=== PATIENT | male | born 1960 | race Hispanic/Latino ===

== ENCOUNTER 2017-07-11 19:37 | Inpatient (IN) | payer MEDICAID, OTHER ==
[2017-07-11] MEDS ORDERED: Propofol 10 mg/ml Inj (20 ML) IVP ONE (20:00)
[2017-07-11] MEDS ORDERED: Amiodarone 360 mg/D5W 200 ml 360 MG/200 ML BAG IV ONE (20:04)
[2017-07-11] MEDS ORDERED: Propofol 10 mg/ml 1,000 MG/100 ML VIAL IV PRN (20:11)
[2017-07-11 20:12] LABS: BASO # 0.02 K/mm3 (0.0-2.0); BASO % 0.1 % (0.0-3.0); EOS % 0.2 % (1.5-5.0); GRAN # 13.46 (1.4-6.5); GRAN % 84.4 % (50.0-68.0); HEMOGLOBIN 16.7 g/dL (14.0-18.0); MEAN CELL VOLUME 91.2 fl (80.0-105.0); MEAN CORPUSCULAR HEMOGLOBIN 29.2 pg (25.0-35.0); MEAN CORPUSCULAR HGB CONC 32.1 g/dl (31.0-37.0); MONO # 1.5 (0.1-0.6); MONO % 9.3 % (1.0-6.0); RBC 5.71 10^6/uL (3.5-6.1); VENOUS BLOOD GAS BASE EXCESS 2.8 mmol/L (0.0-2.0); VENOUS BLOOD GAS PO2 41 mm/Hg (30-55)
[2017-07-11 20:23] LABS: CALCIUM 8.8 mg/dL (8.4-10.5); GFR AFRICAN-AMERICAN > 60; GFR NON-AFRICAN AMERICAN > 60
[2017-07-11] MEDS ORDERED: DOPamine 400mg/250ml D5W 400 MG/250 ML BAG IV ONE (20:36)
[2017-07-11 20:38] LABS: ALB/GLOB RATIO 1.3 (1.1-1.8); ALBUMIN 4.1 g/dL (3.0-4.8); ALT/SGPT 109 U/L (7-56); AST/SGOT 122 U/L (17-59); BLOOD UREA NITROGEN 32 mg/dL (7-21); TROPONIN I 0.09 ng/mL
[2017-07-11 20:42] LABS: VENOUS BLOOD PH 7.19 (7.32-7.43)
[2017-07-11] MEDS ORDERED: levoFLOXacin 750 mg in D5W 750 MG/150 ML BAG IVPB STA (21:09)
[2017-07-11] MEDS ORDERED: Vancomycin 1gm in NS 250ml 1 GM/250 ML BAG IVPB STA (21:09)
--- NOTE | 2017-07-11 21:09 | ED PDOC ---
Arrival/HPI - General Chief Complaint: Altered Mental Status Time Seen by Provider: 07/11/17 19:39 Historian: EMS - History of Present Illness Narrative History of Present Illness (Text): 07/11/17 20:00 Brandon Sandoval Jr is a 57 year old male, unknown past medical history, who presents to the Emergency department brought in by EMS for altered mental status. EMS report patient was found at home lying on the floor prior to arrival. As per collateral information obtained by EMS, patient was last seen approximately 48 hours prior. HPI and ROS unobtainable secondary to patient's altered mental status. Symptom Onset: Sudden Symptom Course: Unchanged Severity Level: Severe Context: Home Past Medical History - Provider Review Nursing Documentation Reviewed: Yes - Infectious Disease Hx of Infectious Diseases: None - Psychiatric Hx Substance Use: No Family/Social History - Physician Review Nursing Documentation Reviewed: Yes Family/Social History: Unknown Family HX Smoking Status: Unknown If Ever Smoked Hx Alcohol Use: No Hx Substance Use: No Allergies/Home Meds Allergies/Adverse Reactions: Allergies amoxicillin Allergy (Verified 07/11/17 20:04) SWELLING Home Medications: Home Meds Medication Instructions Recorded Confirmed Unobtainable 07/11/17 07/11/17 Review of Systems - Review of Systems Systems not reviewed;Unavailable: Altered Mental Status Physical Exam Vital Signs Reviewed: Yes Vital Signs Temp Pulse Resp BP Pulse Ox 07/12/17 02:36 111/39 L 07/12/17 02:35 99.9 F H 07/12/17 02:28 85 20 93/53 L 100 07/12/17 01:11 82 20 86/52 L 100 07/12/17 00:15 83 20 79/57 L 100 07/11/17 23:30 82 20 88/64 L 100 07/11/17 23:15 82 20 77/51 L 100 07/11/17 23:02 83 22 124/52 L 100 07/11/17 22:01 78 17 108/51 L 100 07/11/17 21:18 78 17 90/63 L 100 07/11/17 21:00 102 H 32 H 165/56 H 91 L 07/11/17 20:35 99 H 19 135/92 H 100 07/11/17 20:06 110 H 17 131/82 100 07/11/17 20:04 124 H 21 148/72 79 L 07/11/17 20:00 110 H 79 L 07/11/17 19:59 38 L 07/11/17 19:40 93 H 32 H 135/82 84 L Blood Pressure: Normal Pulse: Tachycardic Respiratory Rate: Tachypneic Appearance: Positive for: Ill-Appearing Pain Distress: None Mental Status: Positive for: other (Awake, poorly responsive) Finger Stick Blood Glucose: 111 - Systems Exam Head: Present: Atraumatic, Normocephalic Pupils: Present: PERRL Extroacular Muscles: Present: EOMI Conjunctiva: Present: Normal Ears: Present: Normal, NORMAL TM, Normal Canal. No: Erythema, TM Bulging, Fluid , TM Perf Mouth: Present: Moist Mucous Membranes Pharnyx: Present: Normal. No: ERYTHEMA, EXUDATE, TONSILS ENLARGED, Peritonsilar Swelling, Uvular Deviation, Muffled/Hoarse Voice, Strider, Soft Palate/Uvular Edema Nose (External): Present: Atraumatic Nose (Internal): Present: Normal Inspection Neck: Present: Normal Range of Motion. No: Meningeal Signs, MIDLINE TENDERNESS , Paraspinal Tenderness Respiratory/Chest: Present: Rhonchi (Rhonchi bilaterally), Tachypneic. No: Clear to Auscultation Cardiovascular: Present: Normal S1, S2, Tachycardic. No: Murmurs Abdomen: Present: Normal Bowel Sounds. No: Tenderness (Soft), Distention, Peritoneal Signs Upper Extremity: Present: Normal Inspection. No: Cyanosis, Edema Lower Extremity: Present: Edema (Bilateral lower extremity edema), Other ( Ecchymotic bruising to right buttocks/leg) Neurological: Present: Other (Responsive to painful stimuli). No: Speech Normal (Poorly communicative) Skin: Present: Warm, Dry, Normal Color. No: Rashes Psychiatric: Present: Other (Awake, poorly responsive) Medical Decision Making ED Course and Treatment: 07/11/17 20:00 Impression: 57 year old male brought in for altered mental status, found on floor at home. Plan: -- CT Head w/o contrast -- CT Hip w/o contrast -- EKG -- CXR -- Labs, ABG, VBG, cardiac enzymes, BNP, ammonia level, blood cultures -- Urinalysis, urine cultures -- Reassess and disposition Progress Notes: On arrival to Emergency department, pt noted with progressively worsening respiratory distress, decision to intubate made. Pt intubated/ briefly went in to cardiac arrest. Pt was resuscitated immediately with normalization of vital signs Pt sedated with IV Propofol. Reviewed EKG, sinus rhythm at 97 bpm. PACs. LAD. Incomplete RBBB. PROCEDURE: INTUBATION Performed by the emergency provider Consent: Discussion of the risks, benefits, and alternatives to the procedure, along with informed consent was precluded by the urgency of the procedure and the patient condition. Timeout: A timeout to verify the correct patient, procedure, and site was performed. Indication: Respiratory distress. Pre-oxygenation: [id number] Medications: Propofol. See MAR for details. ETT Size: 8.0 Confirmation: Cords directly visualized as tube passed, good bilateral breath sounds, positive CO2 detector color change, tube fogging, adequate chest rise, improving pulse oximetry reading, improved skin color, and absence of gastric sounds,. ETT Secured: The cuff was inflated and the tube was secured appropriately at a distance of 25 cm at the lip. Post-Procedure: There were no immediate complications. CXR Confirmation: Yes Case was discussed with Dr. Leonard, tangible personal property appraiser, and medical insurance biller netsuite consultant, who are aware and agrees with plan. 07/11/17 20:20 Post-intubation chest X-ray reviewed, ET-tube above the sue, no acute changes. 07/11/17 21:06 Labs noted, WBC 16.0, lactate 3.9, pt tachycardic, Code Sepsis called. 07/11/17 21:[address] García, who is aware and agrees with plan. Accepts pt in to his service. Requests Dr. Atkinson, Dr. Bone, and Dr. Tsang on consult. Pt will be admitted to ICU for cardiopulmonary arrest and sepsis. 07/11/17 22:15 CT Head shows: Brain and ventricles: There is mild dilatation of ventricles.. There is no midline shift. There is patchy decreased attenuation in periventricular white matter. There are are mild atrophic changes in the cerebellum. There are no intra-axial or extra-axial mass lesions or areas of hemorrhage. There are no abnormal fluid collections. Thomas-white differentiation is not well visualized. Bones: Cranial vault is intact. Soft tissues: There is left preorbital soft tissue swelling and edema. There is left facial and nasal bruising and edema. There is frontal bruising and edema left greater than right. Sinuses: There is no acute sinusitis. There is mucoperiosteal thickening in the sinuses. Ears and mastoids: Middle ears and mastoids are unremarkable Orbits: Globes are intact. IMPRESSION: Dilated ventricles with small vessel disease, no bleed; facial edema and bruising. CT Left Lower Extremity shows: Bones/joints: Visualized portions of the left ilium is intact. Left ischium and pubis are intact. There is mild narrowing of the left hip joint. There is no left hip fracture. Artifact: There is streak artifact from a right hip prosthesis. Soft tissues: Muscles of the pelvic sidewall are unremarkable. Intraperitoneal space: No acute abnormality is seen in the visualized pelvis. Bladder: Bladder is empty. There is a Ag catheter. There is a small amount of air in the bladder. IMPRESSION: No fracture seen. CT Right Lower Extremity shows: Bones/joints: There is streak artifact from a right hip prosthesis. Prosthesis is incompletely imaged. No instrument failure is identified. Visualized portions of the right ilium is intact. Right ischium and pubis are intact. There is scarring and possible bruising at the right hip. Soft tissues: There are atrophic changes in muscles of the right pelvis. IMPRESSION: Right hip prosthesis, no instrument failure, no acute fracture . - Critical Care Critical Care Minutes: 45 minutes - Lab Interpretations Lab Results: 07/11/17 20:06 07/11/17 20:06 Lab Results 07/11/17 20:06: Procalcitonin 0.83 H 07/11/17 20:06: Hepatitis A IgM Ab Negative, Hep Bs Antigen Negative, Hep B Core IgM Ab Negative, Hepatitis C Antibody Negative 07/11/17 20:06: NT-Pro-B Natriuret Pep 3910 H 07/11/17 20:06: Ammonia 59 H 07/11/17 20:06: pO2 41, VBG pH 7.19 L*, VBG pCO2 89.0 H*, VBG HCO3 34.0 H, VBG Total CO2 36.7 H, VBG O2 Sat (Calc) 73.3 H, VBG Base Excess 2.8 H, VBG Potassium 8.1 H*, Sodium 137.0, Chloride 100.0, Glucose 112 H, Lactate 3.9 H, FiO2 21.0, Venous Blood Potassium 8.1 H* 07/11/17 20:06: Sodium 142, Chloride 95 L, Potassium 5.0, Carbon Dioxide 35 H, Anion Gap 18, BUN 32 H, Creatinine 1.0, Est GFR ( Amer) > 60, Est GFR ( Non-Af Amer) > 60, Random Glucose 108, Calcium 8.8, Total Bilirubin 1.6 H, AST 122 H, ALT 109 H, Alkaline Phosphatase 77, Lactate Dehydrogenase 1445 H, Total Creatine Kinase 182, Troponin I 0.09, Total Protein 7.3, Albumin 4.1, Globulin 3.3, Albumin/Globulin Ratio 1.3 07/11/17 20:06: PT 16.8 H, INR 1.46 H, APTT 26.4 07/11/17 20:06: WBC 16.0 H, RBC 5.71, Hgb 16.7, Hct 52.1 H, MCV 91.2, MCH 29.2, MCHC 32.1, RDW 16.0 H, Plt Count 417, MPV 10.0, Gran % 84.4 H, Lymph % (Auto) 6.0 L, Wolfe % (Auto) 9.3 H, Eos % (Auto) 0.2 L, Baso % (Auto) 0.1, Gran # 13.46 H, Lymph # (Auto) 1.0 L, Wolfe # (Auto) 1.5 H, Eos # (Auto) 0.0, Baso # (Auto) 0.02 I have reviewed the lab results: Yes - RAD Interpretation Radiology Orders: 07/11/17 20:04 CHEST PORTABLE [RAD] Stat 07/11/17 20:09 HEAD W/O CONTRAST [CT] Stat 07/11/17 20:47 CT HIP W/O CONTRAST BILATERAL [CT] Stat Hot Dipper: ED Physician, Radiologist - EKG Interpretation Interpreted by ED Physician: Yes Type: 12 lead EKG - Medication Orders Current Medication Orders: Aspirin (Aspirin) 325 mg PO DAILY MERI Last Admin: 07/12/17 10:08 Dose: 325 mg Clopidogrel Bisulfate (Plavix) 75 mg PO DAILY MERI Furosemide (Lasix) 20 mg IVP Q12 MERI Last Admin: 07/12/17 09:44 Dose: 20 mg MAR Blood Pressure Document 07/12/17 09:44 ALIPM (Rec: 07/12/17 09:44 ALIPM [facility] [id number] Blood Pressure Blood Pressure (100/60-150/90) 114/66 IVP Administration Document 07/12/17 09:44 ALIPM (Rec: 07/12/17 09:44 [facility] [place] Charges for Administration # of IVP Administrations 1 Propofol (Diprivan) 1,000 mg in 100 mls @ 4.114 mls/hr IV .Q24H PRN; Protocol; 5 MCG/KG/MIN PRN Reason: TITRATE PER MD ORDER Aztreonam (Azactam 1 Gm) 100 mls @ 100 mls/hr IVPB Q8 MERI PRN Reason: Protocol Stop: 07/19/17 09:01 Last Admin: 07/12/17 14:48 Dose: 100 mls/hr eMAR Start Stop Document 07/12/17 14:48 ALIPM (Rec: 07/12/17 14:49 [facility] [place] Intravenous Solution Start Date 07/12/17 Start Time 14:48 End Date 07/12/17 End time 15:48 Total Infusion Time 60 Doxycycline Hyclate 100 mg/ (Sodium Chloride) 100 mls @ 100 mls/hr IVPB Q12 MERI PRN Reason: Protocol Last Admin: 07/12/17 09:37 Dose: 100 mls/hr eMAR Start Stop Document 07/12/17 09:37 ALIPM (Rec: 07/12/17 09:38 [facility] Intravenous Solution Start Date 07/12/17 Start Time 10:50 End Date 07/12/17 End time 11:50 Total Infusion Time 60 Heparin Sodium/Sodium Chloride (Heparin 69666 Units/250ml 1/2 Normal Saline) 25 ,000 units in 250 mls @ 16.455 mls/hr IV .[id number] MERI; 12 UNITS/KG/HR PRN Reason: Protocol Last Admin: 07/12/17 07:50 Dose: 12 units/kg/hr, 16.455 mls/hr eMAR Start Stop Document 07/12/17 07:50 ALIPM (Rec: 07/12/17 12:29 [facility] Intravenous Solution Start Date 07/12/17 Start Time 07:50 MAR aPTT Document 07/12/17 07:50 ALIPM (Rec: 07/12/17 12:29 [facility] aPTT aPTT (secs) 70 Titration Intervention Document 07/12/17 07:50 ALIPM (Rec: 07/12/17 12:29 [facility] Titration Intake Waste Amount 0 Container Volume 250 Titration Dosing Titration Dose 12 IV Rate 16.455 Intake/Decrease Started Metoprolol Tartrate (Lopressor) 2.5 mg IVP Q6H [facility] Last Admin: 07/12/17 17:42 Dose: 2.5 mg IVP Administration Document 07/12/17 17:42 ALIPM (Rec: 07/12/17 17:43 [facility]) Charges for Administration # of IVP Administrations 1 [facility] Pulse and Blood Pressure Document 07/12/17 17:42 ALIPM (Rec: 07/12/17 17:43 [facility] Pulse Pulse Rate (60-90) 82 Blood Pressure Blood Pressure (100/60-150/90) 135/72 Pantoprazole Sodium (Protonix Inj) 40 mg IVP DAILY [facility] Last Admin: 07/12/17 09:37 Dose: 40 mg IVP Administration Document 07/12/17 09:37 ALIPM (Rec: 07/12/17 09:37 [facility]) Charges for Administration # of IVP Administrations 1 Discontinued Medications Clopidogrel Bisulfate (Plavix) 300 mg PO STAT STA Stop: 07/12/17 09:20 Last Admin: 07/12/17 10:08 Dose: 300 mg Enoxaparin Sodium (Lovenox) 40 mg SC DAILY [facility] PRN Reason: Protocol Furosemide (Lasix) 40 mg IVP STAT STA Stop: 07/12/17 01:08 Last Admin: 07/12/17 02:36 Dose: 40 mg MAR Blood Pressure Document 07/12/17 02:36 SS (Rec: 07/12/17 02:36 [facility] [place] [id number] Blood Pressure Blood Pressure (100/60-150/90) 111/39 IVP Administration Document 07/12/17 02:36 SS (Rec: 07/12/17 02:36 [facility] [id number] Charges for Administration # of IVP Administrations 1 Heparin Sodium (Porcine) (Heparin) 4,000 units IV ONCE ONE PRN Reason: Protocol Stop: 07/12/17 00:53 Last Admin: 07/12/17 02:15 Dose: 4,000 units eMAR Start Stop Document 07/12/17 02:15 SS (Rec: 07/12/17 02:15 [facility] [id number][facility] Intravenous Solution Start Date 07/12/17 Start Time 02:15 MAR aPTT Document 07/12/17 02:15 SS (Rec: 07/12/17 02:15 [facility] [id number][facility] aPTT aPTT (secs) 26.4 Propofol (Diprivan) 1,000 mg in 100 mls @ 2.722 mls/hr IV .Q24H PRN; Protocol; 5 MCG/KG/MIN PRN Reason: TITRATE PER MD ORDER Last Titration: 07/12/17 03:55 Dose: 7.5 mcg/kg/min, 4.082 mls/hr Mcdonald Agitation Sedation Document 07/12/17 03:55 QES (Rec: 07/12/17 06:49 QES [facility] [id number]) Mcdonald Agitation Sedation Scale Mcdonald Agitation Sedation Scale Score -2 Light Sedation: briefly awakens with eye contact to voice (<10 sec) Titration Intervention Document 07/12/17 03:55 QES (Rec: 07/12/17 06:49 QES [facility] [id number]) Titration Intake Titration Intake 8 Cumulative Intake 18 Cumulative Intake (Rx) 18 Waste Amount 0 Container Volume 82 Titration Dosing Titration Dose 7.5 IV Rate 4.082 Intake/Decrease Decreased Cumulative Dose 180 Levofloxacin/Dextrose (Levaquin 750mg) 750 mg in 150 mls @ 100 mls/hr IVPB STAT STA PRN Reason: Protocol Stop: 07/11/17 22:38 Last Admin: 07/11/17 21:37 Dose: 100 mls/hr eMAR Start Stop Document 07/11/17 21:37 SS (Rec: 07/11/17 21:37 [facility] [id number]) Intravenous Solution Start Date 07/11/17 Start Time 21:20 End Date 07/11/17 End time 22:50 Total Infusion Time 90 Vancomycin HCl (Vancomycin 1gm) 1 gm in 250 mls @ 167 mls/hr IVPB STAT STA PRN Reason: Protocol Stop: 07/11/17 22:38 Last Admin: 07/11/17 23:55 Dose: 167 mls/hr eMAR Start Stop Document 07/11/17 23:55 SS (Rec: 07/11/17 23:56 [facility] [id number][facility] Intravenous Solution Start Date 07/11/17 Start Time 23:55 End Date 07/12/17 End time 00:55 Total Infusion Time 60 Sodium Chloride (Sodium Chloride 0.9%) 1,000 mls @ 2,000 mls/hr IV .Q30M ONE Stop: 07/11/17 22:14 Last Admin: 07/11/17 23:35 Dose: 2,000 mls/hr eMAR Start Stop Document 07/11/17 23:35 SS (Rec: 07/11/17 23:36 SS [facility] [id number] Intravenous Solution Start Date 07/11/17 Start Time 21:45 End Date 07/11/17 End time 22:15 Total Infusion Time 30 Sodium Chloride (Sodium Chloride 0.9%) 1,000 mls @ 60 mls/hr IV .[id number] MERI Last Admin: 07/11/17 23:56 Dose: 60 mls/hr eMAR Start Stop Document 07/11/17 23:56 SS (Rec: 07/11/17 23:56 SS [facility] [id number]) Intravenous Solution Start Date 07/11/17 Start Time 23:56 Heparin Sodium/Sodium Chloride (Heparin 97761 Units/250ml 1/2 Normal Saline) 25 ,000 units in 250 mls @ 10.886 mls/hr IV .[id number] MERI; 12 UNITS/KG/HR PRN Reason: Protocol Stop: 07/12/17 07:50 Last Admin: 07/12/17 02:16 Dose: 12 units/kg/hr, 10.886 mls/hr eMAR Start Stop Document 07/12/17 02:16 SS (Rec: 07/12/17 02:16 SS [facility] [id number][facility] Intravenous Solution Start Date 07/12/17 Start Time 02:16 MAR aPTT Document 07/12/17 02:16 SS (Rec: 07/12/17 02:16 SS [facility] [id number]) aPTT aPTT (secs) 26.4 Titration Intervention Document 07/12/17 02:16 SS (Rec: 07/12/17 02:16 SS [facility] [id number]) Titration Intake Waste Amount 0 Container Volume 250 Titration Dosing Titration Dose 12 IV Rate 10.886 Intake/Decrease Started Lactulose (Enulose) 20 gm PO ONCE STA Stop: 07/11/17 22:00 Last Admin: 07/12/17 01:12 Dose: 20 gm Pneumococcal Polyvalent Vaccine (Pneumovax 23 Vaccine) 0.5 ml IM .ONCE ONE Stop: 07/12/17 05:53 Propofol (Diprivan) 50 mg IVP ONCE ONE Stop: 07/11/17 20:01 Last Admin: 07/11/17 20:01 Dose: 50 mg Comments: given by IVP Administration Document 07/11/17 20:01 SS (Rec: 07/11/17 23:34 SS [facility] [id number]) Charges for Administration # of IVP Administrations 1 - Scribe Statement The provider has reviewed the documentation as recorded by the Dawson Carlton Provider Scribe Attestation: All medical record entries made by the Scribe were at my direction and personally dictated by me. I have reviewed the chart and agree that the record accurately reflects my personal performance of the history, physical exam, medical decision making, and the department course for this patient. I have also personally directed, reviewed, and agree with the discharge instructions and disposition. Disposition/Present on Arrival - Present on Arrival Any Indicators Present on Arrival: No History of DVT/PE: No History of Uncontrolled Diabetes: No Urinary Catheter: No History of Decub. Ulcer: No History Surgical Site Infection Following: None - Disposition Have Diagnosis and Disposition been Completed?: Yes Diagnosis: Cardiopulmonary arrest with successful resuscitation, Sepsis Disposition: HOSPITALIZED Disposition Time: 21:15 Patient Plan: Admission Patient Problems: Current Active Problems Problem Status Onset Cardiopulmonary arrest with successful resuscitation Acute Sepsis Acute Condition: GUARDED
[2017-07-11 21:27] LABS: INR 1.46 (0.93-1.08); PARTIAL THROMBOPLASTIN TIME 26.4 Seconds (25.1-36.5); PROTHROMBIN TIME 16.8 SECONDS (9.4-12.5)
[2017-07-11] MEDS ORDERED: Sodium Chloride 0.9% 1,000 ML IV ONE (21:45)
--- NOTE | 2017-07-11 22:03 | CT ---
EXAM: CT Head Without Intravenous Contrast EXAM DATE/TIME: 07/11/2017 8:09 PM CLINICAL HISTORY: 57 years old, male; Signs and symptoms; Coma or unconsciousness; Additional info: AMS; intubated patient TECHNIQUE: Axial computed tomography images of the head/brain without intravenous contrast. All CT scans at this facility use one or more dose reduction techniques, viz.: automated exposure control; ma/kV adjustment per patient size (including targeted exams where dose is matched to indication; i.e. head); or iterative reconstruction technique. Coronal and sagittal reformatted images were created and reviewed. COMPARISON: There are no prior studies for comparison. FINDINGS: Brain and ventricles: There is mild dilatation of ventricles.. There is no midline shift. There is patchy decreased attenuation in periventricular white matter. There are are mild atrophic changes in the cerebellum. There are no intra-axial or extra-axial mass lesions or areas of hemorrhage. There are no abnormal fluid collections. Thomas-white differentiation is not well visualized. Bones: Cranial vault is intact. Soft tissues: There is left preorbital soft tissue swelling and edema. There is left facial and nasal bruising and edema. There is frontal bruising and edema left greater than right. Sinuses: There is no acute sinusitis. There is mucoperiosteal thickening in the sinuses. Ears and mastoids: Middle ears and mastoids are unremarkable Orbits: Globes are intact. IMPRESSION: Dilated ventricles with small vessel disease, no bleed; facial edema and bruising
--- NOTE | 2017-07-11 22:10 | CT ---
EXAM: CT Left Lower Extremity Without Intravenous Contrast, Hip CLINICAL HISTORY: 57 years old, male; Injury or trauma; Fall; Initial encounter; Blunt trauma; Hip; Bilateral; Additional info: Possible FX. TECHNIQUE: Axial computed tomography images of the left hip without intravenous contrast. All CT scans at this facility use one or more dose reduction techniques, viz.: automated exposure control; ma/kV adjustment per patient size (including targeted exams where dose is matched to indication; i.e. head); or iterative reconstruction technique. Coronal and sagittal reformatted images were created and reviewed. COMPARISON: There are no prior studies for comparison. FINDINGS: Bones/joints: Visualized portions of the left ilium is intact. Left ischium and pubis are intact. There is mild narrowing of the left hip joint. There is no left hip fracture. Artifact: There is streak artifact from a right hip prosthesis. Soft tissues: Muscles of the pelvic sidewall are unremarkable. Intraperitoneal space: No acute abnormality is seen in the visualized pelvis. Bladder: Bladder is empty. There is a Ag catheter. There is a small amount of air in the bladder. IMPRESSION: No fracture seen EXAM: CT Right Lower Extremity Without Intravenous Contrast, Hip EXAM DATE/TIME: 07/11/2017 8:47 PM CLINICAL HISTORY: 57 years old, male; Injury or trauma; Fall; Initial encounter; Blunt trauma; Hip; Bilateral; Additional info: Possible FX. TECHNIQUE: Axial computed tomography images of the right hip without intravenous contrast. All CT scans at this facility use one or more dose reduction techniques, viz.: automated exposure control; ma/kV adjustment per patient size (including targeted exams where dose is matched to indication; i.e. head); or iterative reconstruction technique. Coronal and sagittal reformatted images were created and reviewed. COMPARISON: There are no prior studies for comparison. FINDINGS: Bones/joints: There is streak artifact from a right hip prosthesis. Prosthesis is incompletely imaged. No instrument failure is identified. Visualized portions of the right ilium is intact. Right ischium and pubis are intact. There is scarring and possible bruising at the right hip. Soft tissues: There are atrophic changes in muscles of the right pelvis. IMPRESSION: Right hip prosthesis, no instrument failure, no acute fracture
[2017-07-11 22:12] LABS: ARTERIAL BLOOD GAS HCO3 32.4 mmol/L (21-28); ARTERIAL BLOOD GAS O2 SAT 95.8 % (95-98); ARTERIAL BLOOD GAS PCO2 69 mm/Hg (35-45); ARTERIAL BLOOD GAS PH 7.28 (7.35-7.45); ARTERIAL BLOOD GAS TCO2 34.5 mmol.L (22-28)
[2017-07-11] MEDS ORDERED: Sodium Chloride 0.9% 1,000 ML IV SCH (23:00)
[2017-07-11 23:01] LABS: PH,URINE 6.5 (4.7-8.0); URINE APPEARANCE CLOUDY (CLEAR); URINE BILIRUBIN SMALL (NEGATIVE); URINE BLOOD LARGE (NEGATIVE); URINE GLUCOSE (UA) NEGATIVE (NEGATIVE); URINE LEUKOCYTE ESTERASE NEGATIVE Leu/uL (NEGATIVE); URINE PROTEIN >=300 mg/dL (<30 mg/dL)
[2017-07-11 23:03] LABS: URINE RBC TNTC /hpf (0-2)
[2017-07-12 00:31] LABS: VENOUS BLOOD GAS BASE EXCESS 7.6 mmol/L (0.0-2.0); VENOUS BLOOD GAS PO2 41 mm/Hg (30-55); VENOUS BLOOD PH 7.25 (7.32-7.43)
[2017-07-12 00:51] LABS: TROPONIN I 0.27 ng/mL
[2017-07-12] MEDS ORDERED: Heparin25000 units/250ml 1/2NS 25,000 UNITS/250 ML BAG IV SCH (01:00)
[2017-07-12 01:50] LABS: BARBITURATES, UR NEGATIVE (NEGATIVE); BENZODIAZEPINES, UR NEGATIVE (NEGATIVE); OPIATES, UR NEGATIVE (NEGATIVE); PHENCYCLIDINE, UR NEGATIVE (NEGATIVE)
--- NOTE | 2017-07-12 02:46 | US ---
EXAM: US Abdomen Complete EXAM DATE/TIME: 07/11/2017 10:02 PM CLINICAL HISTORY: The patient age is 57 years old and is male; Pain; Abdominal pain; Generalized; Additional info: Transaminitis Facility exam id and description: Us abd abdomen complete TECHNIQUE: Real-time ultrasound of the abdomen (complete) with image documentation. COMPARISON: No relevant prior studies available. FINDINGS: Liver: The liver measures 17.5 cm in length. The liver is heterogeneously increased in echogenicity, most commonly due to fatty infiltration, but other chronic liver diseases may have a similar appearance. Gallbladder: Isoechoic sludge is identified within the gallbladder. No shadowing gallstones are visualized. There is borderline gallbladder wall thickening. Common bile duct: The common bile duct measures 0.5 cm in diameter, which is within normal limits. Pancreas: The pancreas is not visualized due to bowel gas. Kidneys: At the midpole the right kidney, there is a hypoechoic cyst measuring 3.6 x 4.6 x 4.2 cm. The right kidney measures 10.7 x 7.3 x 7.6 cm. There is no hydronephrosis of the right kidney. The left kidney measures 10.2 x 6.7 x 6.9 cm, without hydronephrosis. No shadowing stones. Spleen: The spleen is not visualized. Aorta: The abdominal aorta is not imaged. Inferior vena cava: The IVC is visualized, although the evaluation is significantly limited. IMPRESSION: 1. Isoechoic sludge is identified within the gallbladder. No shadowing gallstones are visualized. There is borderline gallbladder wall thickening. Clinical correlation is recommended. 2. At the midpole the right kidney, there is a hypoechoic cyst measuring 3.6 x 4.6 x 4.2 cm. 3. The liver is heterogeneously increased in echogenicity, most commonly due to fatty infiltration, but other chronic liver diseases may have a similar appearance. 4. Additional findings described above.
--- NOTE | 2017-07-12 03:12 | CP.PCM.HP ---
<Malcolm Johnston - Last Filed: 07/12/17 03:02> History of Present Illness - History of Present Illness History of Present Illness: Medicine/ICU H&P: Dr. Leonard Chief Complaint: AMS HPI: 57 year old male with past medical history pertinent for hypertension presents altered and non-responsive to the ED. Family at bedside, two sisters and their husbands report that patient was found by one of the sisters facedown in his kitchen. He lives on the second story of a two family home that his sister and [id number] also occupy. They state that the last time they spoke to him was Monday night (two days ago) but only on the phone, at which time he did not seem depressed nor did he say anything out of the ordinary. When they found him , he still had a pulse and he was breathing. Of note, patient underwent cardiac arrest in the ED - one round of Epi and brief compressions were given, but patient achieved ROSC almost immediately. Patient was intubated 2/2 respiratory arrest. Review of Systems: 12 point ROS unobtainable 2/2 patient's mental status Surgical History: R hip replacement Medical History: Hypertension Allergies: Amoxicillin Social History: Per patient's family no alcohol, no illicits, no tobacco Home Meds: Per MAR, reviewed Family History: Diabetes, AMI PMD: Dr. Swain and Dr. Low Present on Admission - Present on Admission Any Indicators Present on Admission: No Past Patient History - Infectious Disease Hx of Infectious Diseases: None - Past Social History Smoking Status: Unknown If Ever Smoked - PSYCHIATRIC Hx Substance Use: No Meds Allergies/Adverse Reactions: Allergies Allergy/AdvReac Type Severity Reaction Status Date / Time amoxicillin Allergy SWELLING Verified 07/11/17 20:04 Physical Exam - Constitutional Appears: In Acute Distress Additional comments: Patient is non-verbal - Head Exam Head Exam: ATRAUMATIC, NORMAL INSPECTION, NORMOCEPHALIC - Eye Exam Eye Exam: EOMI, Normal appearance, PERRL Pupil Exam: NORMAL ACCOMODATION, PERRL - ENT Exam ENT Exam: Mucous Membranes Moist, Normal Exam - Neck Exam Neck exam: Positive for: Normal Inspection - Respiratory Exam Respiratory Exam: Decreased Breath Sounds, Rales. absent: Clear to Auscultation Bilateral, Rhonchi, Wheezes, NORMAL BREATHING PATTERN Additional comments: Patient intubated - Cardiovascular Exam Cardiovascular Exam: REGULAR RHYTHM - GI/Abdominal Exam GI & Abdominal Exam: Normal Bowel Sounds, Soft. absent: Tenderness - Extremities Exam Extremities exam: Positive for: normal inspection, pedal edema Additional comments: bilateral 2+ pitting edema - Back Exam Back exam: NORMAL INSPECTION - Neurological Exam Neurological exam: Alert, CN II-XII Intact, Reflexes Normal Additional comments: Responds to painful stimuli; does not follow commands - Psychiatric Exam Psychiatric exam: Normal Affect, Normal Mood - Skin Skin Exam: Dry, Intact, Normal Color, Warm Results - Vital Signs Recent Vital Signs: Last Vital Signs Temp Pulse Resp BP 111/39 L 07/12/17 02:36 Pulse Ox - Labs Result Diagrams: 07/11/17 20:06 07/12/17 00:01 Labs: Laboratory Results - last 24 hr 07/11/17 07/11/17 07/11/17 22:09 22:22 22:48 pCO2 69 H pO2 77.0 L HCO3 32.4 H ABG pH 7.28 L ABG Total CO2 34.5 H ABG O2 Saturation 95.8 ABG Base Excess 3.5 H ABG Potassium 3.8 VBG pH VBG pCO2 VBG HCO3 VBG Total CO2 VBG O2 Sat (Calc) VBG Base Excess VBG Potassium Sodium 141.0 Chloride 106.0 Glucose 100 Lactate 1.5 Mechanical Rate 16 FiO2 100.0 Tidal Volume 500 PEEP 5 Potassium Lactate Dehydrogenase Total Creatine Kinase Troponin I Arterial Blood Potassium 3.8 Venous Blood Potassium Urine Color hilario Urine Appearance Cloudy Urine pH 6.5 Ur Specific [place] >= 1.030 Urine Protein >=300 H Urine Glucose (UA) Negative Urine Ketones 15 H Urine Blood Large H Urine Nitrate Positive H Urine Bilirubin Small H Urine Urobilinogen 1.0 H Ur Leukocyte Esterase Negative Urine RBC Tntc Urine WBC 5 - 10 Ur Epithelial Cells 1 - 3 Urine Opiates Screen Negative Urine Methadone Screen Negative Ur Barbiturates Screen Negative Ur Phencyclidine Scrn Negative Ur Amphetamines Screen Negative U Benzodiazepines Scrn Negative U Oth Cocaine Metabols Negative U Cannabinoids Screen Negative 07/11/17 07/12/17 23:53 00:01 pCO2 pO2 41 HCO3 ABG pH ABG Total CO2 ABG O2 Saturation ABG Base Excess ABG Potassium VBG pH 7.25 L VBG pCO2 87.0 H* VBG HCO3 38.2 H VBG Total CO2 40.9 H VBG O2 Sat (Calc) 71.2 H VBG Base Excess 7.6 H VBG Potassium 4.6 Sodium 140.0 Chloride 103.0 Glucose 95 Lactate 2.1 Mechanical Rate FiO2 21.0 Tidal Volume PEEP Potassium 4.5 Lactate Dehydrogenase 971 H Total Creatine Kinase 139 Troponin I 0.27 H* D Arterial Blood Potassium Venous Blood Potassium 4.6 Urine Color Urine Appearance Urine pH Ur Specific [place] Urine Protein Urine Glucose (UA) Urine Ketones Urine Blood Urine Nitrate Urine Bilirubin Urine Urobilinogen Ur Leukocyte Esterase Urine RBC Urine WBC Ur Epithelial Cells Urine Opiates Screen Urine Methadone Screen Ur Barbiturates Screen Ur Phencyclidine Scrn Ur Amphetamines Screen U Benzodiazepines Scrn U Oth Cocaine Metabols U Cannabinoids Screen Assessment & Plan - Assessment and Plan (Free Text) Assessment: 57 year old male with past medical history pertinent for hypertension is presenting with altered mental status. Head CT in the ED was negative for acute stroke. Patient was found to have elevated troponins with elevated BNP and a chest XR indicative of severe congestion with blunted costophrenic angles( as interpreted by myself). Patient was given a stat dose of lasix by me to decrease cardiac demand. Patient also found to have a transaminitis. Patient also had bilateral lower extremity swelling with rales on exam. Patient also had a white count of 16, tachycardia, and lactate of 3.9 on admission, but no clear source of infection. Regardless, a code sepsis was called in the ED. This seems like more of a picture of hypoperfusion secondary to cardiac ischemic demand, but broad spectrum coverage was initiated in the ED. Plan Neuro: Altered Mental Status, possibly 2/2 Arrhythmia VS Ischemic Cardiac Demand VS Neurological origin - Neuro checks q4h - One dose of lactulose - Propofol drip - Neurology consult: Dr. Bermudez CV: NSTEMI VS Cardiac Demand - Maintain MAP > 65 - Serial troponins and EKG - Heparin bolus and drip; Lasix q12 - Cardiology Consult: Dr. Atkinson Pulm: - Patient currently intubated - Maintain SPO2 > 90 % - 2L NC prn - Pulm Consult: Dr. Yee GI: - Alcohol Level, Hepatitis panel - OG Tube - NPO, Protonix, Lactulose Renal: - Monitor electrolytes and renal function ID: - F/u Septic work up - thomas cultures - Procalcitonin; ABG for AM - Hold fluids given patient's BNP and CXR - Continue Vanc/Levaquin (allergy to amoxicillin) - ID Consult: Dr. Tsang Endo: - TSH - Maintain glucose at 140 -160 Dispo: At this time, patient needs ICU level of care. We will follow closely. <Hawk Leonard - Last Filed: 07/12/17 04:45> Results - Vital Signs Recent Vital Signs: Last Vital Signs Temp 99.9 F H 07/12/17 02:35 Pulse 85 07/12/17 02:28 Resp 20 07/12/17 02:28 BP 111/39 L 07/12/17 02:36 Pulse Ox 100 07/12/17 02:28 - Labs Result Diagrams: 07/12/17 04:10 07/12/17 00:01 Labs: Laboratory Results - last 24 hr 07/11/17 07/11/17 07/11/17 22:09 22:22 22:48 WBC RBC Hgb Hct MCV MCH MCHC RDW Plt Count MPV Gran % Lymph % (Auto) [place] % (Auto) Eos % (Auto) Baso % (Auto) Gran # Lymph # (Auto) [place] # (Auto) Eos # (Auto) Baso # (Auto) APTT pCO2 69 H pO2 77.0 L HCO3 32.4 H ABG pH 7.28 L ABG Total CO2 34.5 H ABG O2 Saturation 95.8 ABG Base Excess 3.5 H ABG Potassium 3.8 VBG pH VBG pCO2 VBG HCO3 VBG Total CO2 VBG O2 Sat (Calc) VBG Base Excess VBG Potassium Sodium 141.0 Chloride 106.0 Glucose 100 Lactate 1.5 Mechanical Rate 16 FiO2 100.0 Tidal Volume 500 PEEP 5 Potassium Lactate Dehydrogenase Total Creatine Kinase Troponin I Arterial Blood Potassium 3.8 Venous Blood Potassium Urine Color hilario Urine Appearance Cloudy Urine pH 6.5 Ur Specific [place] >= 1.030 Urine Protein >=300 H Urine Glucose (UA) Negative Urine Ketones 15 H Urine Blood Large H Urine Nitrate Positive H Urine Bilirubin Small H Urine Urobilinogen 1.0 H Ur Leukocyte Esterase Negative Urine RBC Tntc Urine WBC 5 - 10 Ur Epithelial Cells 1 - 3 Urine Opiates Screen Negative Urine Methadone Screen Negative Ur Barbiturates Screen Negative Ur Phencyclidine Scrn Negative Ur Amphetamines Screen Negative U Benzodiazepines Scrn Negative U Oth Cocaine Metabols Negative U Cannabinoids Screen Negative Alcohol, Quantitative 07/11/17 07/12/17 07/12/17 23:53 00:01 04:10 WBC 14.2 H RBC 4.76 Hgb 13.5 L D Hct 42.0 MCV 88.2 D MCH 28.4 MCHC 32.1 RDW 15.8 H Plt Count 290 MPV 9.4 Gran % 82.5 H Lymph % (Auto) 7.5 L [place] % (Auto) 9.6 H Eos % (Auto) 0.4 L Baso % (Auto) 0.0 Gran # 11.73 H Lymph # (Auto) 1.1 L [place] # (Auto) 1.4 H Eos # (Auto) 0.1 Baso # (Auto) 0.00 APTT pCO2 pO2 41 HCO3 ABG pH ABG Total CO2 ABG O2 Saturation ABG Base Excess ABG Potassium VBG pH 7.25 L VBG pCO2 87.0 H* VBG HCO3 38.2 H VBG Total CO2 40.9 H VBG O2 Sat (Calc) 71.2 H VBG Base Excess 7.6 H VBG Potassium 4.6 Sodium 140.0 Chloride 103.0 Glucose 95 Lactate 2.1 Mechanical Rate FiO2 21.0 Tidal Volume PEEP Potassium 4.5 Lactate Dehydrogenase 971 H Total Creatine Kinase 139 Troponin I 0.27 H* D Arterial Blood Potassium Venous Blood Potassium 4.6 Urine Color Urine Appearance Urine pH Ur Specific [place] Urine Protein Urine Glucose (UA) Urine Ketones Urine Blood Urine Nitrate Urine Bilirubin Urine Urobilinogen Ur Leukocyte Esterase Urine RBC Urine WBC Ur Epithelial Cells Urine Opiates Screen Urine Methadone Screen Ur Barbiturates Screen Ur Phencyclidine Scrn Ur Amphetamines Screen U Benzodiazepines Scrn U Oth Cocaine Metabols U Cannabinoids Screen Alcohol, Quantitative 07/12/17 07/12/17 04:10 04:10 WBC RBC Hgb Hct MCV MCH MCHC RDW Plt Count MPV Gran % Lymph % (Auto) [place] % (Auto) Eos % (Auto) Baso % (Auto) Gran # Lymph # (Auto) [place] # (Auto) Eos # (Auto) Baso # (Auto) APTT 66.5 H pCO2 pO2 HCO3 ABG pH ABG Total CO2 ABG O2 Saturation ABG Base Excess ABG Potassium VBG pH VBG pCO2 VBG HCO3 VBG Total CO2 VBG O2 Sat (Calc) VBG Base Excess VBG Potassium Sodium Chloride Glucose Lactate Mechanical Rate FiO2 Tidal Volume PEEP Potassium Lactate Dehydrogenase Total Creatine Kinase Troponin I Arterial Blood Potassium Venous Blood Potassium Urine Color Urine Appearance Urine pH Ur Specific [place] Urine Protein Urine Glucose (UA) Urine Ketones Urine Blood Urine Nitrate Urine Bilirubin Urine Urobilinogen Ur Leukocyte Esterase Urine RBC Urine WBC Ur Epithelial Cells Urine Opiates Screen Urine Methadone Screen Ur Barbiturates Screen Ur Phencyclidine Scrn Ur Amphetamines Screen U Benzodiazepines Scrn U Oth Cocaine Metabols U Cannabinoids Screen Alcohol, Quantitative < 10 Attending/Attestation - Attestation I have personally seen and examined this patient.: Yes I have fully participated in the care of the patient.: Yes I have reviewed all pertinent clinical information: Yes Notes (Text): 07/12/17 04:44 Patient was seen when he was in bed # 3 in the ER . Medical record was reviewed. Agree with history, physical examination, assessment and plan. CCT Spent: 30 minutes.
[2017-07-12 04:19] LABS: EOS # 0.1 (0.0-0.7); EOS % 0.4 % (1.5-5.0); GRAN # 11.73 (1.4-6.5); GRAN % 82.5 % (50.0-68.0); LYMPH # 1.1 (1.2-3.4); LYMPH % 7.5 % (22.0-35.0); MEAN CORPUSCULAR HEMOGLOBIN 28.4 pg (25.0-35.0); MEAN CORPUSCULAR HGB CONC 32.1 g/dl (31.0-37.0); MEAN PLATELET VOLUME 9.4 fl (7.0-11.0); MONO # 1.4 (0.1-0.6); MONO % 9.6 % (1.0-6.0); RBC 4.76 10^6/uL (3.5-6.1); RED CELL DISTRIBUTION WIDTH 15.8 % (11.5-14.5); WHITE BLOOD COUNT 14.2 10^3/ul (4.5-11.0)
[2017-07-12 04:34] LABS: HEMOGLOBIN 13.5 g/dL (14.0-18.0); MEAN CELL VOLUME 88.2 fl (80.0-105.0)
[2017-07-12 04:44] LABS: ALB/GLOB RATIO 1.2 (1.1-1.8); ALBUMIN 2.8 g/dL (3.0-4.8); ALT/SGPT 105 U/L (7-56); AST/SGOT 107 U/L (17-59); BLOOD UREA NITROGEN 38 mg/dL (7-21); CALCIUM 7.9 mg/dL (8.4-10.5); GFR AFRICAN-AMERICAN > 60; GFR NON-AFRICAN AMERICAN > 60
--- NOTE | 2017-07-12 05:16 | PCM.SEPTIC ---
Sepsis Progress Note - Reassessment Type Date of Evaluation: 07/12/17 Time of Evaluation: 06:00 Reassessment Type: Non-invasive reassessment - Non Invasive Reassessment Were the most recent vital sign reviewed: Yes Vital Sign (Latest): Temp Pulse Resp BP Pulse Ox 98.5 F 81 28 H 103/60 98 07/12/17 03:46 07/12/17 04:50 07/12/17 03:46 07/12/17 04:45 07/12/17 05:02 Cardiovascular: Yes: Regular Rate, Rhythm Respiratory: Yes: Rales Capillary Refill: Normal (Less than 2 sec) Pulses: Normal Radial, Normal Dorsalis Pedis, Normal Posterior Tibialis Skin: Normal Color <Malcolm Johnston - Last Filed: 07/12/17 06:15> - Non Invasive Reassessment Vital Sign (Latest): Temp Pulse Resp BP Pulse Ox 98.5 F 82 28 H 100/57 L 99 07/12/17 03:46 07/12/17 06:20 07/12/17 03:46 07/12/17 06:15 07/12/17 06:20 <Hawk Leonard - Last Filed: 07/12/17 06:52> Attending/Attestation - Attestation I have personally seen and examined this patient.: Yes I have fully participated in the care of the patient.: Yes I have reviewed all pertinent clinical information, including history, physical exam and plan: Yes <Hawk Leonard - Last Filed: 07/12/17 06:52>
[2017-07-12 05:52] VITALS: BMI 44.6
[2017-07-12] MEDS ORDERED: Pneumococcal 23-Valent Vaccine IM ONE (05:52)
[2017-07-12] MEDS ORDERED: Pantoprazole 40 mg EC Tab PO SCH (06:00)
[2017-07-12 06:02] LABS: ARTERIAL BLOOD GAS HCO3 32.5 mmol/L (21-28); ARTERIAL BLOOD GAS O2 SAT 99.5 % (95-98); ARTERIAL BLOOD GAS PCO2 49 mm/Hg (35-45); ARTERIAL BLOOD GAS PH 7.43 (7.35-7.45)
[2017-07-12 06:14] LABS: CK MB% 3.9 % (2.5-3.0)
[2017-07-12] MEDS ORDERED: Propofol 10 mg/ml 1,000 MG/100 ML VIAL IV PRN (06:52)
[2017-07-12] MEDS: Heparin25000 units/250ml 1/2NS 25,000 UNITS/250 ML BAG IV SCH (07:50)
--- NOTE | 2017-07-12 08:57 | RAD ---
HISTORY: CHEST PAIN COMPARISON: No prior. FINDINGS: LUNGS: Low lung volumes, basilar atelectasis. PLEURA: No significant pleural effusion identified, no pneumothorax apparent. CARDIOVASCULAR: Cardiomegaly. OSSEOUS STRUCTURES: No significant abnormalities. VISUALIZED UPPER ABDOMEN: Normal. OTHER FINDINGS: Satisfactory position of endotracheal tube and nasogastric tube. IMPRESSION: No active disease.
--- NOTE | 2017-07-12 09:35 | US ---
HISTORY: Leg pain and swelling. Evaluate for DVT PHYSICIAN(S): Yang Swain MD. TECHNIQUE: Duplex sonography and color-flow Doppler with graded compression were used to evaluate the deep venous systems of both lower extremities. The exam is limited by body habitus and the patient's recent intubation. The tibial veins are not well seen FINDINGS: The visualized deep venous systems of both lower extremities are sonographically normal and compressible. Normal wave forms and augmentation are seen. There is no sonographic evidence for deep venous thrombosis in the visualized segments of both lower extremities. IMPRESSION: No sonographic evidence for deep venous thrombosis in the visualized segments of both lower extremities. Limited exam. The tibial veins are not well seen
[2017-07-12] MEDS: Aztreonam 1 Gm in NS 100mL 100 ML IVPB SCH ×3 (09:37→21:07)
[2017-07-12] MEDS ORDERED: Enoxaparin 40 mg Syringe SC SCH (10:00)
[2017-07-12] MEDS ORDERED: levoFLOXacin 250 mg in D5W 250 MG/50 ML BAG IVPB SCH (10:00)
[2017-07-12] MEDS ORDERED: Vancomycin 1gm in NS 250ml 1 GM/250 ML BAG IVPB SCH (10:00)
--- NOTE | 2017-07-12 10:44 | CP.PCM.CON ---
History of Present Illness - History of Present Illness History of Present Illness: Neurology Consult Note - Dr. Bermudez CC: Found face down with pulse and breathing, facial an lower extremity Edema HPI: 57 M with a PMHx of HTN and heart failure presented to [facility] by family after being found in his kitchen face down. Pt sister found pt roughly 6-7 pm yesterday after last speaking to him on Monday night. Pt was found underneath kitchen table, had pulse and was breathing as per family. Pt sister noted that he had facial swelling as well as lower extremity swelling. Pt responded when called out by name, was confused as to what time/day it was. Pt was able to speak however, on account of the swelling, sounded slurred and forced. No drug paraphenelia or bottles found at home. Pt once in ED during intubation became HD unstable and coded, achieved ROSC after ALCS protocol initiated, pt received one dose epinephrine and short duration of compressions. Pt was intubated and transferred to ICU for further management and care. Pt was extubated to BIPAP this morning. Pt denied fever, chills, abdominal pains, nausea, vomiting, diarrhea, constipation or dysuria. Pt is tolerating BIPAP. 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 [employer] FamHx: DM/AMI Meds: Lisinopril-HCTZ 20-12.5 BID, Furosemide 20mg daily (never filled), noncompliant Allergies: Amoxicillin Review of Systems - Review of Systems Systems not reviewed;Unavailable: Acuity of Condition Past Patient History - Infectious Disease Hx of Infectious Diseases: None - Past Social History Smoking Status: Unknown If Ever Smoked - CARDIAC Hx Cardiac Disorders: Yes Hx Congestive Heart Failure: Yes (BNP on admission 3910.) Hx Hypertension: Yes (As per sister.) Hx Peripheral Edema: Yes (noted with +4 B/L LE edema; pitting.) - PULMONARY Hx Respiratory Disorders: (Unknown at present.) Hx Asthma: (Unknown at present.) Hx Bronchitis: (Unknown at present.) Hx Chronic Obstructive Pulmonary Disease (COPD): (Unknown at present.) Hx Emphysema: (Unknown at present.) Hx Pneumonia: (Unknown at present.) Hx Respiratory Aspiration: (Unknown at present.) Hx Respiratory Tract Infection: (Unknown at present.) Hx Sleep Apnea: (Unknown at present.) Hx Tuberculosis: (Unknown at present.) - NEUROLOGICAL Hx Neurological Disorder: (Unknown at present.) Hx Alzheimer's Disease: (Unknown at present.) HX Cerebrovascular Accident: (Unknown at present.) Hx Dementia: (Unknown at present.) Hx Dizziness: (Unknown at present.) Hx Meningitis: (Unknown at present.) Hx Migraine: (Unknown at present.) Hx Parkinson's Disease: (Unknown at present.) Hx Seizures: (Unknown at present.) Hx Transient Ischemic Attacks (TIA): (Unknown at present.) - HEENT Hx HEENT Problems: (Unknown at present.) Hx Blind: (Unknown at present.) Hx Cataracts: (Unknown at present.) Hx Deafness: (Unknown at present.) Hx Difficulty Chewing: (Unknown at present.) Hx Epistaxis: (Unknown at present.) Hx Glaucoma: (Unknown at present.) Hx Macular Degeneration: (Unknown at present.) - RENAL Hx Renal Failure: Yes (Pt with elevated BUN on admission.) - ENDOCRINE/METABOLIC Hx Endocrine Disorders: (Unknown at present.) Hx Adrenal Cancer: (Unknown at present.) Hx Diabetes Insipidus: (Unknown at present.) Hx Diabetes Mellitus Type 1: (Unknown at present.) Hx Diabetes Mellitus Type 2: (Unknown at present.) Hx Hyperthyroidism: (Unknown at present.) Hx Hypothyroidism: (Unknown at present.) Hx Systemic Lupus Erythematosus: (Unknown at present.) - HEMATOLOGICAL/ONCOLOGICAL Hx Blood Disorders: (Unknown at present.) Hx AIDS: (Unknown at present.) Hx Anemia: (Unknown at present.) Hx Cancer: (Unknown at present.) Hx Chemotherapy: (Unknown at present.) Hx Cirrhosis: (Unknown at present.) Hx Hemophilia: (Unknown at present.) Hx Hepatitis A: (Unknown at present.) Hx Hepatitis B: (Unknown at present.) Hx Hepatitis C: (Unknown at present.) Hx Human Immunodeficiency Virus (HIV): (Unknown at present.) Hx Metastesis: (Unknown at present.) Hx Shingles: (Unknown at present.) Hx Sickle Cell Disease: (Unknown at present.) Hx Unexplained Bleeding: (Unknown at present.) - INTEGUMENTARY Hx Dermatological Problems: Yes (Reddened fungal-like rash noted to groin region.) - MUSCULOSKELETAL/RHEUMATOLOGICAL Hx Musculoskeletal Disorders: Yes Hx Falls: Yes Hx Fractures: (Unknown at present.) Hx Unsteady Gait: Yes (Uses a cane.) - GASTROINTESTINAL Hx Gastrointestinal Disorders: (Unknown at present.) Hx Colostomy: (Unknown at present.) Hx Crohn's Disease: (Unknown at present.) Hx Diverticulitis: (Unknown at present.) Hx Gall Bladder Disease: (Unknown at present.) Hx Gastroesophageal Reflux: (Unknown at present.) Hx Ileostomy: (Unknown at present.) Hx Liver Failure: (Unknown at present.) Hx Pancreatitis: (Unknown at present.) HX Swallowing Problems: (Unknown at present.) Hx Ulcer: (Unknown at present.) - GENITOURINARY/GYNECOLOGICAL Hx Genitourinary Disorders: (Unknown at present.) Hx Hematuria: (Unknown at present.) Hx Incontinence: (Unknown at present.) Hx Prostate Problems: (Unknown at present.) Hx Sexually Transmitted Disorders: (Unknown at present.) Hx Urinary Tract Infection: (Unknown at present.) - PSYCHIATRIC Hx Substance Use: No - SURGICAL HISTORY Hx Surgeries: Yes Hx Appendectomy: Yes Hx Joint Replacement: Yes (Rt hip replacement 3-4 years ago.) Meds Allergies/Adverse Reactions: Allergies Allergy/AdvReac Type Severity Reaction Status Date / Time amoxicillin Allergy SWELLING Verified 07/11/17 20:04 - Medications Medications: Current Medications Aspirin (Aspirin) 325 mg PO DAILY [facility] Last Admin: 07/12/17 10:08 Dose: 325 mg Clopidogrel Bisulfate (Plavix) 75 mg PO DAILY [facility] Furosemide (Lasix) 20 mg IVP Q12 [facility] Last Admin: 07/12/17 09:44 Dose: 20 mg Heparin Sodium/Sodium Chloride (Heparin 98326 Units/250ml 1/2 Normal Saline) 25 ,000 units in 250 mls @ 10.886 mls/hr IV .[id number] [facility]; 12 UNITS/KG/HR PRN Reason: Protocol Last Admin: 07/12/17 02:16 Dose: 12 units/kg/hr, 10.886 mls/hr Propofol (Diprivan) 1,000 mg in 100 mls @ 4.114 mls/hr IV .Q24H PRN; Protocol; 5 MCG/KG/MIN PRN Reason: TITRATE PER MD ORDER Aztreonam (Azactam 1 Gm) 100 mls @ 100 mls/hr IVPB Q8 [facility] PRN Reason: Protocol Stop: 07/19/17 09:01 Last Admin: 07/12/17 09:37 Dose: 100 mls/hr Doxycycline Hyclate 100 mg/ (Sodium Chloride) 100 mls @ 100 mls/hr IVPB Q12 [facility] PRN Reason: Protocol Last Admin: 07/12/17 09:37 Dose: 100 mls/hr Pantoprazole Sodium (Protonix Inj) 40 mg IVP DAILY [facility] Last Admin: 07/12/17 09:37 Dose: 40 mg Physical Exam - Constitutional Appears: No Acute Distress - Head Exam Head Exam: ATRAUMATIC, NORMAL INSPECTION, NORMOCEPHALIC - Eye Exam Eye Exam: EOMI, Normal appearance, PERRL Pupil Exam: NORMAL ACCOMODATION, PERRL - ENT Exam ENT Exam: Mucous Membranes Moist, Normal Exam - Respiratory Exam Respiratory Exam: Decreased Breath Sounds - Cardiovascular Exam Cardiovascular Exam: REGULAR RHYTHM, +S1, +S2 - GI/Abdominal Exam GI & Abdominal Exam: Normal Bowel Sounds, Soft. absent: Tenderness - Neurological Exam Neurological exam: Alert, CN II-XII Intact, Oriented x3, Reflexes Normal - Psychiatric Exam Psychiatric exam: Normal Affect, Normal Mood - Skin Skin Exam: Dry, Intact, Normal Color, Warm Results - Vital Signs Recent Vital Signs: Last Vital Signs Temp 99.6 F 07/12/17 08:00 Pulse 89 07/12/17 10:20 Resp 27 H 07/12/17 10:20 BP 115/64 07/12/17 10:01 Pulse Ox 97 07/12/17 10:20 - Labs Result Diagrams: 07/12/17 04:10 07/12/17 04:10 Labs: Laboratory Results - last 24 hr 07/11/17 07/11/17 07/11/17 22:09 22:22 22:48 WBC RBC Hgb Hct MCV MCH MCHC RDW Plt Count MPV Gran % Lymph % (Auto) Curry % (Auto) Eos % (Auto) Baso % (Auto) Gran # Lymph # (Auto) Curry # (Auto) Eos # (Auto) Baso # (Auto) APTT pCO2 69 H pO2 77.0 L HCO3 32.4 H ABG pH 7.28 L ABG Total CO2 34.5 H ABG O2 Saturation 95.8 ABG Base Excess 3.5 H ABG Potassium 3.8 VBG pH VBG pCO2 VBG HCO3 VBG Total CO2 VBG O2 Sat (Calc) VBG Base Excess VBG Potassium Sodium 141.0 Chloride 106.0 Glucose 100 Lactate 1.5 Mechanical Rate 16 FiO2 100.0 Tidal Volume 500 PEEP 5 Potassium Carbon Dioxide Anion Gap BUN Creatinine Est GFR ( Amer) Est GFR (Non-Af Amer) Random Glucose Calcium Phosphorus Magnesium Total Bilirubin AST ALT Alkaline Phosphatase Lactate Dehydrogenase Total Creatine Kinase CK-MB (CK-2) CK-MB (CK-2) % Troponin I Total Protein Albumin Globulin Albumin/Globulin Ratio TSH 3rd Generation Arterial Blood Potassium 3.8 Venous Blood Potassium Urine Color hilario Urine Appearance Cloudy Urine pH 6.5 Ur Specific Parkin >= 1.030 Urine Protein >=300 H Urine Glucose (UA) Negative Urine Ketones 15 H Urine Blood Large H Urine Nitrate Positive H Urine Bilirubin Small H Urine Urobilinogen 1.0 H Ur Leukocyte Esterase Negative Urine RBC Tntc Urine WBC 5 - 10 Ur Epithelial Cells 1 - 3 Urine Opiates Screen Negative Urine Methadone Screen Negative Ur Barbiturates Screen Negative Ur Phencyclidine Scrn Negative Ur Amphetamines Screen Negative U Benzodiazepines Scrn Negative U Oth Cocaine Metabols Negative U Cannabinoids Screen Negative Alcohol, Quantitative 07/11/17 07/12/17 07/12/17 23:53 00:01 04:10 WBC RBC Hgb Hct MCV MCH MCHC RDW Plt Count MPV Gran % Lymph % (Auto) Curry % (Auto) Eos % (Auto) Baso % (Auto) Gran # Lymph # (Auto) Curry # (Auto) Eos # (Auto) Baso # (Auto) APTT pCO2 pO2 41 HCO3 ABG pH ABG Total CO2 ABG O2 Saturation ABG Base Excess ABG Potassium VBG pH 7.25 L VBG pCO2 87.0 H* VBG HCO3 38.2 H VBG Total CO2 40.9 H VBG O2 Sat (Calc) 71.2 H VBG Base Excess 7.6 H VBG Potassium 4.6 Sodium 140.0 143 Chloride 103.0 99 Glucose 95 Lactate 2.1 Mechanical Rate FiO2 21.0 Tidal Volume PEEP Potassium 4.5 4.2 Carbon Dioxide 34 H Anion Gap 14 BUN 38 H Creatinine 1.2 Est GFR ( Amer) > 60 Est GFR (Non-Af Amer) > 60 Random Glucose 87 Calcium 7.9 L Phosphorus 4.7 H Magnesium 2.2 Total Bilirubin 0.9 AST 107 H ALT 105 H Alkaline Phosphatase 53 Lactate Dehydrogenase 971 H 1020 H Total Creatine Kinase 139 307 H CK-MB (CK-2) 12.0 H CK-MB (CK-2) % 3.9 H Troponin I 0.27 H* D 0.70 H* D Total Protein 5.2 L Albumin 2.8 L Globulin 2.4 Albumin/Globulin Ratio 1.2 TSH 3rd Generation Arterial Blood Potassium Venous Blood Potassium 4.6 Urine Color Urine Appearance Urine pH Ur Specific Parkin Urine Protein Urine Glucose (UA) Urine Ketones Urine Blood Urine Nitrate Urine Bilirubin Urine Urobilinogen Ur Leukocyte Esterase Urine RBC Urine WBC Ur Epithelial Cells Urine Opiates Screen Urine Methadone Screen Ur Barbiturates Screen Ur Phencyclidine Scrn Ur Amphetamines Screen U Benzodiazepines Scrn U Oth Cocaine Metabols U Cannabinoids Screen Alcohol, Quantitative 07/12/17 07/12/17 07/12/17 04:10 04:10 04:10 WBC 14.2 H RBC 4.76 Hgb 13.5 L D Hct 42.0 MCV 88.2 D MCH 28.4 MCHC 32.1 RDW 15.8 H Plt Count 290 MPV 9.4 Gran % 82.5 H Lymph % (Auto) 7.5 L Curry % (Auto) 9.6 H Eos % (Auto) 0.4 L Baso % (Auto) 0.0 Gran # 11.73 H Lymph # (Auto) 1.1 L Curry # (Auto) 1.4 H Eos # (Auto) 0.1 Baso # (Auto) 0.00 APTT 66.5 H pCO2 pO2 HCO3 ABG pH ABG Total CO2 ABG O2 Saturation ABG Base Excess ABG Potassium VBG pH VBG pCO2 VBG HCO3 VBG Total CO2 VBG O2 Sat (Calc) VBG Base Excess VBG Potassium Sodium Chloride Glucose Lactate Mechanical Rate FiO2 Tidal Volume PEEP Potassium Carbon Dioxide Anion Gap BUN Creatinine Est GFR ( Amer) Est GFR (Non-Af Amer) Random Glucose Calcium Phosphorus Magnesium Total Bilirubin AST ALT Alkaline Phosphatase Lactate Dehydrogenase Total Creatine Kinase CK-MB (CK-2) CK-MB (CK-2) % Troponin I Total Protein Albumin Globulin Albumin/Globulin Ratio TSH 3rd Generation 2.62 Arterial Blood Potassium Venous Blood Potassium Urine Color Urine Appearance Urine pH Ur Specific Parkin Urine Protein Urine Glucose (UA) Urine Ketones Urine Blood Urine Nitrate Urine Bilirubin Urine Urobilinogen Ur Leukocyte Esterase Urine RBC Urine WBC Ur Epithelial Cells Urine Opiates Screen Urine Methadone Screen Ur Barbiturates Screen Ur Phencyclidine Scrn Ur Amphetamines Screen U Benzodiazepines Scrn U Oth Cocaine Metabols U Cannabinoids Screen Alcohol, Quantitative < 10 07/12/17 07/12/17 05:40 07:50 WBC RBC Hgb Hct MCV MCH MCHC RDW Plt Count MPV Gran % Lymph % (Auto) Curry % (Auto) Eos % (Auto) Baso % (Auto) Gran # Lymph # (Auto) Curry # (Auto) Eos # (Auto) Baso # (Auto) APTT 70.2 H pCO2 49 H pO2 126.0 H HCO3 32.5 H ABG pH 7.43 ABG Total CO2 34.0 H ABG O2 Saturation 99.5 H ABG Base Excess 6.9 H ABG Potassium 3.7 VBG pH VBG pCO2 VBG HCO3 VBG Total CO2 VBG O2 Sat (Calc) VBG Base Excess VBG Potassium Sodium 143.0 Chloride 106.0 Glucose 82 Lactate 1.1 Mechanical Rate FiO2 100.0 Tidal Volume PEEP Potassium Carbon Dioxide Anion Gap BUN Creatinine Est GFR ( Amer) Est GFR (Non-Af Amer) Random Glucose Calcium Phosphorus Magnesium Total Bilirubin AST ALT Alkaline Phosphatase Lactate Dehydrogenase Total Creatine Kinase CK-MB (CK-2) CK-MB (CK-2) % Troponin I Total Protein Albumin Globulin Albumin/Globulin Ratio TSH 3rd Generation Arterial Blood Potassium 3.7 Venous Blood Potassium Urine Color Urine Appearance Urine pH Ur Specific Parkin Urine Protein Urine Glucose (UA) Urine Ketones Urine Blood Urine Nitrate Urine Bilirubin Urine Urobilinogen Ur Leukocyte Esterase Urine RBC Urine WBC Ur Epithelial Cells Urine Opiates Screen Urine Methadone Screen Ur Barbiturates Screen Ur Phencyclidine Scrn Ur Amphetamines Screen U Benzodiazepines Scrn U Oth Cocaine Metabols U Cannabinoids Screen Alcohol, Quantitative Assessment & Plan - Assessment and Plan (Free Text) Assessment: 57 M with a PMHx of HTN, medication non-compliance and heart failure presented to [facility] by family after being found in his kitchen face down and s/p cardiac arrest with ROSC achieved after ACLS protocol initiated. Pt has hematoma to right hip, imaging did not demonstrate and acute pathology. Pt symptoms likely cardiogenic in cause. Pt extubated this morning. Utox negative. CTH demonstrated dilated ventricles and small vessel disease, no evidence of acute infarct or hemmorhage. Pt arrived with borderline troponins, uptrended s/p cardiac arrest, on heparin drip. BNP elevated 3910. CXR demonstrated bibasilar atelecatsis and pleural effusion. Pt with boyce, being diuresed with lasix. Echo pending. Pt has mild transamenemia with mildly elevated ammonia levels. Lactulose administered. Fu septic workup, hep panel, MRI possible EEG. Pt is for cardiac cath tomorrow noon. Continue medical management as per ICU team.
--- NOTE | 2017-07-12 11:06 | CP.PCM.CON ---
History of Present Illness - History of Present Illness History of Present Illness: 57 year old male with PMH of HTN, morbid obesity with BMI 45, S/P right hip replacement was brought in to [facility] after he was found to be on the kitchen floor on his left side, confused. In the ED, while the patient was being evaluated, became bradycardic and pulseless but was revived after ACLS was initiated, was intubated and sent to the ICU for close monitoring and management. The patient this morning was extubated and is currently on a BiPAP. He is awake and alert but has no recollection of what happened to him except that he went to the kitchen and he does not remember anything after that. He denies headache currently, no fevers, no abdominal pain, has left sided chest pain, left side of the body pain and has developed a hematoma on the left side. He was found to have leukocytosis as well on admission and Infectious diseases consult is requested to further evaluate and manage. Review of Systems - Review of Systems All systems: reviewed and no additional remarkable complaints except (as per HPI ) Past Patient History - Infectious Disease Hx of Infectious Diseases: None - Past Social History Smoking Status: Unknown If Ever Smoked - PSYCHIATRIC Hx Substance Use: No Meds Allergies/Adverse Reactions: Allergies Allergy/AdvReac Type Severity Reaction Status Date / Time amoxicillin Allergy SWELLING Verified 07/11/17 20:04 - Medications Medications: Current Medications Propofol (Diprivan) 1,000 mg in 100 mls @ 2.722 mls/hr IV .Q24H PRN; Protocol; 5 MCG/KG/MIN PRN Reason: TITRATE PER MD ORDER Levofloxacin/Dextrose (Levaquin 750mg) 750 mg in 150 mls @ 100 mls/hr IVPB STAT STA PRN Reason: Protocol Stop: 07/11/17 22:38 Last Admin: 07/11/17 21:37 Dose: 100 mls/hr Vancomycin HCl (Vancomycin 1gm) 1 gm in 250 mls @ 167 mls/hr IVPB STAT STA PRN Reason: Protocol Stop: 07/11/17 22:38 Sodium Chloride (Sodium Chloride 0.9%) 1,000 mls @ 2,000 mls/hr IV .Q30M ONE Stop: 07/11/17 22:14 Physical Exam - Constitutional Appears: Other (on BiPAP) - Head Exam Head Exam: NORMAL INSPECTION - ENT Exam ENT Exam: Mucous Membranes Moist - Neck Exam Neck exam: Negative for: Lymphadenopathy, Meningismus - Respiratory Exam Respiratory Exam: Decreased Breath Sounds - Cardiovascular Exam Cardiovascular Exam: +S1, +S2 - GI/Abdominal Exam GI & Abdominal Exam: Soft. absent: Tenderness - Extremities Exam Additional comments: left side of body with hematoma Results - Labs Result Diagrams: 07/12/17 04:10 07/12/17 04:10 Assessment & Plan - Assessment and Plan (Free Text) Plan: Assessment Systemic Inflammatory Response syndrome, S/P VDRF and S/P acute encephalopathy, R/O acute myocardial infarction, R/O sepsis source to be determined HTN morbid obesity with BMI 45 S/P right hip replacement Plan Started the patient on a dose of IV Vancomycin and started Azactam and Doxycycline pending blood cx, urine cx, PCT; CXR showed bibasilar atelectasis but cannot rule out pneumonia - will check the repeat CXR tomorrow follow up Cardio work up for the patient (Troponins are elevated) will monitor clinically
[2017-07-12] MEDS: Metoprolol 1 mg/ml Inj IVP SCH ×3 (11:17→22:53)
[2017-07-12 12:20] LABS: HEPATITIS B SURFACE AG Negative (NEGATIVE)
[2017-07-12 12:27] LABS: HEPATITIS A IGM NEGATIVE (NEGATIVE); HEPATITIS B CORE AB NEGATIVE (NEGATIVE)
[2017-07-12 12:39] LABS: HEPATITIS C ANTIBODY NEGATIVE (NEGATIVE)
--- NOTE | 2017-07-12 14:32 | PN ---
DATE: 07/12/2017 SUBJECTIVE: I did review the initial H and P that was done by Dr. Leonard. The patient is intubated, is on propofol for sedation. PHYSICAL EXAMINATION: VITAL SIGNS: Temperature is 99.9, pulse of 85, blood pressure is 99/40, respirations 20, O2 saturation 96%. GENERAL: The patient is lying in bed, flat, comfortable. HEENT: No oral lesion. Anicteric sclerae. Moist mucosa. Positive ETT. NECK: No JVD, adenopathy, or thyromegaly. CARDIOVASCULAR: S1 and S2, regular. No murmurs, rubs, or gallops. LUNGS: Clear to auscultation bilaterally. No wheeze, rales, or rhonchi. ABDOMEN: Bowel sounds are positive. Soft, nontender and nondistended. EXTREMITIES: No cyanosis, clubbing or edema. LABORATORY DATA: White count is 16, hemoglobin is 16.7, platelet count is 417. INR is 1.46. The pH of 7.28 with pCO2 of 69. Anion gap was 18. Initial lactate was 3.9. Chemistry shows creatinine of 1.2, LDH is 1020, CK-MB is 12. Urine shows protein is clear at 300, blood is large, nitrites are positive. Toxicology shows urine toxicology is negative, alcohol is negative. CT of the head done shows dilated ventricle with small vessel disease. Abdominal x-ray shows sludge identified within the gallbladder. No shattering gallstones are visualized. At the middle pole of the right kidney, there is a hypoechoic cyst, 3.6 x 4.6 x 4.2 cm. There is a fatty liver. CT of the hip done shows right hip prosthesis. Chest x-ray done shows bilateral pleural effusion. ASSESSMENT: 1. Sepsis. 2. Status post cardiac arrest. 3. History of . 4. Respiratory failure, on ventilator. 5. Right kidney cyst, 3.6 x 4.6 x 4.2 cm. 6. Hypoxia. PLAN: The patient is going to be admitted to the hospital. He has changes in the mental status. He was bradycardic and had cardiac arrest in the ER. He is intubated and resuscitated successfully. The patient is currently on heparin because he has elevated troponins. Concern of cardiac issues that may be causing this. The patient is on Protonix. He is going to continue with vancomycin for antibiotics. Lower extremity Doppler has been ordered. I did speak to Dr. Atkinson regarding the case. He will get Neurology evaluation. Also, get ID evaluation. Continue to follow closely. Terry García MD
[2017-07-12 15:31] LABS: TROPONIN I 0.85 ng/mL
--- NOTE | 2017-07-12 16:17 | CON ---
DATE: 07/12/2017 REASON FOR THE CONSULTATION: Followup cardiac evaluation, admitted with respiratory failure, CPR, status post intubated, borderline positive troponin. 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 When the airborne electronics analyst went there, the patient was still breathing and had pulse, so they brought here where the patient in the ER went into cardiac arrest. One round of epi was given. A very brief CPR was done and then intubated and achieved ROS, now currently is being intubated, sedated. PAST MEDICAL HISTORY: Hypertension. SOCIAL HISTORY: Unobtainable. The patient's chart mentioned no history of alcohol abuse or tobacco abuse. CURRENT MEDICATION AT HOME: Unobtainable. As per Dr. García, he is just taking hypertensive medication. FAMILY HISTORY: Not obtainable. PHYSICAL EXAMINATION: VITAL SIGNS: Height of the patient is 5 feet 9 inches, weight of the patient is 302 pounds. Body mass index 44.6 kg/m2. Temperature afebrile, heart rate 85, blood pressure 99/40. HEENT: PERRLA. Extraocular muscles intact. NECK: Supple. No carotid bruit. No thyromegaly. CHEST: Clear to auscultation. HEART: S1 and S2 regular. ABDOMEN: Soft. EXTREMITIES: Clubbing and cyanosis negative. LABORATORY DATA: Blood workup as follows; WBC 14.8, hemoglobin 13.5, hematocrit 42, platelet count 290. Chemistry shows sodium 140, potassium 4.2, chloride 99, carbon dioxide 34, anion gap of 14, BUN 38, creatinine 1.2. Troponin first one was negative 0.09, repeat was 0.27, then 0.7 with CPK 307. EKG showed normal sinus. No acute ST-T changes noted. IMPRESSION: Unresponsive, cardiac arrest, status post cardiopulmonary resuscitation, history of hypertension. Positive troponin could be secondary to cardiopulmonary resuscitation, but could be underlying coronary artery disease, respiratory failure. RECOMMENDATION: We will get lipid profile, TSH, hemoglobin A1c and echo to assess LV function. I discussed with Dr. Gaston. I discussed with Dr. García. Once the patient extubated, consider cardiac catheterization. We will put aspirin, Plavix on board and try to extubate him. If extubated today, we will get cardiac catheterization tomorrow. We will discuss with the family. I will try to get more information from the family. Chest x-ray shows no active cardiac disease at this time. Enlarged cardiac silhouette and poor inspiratory effort. We will get hemoglobin A1c as well as fasting lipid tomorrow. Thank you, Dr. García, for providing us the opportunity in taking care of the patient, Brandon Sandoval. Taye Atkinson MD cc: Terry García MD.
--- NOTE | 2017-07-12 18:10 | CARD ---
APPROVED REPORT EXAM: Two-dimensional and M-mode echocardiogram with Doppler and color Doppler. INDICATION S/P CPR 2D DIMENSIONS RVDd5.0 (2.9-3.5cm)IVSd1.3 (0.7-1.1cm) LVDd4.5 (3.9-5.9cm)PWd1.1 (0.7-1.1cm) LVDs3.2 (2.5-4.0cm)FS (%) 28.9 % LVEF (%)55.8 (>50%) M-Mode DIMENSIONS Aortic Root3.80 (2.2-3.7cm)Aortic Cusp Exc.2.10 (1.5-2.0cm) Aortic Valve AoV Peak Xhgvzbsd603.0cm/Marek Peak GR.7mmHg Mitral Valve MV E Mjlsdtgq51.4cm/sMV A Ueanncwm40.6cm/sE/A ratio0.7 TDI Lateral E' Peak V12.30cm/sMedial E' Peak V5.46cm/sE/Lateral E'3.8 E/Medial E'8.5 Pulmonary Valve PV Peak Knsohktu68.1cm/sPV Peak Grad.2mmHg Tricuspid Valve TR Peak Wyawiycv348vp/sRAP FQPCLEKL48dtKaMD Peak Gr.16mmHg [id number] LEFT VENTRICLE The left ventricle is normal size. There is mild concentric left ventricular hypertrophy. The left ventricular function is normal.EF-55% There is normal LV segmental wall motion. Transmitral Doppler flow pattern is Grade III-reversible restrictive diastolic dysfunction. No left ventricle thrombus noted on this study. There is no ventricular septal defect visualized. There is no left ventricular aneurysm. There is no mass noted in the left ventricle. RIGHT VENTRICLE The right ventricle is moderately dilated. There is normal right ventricular wall thickness. Systolic function of RV is mildly to moderately reduced. ATRIA The left atrium is mildly dilated. The right atrium size is normal. The interatrial septum is intact with no evidence for an atrial septal defect. AORTIC VALVE The aortic valve is thickened but opens well. The aortic valve is moderately sclerotic. There is trace aortic regurgitation. There is no aortic valvular stenosis. There is no aortic valvular vegetation. MITRAL VALVE The mitral valve is thickened but opens well. Mitral regurgitation is trace. There is no mitral valve stenosis. There is no evidence of mitral valve prolapse. TRICUSPID VALVE The tricuspid valve leaflets are thickened , but open well. There is trace tricuspid regurgitation.RVSP-26 mmof hg. There is no tricuspid valve stenosis. There is no tricuspid valve prolapse or vegetation. PULMONIC VALVE The pulmonic valve is not well visualized. GREAT VESSELS The aortic root is normal in size. The ascending aorta is normal in size. The pulmonary artery is normal. The IVC was not visualized. PERICARDIAL EFFUSION There is no pleural effusion. There is no pericardial effusion. <Conclusion> The left ventricle is normal size. There is mild concentric left ventricular hypertrophy. The left ventricular function is normal.EF-55% The right ventricle is moderately dilated. Systolic function of RV is mildly to moderately reduced. There is trace aortic regurgitation. Mitral regurgitation is trace. There is trace tricuspid regurgitation.RVSP-26 mmof hg. There is no pericardial effusion.
--- NOTE | 2017-07-12 19:09 | CARD ---
APPROVED REPORT EKG Measurement Heart [id number] [place] 170P17 [id number] <Conclusion> Normal sinus rhythm Left axis deviation Incomplete right bundle branch block ST & T wave abnormality, consider lateral ischemia Prolonged QT Abnormal ECG
--- NOTE | 2017-07-12 19:18 | CARD ---
APPROVED REPORT EKG Measurement Heart [id number] [place] 172P35 [id number] <Conclusion> Normal sinus rhythm Left axis deviation Nonspecific T wave abnormality Prolonged QT Abnormal ECG
--- NOTE | 2017-07-12 19:26 | CARD ---
APPROVED REPORT EKG Measurement Heart [id number] <Conclusion> Sinus rhythm with premature atrial complexes Possible Left atrial enlargement Left axis deviation Pulmonary disease pattern Incomplete right bundle branch block Abnormal ECG
--- NOTE | 2017-07-12 20:46 | CON ---
DATE: 07/12/2017 PULMONARY CONSULTATION The patient was seen and examined at bedside. He is intubated. HISTORY OF PRESENT ILLNESS: He presented in a nonresponsive status to emergency room. The history is that his family spoke to him two days prior to admission on the phone. They stated that he was depressed and when they found him, he still had the pulse and he was breathing. The patient underwent cardiac arrest protocol in the emergency department. He was given epinephrine and brief compressions. The rhythm was restored. Patient is now moving and breathing on his own. FAMILY HISTORY: According to the family, no history of inherited diseases. Family history of diabetes and acute AR. SOCIAL HISTORY: Denied tobacco, alcohol or illicit drugs. ALLERGIES: KNOWN ALLERGY TO AMOXICILLIN. PAST MEDICAL HISTORY: Hypertension. HOME MEDICATION: Per MAR reviewed. REVIEW OF SYSTEMS: Was conducted from after reviewing all sources. NEUROLOGIC: Unable to assess, he is intubated and sedated. PULMONARY: No history of smoking or pulmonary disease. CARDIOVASCULAR: History of hypertension. The rest of the systems are reviewed and found to be negative. PHYSICAL EXAMINATION: VITAL SIGNS: His blood pressure is 111/60, pulse oximetry currently is 95% on 40% FiO2. Current temperature is 99.6, his respiratory rate is 20 and peak pressure is 25 with good compliance. LUNGS: There are good bilateral air entry on both lungs. CARDIOVASCULAR: S1, S2. No S3. Regular rhythm. HEENT: Examination of head, normocephalic and atraumatic. NECK: Supple with no jugular vein distention. CHEST: Symmetrical. PULMONARY: Diminished breath sounds at both lung bases with few scattered rhonchi. No wheezing. GASTROINTESTINAL: Soft and nontender. No organomegaly. EXTREMITIES: No pedal edema. SKIN: Clear with no skin rashes, no cyanosis. NEUROLOGIC: Limited at the present time. LABORATORY DATA: His initial blood gas was pH 7.28, pCO2 of 69 and pO2 of 77 that was on 100% FiO2. Current FiO2 is down to 40%.The latest arterial blood gas shows pH of 7.43, pCO2 of 49 and pO2 of 126. The rest of laboratory data, his carbon dioxide is 34, BUN is 38, total bilirubin is 0.9. Liver function tests are elevated. LDH is high and cardiac troponins are elevated as well. WBC 14.2, hemoglobin of 13.5. ASSESSMENT: 1. Status post cardiorespiratory arrest. 2. Probable acute myocardial infarction with positive troponins. 3. Elevated liver function test and markedly elevated LDH. Additional testing is pending. 4. Respiratory failure with mild increase in alveolar-arterial oxygen gradient making good progress and decreasing the FiO2 with the possibility of getting off the ventilator later in the afternoon, neurologic status seems to be improving as well. I discussed this all with intensive care unit team and Dr. Gaston. PLAN: Possible extubation later today and continue cardiac and pulmonary workup. Greg Moreno MD MTDD
[2017-07-13] MEDS ORDERED: DiphenhydrAMINE 50 mg/ml Inj IVP ONE (00:31)
[2017-07-13] MEDS: Metoprolol 1 mg/ml Inj IVP SCH ×4 (03:56→23:03)
[2017-07-13] MEDS: Aztreonam 1 Gm in NS 100mL 100 ML IVPB SCH ×3 (05:28→22:30)
[2017-07-13 06:30] LABS: BASO # 0.01 K/mm3 (0.0-2.0); BASO % 0.1 % (0.0-3.0); EOS # 0.1 (0.0-0.7); EOS % 0.8 % (1.5-5.0); GRAN # 9.98 (1.4-6.5); GRAN % 77.1 % (50.0-68.0); HEMOGLOBIN 13.2 g/dL (14.0-18.0); LYMPH # 1.4 (1.2-3.4); LYMPH % 10.7 % (22.0-35.0); MEAN CELL VOLUME 87.9 fl (80.0-105.0); MEAN CORPUSCULAR HGB CONC 31.8 g/dl (31.0-37.0); MEAN PLATELET VOLUME 9.6 fl (7.0-11.0); MONO # 1.5 (0.1-0.6); MONO % 11.3 % (1.0-6.0); RBC 4.72 10^6/uL (3.5-6.1); RED CELL DISTRIBUTION WIDTH 16.1 % (11.5-14.5)
[2017-07-13 06:53] LABS: LDL CHOLESTEROL 65 mg/dL (0-129)
[2017-07-13 07:08] LABS: ARTERIAL BLOOD GAS HEMOGLOBIN 12.2 g/dL (11.7-17.4); ARTERIAL BLOOD GAS O2 CAPACITY 16.8 mL/dl (16-24); ARTERIAL BLOOD GAS O2 CONTENT 16.7 ML/dl (15-23); ARTERIAL BLOOD GAS O2 SAT 99.4 % (95-98); ARTERIAL BLOOD GAS PCO2 53 mm/Hg (35-45); ARTERIAL BLOOD GAS PH 7.44 (7.35-7.45); ARTERIAL BLOOD GAS TCO2 37.6 mmol.L (22-28)
--- NOTE | 2017-07-13 07:22 | RAD ---
HISTORY: chest congestion COMPARISON: Portable chest 07/11/2017 FINDINGS: Endotracheal and nasogastric tubes appear to have been removed. Clinically correlate. LUNGS: Right hemidiaphragm elevation is again appreciated with limited airspace disease seen at the left retrocardiac space. And limited atelectasis is suggested at the right base. PLEURA: Trace left pleural effusion. No right pleural effusion evident. No pneumothorax bilaterally. CARDIOVASCULAR: Cardiac silhouette appears stable. No pulmonary vascular congestion. OSSEOUS STRUCTURES: No significant abnormalities. VISUALIZED UPPER ABDOMEN: Normal. OTHER FINDINGS: None. IMPRESSION: Trace left pleural effusion is appreciated as well as limited retrocardiac airspace disease. Prior nasogastric endotracheal tubes appear to been removed. Clinically correlate.
[2017-07-13] MEDS: Albuterol-Ipratrop 3 mg / 0.5 (3 ml) UD IH PRN ×2 (07:25→19:23)
--- NOTE | 2017-07-13 07:39 | CON ---
DATE: 07/12/2017 HISTORY OF PRESENT ILLNESS: This is a 57-year-old gentleman with unclear past medical history who was brought to the medical center with altered mental status. It appears that he was found to have been unresponsive, lying on the floor prior to arrival. The last seen 48 hours prior to incident. HPI and review of systems could not be obtained. However, later when the physicians involved were able to speak with his family, a little bit more information emerged. He did not appear to be depressed nor had been acting differently recently. He then proceeded to have cardiac arrest for short period of time; however, after brief CPR and one round of epinephrine, he achieved ROSC. Shortly after respiratory arrest, he was intubated. PAST MEDICAL HISTORY: Hypertension. ALLERGIES: AMOXICILLIN. SOCIAL HISTORY: No alcohol or illicit drug abuse. No tobacco smoking. FAMILY HISTORY: Noncontributory. PAST SURGICAL HISTORY: Right hip replacement. HOME MEDICATIONS: None. MEDICATIONS IN THE HOSPITAL: Aspirin, aztreonam, Plavix, Lasix, heparin drip, Protonix. PHYSICAL EXAMINATION: VITAL SIGNS: At present time, patient is extubated on BiPAP, 26/08. Heart rate 88, blood pressure 115/66, oxygen saturation 95% on 60% FiO2. GENERAL: The patient is alert, awake, comfortable, asking furthermore to what he did. HEENT: Head and neck atraumatic. LUNGS: Clear to auscultation bilaterally. HEART: Regular rate and rhythm. S1, S2 normal. ABDOMEN: Soft, nontender, nondistended. MUSCULOSKELETAL: No C/C/E. NEUROLOGIC: The patient moves all extremities spontaneously. SKIN: Moist. PSYCH: The patient is alert, awake and following commands. LABORATORY DATA: WBC 14.2, hemoglobin 13.5, platelet count 290. Sodium 143, potassium 4.2, chloride 99, BUN 38, creatinine 1.2 up from 1, AST 107, ALT 105, bilirubin 0.9. Troponin 0.7 up from 0.17. Potassium 3.7, TSH 2.62. PTT 70.2 (the patient is on therapeutic anticoagulation). ABG prior to extubation 7.43/49/126 on 100% FiO2. Head CT showed no active or acute intracranial pathology; however, dilated ventricles with small vessel disease present. Hip CAT scan did not reveal any fracture. Chest x-ray showed small lung volumes, but no active pulmonary disease. EKG did not show any specific ischemic changes. Formal echocardiogram is pending. Bedside echocardiogram did not reveal severe left ventricular systolic dysfunction. ASSESSMENT AND PLAN: This is a 57-year-old gentleman who presented with altered mental status and troponin leak and some end organ dysfunction. Patient had short episode of cardiac arrest; however, was quickly resuscitated. At present time, patient is alert, awake, moving all extremities, follows commands. He was successfully extubated to BiPAP. We will follow up with ABG later on to ascertain adequate gas exchange and ventilatory parameters. We will continue with antibiotics and we will follow on official report. Septic workup is pending and will be followed. Lactic acid is 1.1 down from 6.9 suggesting status post fluid resuscitation. We will continue with head of bed elevated more than 35 degrees, oral hygiene, deep venous thrombosis and gastrointestinal prophylaxis. The patient is on therapeutic anticoagulation. I do have some concerns about possibility of VTE; however, patient is not in shock at present time and is on therapeutic anticoagulation anyway. Patient will be going to cardiac catheterization tomorrow. Meanwhile, he is on aspirin and Plavix. Statins are withheld due to elevated LFTs, which most likely related to "shock liver." We will start low dose of beta-blockers. We will try to maintain balance between hypovolemia on one hand to prevent renal hypoperfusion and fluid overload on the other hand not to flood lungs in the setting of potential congestive heart failure. We will monitor urine output with a goal of more than 0.5 mL/kg/hour. We will maintain mean arterial pressure of more than 65. Avoid nephrotoxic medication and hyperchloremia. We will maintain euvolemia, euglycemia. At present time, patient will be n.p.o. ccm time 40 min Case Gaston MD [facility]
[2017-07-13 07:46] LABS: ALB/GLOB RATIO 1.2 (1.1-1.8); ALBUMIN 2.9 g/dL (3.0-4.8); ALT/SGPT 99 U/L (7-56); AST/SGOT 127 U/L (17-59); BLOOD UREA NITROGEN 29 mg/dL (7-21); CALCIUM 7.8 mg/dL (8.4-10.5); GFR AFRICAN-AMERICAN > 60; GFR NON-AFRICAN AMERICAN > 60; HDL CHOLESTEROL 30 mg/dL (29-60)
[2017-07-13] MEDS: Heparin25000 units/250ml 1/2NS 25,000 UNITS/250 ML BAG IV SCH (08:08)
--- NOTE | 2017-07-13 08:43 | CP.CCUPN ---
<Kady Ford - Last Filed: 07/13/17 10:40> CCU Subjective - Physician Review Events Since Last Encounter (Free Text): 07/13/17 09:55 off bipap, on HFNC Subjective (Free Text): 07/13/17 09:55 Patient seen and examined at bedside. No acute events overnight. Pt switched to HFNC this AM, denies fever, chills, nausea, vomiting, cp, sob, focal weakness/ deficits, leg swelling, abdominal pain. Critical Care Time Spent (in minutes): 55 CCU Objective - Vital Signs / Intake & Output Vital Signs (Last 4 hours): Vital Signs Pulse Resp BP Pulse Ox 07/13/17 08:00 87 29 H 117/55 L 91 L 07/13/17 07:50 79 29 H 93 L 07/13/17 07:40 80 92 L 07/13/17 07:31 74 07/13/17 07:30 77 31 H 93 L 07/13/17 07:20 79 22 93 L 07/13/17 07:10 78 22 95 07/13/17 07:01 76 15 117/55 L 95 07/13/17 07:00 78 71 H 97 07/13/17 06:51 88 21 07/13/17 06:50 80 84 L 07/13/17 06:40 69 25 H 89 L 07/13/17 06:30 75 22 91 L 07/13/17 06:20 72 19 95 07/13/17 06:10 72 20 96 07/13/17 06:01 75 07/13/17 06:00 74 27 H 104/63 95 07/13/17 05:50 72 25 H 96 07/13/17 05:40 73 33 H 96 07/13/17 05:30 68 23 95 07/13/17 05:20 66 26 H 96 07/13/17 05:10 69 24 96 07/13/17 05:01 74 25 H 07/13/17 05:00 71 26 H 108/60 97 07/13/17 04:50 73 27 H 96 Intake and Output (Last 8hrs): Intake & Output 07/12/17 07/13/17 07/13/17 22:59 06:59 14:59 Intake Total 598 230 Output Total 225 Balance 373 230 Intake: IV 298 230 Heparin drip 198 IVPB 100 Oral 300 Output: Urine 225 Urethral (Ag) 225 - Physical Exam Head: Positive for: Atraumatic, Normocephalic Pupils: Positive for: PERRL Extroacular Muscles: Positive for: EOMI Conjunctiva: Positive for: Normal Ears: Positive for: Normal, NORMAL TM, Normal Canal. Negative for: Erythema, TM Bulging, Fluid, TM Perf Mouth: Positive for: Moist Mucous Membranes Pharnyx: Positive for: Normal. Negative for: ERYTHEMA, EXUDATE, TONSILS ENLARGED, Peritonsilar Swelling, Uvular Deviation, Muffled/Hoarse Voice, Strider , Soft Palate/Uvular Edema Nose (External): Positive for: Atraumatic Nose (Internal): Positive for: Normal Inspection Neck: Positive for: Normal Range of Motion. Negative for: Meningeal Signs, MIDLINE TENDERNESS, Paraspinal Tenderness Respiratory/Chest: Positive for: Tachypneic. Negative for: Clear to Auscultation Cardiovascular: Positive for: Regular Rate and Rhythm, Normal S1, S2, Peripheal Pulses Present. Negative for: Murmurs Abdomen: Positive for: Normal Bowel Sounds. Negative for: Tenderness (Soft), Distention, Peritoneal Signs, Guarding, Mass/Organomegaly Upper Extremity: Positive for: Normal Inspection. Negative for: Cyanosis, Edema Lower Extremity: Positive for: Edema (Bilateral lower extremity edema 2+), Other (Ecchymotic bruising to right buttocks/leg) Neurological: Positive for: GCS=15, CN II-XII Intact, Speech Normal Skin: Positive for: Warm, Dry, Normal Color. Negative for: Rashes Psychiatric: Positive for: Alert, Oriented x 3 - Medications Active Medications: Active Medications Generic Name Dose Route Start Last Admin Trade Name Freq PRN Reason Stop Dose Admin Albuterol/Ipratropium 3 ml 07/13/17 06:57 07/13/17 07:25 Duoneb 3 Mg/0.5 Mg (3 Ml) Ud IH 3 ml Q2H PRN Administration Shortness of Breath Aspirin 325 mg 07/12/17 10:00 07/12/17 10:08 Aspirin PO 325 mg DAILY MERI Administration Clopidogrel Bisulfate 75 mg 07/13/17 10:00 Plavix PO DAILY MERI Furosemide 20 mg 07/12/17 10:00 07/12/17 21:07 Lasix IVP 20 mg Q12 MERI Administration Aztreonam 100 mls @ 100 mls/hr 07/12/17 09:00 07/13/17 05:28 Azactam 1 Gm IVPB 07/19/17 09:01 100 mls/hr Q8 MERI Administration Protocol Doxycycline Hyclate 100 mg/ 100 mls @ 100 mls/hr 07/12/17 10:00 07/12/17 22: 53 Sodium Chloride IVPB 100 mls/hr Q12 MERI Administration Protocol Potassium Chloride 20 meq in 100 mls @ 50 mls/hr 07/13/17 08:45 Potassium Chloride 20 Meq/100 Ml IVPB 07/13/17 12:44 Q2H MERI Metoprolol Tartrate 2.5 mg 07/12/17 10:45 07/13/17 03:56 Lopressor IVP 2.5 mg Q6H MERI Administration Pantoprazole Sodium 40 mg 07/12/17 10:00 07/12/17 09:37 Protonix Inj IVP 40 mg DAILY MERI Administration - Patient Studies Lab Studies: Lab Studies 07/13/17 07/13/17 07/13/17 Range/Units 07:35 07:06 05:20 WBC (4.5-11.0) 10^3/ul RBC (3.5-6.1) 10^6/uL Hgb (14.0-18.0) g/dL Hct (42.0-52.0) % MCV (80.0-105.0) fl MCH (25.0-35.0) pg MCHC (31.0-37.0) g/dl RDW (11.5-14.5) % Plt Count (120.0-450.0) 10^3/uL MPV (7.0-11.0) fl Gran % (50.0-68.0) % Lymph % (Auto) (22.0-35.0) % [place] % (Auto) (1.0-6.0) % Eos % (Auto) (1.5-5.0) % Baso % (Auto) (0.0-3.0) % Gran # (1.4-6.5) Lymph # (Auto) (1.2-3.4) [place] # (Auto) (0.1-0.6) Eos # (Auto) (0.0-0.7) Baso # (Auto) (0.0-2.0) K/mm3 APTT 93.3 H (25.1-36.5) Seconds pCO2 53 H (35-45) mm/Hg pO2 97.0 (80-100) mm/Hg HCO3 36.0 H (21-28) mmol/L ABG pH 7.44 (7.35-7.45) ABG Total CO2 37.6 H (22-28) mmol.L ABG O2 Saturation 99.4 H (95-98) % ABG O2 Content 16.7 (15-23) ML/dl ABG Base Excess 10.1 H (-2.0-3.0) mmol/L ABG Hemoglobin 12.2 (11.7-17.4) g/dL ABG Carboxyhemoglobin 1.9 H (0.5-1.5) % POC ABG HHb (Measured) 0.6 (0-5) % ABG Methemoglobin 1.0 (0.0-3.0) % ABG O2 Capacity 16.8 (16-24) mL/dl Hgb O2 Saturation 96.5 (95.0-98.0) % FiO2 60.0 % Sodium (132-148) mmol/L Potassium (3.6-5.0) mmol/L Chloride (98-107) mmol/L Carbon Dioxide (21-33) mmol/L Anion Gap (10-20) BUN (7-21) mg/dL Creatinine (0.8-1.5) mg/dl Est GFR ( Amer) Est GFR (Non-Af Amer) POC Glucose (mg/dL) 89 (65-110) mg/dL Random Glucose (70-110) mg/dL Calcium (8.4-10.5) mg/dL Phosphorus (2.5-4.5) mg/dL Magnesium (1.7-2.2) mg/dL Total Bilirubin (0.2-1.3) mg/dL AST (17-59) U/L ALT (7-56) U/L Alkaline Phosphatase (38-126) U/L Lactate Dehydrogenase (333-699) U/L Total Creatine Kinase (35-230) U/L Troponin I ng/mL Total Protein (5.8-8.3) g/dL Albumin (3.0-4.8) g/dL Globulin gm/dL Albumin/Globulin Ratio (1.1-1.8) Triglycerides (35-160) mg/dL Cholesterol (130-200) mg/dL LDL Cholesterol Direct (0-129) mg/dL HDL Cholesterol (29-60) mg/dL 07/13/17 07/13/17 07/12/17 Range/Units 05:20 05:20 14:20 WBC 13.0 H (4.5-11.0) 10^3/ul RBC 4.72 (3.5-6.1) 10^6/uL Hgb 13.2 L (14.0-18.0) g/dL Hct 41.5 L (42.0-52.0) % MCV 87.9 (80.0-105.0) fl MCH 28.0 (25.0-35.0) pg MCHC 31.8 (31.0-37.0) g/dl RDW 16.1 H (11.5-14.5) % Plt Count 290 (120.0-450.0) 10^3/uL MPV 9.6 (7.0-11.0) fl Gran % 77.1 H (50.0-68.0) % Lymph % (Auto) 10.7 L (22.0-35.0) % [place] % (Auto) 11.3 H (1.0-6.0) % Eos % (Auto) 0.8 L (1.5-5.0) % Baso % (Auto) 0.1 (0.0-3.0) % Gran # 9.98 H (1.4-6.5) Lymph # (Auto) 1.4 (1.2-3.4) [place] # (Auto) 1.5 H (0.1-0.6) Eos # (Auto) 0.1 (0.0-0.7) Baso # (Auto) 0.01 (0.0-2.0) K/mm3 APTT (25.1-36.5) Seconds pCO2 (35-45) mm/Hg pO2 (80-100) mm/Hg HCO3 (21-28) mmol/L ABG pH (7.35-7.45) ABG Total CO2 (22-28) mmol.L ABG O2 Saturation (95-98) % ABG O2 Content (15-23) ML/dl ABG Base Excess (-2.0-3.0) mmol/L ABG Hemoglobin (11.7-17.4) g/dL ABG Carboxyhemoglobin (0.5-1.5) % POC ABG HHb (Measured) (0-5) % ABG Methemoglobin (0.0-3.0) % ABG O2 Capacity (16-24) mL/dl Hgb O2 Saturation (95.0-98.0) % FiO2 % Sodium 143 (132-148) mmol/L Potassium 3.2 L (3.6-5.0) mmol/L Chloride 99 (98-107) mmol/L Carbon Dioxide 39 H (21-33) mmol/L Anion Gap 9 L (10-20) BUN 29 H (7-21) mg/dL Creatinine 1.1 (0.8-1.5) mg/dl Est GFR ( Amer) > 60 Est GFR (Non-Af Amer) > 60 POC Glucose (mg/dL) (65-110) mg/dL Random Glucose 91 (70-110) mg/dL Calcium 7.8 L (8.4-10.5) mg/dL Phosphorus 3.4 (2.5-4.5) mg/dL Magnesium 2.2 (1.7-2.2) mg/dL Total Bilirubin 0.6 (0.2-1.3) mg/dL AST 127 H (17-59) U/L ALT 99 H (7-56) U/L Alkaline Phosphatase 59 (38-126) U/L Lactate Dehydrogenase 1025 H (333-699) U/L Total Creatine Kinase 172 (35-230) U/L Troponin I 0.85 H* D ng/mL Total Protein 5.4 L (5.8-8.3) g/dL Albumin 2.9 L (3.0-4.8) g/dL Globulin 2.5 gm/dL Albumin/Globulin Ratio 1.2 (1.1-1.8) Triglycerides 105 (35-160) mg/dL Cholesterol 114 L (130-200) mg/dL LDL Cholesterol Direct 65 (0-129) mg/dL HDL Cholesterol 30 (29-60) mg/dL Laboratory Results - last 24 hr 07/12/17 07/13/17 07/13/17 14:20 05:20 05:20 WBC 13.0 H RBC 4.72 Hgb 13.2 L Hct 41.5 L MCV 87.9 MCH 28.0 MCHC 31.8 RDW 16.1 H Plt Count 290 MPV 9.6 Gran % 77.1 H Lymph % (Auto) 10.7 L [place] % (Auto) 11.3 H Eos % (Auto) 0.8 L Baso % (Auto) 0.1 Gran # 9.98 H Lymph # (Auto) 1.4 [place] # (Auto) 1.5 H Eos # (Auto) 0.1 Baso # (Auto) 0.01 APTT pCO2 pO2 HCO3 ABG pH ABG Total CO2 ABG O2 Saturation ABG O2 Content ABG Base Excess ABG Hemoglobin ABG Carboxyhemoglobin POC ABG HHb (Measured) ABG Methemoglobin ABG O2 Capacity Hgb O2 Saturation FiO2 Sodium 143 Potassium 3.2 L Chloride 99 Carbon Dioxide 39 H Anion Gap 9 L BUN 29 H Creatinine 1.1 Est GFR ( Amer) > 60 Est GFR (Non-Af Amer) > 60 POC Glucose (mg/dL) Random Glucose 91 Calcium 7.8 L Phosphorus 3.4 Magnesium 2.2 Total Bilirubin 0.6 AST 127 H ALT 99 H Alkaline Phosphatase 59 Lactate Dehydrogenase 1025 H Total Creatine Kinase 172 Troponin I 0.85 H* D Total Protein 5.4 L Albumin 2.9 L Globulin 2.5 Albumin/Globulin Ratio 1.2 Triglycerides 105 Cholesterol 114 L LDL Cholesterol Direct 65 HDL Cholesterol 30 07/13/17 07/13/17 07/13/17 05:20 07:06 07:35 WBC RBC Hgb Hct MCV MCH MCHC RDW Plt Count MPV Gran % Lymph % (Auto) [place] % (Auto) Eos % (Auto) Baso % (Auto) Gran # Lymph # (Auto) [place] # (Auto) Eos # (Auto) Baso # (Auto) APTT 93.3 H pCO2 53 H pO2 97.0 HCO3 36.0 H ABG pH 7.44 ABG Total CO2 37.6 H ABG O2 Saturation 99.4 H ABG O2 Content 16.7 ABG Base Excess 10.1 H ABG Hemoglobin 12.2 ABG Carboxyhemoglobin 1.9 H POC ABG HHb (Measured) 0.6 ABG Methemoglobin 1.0 ABG O2 Capacity 16.8 Hgb O2 Saturation 96.5 FiO2 60.0 Sodium Potassium Chloride Carbon Dioxide Anion Gap BUN Creatinine Est GFR ( Amer) Est GFR (Non-Af Amer) POC Glucose (mg/dL) 89 Random Glucose Calcium Phosphorus Magnesium Total Bilirubin AST ALT Alkaline Phosphatase Lactate Dehydrogenase Total Creatine Kinase Troponin I Total Protein Albumin Globulin Albumin/Globulin Ratio Triglycerides Cholesterol LDL Cholesterol Direct HDL Cholesterol EKG/Cardiology Studies: Cardiology / EKG Studies 07/12/17 14:00 ELECTROCARDIOGRAM Q8 Comment: Reason For Exam: tropes indeterminate on admission 07/12/17 22:00 ELECTROCARDIOGRAM Q8 Comment: Reason For Exam: tropes indeterminate on admission 07/13/17 07:05 ELECTROCARDIOGRAM Stat Comment: Reason For Exam: f/u Fingerstick Blood Sugar Results: 111 Review of Systems - Review of Systems All systems: reviewed and no additional remarkable complaints except Review of Systems: as per subjective portion of note Critical Care Progress Note - Nutrition Nutrition: Nutrition Category Date Time Status NPO Diet [DIET] Diets 07/11/17 Breakfast Ordered Assessment/Plan - Assessment and Plan (Free Text) Assessment: 57 year old male with PMH HTN, presents for AMS, s/p cardiac arrest in ED, with respiratory failure s/p extubation, found to be in cardiogenic shock 2/2 likely NSTEMI vs distributive shock 2/2 SIGRID vs cor pulmonale. Pt scheduled for cardiac cath with Dr Atkinson, will ask for Dr Atkinson to evaluate for LVEDP: Neuro: - AOxx4 - Neuro checks q4h - Neurology consult: Dr. Bermudez. F/u recs - CT head neg for acute CVA. CV: - Echo EF 55.8%. mild LVH. Grade III reversible restrictive diastolic dysfunction. Right ventricle moderately dilated. RVSP 26 mmHg. - Maintain MAP > 65 - trops uptrending, cardiac cath today. F/u results. - s/p Heparin bolus and drip; Lasix q12, metoprolol plavix, ASA - Cardiology Consult: Dr. Atkinson. Appreciate recs. Pulm: - Pt on HFNC - Maintain SPO2 > 90 % - Pulm Consulted. appreciate recs. GI: - Alcohol Level neg, Hepatitis panel neg - NPO - Protonix Renal: - Monitor electrolytes and renal function - hypokalemic today, repleted ID: - Blood culture neg to date - Procalcitonin mildly elevated - CXR shows mild left sided pleural effusion. - Continue Azactam/Doxycycline. - ID Consult: Dr. Tsang Endo: - TSH normal - Maintain glucose at 140 -160 Case seen and discussed with Dr Gaston. Kady oFrd, PGY1 - Date & Time Date: 07/13/17 Time: 10:47 <Case Gaston - Last Filed: 07/13/17 14:10> CCU Objective - Vital Signs / Intake & Output Vital Signs (Last 4 hours): Vital Signs Pulse Resp BP Pulse Ox 07/13/17 11:01 82 87 H 122/73 94 L 07/13/17 11:00 83 19 94 L 07/13/17 10:50 78 57 H 93 L 07/13/17 10:40 81 93 L 07/13/17 10:30 83 34 H 92 L 07/13/17 10:20 80 25 H 93 L 07/13/17 10:10 81 23 94 L 07/13/17 10:03 84 25 H 07/13/17 10:02 84 07/13/17 10:00 70 103/62 07/13/17 09:50 81 31 H 89 L 07/13/17 09:40 80 21 91 L Intake and Output (Last 8hrs): Intake & Output 07/12/17 07/13/17 07/13/17 22:59 06:59 14:59 Intake Total 598 230 Output Total 225 Balance 373 230 Weight 302 lb 4.8 oz Intake: IV 298 230 Heparin drip 198 IVPB 100 Oral 300 Output: Urine 225 Urethral (Ag) 225 - Medications Active Medications: Active Medications Generic Name Dose Route Start Last Admin Trade Name Freq PRN Reason Stop Dose Admin Albuterol/Ipratropium 3 ml 07/13/17 06:57 07/13/17 07:25 Duoneb 3 Mg/0.5 Mg (3 Ml) Ud IH 3 ml Q2H PRN Administration Shortness of Breath Aspirin 325 mg 07/12/17 10:00 07/13/17 09:01 Aspirin PO 325 mg DAILY MERI Administration Clopidogrel Bisulfate 75 mg 07/13/17 10:00 07/13/17 09:01 Plavix PO 75 mg DAILY MERI Administration Doxycycline Hyclate 100 mg 05/03/18 22:00 Doryx PO 07/22/17 22:01 Q12 MERI Protocol Furosemide 20 mg 07/12/17 10:00 07/13/17 09:01 Lasix IVP 20 mg Q12 MERI Administration Aztreonam 100 mls @ 100 mls/hr 07/12/17 09:00 07/13/17 05:28 Azactam 1 Gm IVPB 07/19/17 09:01 100 mls/hr Q8 MERI Administration Protocol Vancomycin HCl 1 gm in 250 mls @ 167 mls/hr 07/13/17 13:30 Vancomycin 1gm IVPB 07/22/17 13:31 Q12H MERI Protocol Metoprolol Tartrate 2.5 mg 07/12/17 10:45 07/13/17 03:56 Lopressor IVP 2.5 mg Q6H MERI Administration Pantoprazole Sodium 40 mg 07/12/17 10:00 07/13/17 09:01 Protonix Inj IVP 40 mg DAILY MERI Administration - Patient Studies Lab Studies: Microbiology Studies 07/11/17 22:22 Urine Culture - Final Urine,Catheterized No Growth (<1,000 CFU/ML) Lab Studies 07/13/17 07/13/17 07/13/17 Range/Units 11:05 07:35 07:06 WBC (4.5-11.0) 10^3/ul RBC (3.5-6.1) 10^6/uL Hgb (14.0-18.0) g/dL Hct (42.0-52.0) % MCV (80.0-105.0) fl MCH (25.0-35.0) pg MCHC (31.0-37.0) g/dl RDW (11.5-14.5) % Plt Count (120.0-450.0) 10^3/uL MPV (7.0-11.0) fl Gran % (50.0-68.0) % Lymph % (Auto) (22.0-35.0) % [place] % (Auto) (1.0-6.0) % Eos % (Auto) (1.5-5.0) % Baso % (Auto) (0.0-3.0) % Gran # (1.4-6.5) Lymph # (Auto) (1.2-3.4) [place] # (Auto) (0.1-0.6) Eos # (Auto) (0.0-0.7) Baso # (Auto) (0.0-2.0) K/mm3 APTT (25.1-36.5) Seconds pCO2 53 H (35-45) mm/Hg pO2 97.0 (80-100) mm/Hg HCO3 36.0 H (21-28) mmol/L ABG pH 7.44 (7.35-7.45) ABG Total CO2 37.6 H (22-28) mmol.L ABG O2 Saturation 99.4 H (95-98) % ABG O2 Content 16.7 (15-23) ML/dl ABG Base Excess 10.1 H (-2.0-3.0) mmol/L ABG Hemoglobin 12.2 (11.7-17.4) g/dL ABG Carboxyhemoglobin 1.9 H (0.5-1.5) % POC ABG HHb (Measured) 0.6 (0-5) % ABG Methemoglobin 1.0 (0.0-3.0) % ABG O2 Capacity 16.8 (16-24) mL/dl Hgb O2 Saturation 96.5 (95.0-98.0) % FiO2 60.0 % Sodium (132-148) mmol/L Potassium (3.6-5.0) mmol/L Chloride (98-107) mmol/L Carbon Dioxide (21-33) mmol/L Anion Gap (10-20) BUN (7-21) mg/dL Creatinine (0.8-1.5) mg/dl Est GFR ( Amer) Est GFR (Non-Af Amer) POC Glucose (mg/dL) 84 89 (65-110) mg/dL Random Glucose (70-110) mg/dL Hemoglobin A1c (4.2-6.5) % Calcium (8.4-10.5) mg/dL Phosphorus (2.5-4.5) mg/dL Magnesium (1.7-2.2) mg/dL Total Bilirubin (0.2-1.3) mg/dL AST (17-59) U/L ALT (7-56) U/L Alkaline Phosphatase (38-126) U/L Lactate Dehydrogenase (333-699) U/L Total Creatine Kinase (35-230) U/L Troponin I ng/mL Total Protein (5.8-8.3) g/dL Albumin (3.0-4.8) g/dL Globulin gm/dL Albumin/Globulin Ratio (1.1-1.8) Triglycerides (35-160) mg/dL Cholesterol (130-200) mg/dL LDL Cholesterol Direct (0-129) mg/dL HDL Cholesterol (29-60) mg/dL 07/13/17 07/13/17 07/13/17 Range/Units 05:20 05:20 05:20 WBC (4.5-11.0) 10^3/ul RBC (3.5-6.1) 10^6/uL Hgb (14.0-18.0) g/dL Hct (42.0-52.0) % MCV (80.0-105.0) fl MCH (25.0-35.0) pg MCHC (31.0-37.0) g/dl RDW (11.5-14.5) % Plt Count (120.0-450.0) 10^3/uL MPV (7.0-11.0) fl Gran % (50.0-68.0) % Lymph % (Auto) (22.0-35.0) % [place] % (Auto) (1.0-6.0) % Eos % (Auto) (1.5-5.0) % Baso % (Auto) (0.0-3.0) % Gran # (1.4-6.5) Lymph # (Auto) (1.2-3.4) [place] # (Auto) (0.1-0.6) Eos # (Auto) (0.0-0.7) Baso # (Auto) (0.0-2.0) K/mm3 APTT 93.3 H (25.1-36.5) Seconds pCO2 (35-45) mm/Hg pO2 (80-100) mm/Hg HCO3 (21-28) mmol/L ABG pH (7.35-7.45) ABG Total CO2 (22-28) mmol.L ABG O2 Saturation (95-98) % ABG O2 Content (15-23) ML/dl ABG Base Excess (-2.0-3.0) mmol/L ABG Hemoglobin (11.7-17.4) g/dL ABG Carboxyhemoglobin (0.5-1.5) % POC ABG HHb (Measured) (0-5) % ABG Methemoglobin (0.0-3.0) % ABG O2 Capacity (16-24) mL/dl Hgb O2 Saturation (95.0-98.0) % FiO2 % Sodium 143 (132-148) mmol/L Potassium 3.2 L (3.6-5.0) mmol/L Chloride 99 (98-107) mmol/L Carbon Dioxide 39 H (21-33) mmol/L Anion Gap 9 L (10-20) BUN 29 H (7-21) mg/dL Creatinine 1.1 (0.8-1.5) mg/dl Est GFR ( Amer) > 60 Est GFR (Non-Af Amer) > 60 POC Glucose (mg/dL) (65-110) mg/dL Random Glucose 91 (70-110) mg/dL Hemoglobin A1c 6.1 (4.2-6.5) % Calcium 7.8 L (8.4-10.5) mg/dL Phosphorus 3.4 (2.5-4.5) mg/dL Magnesium 2.2 (1.7-2.2) mg/dL Total Bilirubin 0.6 (0.2-1.3) mg/dL AST 127 H (17-59) U/L ALT 99 H (7-56) U/L Alkaline Phosphatase 59 (38-126) U/L Lactate Dehydrogenase (333-699) U/L Total Creatine Kinase (35-230) U/L Troponin I ng/mL Total Protein 5.4 L (5.8-8.3) g/dL Albumin 2.9 L (3.0-4.8) g/dL Globulin 2.5 gm/dL Albumin/Globulin Ratio 1.2 (1.1-1.8) Triglycerides 105 (35-160) mg/dL Cholesterol 114 L (130-200) mg/dL LDL Cholesterol Direct 65 (0-129) mg/dL HDL Cholesterol 30 (29-60) mg/dL 07/13/17 07/12/17 Range/Units 05:20 14:20 WBC 13.0 H (4.5-11.0) 10^3/ul RBC 4.72 (3.5-6.1) 10^6/uL Hgb 13.2 L (14.0-18.0) g/dL Hct 41.5 L (42.0-52.0) % MCV 87.9 (80.0-105.0) fl MCH 28.0 (25.0-35.0) pg MCHC 31.8 (31.0-37.0) g/dl RDW 16.1 H (11.5-14.5) % Plt Count 290 (120.0-450.0) 10^3/uL MPV 9.6 (7.0-11.0) fl Gran % 77.1 H (50.0-68.0) % Lymph % (Auto) 10.7 L (22.0-35.0) % [place] % (Auto) 11.3 H (1.0-6.0) % Eos % (Auto) 0.8 L (1.5-5.0) % Baso % (Auto) 0.1 (0.0-3.0) % Gran # 9.98 H (1.4-6.5) Lymph # (Auto) 1.4 (1.2-3.4) [place] # (Auto) 1.5 H (0.1-0.6) Eos # (Auto) 0.1 (0.0-0.7) Baso # (Auto) 0.01 (0.0-2.0) K/mm3 APTT (25.1-36.5) Seconds pCO2 (35-45) mm/Hg pO2 (80-100) mm/Hg HCO3 (21-28) mmol/L ABG pH (7.35-7.45) ABG Total CO2 (22-28) mmol.L ABG O2 Saturation (95-98) % ABG O2 Content (15-23) ML/dl ABG Base Excess (-2.0-3.0) mmol/L ABG Hemoglobin (11.7-17.4) g/dL ABG Carboxyhemoglobin (0.5-1.5) % POC ABG HHb (Measured) (0-5) % ABG Methemoglobin (0.0-3.0) % ABG O2 Capacity (16-24) mL/dl Hgb O2 Saturation (95.0-98.0) % FiO2 % Sodium (132-148) mmol/L Potassium (3.6-5.0) mmol/L Chloride (98-107) mmol/L Carbon Dioxide (21-33) mmol/L Anion Gap (10-20) BUN (7-21) mg/dL Creatinine (0.8-1.5) mg/dl Est GFR ( Amer) Est GFR (Non-Af Amer) POC Glucose (mg/dL) (65-110) mg/dL Random Glucose (70-110) mg/dL Hemoglobin A1c (4.2-6.5) % Calcium (8.4-10.5) mg/dL Phosphorus (2.5-4.5) mg/dL Magnesium (1.7-2.2) mg/dL Total Bilirubin (0.2-1.3) mg/dL AST (17-59) U/L ALT (7-56) U/L Alkaline Phosphatase (38-126) U/L Lactate Dehydrogenase 1025 H (333-699) U/L Total Creatine Kinase 172 (35-230) U/L Troponin I 0.85 H* D ng/mL Total Protein (5.8-8.3) g/dL Albumin (3.0-4.8) g/dL Globulin gm/dL Albumin/Globulin Ratio (1.1-1.8) Triglycerides (35-160) mg/dL Cholesterol (130-200) mg/dL LDL Cholesterol Direct (0-129) mg/dL HDL Cholesterol (29-60) mg/dL Laboratory Results - last 24 hr 07/12/17 07/13/17 07/13/17 14:20 05:20 05:20 WBC 13.0 H RBC 4.72 Hgb 13.2 L Hct 41.5 L MCV 87.9 MCH 28.0 MCHC 31.8 RDW 16.1 H Plt Count 290 MPV 9.6 Gran % 77.1 H Lymph % (Auto) 10.7 L [place] % (Auto) 11.3 H Eos % (Auto) 0.8 L Baso % (Auto) 0.1 Gran # 9.98 H Lymph # (Auto) 1.4 [place] # (Auto) 1.5 H Eos # (Auto) 0.1 Baso # (Auto) 0.01 APTT pCO2 pO2 HCO3 ABG pH ABG Total CO2 ABG O2 Saturation ABG O2 Content ABG Base Excess ABG Hemoglobin ABG Carboxyhemoglobin POC ABG HHb (Measured) ABG Methemoglobin ABG O2 Capacity Hgb O2 Saturation FiO2 Sodium 143 Potassium 3.2 L Chloride 99 Carbon Dioxide 39 H Anion Gap 9 L BUN 29 H Creatinine 1.1 Est GFR ( Amer) > 60 Est GFR (Non-Af Amer) > 60 POC Glucose (mg/dL) Random Glucose 91 Hemoglobin A1c Calcium 7.8 L Phosphorus 3.4 Magnesium 2.2 Total Bilirubin 0.6 AST 127 H ALT 99 H Alkaline Phosphatase 59 Lactate Dehydrogenase 1025 H Total Creatine Kinase 172 Troponin I 0.85 H* D Total Protein 5.4 L Albumin 2.9 L Globulin 2.5 Albumin/Globulin Ratio 1.2 Triglycerides 105 Cholesterol 114 L LDL Cholesterol Direct 65 HDL Cholesterol 30 07/13/17 07/13/17 07/13/17 05:20 05:20 07:06 WBC RBC Hgb Hct MCV MCH MCHC RDW Plt Count MPV Gran % Lymph % (Auto) [place] % (Auto) Eos % (Auto) Baso % (Auto) Gran # Lymph # (Auto) [place] # (Auto) Eos # (Auto) Baso # (Auto) APTT 93.3 H pCO2 53 H pO2 97.0 HCO3 36.0 H ABG pH 7.44 ABG Total CO2 37.6 H ABG O2 Saturation 99.4 H ABG O2 Content 16.7 ABG Base Excess 10.1 H ABG Hemoglobin 12.2 ABG Carboxyhemoglobin 1.9 H POC ABG HHb (Measured) 0.6 ABG Methemoglobin 1.0 ABG O2 Capacity 16.8 Hgb O2 Saturation 96.5 FiO2 60.0 Sodium Potassium Chloride Carbon Dioxide Anion Gap BUN Creatinine Est GFR ( Amer) Est GFR (Non-Af Amer) POC Glucose (mg/dL) Random Glucose Hemoglobin A1c 6.1 Calcium Phosphorus Magnesium Total Bilirubin AST ALT Alkaline Phosphatase Lactate Dehydrogenase Total Creatine Kinase Troponin I Total Protein Albumin Globulin Albumin/Globulin Ratio Triglycerides Cholesterol LDL Cholesterol Direct HDL Cholesterol 07/13/17 07/13/17 07:35 11:05 WBC RBC Hgb Hct MCV MCH MCHC RDW Plt Count MPV Gran % Lymph % (Auto) [place] % (Auto) Eos % (Auto) Baso % (Auto) Gran # Lymph # (Auto) [place] # (Auto) Eos # (Auto) Baso # (Auto) APTT pCO2 pO2 HCO3 ABG pH ABG Total CO2 ABG O2 Saturation ABG O2 Content ABG Base Excess ABG Hemoglobin ABG Carboxyhemoglobin POC ABG HHb (Measured) ABG Methemoglobin ABG O2 Capacity Hgb O2 Saturation FiO2 Sodium Potassium Chloride Carbon Dioxide Anion Gap BUN Creatinine Est GFR ( Amer) Est GFR (Non-Af Amer) POC Glucose (mg/dL) 89 84 Random Glucose Hemoglobin A1c Calcium Phosphorus Magnesium Total Bilirubin AST ALT Alkaline Phosphatase Lactate Dehydrogenase Total Creatine Kinase Troponin I Total Protein Albumin Globulin Albumin/Globulin Ratio Triglycerides Cholesterol LDL Cholesterol Direct HDL Cholesterol EKG/Cardiology Studies: Cardiology / EKG Studies 07/12/17 14:00 ELECTROCARDIOGRAM Q8 Comment: Reason For Exam: tropes indeterminate on admission 07/12/17 22:00 ELECTROCARDIOGRAM Q8 Comment: Reason For Exam: tropes indeterminate on admission 07/13/17 07:05 ELECTROCARDIOGRAM Stat Comment: Reason For Exam: f/u Critical Care Progress Note - Nutrition Nutrition: Nutrition Category Date Time Status NPO Diet [DIET] Diets 07/11/17 Breakfast Ordered Attending/Attestation - Attestation I have fully participated in the care of the patient.: Yes I have reviewed all pertinent clinical information: Yes Notes (Text): 07/13/17 13:41 57 yo male s/p cardiac arrest with ROSC, with now resolved cardiogenic shock, successfully extubated yesterday, on BPAP. did well overnight on BPAP--likely has undiagnosed SIGRID/OHS-->needs PSG upon discharge from the hospital. Meanwhile has undergone right and left cardiac cathetirazation: RA 15, LVEDP 18, PAPm 45, CI>3, PAWP 15-20, PVR 2.5 sethi unit. No pulm angio done. Coronary angio did not reveal clinically significant CAD, necessating stent placement. Coupled with Echo findings, it appears that the patient has cor pulmonale with some component of fluid overload/diastolic chf and transient spike in PAP at the time of admission (whether precipitated by hypoxemic or hypercapnic episode) may have led to short-lived cardiac arrest. At present time, I would proceed with milrinone for PH, avoiding hypoxemia, tapering/titrating fi02 to maintain 02sat>93%, abx, steroid taper and bronchodilators and diuresis. BPAP at night. Will continue heparin until PE ruled out. ccm time 40 min
--- NOTE | 2017-07-13 10:57 | CP.PCM.PN ---
Subjective - Date & Time of Evaluation Date of Evaluation: 07/13/17 Time of Evaluation: 10:00 - Subjective Subjective: Neurology Progress Note - Dr. Bermudez Pt was seen and examined at bedside. Pt is tolerating HFNC this morning, still slightly short of breath. No acute or adverse events overnight as per nursing staff. Pt denied fever, chills, sob, chest pains, abdominal pains, nausea, vomiting, diarrhea, constipation or dysuria. Pt is with boyce draining hilario urine. Objective - Vital Signs/Intake and Output Vital Signs (last 24 hours): Temp Pulse Resp BP Pulse Ox 98.5 F 87 20 119/72 91 L 07/13/17 00:00 07/13/17 08:00 07/13/17 08:54 07/13/17 09:01 07/13/17 08:00 Intake and Output: 07/13/17 07/13/17 06:59 18:59 Intake Total 230 Balance 230 - Medications Medications: Current Medications Albuterol/Ipratropium (Duoneb 3 Mg/0.5 Mg (3 Ml) Ud) 3 ml IH Q2H PRN PRN Reason: Shortness of Breath Last Admin: 07/13/17 07:25 Dose: 3 ml Aspirin (Aspirin) 325 mg PO DAILY [facility] Last Admin: 07/13/17 09:01 Dose: 325 mg Clopidogrel Bisulfate (Plavix) 75 mg PO DAILY [facility] Last Admin: 07/13/17 09:01 Dose: 75 mg Furosemide (Lasix) 20 mg IVP Q12 [facility] Last Admin: 07/13/17 09:01 Dose: 20 mg Aztreonam (Azactam 1 Gm) 100 mls @ 100 mls/hr IVPB Q8 [facility] PRN Reason: Protocol Stop: 07/19/17 09:01 Last Admin: 07/13/17 05:28 Dose: 100 mls/hr Doxycycline Hyclate 100 mg/ (Sodium Chloride) 100 mls @ 100 mls/hr IVPB Q12 [facility] PRN Reason: Protocol Last Admin: 07/13/17 09:00 Dose: 100 mls/hr Potassium Chloride (Potassium Chloride 20 Meq/100 Ml) 20 meq in 100 mls @ 50 mls/hr IVPB Q2H [facility] Stop: 07/13/17 12:44 Last Admin: 07/13/17 10:09 Dose: 50 mls/hr Metoprolol Tartrate (Lopressor) 2.5 mg IVP Q6H [facility] Last Admin: 07/13/17 03:56 Dose: 2.5 mg Pantoprazole Sodium (Protonix Inj) 40 mg IVP DAILY [facility] Last Admin: 07/13/17 09:01 Dose: 40 mg - Labs Labs: 07/13/17 05:20 07/13/17 05:20 PT 16.8 SECONDS (9.4-12.5) H 07/11/17 20:06 INR 1.46 (0.93-1.08) H 07/11/17 20:06 APTT 93.3 Seconds (25.1-36.5) H 07/13/17 05:20 - Constitutional Appears: No Acute Distress - Head Exam Head Exam: ATRAUMATIC, NORMAL INSPECTION, NORMOCEPHALIC - Eye Exam Eye Exam: EOMI, Normal appearance, PERRL Pupil Exam: NORMAL ACCOMODATION, PERRL - ENT Exam ENT Exam: Mucous Membranes Dry - Respiratory Exam Respiratory Exam: Decreased Breath Sounds, Rales - Cardiovascular Exam Cardiovascular Exam: REGULAR RHYTHM, +S1, +S2. absent: Murmur - GI/Abdominal Exam GI & Abdominal Exam: Soft, Normal Bowel Sounds. absent: Tenderness - Extremities Exam Extremities Exam: Pedal Edema (+3) - Neurological Exam Neurological Exam: Alert, Awake, CN II-XII Intact, Oriented x3 Neuro motor strength exam: Left Upper Extremity: 4, Right Upper Extremity: 4, Left Lower Extremity: 4, Right Lower Extremity: 4 - Psychiatric Exam Psychiatric exam: Normal Affect, Normal Mood - Skin Skin Exam: Dry, Intact, Normal Color, Warm Assessment and Plan - Assessment and Plan (Free Text) Assessment: 57 M with a PMHx of HTN, medication non-compliance and heart failure presented to [facility] ED by family after being found in his kitchen face down and s/p cardiac arrest with ROSC achieved after ACLS protocol initiated. Pt has hematoma to right hip, imaging did not demonstrate and acute pathology. Pt symptoms likely cardiogenic in cause. Pt is for cardiac cath today. He is tolerating HFNC, still slightly short of breath. Pt with boyce, being diuresed with lasix. Echo EF 56%. Will fu repeat CT head. He will need a sleep study as well, considering concerns for sleep apnea. Continue medical management as per ICU team. Coronary angio did not reveal clinically significant CAD, necessating stent placement.
[2017-07-13] MEDS ORDERED: Iodixanol 320 MG/ML 200 ML BOTTLE IV ONE (12:38)
[2017-07-13] MEDS: Lidocaine 2% Inj (20ml) ONE ×2 (13:21→14:04)
[2017-07-13] MEDS: Phenylephrine 10 mg/ml Inj ONE ×2 (14:05→14:40)
[2017-07-13] MEDS: Iohexol 350mgl/ml 50 ML ONE ×2 (14:05→14:41)
[2017-07-13] MEDS: Midazolam 2 MG/2 ML VIAL ONE ×2 (14:07→14:42)
[2017-07-13] MEDS: Iodixanol 320 MG/ML 100 ML BOTTLE IV ONE ×2 (14:07→14:42)
[2017-07-13] MEDS: Vancomycin 1gm in NS 250ml 1 GM/250 ML BAG IVPB SCH (14:10)
[2017-07-13] MEDS ORDERED: Sodium Chloride 0.9% 1,000 ML IV SCH (14:15)
[2017-07-13] MEDS: Milrinone 20mg/100ml D5W 100 ML IV PRN (14:40)
--- NOTE | 2017-07-13 14:40 | CPOSTOP ---
DATE: 07/13/2017 DICTATING PHYSICIAN: Taye Atkinson MD. DOUBLER HELPER: MADAN Chaing. TYPE OF ANESTHESIA: Mild conscious sedation. Total dose 0.5 mg of Versed given. PRE-PROCEDURE DIAGNOSES: Unstable angina, troponin positive, acute shortness of breath, syncope, status post cardiopulmonary resuscitation, rule out underlying coronary artery disease. PROCEDURE PERFORMED: Left heart catheterization and right heart catheterization. FINDINGS: 1. Mild nonobstructive coronary artery disease. 2. Pulmonary hypertension. FINAL DIAGNOSES: Nonobstructive coronary artery disease, pulmonary hypertension. POST PROCEDURE CONDITION: Post procedure, the patient's condition fair. VASCULAR ACCESS: Right femoral artery for left heart cath, right femoral vein for right heart cath. CLOSURE DEVICE: Angio-Seal for right femoral artery. Mynx for right femoral vein. TOTAL DOSE OF RADIATION: 8801.83 milligray unit. TOTAL FLUORO TIME: 2.8 minutes. RECOMMENDATION: We will start heparin 6 hours after that for possible suspected pulmonary embolism. CT angio in the morning will avoid because 40 mL of contrast used today, so we will avoid CT angio tonight. We will do tomorrow after hydration. We will also start Primacor 0.2 mcg/kg/minute. Repeat blood workup at 07:00. Supplement potassium. Discuss in length with Dr. Gaston. Taye Atkinson MD
--- NOTE | 2017-07-13 14:59 | PN ---
DATE: 07/13/2017 PULMONARY PROGRESS NOTE SUBJECTIVE: The patient is feeling better. He is awake and alert. He is lalert enough to ask him further questions regarding the events that had been reviewed with the house staff officer. He had a sudden event at night that left him breatless and he lost consciousness. The patient is breathing comfortably status post cardiopulmonary arrest. On questioning the patient further, there has been no previous pulmonary history; however, the patient snores and is grossly overweight. Cardiac evaluation is underway at this time. Cardiac cath has been done today. The patient will require further evaluation for obstructive sleep apnea. PHYSICAL EXAMINATION: GENERAL: He is resting comfortably in the Intensive Care Unit. VITAL SIGNS: Stable. His blood pressure is 110/70, pulse ox 95 on supplemental oxygen. Afebrile, respiratory rate 20. HEENT: Within normal limits NECK: Supple. No jugular venous distention. HEART: Regular rhythm. S1 and S2 without murmur, gallop or rub. LUNGS: Global decrease in breath sounds, but decent air entry. No rales, rhonchi or wheezes appreciated. GI: Bowel sounds active. within normal limits : Within normal limits NEUROLOGIC: As described above. SKIN: Dry; intact. No rashes LABORATORY DATA: Chest x-ray is improved. ASSESSMENT: 1. Status post cardiopulmonary arrest. 2. Probable myocardial infarction with positive troponins. 3. Highly suspicious for obstructive sleep apnea. 4. Status post respiratory failure with significant A-a gradient. 5. Hx of Obesity and Snoring. Somnolence daytime? PLAN: 1. Continue cardiac workup at this time. 2. At this time, the patient will go for cardiac catheterization today and Cardiology to further evaluate. I have spoken with the Grinder, Dr. Duarte regarding this patient. I strongly suspect Respiratory Arrest secondary to SIGRID as the causitive event. The Patient will need a Polysomnography at the earliest time. Discussed using prophylactic CPAP with the ICU team. . Mt Holland MD CHANCE
--- NOTE | 2017-07-13 16:08 | CARD ---
APPROVED REPORT Procedure(s) performed: Complete Heart Catheterization HISTORY The patient is a 57 year-old male with a history of : previous CHF, peripheral vascular disease, tobacco history() : The patient is a former smoker , hypertension , Admitted with Cardio-respiratory failure, S/p CPR, intubated, Prior to syncope pt complained of chest pain as per suster, and mildly troponin positive, NSTEMI, ACS.. INDICATION The indication(s) include : unstable angina , non-STEMI , dyspnea, syncope, Cardio-respiratory failure s/ P CPR. CASE TECHNIQUE The patient was brought urgently to the Cardiac Catheterization Laboratory in a fasting state and was prepped and draped in a sterile manner. The right femoral groin was infiltrated with 2% Lidocaine subcutaneous anesthesia. A 6 Fr x 11 cm Jessica sheath was inserted into the right femoral artery without difficulty. Coronary angiography was performed using coronary diagnostic catheters. The left coronary system was accessed and visualized with a Diagnostic , 6F JL4 CATH DXT 100 CM catheter. The right coronary system was accessed and visualized with a Diagnostic ,6F JR 4 CATH DXT 100 CM catheter. The left ventricle was accessed and visualized with a 6F PIGTAIL 145 CATH DXT 110 CM catheter. Left ventricular/Aortic Valve gradient assessed on pullback. Left ventriculogram was performed in SUÁREZ projection. A Right Heart Catheterization was performed with a 7 Fr. [place]-Kyle catheter and pressure were recorded. A 7 sheath was inserted into the right femoral vein without difficulty. Coronary angiography was performed using coronary diagnostic catheters. Cardiac outputs were obtained by the Thermal Dilution method. Pre-demployment femoral angiogram was performed . Closure device was deployed with a 6 Fr Angio-Seal without any complications. The patient tolerated the procedure well and there were no complications associated with the procedure. RFA was closed with Angio-Seal and RFV was closed with Mynx Vessel Analysis The patient's coronary anatomy is right dominant. The left main coronary artery is a medium size vessel with diffuse calcification noted throughout this vessel and without significant stenosis. There is a 20% stenosis in the ostial segment. The left main bifurcates to the left anterior descending and circumflex. The left anterior descending artery is a medium size vessel with diffuse calcification noted throughout this vessel and without significant stenosis. proximal LAD is heavily calcified. There is a 55% stenosis in the very dital distal segment. Diffusely diseased, but no focal flow limiting stenosis. The first diagonal branch is a medium size vessel with diffuse calcification noted throughout this vessel and without significant stenosis. The second diagonal branch is a medium size vessel with diffuse calcification noted throughout this vessel and without significant stenosis. The third diagonal branch is a medium size vessel with diffuse calcification noted throughout this vessel and without significant stenosis. The circumflex artery is a medium size vessel with diffuse calcification noted throughout this vessel and without significant stenosis. The first obtuse marginal branch is a medium size vessel with diffuse calcification noted throughout this vessel and without significant stenosis. The right coronary artery is a large size vessel with diffuse calcification noted throughout this vessel and without significant stenosis. The right posterior descending artery is a large size vessel with diffuse calcification noted throughout this vessel and without significant stenosis. Left Ventricle The left ventricle is borderline enlarged in size with normal contractility. There was no cardiomyopathy. The left ventricular ejection fraction is estimated to be 55%. The left ventricular end diastolic pressure is 15-20 mmHg. Respiratory variation. There was no gradient across the aortic valve upon pullback. Right Heart Cath Findings The Right Atrial Pressure is 15 mmHg. The Right Ventricular Pressure is 70/15 mmHg. The Pulmonary Artery Pressure is 70/22 mmHg. with a mean of 42 The Pulmonary Catheter Wedge Pressure is 18-20 mmHg. PVR 2.69 Wood units. The cardiac output and index were assessed using thermo dilution. The Cardiac Output is 8.17 L/min. The Cardiac index is 3.32 L/min/m2. Conclusion Non obstructive CAD Limited to Very distal LAD 55% diffusely diseased, but no focal flow limiting stenosis. Preserved LV Fx. Ef-55%, EDP-15-20 mmof Hg.with respiratory variation. RHC; RA-15, RV-70/15, PA-70/22 with a mean of 42. PCW-18-20 mmof Hg, CO-8.17, CI-3.32, PVR-2.69 Waterman unit. 40-50 cc contrast used for LHC. Recommendations Smoking Cessation Cardiac Rehabilitation Referral Aggressive Medical TherapyCardiac Risk Reduction Program Weight Loss Reduction Program Gentle hydration Restart Heparin 6 hours after Cath for possible PE Start Primacor, CT angio in am to R/o PE DC plavix. CC; dr. Kev Salgado.
--- NOTE | 2017-07-13 19:00 | PN ---
DATE: 07/13/2017 SUBJECTIVE: The patient is in bed, in no acute distress, nontoxic, was seen early this morning. No fevers. PHYSICAL EXAMINATION: VITAL SIGNS: Temperature is 98, T-max is 100.6, blood pressure is 120/70, respiratory rate of 18. HEENT: Unremarkable. NECK: Supple. LUNGS: Have decreased breath sounds. HEART: Normal S1, S2. ABDOMEN: Soft, nontender. LABORATORY EXAMINATION: Reveals a white count of 13,000, hemoglobin of 13, platelets of 290. Chemistries reveals a BUN of 29, creatinine of 1.1. LDH is over a 1000 with a troponin of 0.85 and urinalysis is noted. Toxicology is reviewed. Serology is negative for hepatitis. Blood cultures and urine cultures are negative. The patient's procalcitonin is 0.83. Review of orders reveals the patient to be on aztreonam and doxycycline IV. ASSESSMENT AND PLAN: A 57-year-old male seen earlier today in [facility], bed 4 with hypertension, morbid obesity, BMI of 45, history of right hip replacement with systemic inflammatory response syndrome, status post vent dependent respiratory failure, acute encephalopathy and acute myocardial infarction and the patient with hypertension, morbid obesity, BMI of 45 and was given vancomycin, Azactam and doxycycline. The patient was found on the kitchen floor. In the emergency room, the patient had a cardiac arrest and ACLS was initiated. The patient was intubated. This morning, the patient is doing well. The patient did have fevers. Initially, did have tachycardia and shortness of breath. This morning's chest x-ray shows limited airspace disease, left retrocardiac space and probable community-acquired pneumonia and sepsis. note is reviewed. We will continue the vancomycin and Azactam and change the doxycycline to p.o. and repeat procalcitonin and we will check on the final culture results. We will follow closely with you. Anderson Tsang MD
[2017-07-13 19:10] LABS: EOS # 0.1 (0.0-0.7); EOS % 0.5 % (1.5-5.0); GRAN # 9.99 (1.4-6.5); GRAN % 78.3 % (50.0-68.0); HEMOGLOBIN 12.7 g/dL (14.0-18.0); LYMPH # 1.2 (1.2-3.4); LYMPH % 9.7 % (22.0-35.0); MEAN CELL VOLUME 87.9 fl (80.0-105.0); MEAN CORPUSCULAR HGB CONC 31.8 g/dl (31.0-37.0); MEAN PLATELET VOLUME 8.6 fl (7.0-11.0); MONO # 1.5 (0.1-0.6); MONO % 11.5 % (1.0-6.0); RBC 4.54 10^6/uL (3.5-6.1); RED CELL DISTRIBUTION WIDTH 16.1 % (11.5-14.5); WHITE BLOOD COUNT 12.8 10^3/ul (4.5-11.0)
[2017-07-13 19:46] LABS: BLOOD UREA NITROGEN 25 mg/dL (7-21); CALCIUM 7.7 mg/dL (8.4-10.5); GFR AFRICAN-AMERICAN > 60; GFR NON-AFRICAN AMERICAN > 60
[2017-07-13] MEDS ORDERED: Heparin25000 units/250ml 1/2NS 25,000 UNITS/250 ML BAG IV SCH (20:00)
--- NOTE | 2017-07-13 22:30 | PN ---
DATE: 07/13/2017 SUBJECTIVE: The patient has no complaints of any chest pain. No shortness of breath. No headaches or dizziness. PHYSICAL EXAMINATION VITAL SIGNS: Temperature is 98.8, pulse is 74, blood pressure is 86/47, respirations 20. GENERAL: The patient is lying in bed, flat, comfortable. HEENT: No oral lesion. Anicteric sclerae. Moist mucosa. NECK: No JVD, adenopathy, or thyromegaly. CARDIOVASCULAR: S1 and S2, regular. No murmurs, rubs, or gallops. LUNGS: Clear to auscultation bilaterally. No wheeze, rales, or rhonchi. ABDOMEN: Bowel sounds are positive, soft, nontender and nondistended. EXTREMITIES: No cyanosis, clubbing or edema. LABORATORY DATA: White count is 13, hemoglobin 13.2. Potassium is 3.2, creatinine 1.1. ASSESSMENT: 1. Respiratory failure, status post extubation. 2. Sepsis. 3. Status post cardiac arrest. 4. Right kidney cyst, 4 cm. 5. Hypoxia, improved. 6. Nonobstructive coronary artery disease with the ejection fraction of 55% by cardiac cath. 7. Smoking. PLAN: The patient is currently comfortable. Patient's white count is improving, it was 13 today. Blood cultures and urine cultures have been negative. Patient is hypokalemic and potassium will be replaced. As it is not clear what the etiology of the patient's initial symptoms were, the patient is on aspirin. He is going to continue with doxycycline for antibiotics. He is on heparin for anticoagulation. He is on Lasix the patient is using IV fluids because of the cath. The patient is on vancomycin for antibiotics. A CT of the chest has been ordered to rule out pulmonary embolism. The patient had procalcitonin level that was mildly elevated at 0.83. Terry García MD
--- NOTE | 2017-07-13 22:36 | CARD ---
APPROVED REPORT EKG Measurement Heart [id number] <Conclusion> Normal sinus rhythm Left axis deviation ST & T wave abnormality, consider lateral ischemia Prolonged QT Abnormal ECG
[2017-07-14 02:25] LABS: ARTERIAL BLOOD GAS HCO3 37.4 mmol/L (21-28); ARTERIAL BLOOD GAS HEMOGLOBIN 11.5 g/dL (11.7-17.4); ARTERIAL BLOOD GAS O2 CAPACITY 15.8 mL/dl (16-24); ARTERIAL BLOOD GAS O2 CONTENT 15.7 ML/dl (15-23); ARTERIAL BLOOD GAS O2 SAT 99.4 % (95-98); ARTERIAL BLOOD GAS PCO2 59 mm/Hg (35-45); ARTERIAL BLOOD GAS PH 7.41 (7.35-7.45); ARTERIAL BLOOD GAS TCO2 39.2 mmol.L (22-28)
[2017-07-14] MEDS: Milrinone 20mg/100ml D5W 100 ML IV PRN ×4 (02:30→21:30)
[2017-07-14] MEDS: Vancomycin 1gm in NS 250ml 1 GM/250 ML BAG IVPB SCH ×2 (02:44→14:48)
[2017-07-14] MEDS: Aztreonam 1 Gm in NS 100mL 100 ML IVPB SCH ×3 (05:52→21:37)
[2017-07-14] MEDS: Metoprolol 1 mg/ml Inj IVP SCH (05:53)
[2017-07-14 06:03] LABS: BASO # 0.01 K/mm3 (0.0-2.0); BASO % 0.1 % (0.0-3.0); EOS # 0.2 (0.0-0.7); EOS % 1.5 % (1.5-5.0); GRAN # 8.96 (1.4-6.5); HEMOGLOBIN 11.8 g/dL (14.0-18.0); LYMPH # 1.3 (1.2-3.4); LYMPH % 10.8 % (22.0-35.0); MEAN CELL VOLUME 88.6 fl (80.0-105.0); MEAN CORPUSCULAR HGB CONC 31.6 g/dl (31.0-37.0); MEAN PLATELET VOLUME 9.2 fl (7.0-11.0); MONO # 1.2 (0.1-0.6); MONO % 10.6 % (1.0-6.0); RBC 4.22 10^6/uL (3.5-6.1); WHITE BLOOD COUNT 11.6 10^3/ul (4.5-11.0)
--- NOTE | 2017-07-14 07:24 | CP.CCUPN ---
<Kady Ford - Last Filed: 07/14/17 10:14> CCU Subjective - Physician Review Events Since Last Encounter (Free Text): 07/14/17 09:49 Started him on Milrinone drip, heparin drip last night. CT angio neg for PE, stopped heparin drip. Subjective (Free Text): 07/14/17 08:51 Patient seen and examined at bedside. No acute events overnight. Denies sob, fever, chills, nausea, vomiting, abdominal pain. Critical Care Time Spent (in minutes): 50 CCU Objective - Vital Signs / Intake & Output Vital Signs (Last 4 hours): Vital Signs Pulse Resp BP Pulse Ox 07/14/17 06:46 96 H 141/64 92 L 07/14/17 06:40 98 H 29 H 92 L 07/14/17 06:31 96 H 40 H 142/68 93 L 07/14/17 06:30 97 H 43 H 93 L 07/14/17 06:20 100 H 35 H 91 L 07/14/17 06:19 31 H 07/14/17 06:16 97 H 32 H 140/54 L 92 L 07/14/17 06:10 95 H 27 H 96 07/14/17 06:00 90 30 H 119/57 L 96 07/14/17 05:53 95 H 112/64 07/14/17 05:50 95 H 34 H 95 04/18 05:47 99 H 112/64 95 07/14/17 05:40 97 H 28 H 95 07/14/17 05:30 94 H 29 H 120/55 L 96 07/14/17 05:20 96 H 59 H 93 L 07/14/17 05:15 93 H 36 H 137/66 94 L 07/14/17 05:10 102 H 20 94 L 07/14/17 05:00 97 H 36 H 124/64 94 L 07/14/17 04:50 100 H 18 93 L 07/14/17 04:45 101 H 19 116/68 93 L 18 04:40 98 H 36 H 94 L 07/14/17 04:30 101 H 30 H 135/68 95 04/18 04:20 91 H 32 H 95 07/14/17 04:15 86 34 H 128/64 94 L 04/18 04:10 99 H 38 H 92 L 07/14/17 04:00 100 H 135/57 L 95 07/14/17 03:50 99 H 27 H 95 07/14/17 03:45 99 H 42 H 126/65 94 L 07/14/17 03:40 100 H 96 07/14/17 03:32 95 H 34 H 113/68 96 07/14/17 03:30 93 H 27 H 96 Intake and Output (Last 8hrs): Intake & Output 07/13/17 07/14/17 07/14/17 22:59 06:59 14:59 Intake Total 1560 870 Output Total 1400 1525 Balance 160 -655 Intake: IV 900 870 Heparin drip 120 IVPB 800 750 Oral 660 Output: Urine 1400 1525 Urethral (Ag) 1400 1525 Stool 0 Other: # Bowel Movements 0 - Physical Exam Head: Positive for: Atraumatic, Normocephalic Pupils: Positive for: PERRL Extroacular Muscles: Positive for: EOMI Conjunctiva: Positive for: Normal Ears: Positive for: Normal, NORMAL TM, Normal Canal. Negative for: Erythema, TM Bulging, Fluid, TM Perf Mouth: Positive for: Moist Mucous Membranes Pharnyx: Positive for: Normal. Negative for: ERYTHEMA, EXUDATE, TONSILS ENLARGED, Peritonsilar Swelling, Uvular Deviation, Muffled/Hoarse Voice, Strider , Soft Palate/Uvular Edema Nose (External): Positive for: Atraumatic Nose (Internal): Positive for: Normal Inspection Neck: Positive for: Normal Range of Motion. Negative for: Meningeal Signs, MIDLINE TENDERNESS, Paraspinal Tenderness Respiratory/Chest: Positive for: Tachypneic. Negative for: Clear to Auscultation Cardiovascular: Positive for: Regular Rate and Rhythm, Normal S1, S2, Peripheal Pulses Present. Negative for: Murmurs Abdomen: Positive for: Normal Bowel Sounds. Negative for: Tenderness (Soft), Distention, Peritoneal Signs, Guarding, Mass/Organomegaly Upper Extremity: Positive for: Normal Inspection. Negative for: Cyanosis, Edema Lower Extremity: Positive for: Edema (Bilateral lower extremity edema 2+), Other (Ecchymotic bruising to right buttocks/leg) Neurological: Positive for: GCS=15, CN II-XII Intact, Speech Normal Skin: Positive for: Warm, Dry, Normal Color. Negative for: Rashes Psychiatric: Positive for: Alert, Oriented x 3 - Medications Active Medications: Active Medications Generic Name Dose Route Start Last Admin Trade Name Freq PRN Reason Stop Dose Admin Albuterol/Ipratropium 3 ml 07/13/17 06:57 07/13/17 19:23 Duoneb 3 Mg/0.5 Mg (3 Ml) Ud IH 3 ml Q2H PRN Administration Shortness of Breath Aspirin 325 mg 07/12/17 10:00 07/13/17 09:01 Aspirin PO 325 mg DAILY MERI Administration Doxycycline Hyclate 100 mg 07/13/17 22:00 07/13/17 22:30 Doryx PO 07/22/17 22:01 100 mg Q12 MERI Administration Protocol Furosemide 20 mg 07/12/17 10:00 07/13/17 22:30 Lasix IVP 20 mg Q12 MERI Administration Aztreonam 100 mls @ 100 mls/hr 07/12/17 09:00 07/14/17 05:52 Azactam 1 Gm IVPB 07/19/17 09:01 100 mls/hr Q8 MERI Administration Protocol Vancomycin HCl 1 gm in 250 mls @ 167 mls/hr 07/13/17 13:30 07/14/17 02:44 Vancomycin 1gm IVPB 07/22/17 13:31 167 mls/hr Q12H MERI Administration Protocol Milrinone Lactate/Dextrose 100 mls @ 15.426 mls/hr 07/13/17 14:08 07/14/17 02 :30 Primacor 20mg/100ml D5w IV 0.375 mcg/kg/min .Q6H29M PRN 15.426 mls/hr TITRATE PER MD ORDER Administration Protocol 0.375 MCG/KG/MIN Heparin Sodium/Sodium Chloride 25,000 units in 250 mls @ 16.455 mls/hr 20:00 07/13/17 19:59 Heparin 10806 Units/250ml 1/2 Normal Saline IV 12 units/kg/hr .[id number] MERI 16.455 mls/hr Protocol Administration 12 UNITS/KG/HR Metoprolol Tartrate 2.5 mg 07/12/17 10:45 07/14/17 05:53 Lopressor IVP Not Given Q6H MERI Pantoprazole Sodium 40 mg 07/14/17 07:00 Protonix Ec Tab PO 0600 [facility] - Patient Studies Lab Studies: Microbiology Studies 07/12/17 23:13 Gram Stain - Final Sputum 07/11/17 22:22 Urine Culture - Final Urine,Catheterized No Growth (<1,000 CFU/ML) Lab Studies 07/14/17 07/14/17 07/14/17 Range/Units 05:20 02:28 02:18 WBC 11.6 H (4.5-11.0) 10^3/ul RBC 4.22 (3.5-6.1) 10^6/uL Hgb 11.8 L (14.0-18.0) g/dL Hct 37.4 L (42.0-52.0) % MCV 88.6 (80.0-105.0) fl MCH 28.0 (25.0-35.0) pg MCHC 31.6 (31.0-37.0) g/dl RDW 16.0 H (11.5-14.5) % Plt Count 251 (120.0-450.0) 10^3/uL MPV 9.2 (7.0-11.0) fl Gran % 77.0 H (50.0-68.0) % Lymph % (Auto) 10.8 L (22.0-35.0) % [place] % (Auto) 10.6 H (1.0-6.0) % Eos % (Auto) 1.5 (1.5-5.0) % Baso % (Auto) 0.1 (0.0-3.0) % Gran # 8.96 H (1.4-6.5) Lymph # (Auto) 1.3 (1.2-3.4) [place] # (Auto) 1.2 H (0.1-0.6) Eos # (Auto) 0.2 (0.0-0.7) Baso # (Auto) 0.01 (0.0-2.0) K/mm3 APTT 59.7 H (25.1-36.5) Seconds pCO2 59 H (35-45) mm/Hg pO2 104.0 H (80-100) mm/Hg HCO3 37.4 H (21-28) mmol/L ABG pH 7.41 (7.35-7.45) ABG Total CO2 39.2 H (22-28) mmol.L ABG O2 Saturation 99.4 H (95-98) % ABG O2 Content 15.7 (15-23) ML/dl ABG Base Excess 10.8 H (-2.0-3.0) mmol/L ABG Hemoglobin 11.5 L (11.7-17.4) g/dL ABG Carboxyhemoglobin 2.1 H (0.5-1.5) % POC ABG HHb (Measured) 0.6 (0-5) % ABG Methemoglobin 1.1 (0.0-3.0) % ABG O2 Capacity 15.8 L (16-24) mL/dl Hgb O2 Saturation 96.2 (95.0-98.0) % FiO2 60.0 % Sodium (132-148) mmol/L Potassium (3.6-5.0) mmol/L Chloride (98-107) mmol/L Carbon Dioxide (21-33) mmol/L Anion Gap (10-20) BUN (7-21) mg/dL Creatinine (0.8-1.5) mg/dl Est GFR ( Amer) Est GFR (Non-Af Amer) POC Glucose (mg/dL) (65-110) mg/dL Random Glucose (70-110) mg/dL Hemoglobin A1c (4.2-6.5) % Calcium (8.4-10.5) mg/dL Phosphorus (2.5-4.5) mg/dL Magnesium (1.7-2.2) mg/dL Total Bilirubin (0.2-1.3) mg/dL AST (17-59) U/L ALT (7-56) U/L Alkaline Phosphatase (38-126) U/L Total Protein (5.8-8.3) g/dL Albumin (3.0-4.8) g/dL Globulin gm/dL Albumin/Globulin Ratio (1.1-1.8) Triglycerides (35-160) mg/dL Cholesterol (130-200) mg/dL HDL Cholesterol (29-60) mg/dL Procalcitonin (0.19-0.49) NG/ML 07/13/17 07/13/17 07/13/17 Range/Units 21:35 19:07 19:07 WBC 12.8 H (4.5-11.0) 10^3/ul RBC 4.54 (3.5-6.1) 10^6/uL Hgb 12.7 L (14.0-18.0) g/dL Hct 39.9 L (42.0-52.0) % MCV 87.9 (80.0-105.0) fl MCH 28.0 (25.0-35.0) pg MCHC 31.8 (31.0-37.0) g/dl RDW 16.1 H (11.5-14.5) % Plt Count 248 (120.0-450.0) 10^3/uL MPV 8.6 (7.0-11.0) fl Gran % 78.3 H (50.0-68.0) % Lymph % (Auto) 9.7 L (22.0-35.0) % [place] % (Auto) 11.5 H (1.0-6.0) % Eos % (Auto) 0.5 L (1.5-5.0) % Baso % (Auto) 0.0 (0.0-3.0) % Gran # 9.99 H (1.4-6.5) Lymph # (Auto) 1.2 (1.2-3.4) [place] # (Auto) 1.5 H (0.1-0.6) Eos # (Auto) 0.1 (0.0-0.7) Baso # (Auto) 0.00 (0.0-2.0) K/mm3 APTT (25.1-36.5) Seconds pCO2 (35-45) mm/Hg pO2 (80-100) mm/Hg HCO3 (21-28) mmol/L ABG pH (7.35-7.45) ABG Total CO2 (22-28) mmol.L ABG O2 Saturation (95-98) % ABG O2 Content (15-23) ML/dl ABG Base Excess (-2.0-3.0) mmol/L ABG Hemoglobin (11.7-17.4) g/dL ABG Carboxyhemoglobin (0.5-1.5) % POC ABG HHb (Measured) (0-5) % ABG Methemoglobin (0.0-3.0) % ABG O2 Capacity (16-24) mL/dl Hgb O2 Saturation (95.0-98.0) % FiO2 % Sodium 143 (132-148) mmol/L Potassium 3.8 (3.6-5.0) mmol/L Chloride 100 (98-107) mmol/L Carbon Dioxide 38 H (21-33) mmol/L Anion Gap 9 L (10-20) BUN 25 H (7-21) mg/dL Creatinine 0.9 (0.8-1.5) mg/dl Est GFR ( Amer) > 60 Est GFR (Non-Af Amer) > 60 POC Glucose (mg/dL) 114 H (65-110) mg/dL Random Glucose 121 H (70-110) mg/dL Hemoglobin A1c (4.2-6.5) % Calcium 7.7 L (8.4-10.5) mg/dL Phosphorus (2.5-4.5) mg/dL Magnesium (1.7-2.2) mg/dL Total Bilirubin (0.2-1.3) mg/dL AST (17-59) U/L ALT (7-56) U/L Alkaline Phosphatase (38-126) U/L Total Protein (5.8-8.3) g/dL Albumin (3.0-4.8) g/dL Globulin gm/dL Albumin/Globulin Ratio (1.1-1.8) Triglycerides (35-160) mg/dL Cholesterol (130-200) mg/dL HDL Cholesterol (29-60) mg/dL Procalcitonin (0.19-0.49) NG/ML 07/13/17 07/13/17 07/13/17 Range/Units 16:53 13:29 11:05 WBC (4.5-11.0) 10^3/ul RBC (3.5-6.1) 10^6/uL Hgb (14.0-18.0) g/dL Hct (42.0-52.0) % MCV (80.0-105.0) fl MCH (25.0-35.0) pg MCHC (31.0-37.0) g/dl RDW (11.5-14.5) % Plt Count (120.0-450.0) 10^3/uL MPV (7.0-11.0) fl Gran % (50.0-68.0) % Lymph % (Auto) (22.0-35.0) % [place] % (Auto) (1.0-6.0) % Eos % (Auto) (1.5-5.0) % Baso % (Auto) (0.0-3.0) % Gran # (1.4-6.5) Lymph # (Auto) (1.2-3.4) [place] # (Auto) (0.1-0.6) Eos # (Auto) (0.0-0.7) Baso # (Auto) (0.0-2.0) K/mm3 APTT (25.1-36.5) Seconds pCO2 (35-45) mm/Hg pO2 (80-100) mm/Hg HCO3 (21-28) mmol/L ABG pH (7.35-7.45) ABG Total CO2 (22-28) mmol.L ABG O2 Saturation (95-98) % ABG O2 Content (15-23) ML/dl ABG Base Excess (-2.0-3.0) mmol/L ABG Hemoglobin (11.7-17.4) g/dL ABG Carboxyhemoglobin (0.5-1.5) % POC ABG HHb (Measured) (0-5) % ABG Methemoglobin (0.0-3.0) % ABG O2 Capacity (16-24) mL/dl Hgb O2 Saturation (95.0-98.0) % FiO2 % Sodium (132-148) mmol/L Potassium (3.6-5.0) mmol/L Chloride (98-107) mmol/L Carbon Dioxide (21-33) mmol/L Anion Gap (10-20) BUN (7-21) mg/dL Creatinine (0.8-1.5) mg/dl Est GFR ( Amer) Est GFR (Non-Af Amer) POC Glucose (mg/dL) 99 84 (65-110) mg/dL Random Glucose (70-110) mg/dL Hemoglobin A1c (4.2-6.5) % Calcium (8.4-10.5) mg/dL Phosphorus (2.5-4.5) mg/dL Magnesium (1.7-2.2) mg/dL Total Bilirubin (0.2-1.3) mg/dL AST (17-59) U/L ALT (7-56) U/L Alkaline Phosphatase (38-126) U/L Total Protein (5.8-8.3) g/dL Albumin (3.0-4.8) g/dL Globulin gm/dL Albumin/Globulin Ratio (1.1-1.8) Triglycerides (35-160) mg/dL Cholesterol (130-200) mg/dL HDL Cholesterol (29-60) mg/dL Procalcitonin 0.44 (0.19-0.49) NG/ML 07/13/17 07/13/17 07/13/17 Range/Units 07:35 05:20 05:20 WBC (4.5-11.0) 10^3/ul RBC (3.5-6.1) 10^6/uL Hgb (14.0-18.0) g/dL Hct (42.0-52.0) % MCV (80.0-105.0) fl MCH (25.0-35.0) pg MCHC (31.0-37.0) g/dl RDW (11.5-14.5) % Plt Count (120.0-450.0) 10^3/uL MPV (7.0-11.0) fl Gran % (50.0-68.0) % Lymph % (Auto) (22.0-35.0) % [place] % (Auto) (1.0-6.0) % Eos % (Auto) (1.5-5.0) % Baso % (Auto) (0.0-3.0) % Gran # (1.4-6.5) Lymph # (Auto) (1.2-3.4) [place] # (Auto) (0.1-0.6) Eos # (Auto) (0.0-0.7) Baso # (Auto) (0.0-2.0) K/mm3 APTT (25.1-36.5) Seconds pCO2 (35-45) mm/Hg pO2 (80-100) mm/Hg HCO3 (21-28) mmol/L ABG pH (7.35-7.45) ABG Total CO2 (22-28) mmol.L ABG O2 Saturation (95-98) % ABG O2 Content (15-23) ML/dl ABG Base Excess (-2.0-3.0) mmol/L ABG Hemoglobin (11.7-17.4) g/dL ABG Carboxyhemoglobin (0.5-1.5) % POC ABG HHb (Measured) (0-5) % ABG Methemoglobin (0.0-3.0) % ABG O2 Capacity (16-24) mL/dl Hgb O2 Saturation (95.0-98.0) % FiO2 % Sodium 143 (132-148) mmol/L Potassium 3.2 L (3.6-5.0) mmol/L Chloride 99 (98-107) mmol/L Carbon Dioxide 39 H (21-33) mmol/L Anion Gap 9 L (10-20) BUN 29 H (7-21) mg/dL Creatinine 1.1 (0.8-1.5) mg/dl Est GFR ( Amer) > 60 Est GFR (Non-Af Amer) > 60 POC Glucose (mg/dL) 89 (65-110) mg/dL Random Glucose 91 (70-110) mg/dL Hemoglobin A1c 6.1 (4.2-6.5) % Calcium 7.8 L (8.4-10.5) mg/dL Phosphorus 3.4 (2.5-4.5) mg/dL Magnesium 2.2 (1.7-2.2) mg/dL Total Bilirubin 0.6 (0.2-1.3) mg/dL AST 127 H (17-59) U/L ALT 99 H (7-56) U/L Alkaline Phosphatase 59 (38-126) U/L Total Protein 5.4 L (5.8-8.3) g/dL Albumin 2.9 L (3.0-4.8) g/dL Globulin 2.5 gm/dL Albumin/Globulin Ratio 1.2 (1.1-1.8) Triglycerides 105 (35-160) mg/dL Cholesterol 114 L (130-200) mg/dL HDL Cholesterol 30 (29-60) mg/dL Procalcitonin (0.19-0.49) NG/ML Laboratory Results - last 24 hr 05/03/18 05/03/18 05/03/18 05:20 05:20 07:35 WBC RBC Hgb Hct MCV MCH MCHC RDW Plt Count MPV Gran % Lymph % (Auto) [place] % (Auto) Eos % (Auto) Baso % (Auto) Gran # Lymph # (Auto) [place] # (Auto) Eos # (Auto) Baso # (Auto) APTT pCO2 pO2 HCO3 ABG pH ABG Total CO2 ABG O2 Saturation ABG O2 Content ABG Base Excess ABG Hemoglobin ABG Carboxyhemoglobin POC ABG HHb (Measured) ABG Methemoglobin ABG O2 Capacity Hgb O2 Saturation FiO2 Sodium 143 Potassium 3.2 L Chloride 99 Carbon Dioxide 39 H Anion Gap 9 L BUN 29 H Creatinine 1.1 Est GFR ( Amer) > 60 Est GFR (Non-Af Amer) > 60 POC Glucose (mg/dL) 89 Random Glucose 91 Hemoglobin A1c 6.1 Calcium 7.8 L Phosphorus 3.4 Magnesium 2.2 Total Bilirubin 0.6 AST 127 H ALT 99 H Alkaline Phosphatase 59 Total Protein 5.4 L Albumin 2.9 L Globulin 2.5 Albumin/Globulin Ratio 1.2 Triglycerides 105 Cholesterol 114 L HDL Cholesterol 30 Procalcitonin 07/13/17 07/13/17 07/13/17 11:05 13:29 16:53 WBC RBC Hgb Hct MCV MCH MCHC RDW Plt Count MPV Gran % Lymph % (Auto) [place] % (Auto) Eos % (Auto) Baso % (Auto) Gran # Lymph # (Auto) [place] # (Auto) Eos # (Auto) Baso # (Auto) APTT pCO2 pO2 HCO3 ABG pH ABG Total CO2 ABG O2 Saturation ABG O2 Content ABG Base Excess ABG Hemoglobin ABG Carboxyhemoglobin POC ABG HHb (Measured) ABG Methemoglobin ABG O2 Capacity Hgb O2 Saturation FiO2 Sodium Potassium Chloride Carbon Dioxide Anion Gap BUN Creatinine Est GFR ( Amer) Est GFR (Non-Af Amer) POC Glucose (mg/dL) 84 99 Random Glucose Hemoglobin A1c Calcium Phosphorus Magnesium Total Bilirubin AST ALT Alkaline Phosphatase Total Protein Albumin Globulin Albumin/Globulin Ratio Triglycerides Cholesterol HDL Cholesterol Procalcitonin 0.44 07/13/17 07/13/17 07/13/17 19:07 19:07 21:35 WBC 12.8 H RBC 4.54 Hgb 12.7 L Hct 39.9 L MCV 87.9 MCH 28.0 MCHC 31.8 RDW 16.1 H Plt Count 248 MPV 8.6 Gran % 78.3 H Lymph % (Auto) 9.7 L [place] % (Auto) 11.5 H Eos % (Auto) 0.5 L Baso % (Auto) 0.0 Gran # 9.99 H Lymph # (Auto) 1.2 [place] # (Auto) 1.5 H Eos # (Auto) 0.1 Baso # (Auto) 0.00 APTT pCO2 pO2 HCO3 ABG pH ABG Total CO2 ABG O2 Saturation ABG O2 Content ABG Base Excess ABG Hemoglobin ABG Carboxyhemoglobin POC ABG HHb (Measured) ABG Methemoglobin ABG O2 Capacity Hgb O2 Saturation FiO2 Sodium 143 Potassium 3.8 Chloride 100 Carbon Dioxide 38 H Anion Gap 9 L BUN 25 H Creatinine 0.9 Est GFR ( Amer) > 60 Est GFR (Non-Af Amer) > 60 POC Glucose (mg/dL) 114 H Random Glucose 121 H Hemoglobin A1c Calcium 7.7 L Phosphorus Magnesium Total Bilirubin AST ALT Alkaline Phosphatase Total Protein Albumin Globulin Albumin/Globulin Ratio Triglycerides Cholesterol HDL Cholesterol Procalcitonin 07/14/17 07/14/17 07/14/17 02:18 02:28 05:20 WBC 11.6 H RBC 4.22 Hgb 11.8 L Hct 37.4 L MCV 88.6 MCH 28.0 MCHC 31.6 RDW 16.0 H Plt Count 251 MPV 9.2 Gran % 77.0 H Lymph % (Auto) 10.8 L [place] % (Auto) 10.6 H Eos % (Auto) 1.5 Baso % (Auto) 0.1 Gran # 8.96 H Lymph # (Auto) 1.3 [place] # (Auto) 1.2 H Eos # (Auto) 0.2 Baso # (Auto) 0.01 APTT 59.7 H pCO2 59 H pO2 104.0 H HCO3 37.4 H ABG pH 7.41 ABG Total CO2 39.2 H ABG O2 Saturation 99.4 H ABG O2 Content 15.7 ABG Base Excess 10.8 H ABG Hemoglobin 11.5 L ABG Carboxyhemoglobin 2.1 H POC ABG HHb (Measured) 0.6 ABG Methemoglobin 1.1 ABG O2 Capacity 15.8 L Hgb O2 Saturation 96.2 FiO2 60.0 Sodium Potassium Chloride Carbon Dioxide Anion Gap BUN Creatinine Est GFR ( Amer) Est GFR (Non-Af Amer) POC Glucose (mg/dL) Random Glucose Hemoglobin A1c Calcium Phosphorus Magnesium Total Bilirubin AST ALT Alkaline Phosphatase Total Protein Albumin Globulin Albumin/Globulin Ratio Triglycerides Cholesterol HDL Cholesterol Procalcitonin EKG/Cardiology Studies: Cardiology / EKG Studies 07/13/17 07:05 ELECTROCARDIOGRAM Stat Comment: Reason For Exam: f/u Fingerstick Blood Sugar Results: 92 Review of Systems - Review of Systems All systems: reviewed and no additional remarkable complaints except Review of Systems: as per subjective portion of note Critical Care Progress Note - Nutrition Nutrition: Nutrition Category Date Time Status Regular Diet [DIET] Diets 07/13/17 Dinner Ordered Assessment/Plan - Assessment and Plan (Free Text) Assessment: 57 year old male with PMH HTN, presents for AMS, s/p cardiac arrest in ED, with respiratory failure s/p extubation, likely obstructive shock 2/2 SIGRID. Cardiac cath negative for obstructive CAD, LVEDP 18, PAWP 15-20. CT angio negative for PE. On milrinone drip: Neuro: - AOxx4 - Neuro checks q4h - Neurology consult: Dr. Bermudez. Appreciate recs. - Repeat CT head neg for acute CVA. CV: - Echo EF 55.8%. mild LVH. Grade III reversible restrictive diastolic dysfunction. Right ventricle moderately dilated. RVSP 26 mmHg. - Maintain MAP > 65 - Milrinone drip - Lasix q12, metoprolol, plavix, ASA, sildenafil - Cardiology Consult: Dr. Atkinson. Appreciate recs. - Cardiac cath shows mild nonobstructive CAD, no stents placed. Pulm: - Pt on HFNC - Maintain SPO2 > 90 % - Pulm Consulted. appreciate recs. - CT angio neg for PE - Likely SIGRID - sleep study outpatient GI: - Alcohol Level neg, Hepatitis panel neg - Regular diet - Protonix Renal: - Monitor electrolytes and renal function - hypokalemic today, repleted ID: - Blood culture neg to date - Urine culture neg - Procalcitonin mildly elevated - CXR shows mild left sided pleural effusion. - Continue Azactam/Doxycycline and Vancomycin - ID Consult: Dr. Tsang Endo: - TSH normal - Maintain glucose at 140 -160 Case seen and discussed with Dr Gresham. Kady Ford PGY1 - Date & Time Date: 07/14/17 Time: 09:11 <Nas Gresham - Last Filed: 07/14/17 12:30> CCU Objective - Vital Signs / Intake & Output Vital Signs (Last 4 hours): Vital Signs Pulse Resp BP Pulse Ox 07/14/17 09:43 112/70 07/14/17 09:33 89 07/14/17 09:17 88 07/14/17 09:10 118 H 28 H 93 L 07/14/17 09:00 113 H 24 92 L 07/14/17 08:50 111 H 12 92 L 07/14/17 08:40 106 H 93 L 07/14/17 08:31 113 H 34 H 163/77 H 07/14/17 08:30 110 H 23 07/14/17 08:27 111 H 28 H Intake and Output (Last 8hrs): Intake & Output 07/13/17 07/14/17 07/14/17 22:59 06:59 14:59 Intake Total 1560 870 100 Output Total 1400 1525 Balance 160 -655 100 Weight 302 lb 4.8 oz Intake: IV 900 870 100 Heparin drip 120 IVPB 800 750 Oral 660 Output: Urine 1400 1525 Urethral (Ag) 1400 1525 Stool 0 Other: # Bowel Movements 0 - Medications Active Medications: Active Medications Generic Name Dose Route Start Last Admin Trade Name Freq PRN Reason Stop Dose Admin Albuterol/Ipratropium 3 ml 07/13/17 06:57 07/13/17 19:23 Duoneb 3 Mg/0.5 Mg (3 Ml) Ud IH 3 ml Q2H PRN Administration Shortness of Breath Aspirin 325 mg 07/12/17 10:00 07/14/17 09:42 Aspirin PO 325 mg DAILY MERI Administration Doxycycline Hyclate 100 mg 07/13/17 22:00 07/14/17 09:42 Doryx PO 07/22/17 22:01 100 mg Q12 MERI Administration Protocol Furosemide 20 mg 07/12/17 10:00 07/14/17 09:43 Lasix IVP 20 mg Q12 MREI Administration Aztreonam 100 mls @ 100 mls/hr 07/12/17 09:00 07/14/17 05:52 Azactam 1 Gm IVPB 07/19/17 09:01 100 mls/hr Q8 MERI Administration Protocol Vancomycin HCl 1 gm in 250 mls @ 167 mls/hr 07/13/17 13:30 07/14/17 02:44 Vancomycin 1gm IVPB 07/22/17 13:31 167 mls/hr Q12H MERI Administration Protocol Milrinone Lactate/Dextrose 100 mls @ 15.426 mls/hr 07/13/17 14:08 07/14/17 09 :33 Primacor 20mg/100ml D5w IV 0.375 mcg/kg/min .Q6H29M PRN 15.426 mls/hr TITRATE PER MD ORDER Administration Protocol 0.375 MCG/KG/MIN Metoprolol Tartrate 25 mg 07/14/17 10:00 07/14/17 09:46 Lopressor PO 25 mg BID MERI Administration Pantoprazole Sodium 40 mg 07/14/17 07:00 07/14/17 09:44 Protonix Ec Tab PO 40 mg 0600 MERI Administration Sildenafil Citrate 20 mg 07/14/17 10:00 07/14/17 09:46 Revatio PO 20 mg TID MERI Administration - Patient Studies Lab Studies: Microbiology Studies 07/12/17 04:01 MRSA Culture (Admit) - Final Nose MRSA NOT DETECTED 07/12/17 23:13 Gram Stain - Final Sputum 07/11/17 22:22 Urine Culture - Final Urine,Catheterized No Growth (<1,000 CFU/ML) Lab Studies 07/14/17 07/14/17 07/14/17 Range/Units 11:13 09:40 07:17 WBC (4.5-11.0) 10^3/ul RBC (3.5-6.1) 10^6/uL Hgb (14.0-18.0) g/dL Hct (42.0-52.0) % MCV (80.0-105.0) fl MCH (25.0-35.0) pg MCHC (31.0-37.0) g/dl RDW (11.5-14.5) % Plt Count (120.0-450.0) 10^3/uL MPV (7.0-11.0) fl Gran % (50.0-68.0) % Lymph % (Auto) (22.0-35.0) % [place] % (Auto) (1.0-6.0) % Eos % (Auto) (1.5-5.0) % Baso % (Auto) (0.0-3.0) % Gran # (1.4-6.5) Lymph # (Auto) (1.2-3.4) [place] # (Auto) (0.1-0.6) Eos # (Auto) (0.0-0.7) Baso # (Auto) (0.0-2.0) K/mm3 APTT 69.5 H (25.1-36.5) Seconds pCO2 (35-45) mm/Hg pO2 (80-100) mm/Hg HCO3 (21-28) mmol/L ABG pH (7.35-7.45) ABG Total CO2 (22-28) mmol.L ABG O2 Saturation (95-98) % ABG O2 Content (15-23) ML/dl ABG Base Excess (-2.0-3.0) mmol/L ABG Hemoglobin (11.7-17.4) g/dL ABG Carboxyhemoglobin (0.5-1.5) % POC ABG HHb (Measured) (0-5) % ABG Methemoglobin (0.0-3.0) % ABG O2 Capacity (16-24) mL/dl Hgb O2 Saturation (95.0-98.0) % FiO2 % Sodium (132-148) mmol/L Potassium (3.6-5.0) mmol/L Chloride (98-107) mmol/L Carbon Dioxide (21-33) mmol/L Anion Gap (10-20) BUN (7-21) mg/dL Creatinine (0.8-1.5) mg/dl Est GFR ( Amer) Est GFR (Non-Af Amer) POC Glucose (mg/dL) 145 H 94 (65-110) mg/dL Random Glucose (70-110) mg/dL Hemoglobin A1c (4.2-6.5) % Calcium (8.4-10.5) mg/dL Phosphorus (2.5-4.5) mg/dL Magnesium (1.7-2.2) mg/dL Total Bilirubin (0.2-1.3) mg/dL AST (17-59) U/L ALT (7-56) U/L Alkaline Phosphatase (38-126) U/L Total Protein (5.8-8.3) g/dL Albumin (3.0-4.8) g/dL Globulin gm/dL Albumin/Globulin Ratio (1.1-1.8) Procalcitonin (0.19-0.49) NG/ML HIV 1&2 Ag/Ab, 4th Gen (Nonreactive) 07/14/17 07/14/17 07/14/17 Range/Units 05:20 05:20 02:28 WBC 11.6 H (4.5-11.0) 10^3/ul RBC 4.22 (3.5-6.1) 10^6/uL Hgb 11.8 L (14.0-18.0) g/dL Hct 37.4 L (42.0-52.0) % MCV 88.6 (80.0-105.0) fl MCH 28.0 (25.0-35.0) pg MCHC 31.6 (31.0-37.0) g/dl RDW 16.0 H (11.5-14.5) % Plt Count 251 (120.0-450.0) 10^3/uL MPV 9.2 (7.0-11.0) fl Gran % 77.0 H (50.0-68.0) % Lymph % (Auto) 10.8 L (22.0-35.0) % [place] % (Auto) 10.6 H (1.0-6.0) % Eos % (Auto) 1.5 (1.5-5.0) % Baso % (Auto) 0.1 (0.0-3.0) % Gran # 8.96 H (1.4-6.5) Lymph # (Auto) 1.3 (1.2-3.4) [place] # (Auto) 1.2 H (0.1-0.6) Eos # (Auto) 0.2 (0.0-0.7) Baso # (Auto) 0.01 (0.0-2.0) K/mm3 APTT 59.7 H (25.1-36.5) Seconds pCO2 (35-45) mm/Hg pO2 (80-100) mm/Hg HCO3 (21-28) mmol/L ABG pH (7.35-7.45) ABG Total CO2 (22-28) mmol.L ABG O2 Saturation (95-98) % ABG O2 Content (15-23) ML/dl ABG Base Excess (-2.0-3.0) mmol/L ABG Hemoglobin (11.7-17.4) g/dL ABG Carboxyhemoglobin (0.5-1.5) % POC ABG HHb (Measured) (0-5) % ABG Methemoglobin (0.0-3.0) % ABG O2 Capacity (16-24) mL/dl Hgb O2 Saturation (95.0-98.0) % FiO2 % Sodium 140 (132-148) mmol/L Potassium 3.4 L (3.6-5.0) mmol/L Chloride 100 (98-107) mmol/L Carbon Dioxide 36 H (21-33) mmol/L Anion Gap 7 L (10-20) BUN 21 (7-21) mg/dL Creatinine 0.8 (0.8-1.5) mg/dl Est GFR ( Amer) > 60 Est GFR (Non-Af Amer) > 60 POC Glucose (mg/dL) (65-110) mg/dL Random Glucose 153 H (70-110) mg/dL Hemoglobin A1c (4.2-6.5) % Calcium 7.2 L (8.4-10.5) mg/dL Phosphorus 3.2 (2.5-4.5) mg/dL Magnesium 1.8 (1.7-2.2) mg/dL Total Bilirubin 0.8 (0.2-1.3) mg/dL AST 89 H D (17-59) U/L ALT 76 H (7-56) U/L Alkaline Phosphatase 48 (38-126) U/L Total Protein 4.9 L (5.8-8.3) g/dL Albumin 2.5 L (3.0-4.8) g/dL Globulin 2.3 gm/dL Albumin/Globulin Ratio 1.1 (1.1-1.8) Procalcitonin (0.19-0.49) NG/ML HIV 1&2 Ag/Ab, 4th Gen (Nonreactive) 07/14/17 07/13/17 07/13/17 Range/Units 02:18 21:35 19:07 WBC (4.5-11.0) 10^3/ul RBC (3.5-6.1) 10^6/uL Hgb (14.0-18.0) g/dL Hct (42.0-52.0) % MCV (80.0-105.0) fl MCH (25.0-35.0) pg MCHC (31.0-37.0) g/dl RDW (11.5-14.5) % Plt Count (120.0-450.0) 10^3/uL MPV (7.0-11.0) fl Gran % (50.0-68.0) % Lymph % (Auto) (22.0-35.0) % [place] % (Auto) (1.0-6.0) % Eos % (Auto) (1.5-5.0) % Baso % (Auto) (0.0-3.0) % Gran # (1.4-6.5) Lymph # (Auto) (1.2-3.4) [place] # (Auto) (0.1-0.6) Eos # (Auto) (0.0-0.7) Baso # (Auto) (0.0-2.0) K/mm3 APTT (25.1-36.5) Seconds pCO2 59 H (35-45) mm/Hg pO2 104.0 H (80-100) mm/Hg HCO3 37.4 H (21-28) mmol/L ABG pH 7.41 (7.35-7.45) ABG Total CO2 39.2 H (22-28) mmol.L ABG O2 Saturation 99.4 H (95-98) % ABG O2 Content 15.7 (15-23) ML/dl ABG Base Excess 10.8 H (-2.0-3.0) mmol/L ABG Hemoglobin 11.5 L (11.7-17.4) g/dL ABG Carboxyhemoglobin 2.1 H (0.5-1.5) % POC ABG HHb (Measured) 0.6 (0-5) % ABG Methemoglobin 1.1 (0.0-3.0) % ABG O2 Capacity 15.8 L (16-24) mL/dl Hgb O2 Saturation 96.2 (95.0-98.0) % FiO2 60.0 % Sodium 143 (132-148) mmol/L Potassium 3.8 (3.6-5.0) mmol/L Chloride 100 (98-107) mmol/L Carbon Dioxide 38 H (21-33) mmol/L Anion Gap 9 L (10-20) BUN 25 H (7-21) mg/dL Creatinine 0.9 (0.8-1.5) mg/dl Est GFR ( Amer) > 60 Est GFR (Non-Af Amer) > 60 POC Glucose (mg/dL) 114 H (65-110) mg/dL Random Glucose 121 H (70-110) mg/dL Hemoglobin A1c (4.2-6.5) % Calcium 7.7 L (8.4-10.5) mg/dL Phosphorus (2.5-4.5) mg/dL Magnesium (1.7-2.2) mg/dL Total Bilirubin (0.2-1.3) mg/dL AST (17-59) U/L ALT (7-56) U/L Alkaline Phosphatase (38-126) U/L Total Protein (5.8-8.3) g/dL Albumin (3.0-4.8) g/dL Globulin gm/dL Albumin/Globulin Ratio (1.1-1.8) Procalcitonin (0.19-0.49) NG/ML HIV 1&2 Ag/Ab, 4th Gen (Nonreactive) 07/13/17 07/13/17 07/13/17 Range/Units 19:07 16:53 13:43 WBC 12.8 H (4.5-11.0) 10^3/ul RBC 4.54 (3.5-6.1) 10^6/uL Hgb 12.7 L (14.0-18.0) g/dL Hct 39.9 L (42.0-52.0) % MCV 87.9 (80.0-105.0) fl MCH 28.0 (25.0-35.0) pg MCHC 31.8 (31.0-37.0) g/dl RDW 16.1 H (11.5-14.5) % Plt Count 248 (120.0-450.0) 10^3/uL MPV 8.6 (7.0-11.0) fl Gran % 78.3 H (50.0-68.0) % Lymph % (Auto) 9.7 L (22.0-35.0) % [place] % (Auto) 11.5 H (1.0-6.0) % Eos % (Auto) 0.5 L (1.5-5.0) % Baso % (Auto) 0.0 (0.0-3.0) % Gran # 9.99 H (1.4-6.5) Lymph # (Auto) 1.2 (1.2-3.4) [place] # (Auto) 1.5 H (0.1-0.6) Eos # (Auto) 0.1 (0.0-0.7) Baso # (Auto) 0.00 (0.0-2.0) K/mm3 APTT (25.1-36.5) Seconds pCO2 (35-45) mm/Hg pO2 (80-100) mm/Hg HCO3 (21-28) mmol/L ABG pH (7.35-7.45) ABG Total CO2 (22-28) mmol.L ABG O2 Saturation (95-98) % ABG O2 Content (15-23) ML/dl ABG Base Excess (-2.0-3.0) mmol/L ABG Hemoglobin (11.7-17.4) g/dL ABG Carboxyhemoglobin (0.5-1.5) % POC ABG HHb (Measured) (0-5) % ABG Methemoglobin (0.0-3.0) % ABG O2 Capacity (16-24) mL/dl Hgb O2 Saturation (95.0-98.0) % FiO2 % Sodium (132-148) mmol/L Potassium (3.6-5.0) mmol/L Chloride (98-107) mmol/L Carbon Dioxide (21-33) mmol/L Anion Gap (10-20) BUN (7-21) mg/dL Creatinine (0.8-1.5) mg/dl Est GFR ( Amer) Est GFR (Non-Af Amer) POC Glucose (mg/dL) 99 (65-110) mg/dL Random Glucose (70-110) mg/dL Hemoglobin A1c (4.2-6.5) % Calcium (8.4-10.5) mg/dL Phosphorus (2.5-4.5) mg/dL Magnesium (1.7-2.2) mg/dL Total Bilirubin (0.2-1.3) mg/dL AST (17-59) U/L ALT (7-56) U/L Alkaline Phosphatase (38-126) U/L Total Protein (5.8-8.3) g/dL Albumin (3.0-4.8) g/dL Globulin gm/dL Albumin/Globulin Ratio (1.1-1.8) Procalcitonin (0.19-0.49) NG/ML HIV 1&2 Ag/Ab, 4th Gen Nonreactive (Nonreactive) 07/13/17 07/13/17 Range/Units 13:29 05:20 WBC (4.5-11.0) 10^3/ul RBC (3.5-6.1) 10^6/uL Hgb (14.0-18.0) g/dL Hct (42.0-52.0) % MCV (80.0-105.0) fl MCH (25.0-35.0) pg MCHC (31.0-37.0) g/dl RDW (11.5-14.5) % Plt Count (120.0-450.0) 10^3/uL MPV (7.0-11.0) fl Gran % (50.0-68.0) % Lymph % (Auto) (22.0-35.0) % [place] % (Auto) (1.0-6.0) % Eos % (Auto) (1.5-5.0) % Baso % (Auto) (0.0-3.0) % Gran # (1.4-6.5) Lymph # (Auto) (1.2-3.4) [place] # (Auto) (0.1-0.6) Eos # (Auto) (0.0-0.7) Baso # (Auto) (0.0-2.0) K/mm3 APTT (25.1-36.5) Seconds pCO2 (35-45) mm/Hg pO2 (80-100) mm/Hg HCO3 (21-28) mmol/L ABG pH (7.35-7.45) ABG Total CO2 (22-28) mmol.L ABG O2 Saturation (95-98) % ABG O2 Content (15-23) ML/dl ABG Base Excess (-2.0-3.0) mmol/L ABG Hemoglobin (11.7-17.4) g/dL ABG Carboxyhemoglobin (0.5-1.5) % POC ABG HHb (Measured) (0-5) % ABG Methemoglobin (0.0-3.0) % ABG O2 Capacity (16-24) mL/dl Hgb O2 Saturation (95.0-98.0) % FiO2 % Sodium (132-148) mmol/L Potassium (3.6-5.0) mmol/L Chloride (98-107) mmol/L Carbon Dioxide (21-33) mmol/L Anion Gap (10-20) BUN (7-21) mg/dL Creatinine (0.8-1.5) mg/dl Est GFR ( Amer) Est GFR (Non-Af Amer) POC Glucose (mg/dL) (65-110) mg/dL Random Glucose (70-110) mg/dL Hemoglobin A1c 6.1 (4.2-6.5) % Calcium (8.4-10.5) mg/dL Phosphorus (2.5-4.5) mg/dL Magnesium (1.7-2.2) mg/dL Total Bilirubin (0.2-1.3) mg/dL AST (17-59) U/L ALT (7-56) U/L Alkaline Phosphatase (38-126) U/L Total Protein (5.8-8.3) g/dL Albumin (3.0-4.8) g/dL Globulin gm/dL Albumin/Globulin Ratio (1.1-1.8) Procalcitonin 0.44 (0.19-0.49) NG/ML HIV 1&2 Ag/Ab, 4th Gen (Nonreactive) Laboratory Results - last 24 hr 07/13/17 07/13/17 07/13/17 05:20 13:29 13:43 WBC RBC Hgb Hct MCV MCH MCHC RDW Plt Count MPV Gran % Lymph % (Auto) [place] % (Auto) Eos % (Auto) Baso % (Auto) Gran # Lymph # (Auto) [place] # (Auto) Eos # (Auto) Baso # (Auto) APTT pCO2 pO2 HCO3 ABG pH ABG Total CO2 ABG O2 Saturation ABG O2 Content ABG Base Excess ABG Hemoglobin ABG Carboxyhemoglobin POC ABG HHb (Measured) ABG Methemoglobin ABG O2 Capacity Hgb O2 Saturation FiO2 Sodium Potassium Chloride Carbon Dioxide Anion Gap BUN Creatinine Est GFR ( Amer) Est GFR (Non-Af Amer) POC Glucose (mg/dL) Random Glucose Hemoglobin A1c 6.1 Calcium Phosphorus Magnesium Total Bilirubin AST ALT Alkaline Phosphatase Total Protein Albumin Globulin Albumin/Globulin Ratio Procalcitonin 0.44 HIV 1&2 Ag/Ab, 4th Gen Nonreactive 07/13/17 07/13/17 07/13/17 16:53 19:07 19:07 WBC 12.8 H RBC 4.54 Hgb 12.7 L Hct 39.9 L MCV 87.9 MCH 28.0 MCHC 31.8 RDW 16.1 H Plt Count 248 MPV 8.6 Gran % 78.3 H Lymph % (Auto) 9.7 L [place] % (Auto) 11.5 H Eos % (Auto) 0.5 L Baso % (Auto) 0.0 Gran # 9.99 H Lymph # (Auto) 1.2 [place] # (Auto) 1.5 H Eos # (Auto) 0.1 Baso # (Auto) 0.00 APTT pCO2 pO2 HCO3 ABG pH ABG Total CO2 ABG O2 Saturation ABG O2 Content ABG Base Excess ABG Hemoglobin ABG Carboxyhemoglobin POC ABG HHb (Measured) ABG Methemoglobin ABG O2 Capacity Hgb O2 Saturation FiO2 Sodium 143 Potassium 3.8 Chloride 100 Carbon Dioxide 38 H Anion Gap 9 L BUN 25 H Creatinine 0.9 Est GFR ( Amer) > 60 Est GFR (Non-Af Amer) > 60 POC Glucose (mg/dL) 99 Random Glucose 121 H Hemoglobin A1c Calcium 7.7 L Phosphorus Magnesium Total Bilirubin AST ALT Alkaline Phosphatase Total Protein Albumin Globulin Albumin/Globulin Ratio Procalcitonin HIV 1&2 Ag/Ab, 4th Gen 07/13/17 07/14/17 07/14/17 21:35 02:18 02:28 WBC RBC Hgb Hct MCV MCH MCHC RDW Plt Count MPV Gran % Lymph % (Auto) [place] % (Auto) Eos % (Auto) Baso % (Auto) Gran # Lymph # (Auto) [place] # (Auto) Eos # (Auto) Baso # (Auto) APTT 59.7 H pCO2 59 H pO2 104.0 H HCO3 37.4 H ABG pH 7.41 ABG Total CO2 39.2 H ABG O2 Saturation 99.4 H ABG O2 Content 15.7 ABG Base Excess 10.8 H ABG Hemoglobin 11.5 L ABG Carboxyhemoglobin 2.1 H POC ABG HHb (Measured) 0.6 ABG Methemoglobin 1.1 ABG O2 Capacity 15.8 L Hgb O2 Saturation 96.2 FiO2 60.0 Sodium Potassium Chloride Carbon Dioxide Anion Gap BUN Creatinine Est GFR ( Amer) Est GFR (Non-Af Amer) POC Glucose (mg/dL) 114 H Random Glucose Hemoglobin A1c Calcium Phosphorus Magnesium Total Bilirubin AST ALT Alkaline Phosphatase Total Protein Albumin Globulin Albumin/Globulin Ratio Procalcitonin HIV 1&2 Ag/Ab, 4th Gen 07/14/17 07/14/17 07/14/17 05:20 05:20 07:17 WBC 11.6 H RBC 4.22 Hgb 11.8 L Hct 37.4 L MCV 88.6 MCH 28.0 MCHC 31.6 RDW 16.0 H Plt Count 251 MPV 9.2 Gran % 77.0 H Lymph % (Auto) 10.8 L [place] % (Auto) 10.6 H Eos % (Auto) 1.5 Baso % (Auto) 0.1 Gran # 8.96 H Lymph # (Auto) 1.3 [place] # (Auto) 1.2 H Eos # (Auto) 0.2 Baso # (Auto) 0.01 APTT pCO2 pO2 HCO3 ABG pH ABG Total CO2 ABG O2 Saturation ABG O2 Content ABG Base Excess ABG Hemoglobin ABG Carboxyhemoglobin POC ABG HHb (Measured) ABG Methemoglobin ABG O2 Capacity Hgb O2 Saturation FiO2 Sodium 140 Potassium 3.4 L Chloride 100 Carbon Dioxide 36 H Anion Gap 7 L BUN 21 Creatinine 0.8 Est GFR ( Amer) > 60 Est GFR (Non-Af Amer) > 60 POC Glucose (mg/dL) 94 Random Glucose 153 H Hemoglobin A1c Calcium 7.2 L Phosphorus 3.2 Magnesium 1.8 Total Bilirubin 0.8 AST 89 H D ALT 76 H Alkaline Phosphatase 48 Total Protein 4.9 L Albumin 2.5 L Globulin 2.3 Albumin/Globulin Ratio 1.1 Procalcitonin HIV 1&2 Ag/Ab, 4th Gen 07/14/17 07/14/17 09:40 11:13 WBC RBC Hgb Hct MCV MCH MCHC RDW Plt Count MPV Gran % Lymph % (Auto) [place] % (Auto) Eos % (Auto) Baso % (Auto) Gran # Lymph # (Auto) [place] # (Auto) Eos # (Auto) Baso # (Auto) APTT 69.5 H pCO2 pO2 HCO3 ABG pH ABG Total CO2 ABG O2 Saturation ABG O2 Content ABG Base Excess ABG Hemoglobin ABG Carboxyhemoglobin POC ABG HHb (Measured) ABG Methemoglobin ABG O2 Capacity Hgb O2 Saturation FiO2 Sodium Potassium Chloride Carbon Dioxide Anion Gap BUN Creatinine Est GFR ( Amer) Est GFR (Non-Af Amer) POC Glucose (mg/dL) 145 H Random Glucose Hemoglobin A1c Calcium Phosphorus Magnesium Total Bilirubin AST ALT Alkaline Phosphatase Total Protein Albumin Globulin Albumin/Globulin Ratio Procalcitonin HIV 1&2 Ag/Ab, 4th Gen Critical Care Progress Note - Nutrition Nutrition: Nutrition Category Date Time Status Regular Diet [DIET] Diets 07/13/17 Dinner Ordered Assessment/Plan - Assessment and Plan (Free Text) Assessment: Patient seen and examined, on rounds with resident, agree with note with following additions/exceptions: 57 year old male with PMH HTN, presents for AMS, s/p PEA cardiac arrest in ED, with respiratory failure s/p extubation. Cardiac cath negative for obstructive CAD, LVEDP 18, PAWP 15-20. CT angio negative for PE. On milrinone drip. Currently afebrile, HD stable, comfortable in NAD. Cardiac Arrest, s/p ROSC Leuckoytosis Pulm HTN SIGRID/OHS CHF exacerbation Recommend: - cont with high flow, titrate to ventimask, goal sat >90%, bipap at night - cont with broad spectrum antibiotics, follow up cultures, Procal - cont with Milrinone - consider DC Beta jacquelin - Lasix IV diuresis - monitor HH - monitor mental status, follow up neurology - GI ppx - DVT ppx - Monitor, in ICU
[2017-07-14 07:41] LABS: ALB/GLOB RATIO 1.1 (1.1-1.8); ALBUMIN 2.5 g/dL (3.0-4.8); ALT/SGPT 76 U/L (7-56); AST/SGOT 89 U/L (17-59); BLOOD UREA NITROGEN 21 mg/dL (7-21); CALCIUM 7.2 mg/dL (8.4-10.5); GFR AFRICAN-AMERICAN > 60; GFR NON-AFRICAN AMERICAN > 60
[2017-07-14] MEDS ORDERED: Potassium Chloride 20 mEq ER Tab PO ONE ×2 (08:36→08:48)
--- NOTE | 2017-07-14 08:39 | CT ---
PROCEDURE: CT HEAD WITHOUT CONTRAST. HISTORY: F/U COMPARISON: 07/11/2017 TECHNIQUE: Axial computed tomography images were obtained through the head/brain without intravenous contrast. Radiation dose: Total exam DLP = 982 mGy-cm. This CT exam was performed using one or more of the following dose reduction techniques: Automated exposure control, adjustment of the mA and/or kV according to patient size, and/or use of iterative reconstruction technique. FINDINGS: HEMORRHAGE: No intracranial hemorrhage. BRAIN: No mass effect or edema. Chronic microvascular changes are seen. There are no acute findings VENTRICLES: There is moderate ventriculomegaly. CALVARIUM: Well-defined lucencies are seen in the occipital bone. These are of doubtful clinical significance. PARANASAL SINUSES: Unremarkable as visualized. No significant inflammatory changes. MASTOID AIR CELLS: Unremarkable as visualized. No inflammatory changes. OTHER FINDINGS: None. IMPRESSION: Moderate ventriculomegaly and chronic microvascular changes. No acute intracranial findings
--- NOTE | 2017-07-14 08:45 | CT ---
PROCEDURE: CT Chest with contrast (Pulmonary Angiogram) HISTORY: R/O pulmonary embolism COMPARISON: None available. TECHNIQUE: Axial computed tomography images were obtained of the chest in the pulmonary arterial phase of enhancement. Coronal and sagittal reformatted images were created and reviewed. Intravenous contrast dose: 100 cc of Omni 350 Radiation dose: Total exam DLP = 649 mGy-cm. This CT exam was performed using one or more of the following dose reduction techniques: Automated exposure control, adjustment of the mA and/or kV according to patient size, and/or use of iterative reconstruction technique. FINDINGS: PULMONARY ARTERIES: Unremarkable. No pulmonary embolism. AORTA: No acute findings. No thoracic aortic aneurysm. LUNGS: There is elevation of the right hemidiaphragm with diminished volume in the right lung. There is bibasilar consolidation. PLEURAL SPACES: Unremarkable. No effusion or pneuomothorax. HEART: Unremarkable. No cardiomegaly. No significant pericardial effusion. LYMPH NODES: No lymphadenopathy. BONES, CHEST WALL: Unremarkable. No fracture or destructive lesion OTHER FINDINGS: Unremarkable. IMPRESSION: No evidence of pulmonary embolus. Subsegmental bibasilar consolidation
[2017-07-14] MEDS: Pantoprazole 40 mg EC Tab PO SCH (09:44)
[2017-07-14] MEDS: Sildenafil 20 MG TAB PO SCH ×3 (09:46→17:16)
--- NOTE | 2017-07-14 10:26 | PN ---
DATE: 07/14/2017 SUBJECTIVE: The patient has no complaints of any chest pain, no shortness of breath, no headaches or dizziness. He is awake, alert and comfortable. PHYSICAL EXAMINATION: VITAL SIGNS: Temperature is 98.8, pulse of 95, blood pressure is 112/64, respirations 15. GENERAL: The patient is lying in bed, flat, comfortable. HEENT: No oral lesion. Anicteric sclerae. Moist mucosa. NECK: No JVD, adenopathy, or thyromegaly. CARDIOVASCULAR: S1 and S2, regular. No murmurs, rubs, or gallops. LUNGS: Clear to auscultation bilaterally. No wheeze, rales, or rhonchi. ABDOMEN: Bowel sounds are positive. Soft, nontender and nondistended. EXTREMITIES: No cyanosis, clubbing or edema. LABORATORY DATA: Labs have been reviewed. ASSESSMENT: 1. Respiratory failure, status post extubation. 2. Sepsis. 3. Status post cardiac arrest. 4. Right kidney cyst, 4 cm. 5. Hypoxia, improved. 6. Nonobstructive coronary artery disease with ejection fraction of 55% by cath. 7. Smoking. PLAN: The patient was advised about quitting smoking. He is currently comfortable. He is on aspirin. He is going to continue with antibiotics. He is on milrinone. The patient needs Protonix. He is currently comfortable, has no pain. He is eating well. Terry García MD
--- NOTE | 2017-07-14 12:36 | PN ---
DATE: 07/14/2017 PULMONARY PROGRESS NOTE SUBJECTIVE: The patient was seen and examined in the Intensive Care Unit. He is currently on high flow oxygen. His oxygen saturation is 93. He is in mild respiratory distress and he is complaining of chest pain from results of the CPR. He is receiving Azactam and doxycycline as well as inhalations with DuoNeb. PHYSICAL EXAMINATION: VITAL SIGNS: His temperature is 98.4, respirations 28, pulse oximetry 93, blood pressure 160/70. His intake and output -600 mL. HEENT: Head is normocephalic and atraumatic. NECK: Supple. There is no jugular vein distention. CHEST: Tender anterior chest and ribs as well as sternum. PULMONARY: A few scattered rhonchi. No wheezing. GASTROINTESTINAL: Soft and nontender. No organomegaly. EXTREMITIES: No pedal edema. NEUROLOGIC: No focal deficits. SKIN: Clear with no skin rashes. No cyanosis. DATA: This morning's blood gas reveals pH of 7.41, pCO2 of 59, and pO2 of 104 on high flow oxygen. His WBC is 11.6, hemoglobin of 11.8. Additional studies reviewed, the CT angiogram was performed this morning and revealed no evidence of pulmonary emboli, diminished volume in the right lung and bibasilar atelectasis. No acute effusions and no acute infiltrates. ASSESSMENT: 1. Status post acute respiratory failure. 2. Status post cardiorespiratory arrest. 3. Chronic obstructive pulmonary disease. 4. Carbon dioxide retention. 5. Probable obstructive sleep apnea. 6. Secondary pulmonary hypertension. PLAN: The patient remains critically ill; however, his oxygen saturations are slowly improving. He is still requiring high flow oxygen. His blood gas reveals mild CO2 retention, but the pH is normal, so most of the CO2 retention in this patient is chronic and probably, result of chronic obstructive pulmonary disease as well as obstructive sleep apnea. His prognosis is extremely guarded. We will continue his current intervention with nebulizer treatment, high flow oxygen. CT angio was reviewed and does not show pulmonary emboli. Greg Moreno MD
--- NOTE | 2017-07-14 13:29 | PN ---
DATE: 07/13/2017 LOCATION: The patient is seen earlier this morning in the ICU, bed 4. SUBJECTIVE: The patient is still having some more shortness of breath and he has had no fevers and no chills. No chest pain. OBJECTIVE: VITAL SIGNS: On exam, temperature is 98, blood pressure is 140/60, respiratory rate of 18, heart rate of 101. HEENT: Examination is unremarkable. NECK: Supple. LUNGS: Have decreased breath sounds. HEART: Normal S1, S2. ABDOMEN: Soft.. No rebound or guarding. No masses. DATA: Laboratory examination reveals a white count 11,600, hemoglobin of 11, platelets of 251. BUN of 21, creatinine of 0.8. Procalcitonin is 0.44. Urinalysis is noted. Blood cultures are negative. Urine cultures are negative. Sputum cultures are pending. Review of orders reveals the HIV is pending and MRSA screen is pending and the patient is on aztreonam, doxycycline and vancomycin. ASSESSMENT AND PLAN: This is a 57-year-old male was seen earlier today in room 129, bed 4 with hypertension, morbid obesity, BMI of 45. History of right hip replacement with SIRS, systemic inflammatory response syndrome, status post vent dependent respiratory failure, acute encephalopathy, acute myocardial infarction, hypertension, morbid obesity, body mass index of 45 and was initially found in the kitchen floor in the Emergency Room. The patient had a cardiac arrest and ACLS was initiated. The patient was intubated and with essentially severe sepsis, community-acquired pneumonia and left retrocardiac disease, on vancomycin, aztreonam, doxycycline responding with a repeat procalcitonin down to 0.44. Cultures negative, we will check on the final culture results and make further recommendations. Anderson Tsang MD
--- NOTE | 2017-07-14 13:59 | PN ---
DATE: 07/14/2017 REASON FOR CONSULTATION: Status post CPR, cardiorespiratory failure, rule out underlying coronary artery disease, borderline troponin positive, status post cardiac catheterization, nonobstructive coronary artery disease, pulmonary hypertension, etiology not clear. SUBJECTIVE: The patient denies any chest pain. Denies any shortness of breath. Feels fantastic, but apparently looks abdominothoracic respiration. Observation breathes abdominothoracic and appears a little bit dusky and cyanosed. PHYSICAL EXAMINATION: VITAL SIGNS: Temperature afebrile, heart rate 98, blood pressure 145/67. HEENT: PERRLA. Extraocular muscles intact. NECK: Supple. No carotid bruit or thyromegaly. CHEST: Clear to auscultation. HEART: S1 and S2 regular. ABDOMEN: Soft. EXTREMITIES: Clubbing and cyanosis negative. LABORATORY DATA: Telemetry shows normal sinus to sinus tachycardia. No arrhythmia noted. Blood workup as follows; WBC 11.6, hemoglobin 11.8, hematocrit 37.4, platelet count 251. Chemistry shows sodium 140, potassium 3.4, chloride 100, carbon dioxide 36, anion gap of 7, BUN 21, creatinine 0.8. PTT is 59.7. IMPRESSION: Status post cardiorespiratory failure and syncope at home when the patient brought here after that was intubated. A brief CPR was done, now successfully extubated. Yesterday, had a cardiac catheterization done that revealed nonobstructive coronary artery disease, preserved left ventricular function, ejection fraction is 55%. Right heart catheterization revealed RA 15, right ventricle pressure RV 70/15, PA pressure 70/22 with mean of 42, pulmonary capillary wedge pressure 18 to 20, PVR 2.69 Waterman unit. Cardiac output 8.17 liter per minute. Cardiac index 3.3 liter per minute. The patient with nonobstructive coronary artery disease limited only to distal LAD diffusely disease, no focal flow-limiting stenosis, preserved LV function, ejection fraction 55%, EDP was in the range of 15 to 20 with a respiratory variation. Rule out pulmonary embolism, started back on IV heparin 6 hour post cardiac cath and for CT angio this morning. On the way to CT angio, seen in the unit going to CT angio to rule pulmonary embolism on Primacor drip for pulmonary hypertension. Discontinue Plavix. The patient had also echocardiography done day before yesterday that revealed ejection fraction 55%, moderately dilated right ventricle systolic function of RV reduced, moderately reduced trace aortic regurgitation, trace mitral regurgitation, trace tricuspid regurgitation. RECOMMENDATION: Continue heparin till the CT angio is found to be negative for PE. Continue Primacor for pulmonary hypertension once it is established, then we will start low doses of Revatio. We will wait for CT angio. If CT angio is negative, we will start low doses of Revatio as blood pressure is tolerated. We will change the metoprolol to p.o. Follow up the last supplement potassium. Further recommendation depending upon hospital course and finding of the CT angio. We will follow with you. We will start low dose of Revatio for pulmonary hypertension. We will monitor renal function again. Today's renal function is stable after yesterday only, 40 mL of IV contrast used. Today, the patient will get some because of CT angio. We will repeat the blood workup in the morning and supplement electrolytes. Discussed with the family, 2 sisters, Marysol and Arlene yesterday at length and the . Taye Atkinson MD
[2017-07-14] MEDS: Albuterol-Ipratrop 3 mg / 0.5 (3 ml) UD IH PRN (23:52)
[2017-07-15] MEDS: Vancomycin 1gm in NS 250ml 1 GM/250 ML BAG IVPB SCH (01:00)
[2017-07-15] MEDS: Pantoprazole 40 mg EC Tab PO SCH (05:15)
[2017-07-15] MEDS: Aztreonam 1 Gm in NS 100mL 100 ML IVPB SCH ×3 (05:15→21:17)
[2017-07-15 06:28] LABS: BASO # 0.02 K/mm3 (0.0-2.0); BASO % 0.2 % (0.0-3.0); EOS # 0.3 (0.0-0.7); EOS % 2.7 % (1.5-5.0); GRAN # 8.56 (1.4-6.5); GRAN % 74.2 % (50.0-68.0); HEMOGLOBIN 12.2 g/dL (14.0-18.0); LYMPH # 1.2 (1.2-3.4); LYMPH % 10.8 % (22.0-35.0); MEAN CELL VOLUME 90.1 fl (80.0-105.0); MEAN CORPUSCULAR HEMOGLOBIN 27.5 pg (25.0-35.0); MEAN CORPUSCULAR HGB CONC 30.6 g/dl (31.0-37.0); MEAN PLATELET VOLUME 9.5 fl (7.0-11.0); MONO # 1.4 (0.1-0.6); MONO % 12.1 % (1.0-6.0); RBC 4.43 10^6/uL (3.5-6.1); RED CELL DISTRIBUTION WIDTH 15.9 % (11.5-14.5); WHITE BLOOD COUNT 11.5 10^3/ul (4.5-11.0)
[2017-07-15 06:56] LABS: ALB/GLOB RATIO 1.1 (1.1-1.8); ALT/SGPT 72 U/L (7-56); AST/SGOT 68 U/L (17-59); BLOOD UREA NITROGEN 20 mg/dL (7-21); CALCIUM 8.2 mg/dL (8.4-10.5); GFR AFRICAN-AMERICAN > 60; GFR NON-AFRICAN AMERICAN > 60
[2017-07-15] MEDS: Sildenafil 20 MG TAB PO SCH ×3 (10:02→17:03)
[2017-07-15] MEDS: Enoxaparin 40 mg Syringe SC SCH (11:46)
--- NOTE | 2017-07-15 11:50 | CP.CCUPN ---
<Kady Ford - Last Filed: 07/15/17 11:40> CCU Subjective - Physician Review Subjective (Free Text): 07/15/17 11:41 Patient seen and examined at bedside. No acute events overnight. Denies sob, fever, chills, nausea, vomiting, abdominal pain. Critical Care Time Spent (in minutes): 60 CCU Objective - Vital Signs / Intake & Output Vital Signs (Last 4 hours): Vital Signs Pulse Resp BP Pulse Ox 07/15/17 11:10 96 H 32 H 95 07/15/17 11:00 87 27 H 96 07/15/17 10:50 97 H 27 H 86 L 07/15/17 10:40 97 H 33 H 96 07/15/17 10:31 88 25 H 126/67 98 07/15/17 10:30 94 H 27 H 97 07/15/17 10:20 98 H 34 H 98 07/15/17 10:10 98 H 93 L 07/15/17 10:03 124/74 07/15/17 10:02 124 H 124/74 07/15/17 10:00 103 H 21 124/74 96 07/15/17 09:50 96 H 32 H 95 07/15/17 09:40 104 H 51 H 85 L 07/15/17 09:30 109 H 90 L 07/15/17 09:20 102 H 33 H 90 L 07/15/17 09:10 102 H 35 H 90 L 07/15/17 09:00 105 H 60 H 88 L 07/15/17 08:50 100 H 39 H 82 L 07/15/17 08:40 93 H 27 H 92 L 07/15/17 08:31 98 H 17 100/72 95 07/15/17 08:30 98 H 36 H 93 L 07/15/17 08:20 40 H 94 L 07/15/17 08:10 94 H 28 H 98 07/15/17 08:00 92 H 27 H 96 07/15/17 07:50 85 25 H 95 Intake and Output (Last 8hrs): Intake & Output 07/14/17 07/15/17 07/15/17 22:59 06:59 14:59 Intake Total 100 200 Output Total 2100 Balance -1999 200 Intake: IV 100 100 IVPB 100 Oral 100 Output: Urine 2100 Urethral (Ag) 2100 Stool 0 - Physical Exam Head: Positive for: Atraumatic, Normocephalic Pupils: Positive for: PERRL Extroacular Muscles: Positive for: EOMI Conjunctiva: Positive for: Normal Ears: Positive for: Normal, NORMAL TM, Normal Canal. Negative for: Erythema, TM Bulging, Fluid, TM Perf Mouth: Positive for: Moist Mucous Membranes Pharnyx: Positive for: Normal. Negative for: ERYTHEMA, EXUDATE, TONSILS ENLARGED, Peritonsilar Swelling, Uvular Deviation, Muffled/Hoarse Voice, Strider , Soft Palate/Uvular Edema Nose (External): Positive for: Atraumatic Nose (Internal): Positive for: Normal Inspection Neck: Positive for: Normal Range of Motion. Negative for: Meningeal Signs, MIDLINE TENDERNESS, Paraspinal Tenderness Respiratory/Chest: Positive for: Tachypneic. Negative for: Clear to Auscultation Cardiovascular: Positive for: Regular Rate and Rhythm, Normal S1, S2, Peripheal Pulses Present. Negative for: Murmurs Abdomen: Positive for: Normal Bowel Sounds. Negative for: Tenderness (Soft), Distention, Peritoneal Signs, Guarding, Mass/Organomegaly Upper Extremity: Positive for: Normal Inspection. Negative for: Cyanosis, Edema Lower Extremity: Positive for: Edema (Bilateral lower extremity edema 2+), Other (Ecchymotic bruising to right buttocks/leg) Neurological: Positive for: GCS=15, CN II-XII Intact, Speech Normal Skin: Positive for: Warm, Dry, Normal Color. Negative for: Rashes Psychiatric: Positive for: Alert, Oriented x 3 - Medications Active Medications: Active Medications Generic Name Dose Route Start Last Admin Trade Name Freq PRN Reason Stop Dose Admin Albuterol/Ipratropium 3 ml 07/13/17 06:57 07/14/17 23:52 Duoneb 3 Mg/0.5 Mg (3 Ml) Ud IH 3 ml Q2H PRN Administration Shortness of Breath Alprazolam 0.25 mg 07/14/17 15:06 07/15/17 10:02 Xanax PO 07/21/17 15:07 0.25 mg Q8H PRN Administration Anxiety Protocol Aspirin 325 mg 07/12/17 10:00 07/15/17 10:04 Aspirin PO 325 mg DAILY MERI Administration Doxycycline Hyclate 100 mg 07/13/17 22:00 07/15/17 10:02 Doryx PO 07/22/17 22:01 100 mg Q12 MERI Administration Protocol Enoxaparin Sodium 40 mg 07/15/17 11:15 Lovenox SC DAILY MERI Protocol Furosemide 40 mg 07/15/17 18:00 Lasix IV BID MERI Aztreonam 100 mls @ 100 mls/hr 07/12/17 09:00 07/15/17 05:15 Azactam 1 Gm IVPB 07/19/17 09:01 100 mls/hr Q8 MERI Administration Protocol Milrinone Lactate/Dextrose 100 mls @ 15.426 mls/hr 07/13/17 14:08 07/14/17 21 :30 Primacor 20mg/100ml D5w IV 0.375 mcg/kg/min .Q6H29M PRN 15.426 mls/hr TITRATE PER MD ORDER Administration Protocol 0.375 MCG/KG/MIN Metoprolol Tartrate 25 mg 07/14/17 10:00 07/15/17 10:02 Lopressor PO 25 mg BID MERI Administration Pantoprazole Sodium 40 mg 07/14/17 07:00 07/15/17 05:15 Protonix Ec Tab PO 40 mg 0600 MERI Administration Sildenafil Citrate 20 mg 07/14/17 10:00 07/15/17 10:02 Revatio PO 20 mg TID MERI Administration - Patient Studies Lab Studies: Microbiology Studies 07/12/17 23:13 Gram Stain - Final Sputum Sputum Culture - Final NORMAL ORAL YANETH 07/13/17 16:26 Gram Stain - Final Sputum Induced 07/12/17 04:01 MRSA Culture (Admit) - Final Nose MRSA NOT DETECTED Lab Studies 07/15/17 07/15/17 07/15/17 Range/Units 07:19 05:00 05:00 WBC 11.5 H (4.5-11.0) 10^3/ul RBC 4.43 (3.5-6.1) 10^6/uL Hgb 12.2 L (14.0-18.0) g/dL Hct 39.9 L (42.0-52.0) % MCV 90.1 (80.0-105.0) fl MCH 27.5 (25.0-35.0) pg MCHC 30.6 L (31.0-37.0) g/dl RDW 15.9 H (11.5-14.5) % Plt Count 273 (120.0-450.0) 10^3/uL MPV 9.5 (7.0-11.0) fl Gran % 74.2 H (50.0-68.0) % Lymph % (Auto) 10.8 L (22.0-35.0) % [place] % (Auto) 12.1 H (1.0-6.0) % Eos % (Auto) 2.7 (1.5-5.0) % Baso % (Auto) 0.2 (0.0-3.0) % Gran # 8.56 H (1.4-6.5) Lymph # (Auto) 1.2 (1.2-3.4) [place] # (Auto) 1.4 H (0.1-0.6) Eos # (Auto) 0.3 (0.0-0.7) Baso # (Auto) 0.02 (0.0-2.0) K/mm3 Sodium 142 (132-148) mmol/L Potassium 4.1 (3.6-5.0) mmol/L Chloride 97 L (98-107) mmol/L Carbon Dioxide 40 H (21-33) mmol/L Anion Gap 10 (10-20) BUN 20 (7-21) mg/dL Creatinine 0.8 (0.8-1.5) mg/dl Est GFR ( Amer) > 60 Est GFR (Non-Af Amer) > 60 POC Glucose (mg/dL) 93 (65-110) mg/dL Random Glucose 98 (70-110) mg/dL Calcium 8.2 L (8.4-10.5) mg/dL Phosphorus 3.5 (2.5-4.5) mg/dL Magnesium 1.9 (1.7-2.2) mg/dL Total Bilirubin 0.7 (0.2-1.3) mg/dL AST 68 H D (17-59) U/L ALT 72 H (7-56) U/L Alkaline Phosphatase 57 (38-126) U/L Total Protein 5.7 L (5.8-8.3) g/dL Albumin 3.0 (3.0-4.8) g/dL Globulin 2.7 gm/dL Albumin/Globulin Ratio 1.1 (1.1-1.8) 07/14/17 07/14/17 Range/Units 21:35 15:36 WBC (4.5-11.0) 10^3/ul RBC (3.5-6.1) 10^6/uL Hgb (14.0-18.0) g/dL Hct (42.0-52.0) % MCV (80.0-105.0) fl MCH (25.0-35.0) pg MCHC (31.0-37.0) g/dl RDW (11.5-14.5) % Plt Count (120.0-450.0) 10^3/uL MPV (7.0-11.0) fl Gran % (50.0-68.0) % Lymph % (Auto) (22.0-35.0) % [place] % (Auto) (1.0-6.0) % Eos % (Auto) (1.5-5.0) % Baso % (Auto) (0.0-3.0) % Gran # (1.4-6.5) Lymph # (Auto) (1.2-3.4) [place] # (Auto) (0.1-0.6) Eos # (Auto) (0.0-0.7) Baso # (Auto) (0.0-2.0) K/mm3 Sodium (132-148) mmol/L Potassium (3.6-5.0) mmol/L Chloride (98-107) mmol/L Carbon Dioxide (21-33) mmol/L Anion Gap (10-20) BUN (7-21) mg/dL Creatinine (0.8-1.5) mg/dl Est GFR ( Amer) Est GFR (Non-Af Amer) POC Glucose (mg/dL) 100 148 H (65-110) mg/dL Random Glucose (70-110) mg/dL Calcium (8.4-10.5) mg/dL Phosphorus (2.5-4.5) mg/dL Magnesium (1.7-2.2) mg/dL Total Bilirubin (0.2-1.3) mg/dL AST (17-59) U/L ALT (7-56) U/L Alkaline Phosphatase (38-126) U/L Total Protein (5.8-8.3) g/dL Albumin (3.0-4.8) g/dL Globulin gm/dL Albumin/Globulin Ratio (1.1-1.8) Laboratory Results - last 24 hr 07/14/17 07/14/17 07/15/17 15:36 21:35 05:00 WBC 11.5 H RBC 4.43 Hgb 12.2 L Hct 39.9 L MCV 90.1 MCH 27.5 MCHC 30.6 L RDW 15.9 H Plt Count 273 MPV 9.5 Gran % 74.2 H Lymph % (Auto) 10.8 L [place] % (Auto) 12.1 H Eos % (Auto) 2.7 Baso % (Auto) 0.2 Gran # 8.56 H Lymph # (Auto) 1.2 [place] # (Auto) 1.4 H Eos # (Auto) 0.3 Baso # (Auto) 0.02 Sodium Potassium Chloride Carbon Dioxide Anion Gap BUN Creatinine Est GFR ( Amer) Est GFR (Non-Af Amer) POC Glucose (mg/dL) 148 H 100 Random Glucose Calcium Phosphorus Magnesium Total Bilirubin AST ALT Alkaline Phosphatase Total Protein Albumin Globulin Albumin/Globulin Ratio 07/15/17 07/15/17 05:00 07:19 WBC RBC Hgb Hct MCV MCH MCHC RDW Plt Count MPV Gran % Lymph % (Auto) [place] % (Auto) Eos % (Auto) Baso % (Auto) Gran # Lymph # (Auto) [place] # (Auto) Eos # (Auto) Baso # (Auto) Sodium 142 Potassium 4.1 Chloride 97 L Carbon Dioxide 40 H Anion Gap 10 BUN 20 Creatinine 0.8 Est GFR ( Amer) > 60 Est GFR (Non-Af Amer) > 60 POC Glucose (mg/dL) 93 Random Glucose 98 Calcium 8.2 L Phosphorus 3.5 Magnesium 1.9 Total Bilirubin 0.7 AST 68 H D ALT 72 H Alkaline Phosphatase 57 Total Protein 5.7 L Albumin 3.0 Globulin 2.7 Albumin/Globulin Ratio 1.1 Fingerstick Blood Sugar Results: 92 Review of Systems - Review of Systems All systems: reviewed and no additional remarkable complaints except Review of Systems: as per subjective portion of exam Critical Care Progress Note - Nutrition Nutrition: Nutrition Category Date Time Status Regular Diet [DIET] Diets 07/13/17 Dinner Ordered Assessment/Plan - Assessment and Plan (Free Text) Assessment: 57 year old male with PMH HTN, presents for AMS, s/p cardiac arrest in ED, with respiratory failure s/p extubation, likely obstructive shock 2/2 SIGRID. Cardiac cath negative for obstructive CAD, LVEDP 18, PAWP 15-20. CT angio negative for PE. Pt stable, downgraded to tele: Neuro: - AOxx4 - Neuro checks q4h - Neurology consult: Dr. Bermudez. Appreciate recs. - Repeat CT head neg for acute CVA. - Pending MRI brain CV: - Echo EF 55.8%. mild LVH. Grade III reversible restrictive diastolic dysfunction. Right ventricle moderately dilated. RVSP 26 mmHg. - Maintain MAP > 65 - Milrinone drip - Lasix q12, metoprolol, plavix, ASA, sildenafil - Cardiology Consult: Dr. Atkinson. Appreciate recs. - Cardiac cath shows mild nonobstructive CAD, no stents placed. Pulm: - Pt on HFNC. Bipap nightly - Maintain SPO2 > 90 % - Pulm Consulted. appreciate recs. - CT angio neg for PE - Likely SIGRID - sleep study outpatient GI: - Alcohol Level neg, Hepatitis panel neg - Regular diet - Protonix Renal: - Monitor electrolytes and renal function - hypokalemic today, repleted ID: - Blood culture neg to date - Urine culture neg - Procalcitonin mildly elevated - CXR shows mild left sided pleural effusion. - Continue Azactam/Doxycycline and Vancomycin - ID Consult: Dr. Tsang Endo: - TSH normal - Maintain glucose at 140 -160 Case seen and discussed with Dr Gresham. Kady Ford, PGY1 - Date & Time Date: 07/15/17 Time: 11:50 <Nas Gresham - Last Filed: 07/15/17 12:12> CCU Objective - Vital Signs / Intake & Output Vital Signs (Last 4 hours): Vital Signs Pulse Resp BP Pulse Ox 07/15/17 11:45 140/70 07/15/17 11:10 96 H 32 H 95 07/15/17 11:00 87 27 H 96 07/15/17 10:50 97 H 27 H 86 L 07/15/17 10:40 97 H 33 H 96 07/15/17 10:31 88 25 H 126/67 98 07/15/17 10:30 94 H 27 H 97 07/15/17 10:20 98 H 34 H 98 07/15/17 10:10 98 H 93 L 07/15/17 10:03 124/74 07/15/17 10:02 124 H 124/74 07/15/17 10:00 103 H 21 124/74 96 07/15/17 09:50 96 H 32 H 95 07/15/17 09:40 104 H 51 H 85 L 07/15/17 09:30 109 H 90 L 07/15/17 09:20 102 H 33 H 90 L 07/15/17 09:10 102 H 35 H 90 L 07/15/17 09:00 105 H 60 H 88 L 07/15/17 08:50 100 H 39 H 82 L 07/15/17 08:40 93 H 27 H 92 L 07/15/17 08:31 98 H 17 100/72 95 07/15/17 08:30 98 H 36 H 93 L 07/15/17 08:20 40 H 94 L Intake and Output (Last 8hrs): Intake & Output 07/14/17 07/15/17 07/15/17 22:59 06:59 14:59 Intake Total 100 200 Output Total 2100 Balance -1999 200 Intake: IV 100 100 IVPB 100 Oral 100 Output: Urine 2100 Urethral (Ag) 2100 Stool 0 - Medications Active Medications: Active Medications Generic Name Dose Route Start Last Admin Trade Name Freq PRN Reason Stop Dose Admin Albuterol/Ipratropium 3 ml 07/13/17 06:57 07/14/17 23:52 Duoneb 3 Mg/0.5 Mg (3 Ml) Ud IH 3 ml Q2H PRN Administration Shortness of Breath Alprazolam 0.25 mg 07/14/17 15:06 07/15/17 10:02 Xanax PO 07/21/17 15:07 0.25 mg Q8H PRN Administration Anxiety Protocol Aspirin 325 mg 07/12/17 10:00 07/15/17 10:04 Aspirin PO 325 mg DAILY MERI Administration Doxycycline Hyclate 100 mg 07/13/17 22:00 07/15/17 10:02 Doryx PO 07/22/17 22:01 100 mg Q12 MERI Administration Protocol Enoxaparin Sodium 40 mg 07/15/17 11:15 07/15/17 11:46 Lovenox SC 40 mg DAILY MERI Administration Protocol Furosemide 40 mg 07/15/17 18:00 Lasix IV BID MERI Aztreonam 100 mls @ 100 mls/hr 07/12/17 09:00 07/15/17 05:15 Azactam 1 Gm IVPB 07/19/17 09:01 100 mls/hr Q8 MERI Administration Protocol Milrinone Lactate/Dextrose 100 mls @ 15.426 mls/hr 07/13/17 14:08 07/14/17 21 :30 Primacor 20mg/100ml D5w IV 0.375 mcg/kg/min .Q6H29M PRN 15.426 mls/hr TITRATE PER MD ORDER Administration Protocol 0.375 MCG/KG/MIN Metoprolol Tartrate 25 mg 07/14/17 10:00 07/15/17 10:02 Lopressor PO 25 mg BID MERI Administration Pantoprazole Sodium 40 mg 07/14/17 07:00 07/15/17 05:15 Protonix Ec Tab PO 40 mg 0600 MERI Administration Sildenafil Citrate 20 mg 07/14/17 10:00 07/15/17 10:02 Revatio PO 20 mg TID MERI Administration - Patient Studies Lab Studies: Microbiology Studies 07/12/17 23:13 Gram Stain - Final Sputum Sputum Culture - Final NORMAL ORAL YANETH 07/13/17 16:26 Gram Stain - Final Sputum Induced 07/12/17 04:01 MRSA Culture (Admit) - Final Nose MRSA NOT DETECTED Lab Studies 07/15/17 07/15/17 07/15/17 Range/Units 07:19 05:00 05:00 WBC 11.5 H (4.5-11.0) 10^3/ul RBC 4.43 (3.5-6.1) 10^6/uL Hgb 12.2 L (14.0-18.0) g/dL Hct 39.9 L (42.0-52.0) % MCV 90.1 (80.0-105.0) fl MCH 27.5 (25.0-35.0) pg MCHC 30.6 L (31.0-37.0) g/dl RDW 15.9 H (11.5-14.5) % Plt Count 273 (120.0-450.0) 10^3/uL MPV 9.5 (7.0-11.0) fl Gran % 74.2 H (50.0-68.0) % Lymph % (Auto) 10.8 L (22.0-35.0) % [place] % (Auto) 12.1 H (1.0-6.0) % Eos % (Auto) 2.7 (1.5-5.0) % Baso % (Auto) 0.2 (0.0-3.0) % Gran # 8.56 H (1.4-6.5) Lymph # (Auto) 1.2 (1.2-3.4) [place] # (Auto) 1.4 H (0.1-0.6) Eos # (Auto) 0.3 (0.0-0.7) Baso # (Auto) 0.02 (0.0-2.0) K/mm3 Sodium 142 (132-148) mmol/L Potassium 4.1 (3.6-5.0) mmol/L Chloride 97 L (98-107) mmol/L Carbon Dioxide 40 H (21-33) mmol/L Anion Gap 10 (10-20) BUN 20 (7-21) mg/dL Creatinine 0.8 (0.8-1.5) mg/dl Est GFR ( Amer) > 60 Est GFR (Non-Af Amer) > 60 POC Glucose (mg/dL) 93 (65-110) mg/dL Random Glucose 98 (70-110) mg/dL Calcium 8.2 L (8.4-10.5) mg/dL Phosphorus 3.5 (2.5-4.5) mg/dL Magnesium 1.9 (1.7-2.2) mg/dL Total Bilirubin 0.7 (0.2-1.3) mg/dL AST 68 H D (17-59) U/L ALT 72 H (7-56) U/L Alkaline Phosphatase 57 (38-126) U/L Total Protein 5.7 L (5.8-8.3) g/dL Albumin 3.0 (3.0-4.8) g/dL Globulin 2.7 gm/dL Albumin/Globulin Ratio 1.1 (1.1-1.8) 07/14/17 07/14/17 Range/Units 21:35 15:36 WBC (4.5-11.0) 10^3/ul RBC (3.5-6.1) 10^6/uL Hgb (14.0-18.0) g/dL Hct (42.0-52.0) % MCV (80.0-105.0) fl MCH (25.0-35.0) pg MCHC (31.0-37.0) g/dl RDW (11.5-14.5) % Plt Count (120.0-450.0) 10^3/uL MPV (7.0-11.0) fl Gran % (50.0-68.0) % Lymph % (Auto) (22.0-35.0) % [place] % (Auto) (1.0-6.0) % Eos % (Auto) (1.5-5.0) % Baso % (Auto) (0.0-3.0) % Gran # (1.4-6.5) Lymph # (Auto) (1.2-3.4) [place] # (Auto) (0.1-0.6) Eos # (Auto) (0.0-0.7) Baso # (Auto) (0.0-2.0) K/mm3 Sodium (132-148) mmol/L Potassium (3.6-5.0) mmol/L Chloride (98-107) mmol/L Carbon Dioxide (21-33) mmol/L Anion Gap (10-20) BUN (7-21) mg/dL Creatinine (0.8-1.5) mg/dl Est GFR ( Amer) Est GFR (Non-Af Amer) POC Glucose (mg/dL) 100 148 H (65-110) mg/dL Random Glucose (70-110) mg/dL Calcium (8.4-10.5) mg/dL Phosphorus (2.5-4.5) mg/dL Magnesium (1.7-2.2) mg/dL Total Bilirubin (0.2-1.3) mg/dL AST (17-59) U/L ALT (7-56) U/L Alkaline Phosphatase (38-126) U/L Total Protein (5.8-8.3) g/dL Albumin (3.0-4.8) g/dL Globulin gm/dL Albumin/Globulin Ratio (1.1-1.8) Laboratory Results - last 24 hr 07/14/17 07/14/17 07/15/17 15:36 21:35 05:00 WBC 11.5 H RBC 4.43 Hgb 12.2 L Hct 39.9 L MCV 90.1 MCH 27.5 MCHC 30.6 L RDW 15.9 H Plt Count 273 MPV 9.5 Gran % 74.2 H Lymph % (Auto) 10.8 L [place] % (Auto) 12.1 H Eos % (Auto) 2.7 Baso % (Auto) 0.2 Gran # 8.56 H Lymph # (Auto) 1.2 [place] # (Auto) 1.4 H Eos # (Auto) 0.3 Baso # (Auto) 0.02 Sodium Potassium Chloride Carbon Dioxide Anion Gap BUN Creatinine Est GFR ( Amer) Est GFR (Non-Af Amer) POC Glucose (mg/dL) 148 H 100 Random Glucose Calcium Phosphorus Magnesium Total Bilirubin AST ALT Alkaline Phosphatase Total Protein Albumin Globulin Albumin/Globulin Ratio 07/15/17 07/15/17 05:00 07:19 WBC RBC Hgb Hct MCV MCH MCHC RDW Plt Count MPV Gran % Lymph % (Auto) [place] % (Auto) Eos % (Auto) Baso % (Auto) Gran # Lymph # (Auto) [place] # (Auto) Eos # (Auto) Baso # (Auto) Sodium 142 Potassium 4.1 Chloride 97 L Carbon Dioxide 40 H Anion Gap 10 BUN 20 Creatinine 0.8 Est GFR ( Amer) > 60 Est GFR (Non-Af Amer) > 60 POC Glucose (mg/dL) 93 Random Glucose 98 Calcium 8.2 L Phosphorus 3.5 Magnesium 1.9 Total Bilirubin 0.7 AST 68 H D ALT 72 H Alkaline Phosphatase 57 Total Protein 5.7 L Albumin 3.0 Globulin 2.7 Albumin/Globulin Ratio 1.1 Critical Care Progress Note - Nutrition Nutrition: Nutrition Category Date Time Status Regular Diet [DIET] Diets 07/13/17 Dinner Ordered Assessment/Plan - Assessment and Plan (Free Text) Assessment: Patient seen and examined, on rounds with resident, agree with note with following additions/exceptions: 57 year old male with PMH HTN, presents for AMS, s/p PEA cardiac arrest in ED, with respiratory failure s/p extubation. Cardiac cath negative for obstructive CAD, LVEDP 18, PAWP 15-20. CT angio negative for PE. On milrinone drip. Currently afebrile, HD stable, comfortable in NAD. Doing well. Cardiac Arrest, s/p ROSC Leuckoytosis Pulm HTN SIGRID/OHS CHF exacerbation Recommend: - cont with ventimask, goal sat >90%, bipap at night - cont with broad spectrum antibiotics, follow up cultures, Procal - cont with Milrinone - Beta jacquelin - Lasix IV diuresis - monitor - follow up neurology - GI ppx - DVT ppx - stable, transfer to telemetry
[2017-07-15] MEDS: Milrinone 20mg/100ml D5W 100 ML IV PRN ×2 (13:02→17:00)
--- NOTE | 2017-07-15 13:51 | PN ---
DATE: 07/15/2017 LOCATION: Patient is in ICU 128, bed 4. REASON FOR CONSULTATION AND FOLLOWUP: Status post CPR, cardiorespiratory failure, borderline troponin positive, status post cardiac catheterization, nonobstructive coronary artery disease, pulmonary hypertension, obesity. SUBJECTIVE: Patient is lying in bed. Denies any chest pain or palpitation, and denies shortness of breath. PHYSICAL EXAMINATION: VITAL SIGNS: Blood pressure 124/74, respirations 13, pulse 124. Patient is afebrile. HEENT: Head is normocephalic. Eyes: Pupils normal. Conjunctivae normal. NECK: JVP low. Carotids equal. THORAX: AP diameter normal. LUNGS: Diminished breath sounds. Otherwise, no significant rales. CARDIOVASCULAR: S1 and S2. ABDOMEN: Protuberant. No organomegaly. EXTREMITIES: No clubbing. No cyanosis. LABORATORY DATA: WBC 11.5, hemoglobin 12.2, hematocrit 39.9, and platelets 273. Sodium 142, potassium 4.1. BUN 20, creatinine 0.8. Random glucose 93. Calcium 8.2, phosphorus 3.5, magnesium 1.9. AST 68, ALT 72. Total protein 5.7, albumin 3. Sugar 93. Patient had CT angio yesterday, which showed no pulmonary embolism, showed subsegmental bibasilar consolidation, elevation of the right hemidiaphragm with diminished lung volume in the right lung. Patient's cardiac catheterization, patient has both left and right heart catheterization, left heart catheterization showed LV ejection fraction 55%, nonobstructive coronary artery disease which is limited in only to distal LAD diffusely diseased, but no focal stenosis. The right heart catheterization reveals RA pressure of 15, right ventricle pressure RV 70/15, PA pressure 70/22 with mean pulmonary pressure of 42, capillary wedge pressure is 18 to 20, PVR 269 Waterman unit. Cardiac output 8.17 L/min. Cardiac index 3.3 L. DIAGNOSES: Status post cardiorespiratory failure, syncope at home, slightly elevated troponin on cardiac catheterization, pulmonary hypertension, etiology not clear, nonobstructive coronary artery disease, normal left ventricular systolic function with ejection fraction of 55%, obesity, status post cardiorespiratory arrest. PLAN: Patient is on aspirin 325 mg p.o. daily. Patient is also on aztreonam 1 g IV every 8 hours, doxycycline hyclate 100 mg p.o. every 12 hour, albuterol/ipratropium and nebulizer therapy, furosemide 20 mg IV every 12 hours, metoprolol 25 b.i.d., milrinone drip continued for pulmonary hypertension and swelling on the legs, Revatio 20 mg p.o. t.i.d. We will give Lovenox 40 mg subcu daily as a prophylaxis. Patient still has swelling on the legs. We will increase Lasix to mg IV b.i.d. We will follow up. Taye De La Fuente MD
--- NOTE | 2017-07-15 15:05 | PN ---
DATE: 07/15/2017 SUBJECTIVE: The patient is in bed, in no acute distress, nontoxic. PHYSICAL EXAMINATION: VITAL SIGNS: Temperature is 98, blood pressure is 120/70, respiratory rate of 30, heart rate of 96. HEENT: Unremarkable. NECK: Supple. LUNGS: Have decreased breath sounds. HEART: Normal S1, S2. ABDOMEN: Soft, nontender. LABORATORY DATA: Reveals the patient's white count is 11,500, hemoglobin of 12, platelets of 273. Chemistries reveal a BUN of 20, creatinine of 0.8. Urinalysis is noted. Microbiology reveals sputum culture is negative, nasal MRSA is not detected, urine culture is negative. Blood culture is negative. The patient's procalcitonin is 0.44 on the , it has come down from which was 0.83. The patient had a CAT scan of the chest yesterday, no evidence of pulmonary emboli. Subsegmental bibasilar consolidation. Dr. Greg Moreno's note is reviewed. Review of orders reveals the patient to be on aztreonam, doxycycline, and IV vancomycin. Dr. Atkinson's note is reviewed. Dr. García's note is reviewed. The patient had a CAT scan of the head, which is negative. ASSESSMENT AND PLAN: This is a 57-year-old male with hypertension, morbid obesity with body mass index of 45, history of right hip replacement with systemic inflammatory response syndrome, status post vent dependent respiratory failure, acute encephalopathy, acute myocardial infarction, hypertension, morbid obesity with BMI of 45, initially found , cardiac arrest, ACLS was initiated. The patient was intubated, found to have severe sepsis, community-acquired pneumonia and retrocardiac disease. Currently, on vancomycin, aztreonam, and doxycycline. Cultures negative. Methicillin-resistant Staphylococcus aureus screen is negative. The patient had an echocardiogram, which was read by Dr. Atkinson. We will discontinue the vancomycin . The patient has a bacterial pneumonia at this point. The patient is scheduled for MRI of the head. We will follow with you. Anderson Tsang MD [facility] # [id number]
--- NOTE | 2017-07-15 15:12 | PN ---
DATE: 07/15/2017 PULMONARY PROGRESS NOTE SUBJECTIVE: The patient was seen and examined at bedside in the Intensive Care Unit. He states he feels a little better but still complaining of chest tightness and shortness of breath. His oxygen saturation currently is 92%. PHYSICAL EXAMINATION: VITAL SIGNS: The rest of vital signs, his pulse is 96, respiratory rate is 28, and pulse oximetry is 92% on high flow. HEENT: Head: Normocephalic and atraumatic. NECK: Supple. There is no jugular vein distentions. CHEST: Symmetrical. CARDIOVASCULAR: S1 and S2, no S3, and regular. PULMONARY: Diminished breath sounds of both lung bases, few scattered rhonchi, and no wheezing. GI: Soft, nontender. No organomegaly. EXTREMITIES: No edema. SKIN: Negative for skin rash. NEUROLOGIC: No focal deficits. LABORATORY DATA: I reviewed today's laboratory data; his serum sodium is 142 and potassium 4.1. Liver function tests are improving. WBC is 11.5 and hemoglobin of 12.2. The patient is still hypoxic requiring increased oxygen delivery. He is getting inhalation treatment with DuoNeb and he is on antibiotics. He is on Primacor and Revatio. ASSESSMENT: Status post cardiorespiratory arrest, status post respiratory failure, status post extubation, obstructive sleep apnea, secondary pulmonary hypertension, coronary artery disease, and CT angio negative for pulmonary embolism. PLAN: The patient's condition is gradually improving. He is still short of breath, still requiring increased oxygen delivery, however, his cardiovascular and pulmonary status are both improving. His right ventricular systolic pressure in the latest echocardiogram is only 26. I will question need for continuing administration of Revatio. We will follow closely. Greg Moreno MD
--- NOTE | 2017-07-15 15:26 | CP.PCM.PN ---
Subjective - Date & Time of Evaluation Date of Evaluation: 07/15/17 Time of Evaluation: 15:00 - Subjective Subjective: Patient is much improved today, and is speaking appropriately, no headache, no other complaints. on exam: Normal neuro exam, except for extreme tachypnea and distress secondary to this. good strength. speech fluent. reflexes symmetric. no clonus. Objective - Vital Signs/Intake and Output Vital Signs (last 24 hours): Temp Pulse Resp BP Pulse Ox 98.8 F 87 35 H 122/71 95 07/13/17 15:33 07/15/17 13:31 07/15/17 13:31 07/15/17 13:31 07/15/17 13:31 Intake and Output: 07/15/17 07/15/17 06:59 18:59 Intake Total 200 200 Output Total 2100 Balance -1900 200 - Medications Medications: Current Medications Albuterol/Ipratropium (Duoneb 3 Mg/0.5 Mg (3 Ml) Ud) 3 ml IH Q2H PRN PRN Reason: Shortness of Breath Last Admin: 07/14/17 23:52 Dose: 3 ml Alprazolam (Xanax) 0.25 mg PO Q8H PRN; Protocol PRN Reason: Anxiety Stop: 07/21/17 15:07 Last Admin: 07/15/17 10:02 Dose: 0.25 mg Aspirin (Aspirin) 325 mg PO DAILY [facility] Last Admin: 07/15/17 10:04 Dose: 325 mg Doxycycline Hyclate (Doryx) 100 mg PO Q12 [facility] PRN Reason: Protocol Stop: 07/22/17 22:01 Last Admin: 07/15/17 10:02 Dose: 100 mg Enoxaparin Sodium (Lovenox) 40 mg SC DAILY [facility] PRN Reason: Protocol Last Admin: 07/15/17 11:46 Dose: 40 mg Furosemide (Lasix) 40 mg IV BID [facility] Aztreonam (Azactam 1 Gm) 100 mls @ 100 mls/hr IVPB Q8 [facility] PRN Reason: Protocol Stop: 07/19/17 09:01 Last Admin: 07/15/17 13:14 Dose: 100 mls/hr Milrinone Lactate/Dextrose (Primacor 20mg/100ml D5w) 100 mls @ 15.426 mls/hr IV .Q6H29M PRN; Protocol; 0.375 MCG/KG/MIN PRN Reason: TITRATE PER MD ORDER Last Admin: 07/15/17 13:02 Dose: 0.375 mcg/kg/min, 15.426 mls/hr Metoprolol Tartrate (Lopressor) 25 mg PO BID [facility] Last Admin: 07/15/17 10:02 Dose: 25 mg Pantoprazole Sodium (Protonix Ec Tab) 40 mg PO 0600 [facility] Last Admin: 07/15/17 05:15 Dose: 40 mg Sildenafil Citrate (Revatio) 20 mg PO TID [facility] Last Admin: 07/15/17 13:29 Dose: 20 mg - Labs Labs: 07/15/17 05:00 07/15/17 05:00 PT 16.8 SECONDS (9.4-12.5) H 07/11/17 20:06 INR 1.46 (0.93-1.08) H 07/11/17 20:06 APTT 69.5 Seconds (25.1-36.5) H 07/14/17 09:40 Assessment and Plan - Assessment and Plan (Free Text) Assessment: 57 yr old male with cor pulmonale, respiratory distress who was found down on the ground several days ago. We are ruling himout for stroke and will obtain MRI Brain today. It is unlikely he had a seizure and it is likely that he may have fell asleep due to chronic sleep deprivation. Plan: 1. MRi Brain without contrast. 2. minimize speaking and other activities. Dr. Bermudez
[2017-07-15 16:53] LABS: ARTERIAL BLOOD GAS HCO3 42.3 mmol/L (21-28); ARTERIAL BLOOD GAS HEMOGLOBIN 12.8 g/dL (11.7-17.4); ARTERIAL BLOOD GAS O2 CAPACITY 17.5 mL/dl (16-24); ARTERIAL BLOOD GAS O2 CONTENT 16.5 ML/dl (15-23); ARTERIAL BLOOD GAS O2 SAT 94.5 % (95-98); ARTERIAL BLOOD GAS PCO2 86 mm/Hg (35-45); ARTERIAL BLOOD GAS TCO2 44.9 mmol.L (22-28)
[2017-07-16] MEDS: Aztreonam 1 Gm in NS 100mL 100 ML IVPB SCH (05:09)
[2017-07-16] MEDS: Pantoprazole 40 mg EC Tab PO SCH (05:13)
[2017-07-16 05:58] LABS: BASO # 0.01 K/mm3 (0.0-2.0); BASO % 0.1 % (0.0-3.0); EOS # 0.4 (0.0-0.7); EOS % 3.8 % (1.5-5.0); GRAN # 7.5 (1.4-6.5); GRAN % 72.7 % (50.0-68.0); LYMPH # 1.2 (1.2-3.4); LYMPH % 11.7 % (22.0-35.0); MEAN CELL VOLUME 89.5 fl (80.0-105.0); MEAN CORPUSCULAR HGB CONC 31.3 g/dl (31.0-37.0); MEAN PLATELET VOLUME 9.3 fl (7.0-11.0); MONO # 1.2 (0.1-0.6); MONO % 11.7 % (1.0-6.0); RBC 4.29 10^6/uL (3.5-6.1); RED CELL DISTRIBUTION WIDTH 15.6 % (11.5-14.5); WHITE BLOOD COUNT 10.3 10^3/ul (4.5-11.0)
--- NOTE | 2017-07-16 06:20 | CP.PCM.PN ---
Subjective - Date & Time of Evaluation Date of Evaluation: 07/16/17 Time of Evaluation: :18 - Subjective Subjective: Mr. Sandoval was seen and examined at the bedside in ICU. He is alert, oriented in all spheres. He uses bipap machine at nighttime and claims of able to sleep the whole night. He denies any headache, dizziness, lightheadedness. He is able to follow simple commands with noticeable pitting edema in his bilateral feet. There was no untoward events overnight. Objective - Vital Signs/Intake and Output Vital Signs (last 24 hours): Temp Pulse Resp BP Pulse Ox 98.8 F 93 H 16 132/59 L 93 L 07/13/17 15:33 07/15/17 23:00 07/15/17 23:00 07/15/17 22:38 07/15/17 23:00 Intake and Output: 07/15/17 07/16/17 18:59 06:59 Intake Total 984 Output Total 2100 Balance -1116 - Medications Medications: Current Medications Albuterol/Ipratropium (Duoneb 3 Mg/0.5 Mg (3 Ml) Ud) 3 ml IH Q2H PRN PRN Reason: Shortness of Breath Last Admin: 07/14/17 23:52 Dose: 3 ml Alprazolam (Xanax) 0.25 mg PO Q8H PRN; Protocol PRN Reason: Anxiety Stop: 07/21/17 15:07 Last Admin: 07/15/17 10:02 Dose: 0.25 mg Aspirin (Aspirin) 325 mg PO DAILY [facility] Last Admin: 07/15/17 10:04 Dose: 325 mg Doxycycline Hyclate (Doryx) 100 mg PO Q12 [facility] PRN Reason: Protocol Stop: 07/22/17 22:01 Last Admin: 07/15/17 21:17 Dose: 100 mg Enoxaparin Sodium (Lovenox) 40 mg SC DAILY [facility] PRN Reason: Protocol Last Admin: 07/15/17 11:46 Dose: 40 mg Furosemide (Lasix) 40 mg IV BID [facility] Last Admin: 07/15/17 17:02 Dose: 40 mg Aztreonam (Azactam 1 Gm) 100 mls @ 100 mls/hr IVPB Q8 [facility] PRN Reason: Protocol Stop: 07/19/17 09:01 Last Admin: 07/16/17 05:09 Dose: 100 mls/hr Milrinone Lactate/Dextrose (Primacor 20mg/100ml D5w) 100 mls @ 15.426 mls/hr IV .Q6H29M PRN; Protocol; 0.375 MCG/KG/MIN PRN Reason: TITRATE PER MD ORDER Last Admin: 07/15/17 17:00 Dose: 0.375 mcg/kg/min, 15.426 mls/hr Metoprolol Tartrate (Lopressor) 25 mg PO BID [facility] Last Admin: 07/15/17 17:03 Dose: 25 mg Pantoprazole Sodium (Protonix Ec Tab) 40 mg PO 0600 [facility] Last Admin: 07/16/17 05:13 Dose: 40 mg Sildenafil Citrate (Revatio) 20 mg PO TID [facility] Last Admin: 07/15/17 17:03 Dose: 20 mg - Labs Labs: 07/16/17 05:30 07/15/17 05:00 PT 16.8 SECONDS (9.4-12.5) H 07/11/17 20:06 INR 1.46 (0.93-1.08) H 07/11/17 20:06 APTT 69.5 Seconds (25.1-36.5) H 07/14/17 09:40 - Constitutional Appears: No Acute Distress - Head Exam Head Exam: NORMAL INSPECTION - Neurological Exam Neurological Exam: Alert, Awake, Oriented x3 Neuro motor strength exam: Left Upper Extremity: 5, Right Upper Extremity: 5, Left Lower Extremity: 4, Right Lower Extremity: 4 Additional comments: He is awake, alert, follows commands, sensation is intact. Assessment and Plan (1) Cardiopulmonary arrest with successful resuscitation Assessment & Plan: Case discussed with Dr. Bermudez, continue all current medical, physical, and occupational therapies. Pending MRI of the brain to evaluate any acute pathologic condition. Status: Acute
[2017-07-16 06:57] LABS: ALB/GLOB RATIO 1.1 (1.1-1.8); ALBUMIN 2.9 g/dL (3.0-4.8); ALT/SGPT 64 U/L (7-56); AST/SGOT 57 U/L (17-59); BLOOD UREA NITROGEN 19 mg/dL (7-21); CALCIUM 8.2 mg/dL (8.4-10.5); GFR AFRICAN-AMERICAN > 60; GFR NON-AFRICAN AMERICAN > 60
[2017-07-16] MEDS: Albuterol-Ipratrop 3 mg / 0.5 (3 ml) UD IH PRN ×3 (07:33→19:51)
--- NOTE | 2017-07-16 09:59 | CP.PCM.PN ---
Subjective - Date & Time of Evaluation Date of Evaluation: 07/16/17 Time of Evaluation: 07:20 - Subjective Subjective: Patient seen and examined on rounds, doing well, no major complaints. OFF bipap. Objective - Vital Signs/Intake and Output Vital Signs (last 24 hours): Temp Pulse Resp BP Pulse Ox 98.8 F 89 16 132/59 L 93 L 07/13/17 15:33 07/16/17 07:35 07/15/17 23:00 07/15/17 22:38 07/15/17 23:00 - Medications Medications: Current Medications Albuterol/Ipratropium (Duoneb 3 Mg/0.5 Mg (3 Ml) Ud) 3 ml IH Q2H PRN PRN Reason: Shortness of Breath Last Admin: 07/16/17 07:33 Dose: 3 ml Alprazolam (Xanax) 0.25 mg PO Q8H PRN; Protocol PRN Reason: Anxiety Stop: 07/21/17 15:07 Last Admin: 07/15/17 10:02 Dose: 0.25 mg Aspirin (Aspirin) 325 mg PO DAILY [facility] Last Admin: 07/15/17 10:04 Dose: 325 mg Doxycycline Hyclate (Doryx) 100 mg PO Q12 [facility] PRN Reason: Protocol Stop: 07/22/17 22:01 Last Admin: 07/15/17 21:17 Dose: 100 mg Enoxaparin Sodium (Lovenox) 40 mg SC DAILY [facility] PRN Reason: Protocol Last Admin: 07/15/17 11:46 Dose: 40 mg Furosemide (Lasix) 40 mg IV BID [facility] Last Admin: 07/15/17 17:02 Dose: 40 mg Milrinone Lactate/Dextrose (Primacor 20mg/100ml D5w) 100 mls @ 15.426 mls/hr IV .Q6H29M PRN; Protocol; 0.375 MCG/KG/MIN PRN Reason: TITRATE PER MD ORDER Last Admin: 07/15/17 17:00 Dose: 0.375 mcg/kg/min, 15.426 mls/hr Metoprolol Tartrate (Lopressor) 25 mg PO BID [facility] Last Admin: 07/15/17 17:03 Dose: 25 mg Pantoprazole Sodium (Protonix Ec Tab) 40 mg PO 0600 [facility] Last Admin: 07/16/17 05:13 Dose: 40 mg Sildenafil Citrate (Revatio) 20 mg PO TID [facility] Last Admin: 07/15/17 17:03 Dose: 20 mg - Labs Labs: 07/16/17 05:30 07/16/17 05:30 PT 16.8 SECONDS (9.4-12.5) H 07/11/17 20:06 INR 1.46 (0.93-1.08) H 07/11/17 20:06 APTT 69.5 Seconds (25.1-36.5) H 07/14/17 09:40 - Constitutional Appears: Non-toxic, No Acute Distress - Head Exam Head Exam: NORMAL INSPECTION - Eye Exam Eye Exam: Normal appearance - ENT Exam ENT Exam: Mucous Membranes Moist - Neck Exam Neck Exam: Full ROM - Respiratory Exam Respiratory Exam: Clear to Ausculation Bilateral, NORMAL BREATHING PATTERN - Cardiovascular Exam Cardiovascular Exam: REGULAR RHYTHM, +S1, +S2 - GI/Abdominal Exam GI & Abdominal Exam: Soft, Normal Bowel Sounds - Neurological Exam Neurological Exam: Alert, Awake, Oriented x3 Assessment and Plan - Assessment and Plan (Free Text) Assessment: 57 year old male with PMH HTN, presents for AMS, s/p PEA cardiac arrest in ED, with respiratory failure s/p extubation. Cardiac cath negative for obstructive CAD, LVEDP 18, PAWP 15-20. CT angio negative for PE. On milrinone drip. Currently afebrile, HD stable, comfortable in NAD. Doing well.OFF BIPAP. Cardiac Arrest, s/p ROSC Leuckoytosis Pulm HTN SIGRID/OHS CHF exacerbation Recommend: - cont with ventimask, goal sat >90%, bipap at night - cont with broad spectrum antibiotics, follow up cultures, Procal, ID - cont with Milrinone - Beta jacquelin - Lasix IV diuresis - monitor HH - follow up neurology - GI ppx - DVT ppx - stable, transfer to telemetry
[2017-07-16] MEDS: Sildenafil 20 MG TAB PO SCH ×4 (10:42→17:48)
[2017-07-16] MEDS: Enoxaparin 40 mg Syringe SC SCH (10:42)
--- NOTE | 2017-07-16 12:10 | PN ---
DATE: 07/16/2017 SUBJECTIVE: The patient is seen in the ICU 128, bed 4. The patient is still with shortness of breath. He has no fevers and no chills, no nausea or vomiting. PHYSICAL EXAMINATION: VITAL SIGNS: Temperature is 98.8, blood pressure is 132/50, respiratory rate of 27, heart rate of 98. HEENT: Unremarkable. NECK: Supple. LUNGS: Decreased breath sounds. HEART: Normal S1 and S2. ABDOMEN: Soft and nontender. LABORATORY DATA: Reveals a white count of 10,300, hemoglobin of 12 and platelets of 262. Coagulation is noted. Chemistries reveal a BUN of 19, creatinine of 0.8. Urinalysis is noted and HIV is negative. Microbiology reveals the blood cultures are negative, sputum cultures are negative, nasal MRSA is negative. Review of orders reveals the patient is on aztreonam, doxycycline and Dr. Bermudez's note is reviewed and Dr. Greg Moreno's pulmonary critical care note is reviewed and note is reviewed. ASSESSMENT AND PLAN: This is a 57-year-old male with hypertension, morbid obesity with body mass index of 45, history of right hip replacement with systemic inflammatory response syndrome, status post vent dependent respiratory failure, acute encephalopathy, acute myocardial infarction, hypertension and initially cardiac arrest and ACLS was initiated, was intubated, found to have severe sepsis with community-acquired pneumonia and retrocardiac disease, on aztreonam and doxycycline and the vancomycin was discontinued. Blood culture is negative. Sputum culture is negative. Questionable cerebrovascular accident, although the patient is scheduled for an MRI and his procalcitonin now is negative at 0.44. Pulmonary hypertension, on aztreonam, p.o. doxycycline. The patient is on milrinone, Protonix, Revatio for the pulmonary hypertension. We will discontinue the aztreonam. Today is day #5 of doxycycline, would complete 5 to 7 days. The patient is at high risk of developing nosocomial infection. Anderson Tsang MD
[2017-07-16] MEDS: Milrinone 20mg/100ml D5W 100 ML IV PRN ×2 (14:00→22:04)
--- NOTE | 2017-07-16 14:08 | PN ---
DATE: 07/16/2017 LOCATION: The patient is in the ICU 128, bed 4. REASON FOR CONSULTATION: To follow up status post CPR, cardiorespiratory failure, borderline troponin positive, status post cardiac catheterization, nonobstructive coronary artery disease, severe pulmonary hypertension, obesity. SUBJECTIVE: The patient is sitting in chair without any cardiac symptoms of chest pain, palpitation. His breathing is also stable. PHYSICAL EXAMINATION: VITAL SIGNS: Blood pressure 136/73, pulse 84, the patient is afebrile, respirations about 30 per minute. HEENT: Head is normocephalic. Eyes: Pupils normal. Conjunctivae normal. Nose and throat normal. NECK: JVP low. Carotids equal. THORAX: AP diameter normal. LUNGS: No significant rales. CARDIOVASCULAR: S1 and S2. ABDOMEN: Protuberant. No organomegaly. EXTREMITIES: No clubbing. No cyanosis. LABORATORY DATA: Lab data shows WBC 10.3, hemoglobin 12, hematocrit 38.4, platelet 262. Sodium 141, potassium 3.6, BUN 19, creatinine 0.8, random glucose 99. Calcium 8.2, phosphorus 3.4, magnesium 1.8, AST 57, ALT 64, total protein 5.4, albumin 2.9. The patient had a cardiac cath on this admission and it showed LV ejection fraction of 55%, nonobstructive coronary artery disease. Limited only to distal LAD, diffuse disease without any obstruction lesion. Right heart catheterization showed RA pressure of 15, right ventricular pressure 70/15, PA pressure 70/22 with mean pulmonary pressure of 42, capillary wedge pressure is 18-20. DIAGNOSES: Status post cardiorespiratory failure, syncope at home, slightly elevated troponin, cardiac catheterization, severe pulmonary hypertension, nonobstructive coronary artery disease, normal left ventricular ejection fraction of 55%, obesity. PLAN: Discussed with Dr. Moreno of Pulmonary about pulmonary hypertension. Told the patient to lose weight. Presently, the patient is on doxycycline hyclate 100 mg every 12 hours, furosemide 40 IV b.i.d., metoprolol 25 b.i.d., Lovenox 40 mg subcu daily, milrinone drip, Protonix 40 daily, Revatio 20 mg p.o. t.i.d. We will continue present therapy and we will follow with you. Taye De La Fuente MD [facility] # [id number]
--- NOTE | 2017-07-16 14:13 | PN ---
DATE: 07/16/2017 PULMONARY PROGRESS NOTE SUBJECTIVE: The patient was seen and examined in Intensive Care Unit. He is still short of breath, still hypoxic. He is breathing it around 30 per minute. He is not keeping his oxygen on even with nasal cannula. His oxygen saturation is between 85 and 93. His pulse is 88, blood pressure 132/59. I reviewed this morning's blood gas, showing pH of 7.30, pCO2 of 86 and pO2 of 60. This is supposedly on high flow, but I find the patient on nasal cannula. The rest of his laboratory data is sodium is 141, potassium 3.6, WBC is 10.3, hemoglobin is 12. Liver function test basically return to normal. PHYSICAL EXAMINATION: HEAD, NOSE, AND THROAT: Within normal limits. NECK: Supple with no jugular vein distention. CHEST: Symmetrical. HEART: S1 and S2. No S3. Regular. PULMONARY: Bilateral coarse rhonchi and few basal crackles. No wheezing. GASTROINTESTINAL: Soft, nontender, no organomegaly. EXTREMITIES: 1+ pedal edema. SKIN: There is some cyanosis of lips and finger nail beds. NEUROLOGIC: Limited at present time. ASSESSMENT: The patient with congestive heart failure, exacerbation of chronic obstructive pulmonary disease, obstructive sleep apnea and severe pulmonary hypertension. I discussed this pulmonary hypertension with Dr. Taye De La Fuente. Actually his echocardiogram was misleading. On echocardiogram, his pulmonary arterial pressure was normal; however, on the right heart catheterization which is goal standard. His pulmonary arterial pressures were up in the high 60s and 70. The left ventricular and diastolic pressure was between 15 and 20s of 15 makes it normal. So the right ventricular pressure was 70/15, pulmonary arterial pressure 70/22 and the wedge pressure was 15 to 18. Cardiac output was 8.17, cardiac index was 3.32. After reviewing this data together with identification technician, we decided the sildenafil 20 mg three times a day the patient is receiving is inadequate at this point with the severity of his pulmonary hypertension and basically normal wedge pressure. He should be on combination therapy, which has proven to drastically improve outcomes in pulmonary hypertension reducing hospitalizations and mortality as well. We will initiate therapy with macitentan 10 mg once a day as soon as it gets approved. He may need a third agent replacing sildenafil and that will be oral prostacyclin in the form of Uptravi and dose will be determined after initial titration. Greg Moreno MD [facility] # [id number]
[2017-07-16] MEDS: Sucralfate 1 gm/10 ml Oral Susp UD PO SCH ×2 (17:48→21:57)
--- NOTE | 2017-07-17 00:26 | PN ---
DATE: 07/16/2017 FOLLOWUP NOTE SUBJECTIVE: He is comfortable in chair. He is more alert today. He is still tachypneic, tachycardic, currently on milrinone drip. He is status post cardiac arrest, sepsis. He is stating that he was started on metoprolol and in the past, he had a reaction to the metoprolol. He developed itching. Previously, it was started by Dr. Swain. When he developed itching, the medication was stopped. REVIEW OF SYSTEMS: Complaining of difficulty in swallowing, discomfort in the throat. He is complaining of severe discomfort in both ears. He wants the ear to be cleaned as he thinks they are clogged. He is stating that his breathing is better. Rest of 12-point review of systems reviewed and negative. PHYSICAL EXAMINATION: GENERAL: Comfortable in chair, mildly tachypneic, tachycardic. VITAL SIGNS: Temperature 98.8, heart rate is 89 per minute, respiratory rate 25 per minute, blood pressure 130/59, oxygen saturation 93% on oxygen by nasal cannula. NECK: No lymphadenopathy. CHEST: Air entry present and equal bilaterally. No added sounds. CARDIOVASCULAR: Tachycardia. ABDOMEN: Obese, nontender. EXTREMITIES: Bilateral pedal edema. Mild edema on both hands. SKIN: No petechiae. No rash. SPINE: Nontender. LABORATORY DATA: White count 10.3, hemoglobin 12, hematocrit 38.4, platelet 262. Sodium 141, potassium 3.6, BUN 19, creatinine 0.8, glucose 103, chloride is normal. ASSESSMENT AND PLAN: 1. Status post cardiac arrest. 2. Pulmonary hypertension. 3. Leukocytosis. PLAN: He is currently on milrinone drip. We will consult Cardiology regarding metoprolol as he had reaction to the medication. CT angio negative for pulmonary embolism. Cardiac catheterization is negative for obstructive coronary artery disease, elevated pulmonary artery pressure. We will consult ENT for bilateral ear pain. Carafate 1 g t.i.d. for throat discomfort, which is likely related to intubation. I had a lengthy discussion with Mr. Sandoval and discussed all of the above with him. He is requesting ENT consultation [facility] stating that his ear is bothering him too much. Gabriella Ballard MD [facility] # [id number]
[2017-07-17] MEDS: Sucralfate 1 gm/10 ml Oral Susp UD PO SCH ×4 (05:37→21:39)
[2017-07-17] MEDS: Pantoprazole 40 mg EC Tab PO SCH (05:39)
[2017-07-17] MEDS: Milrinone 20mg/100ml D5W 100 ML IV PRN ×3 (06:02→19:20)
[2017-07-17 07:02] LABS: BASO # 0.02 K/mm3 (0.0-2.0); BASO % 0.2 % (0.0-3.0); EOS # 0.5 (0.0-0.7); EOS % 4.7 % (1.5-5.0); GRAN # 8.34 (1.4-6.5); GRAN % 75.3 % (50.0-68.0); HEMOGLOBIN 11.7 g/dL (14.0-18.0); LYMPH % 8.6 % (22.0-35.0); MEAN CELL VOLUME 88.5 fl (80.0-105.0); MEAN CORPUSCULAR HEMOGLOBIN 27.9 pg (25.0-35.0); MEAN CORPUSCULAR HGB CONC 31.5 g/dl (31.0-37.0); MONO # 1.2 (0.1-0.6); MONO % 11.2 % (1.0-6.0); RBC 4.19 10^6/uL (3.5-6.1); RED CELL DISTRIBUTION WIDTH 15.6 % (11.5-14.5); WHITE BLOOD COUNT 11.1 10^3/ul (4.5-11.0)
[2017-07-17] MEDS: Albuterol-Ipratrop 3 mg / 0.5 (3 ml) UD IH PRN ×2 (07:29→20:44)
[2017-07-17 07:32] LABS: ALB/GLOB RATIO 1.1 (1.1-1.8); ALBUMIN 2.9 g/dL (3.0-4.8); ALT/SGPT 62 U/L (7-56); AST/SGOT 57 U/L (17-59); BLOOD UREA NITROGEN 16 mg/dL (7-21); CALCIUM 8.1 mg/dL (8.4-10.5); GFR AFRICAN-AMERICAN > 60; GFR NON-AFRICAN AMERICAN > 60
--- NOTE | 2017-07-17 07:50 | CP.PCM.PN ---
<Norma Loya - Last Filed: 07/17/17 18:05> Subjective - Date & Time of Evaluation Date of Evaluation: 07/17/17 Time of Evaluation: 07:45 - Subjective Subjective: PGY2 Neuro note for Dr. Pollock Patients seen and examined OOB to chair. Nursing reports patient was confused overnight and was refusing BiPap at times. This AM he was ao x 3 and had no acute complaints of headache, dizziness, chest pain, SOB, cough, abd pain, nausea, vomiting, bowel/bladder complaints. He did complain that he felt swollen. Objective - Vital Signs/Intake and Output Vital Signs (last 24 hours): Temp Pulse Resp BP Pulse Ox 98.8 F 78 29 H 141/92 H 99 07/13/17 15:33 07/17/17 03:40 07/17/17 03:40 07/17/17 03:38 07/17/17 03:40 Intake and Output: 07/17/17 07/17/17 06:59 18:59 Intake Total 400 Output Total 2225 Balance -1825 - Medications Medications: Current Medications Albuterol/Ipratropium (Duoneb 3 Mg/0.5 Mg (3 Ml) Ud) 3 ml IH Q2H PRN PRN Reason: Shortness of Breath Last Admin: 07/17/17 07:29 Dose: 3 ml Alprazolam (Xanax) 0.25 mg PO Q8H PRN; Protocol PRN Reason: Anxiety Stop: 07/21/17 15:07 Last Admin: 07/17/17 01:15 Dose: 0.25 mg Aspirin (Aspirin) 325 mg PO DAILY [facility] Last Admin: 07/16/17 10:42 Dose: 325 mg Doxycycline Hyclate (Doryx) 100 mg PO Q12 [facility] PRN Reason: Protocol Stop: 07/22/17 22:01 Last Admin: 07/16/17 21:57 Dose: 100 mg Enoxaparin Sodium (Lovenox) 40 mg SC DAILY [facility] PRN Reason: Protocol Last Admin: 07/16/17 10:42 Dose: 40 mg Furosemide (Lasix) 40 mg IV BID [facility] Last Admin: 07/16/17 17:48 Dose: 40 mg Milrinone Lactate/Dextrose (Primacor 20mg/100ml D5w) 100 mls @ 15.426 mls/hr IV .Q6H29M PRN; Protocol; 0.375 MCG/KG/MIN PRN Reason: TITRATE PER MD ORDER Last Admin: 07/17/17 06:02 Dose: 0.375 mcg/kg/min, 15.426 mls/hr Levalbuterol HCl (Xopenex) 1.25 mg IH TIDRESP [facility] Metoprolol Tartrate (Lopressor) 25 mg PO BID [facility] Last Admin: 07/16/17 17:48 Dose: 25 mg Pantoprazole Sodium (Protonix Ec Tab) 40 mg PO 0600 [facility] Last Admin: 07/17/17 05:39 Dose: 40 mg Sildenafil Citrate (Revatio) 20 mg PO TID [facility] Last Admin: 07/16/17 17:48 Dose: 20 mg Sucralfate (Carafate Oral Susp) 1 gm PO 0630,1130,1630,2200 [facility] Last Admin: 07/17/17 05:37 Dose: 1 gm - Labs Labs: 07/17/17 05:30 07/17/17 05:30 PT 16.8 SECONDS (9.4-12.5) H 07/11/17 20:06 INR 1.46 (0.93-1.08) H 07/11/17 20:06 APTT 69.5 Seconds (25.1-36.5) H 07/14/17 09:40 - Constitutional Appears: Non-toxic, No Acute Distress - Eye Exam Eye Exam: EOMI, Normal appearance, PERRL - Respiratory Exam Respiratory Exam: Clear to Ausculation Bilateral, NORMAL BREATHING PATTERN - Cardiovascular Exam Cardiovascular Exam: REGULAR RHYTHM, +S1, +S2 - GI/Abdominal Exam GI & Abdominal Exam: Soft, Normal Bowel Sounds - Extremities Exam Extremities Exam: Pedal Edema - Neurological Exam Neurological Exam: Alert, Awake, CN II-XII Intact, Oriented x3 - Psychiatric Exam Psychiatric exam: Normal Affect, Normal Mood - Skin Skin Exam: Dry Assessment and Plan - Assessment and Plan (Free Text) Assessment: 57yo M PMHx HTN admitted for s/p cardiac arrest, intubation s/p extubation who was found to have leukocytosis secondary to CAP and severe pulmonary HTN during cardiac cath. Neurology was consulted for AMS. Plan: -f/u MRI -No acute findings on head CT -Recommend BiPAP at night -Continue Re-orientation of patient and education -Avoid sedating medication -continue current management as per primary team Discussed with Dr. Maris Loya PGY2 <Lucien Pollock - Last Filed: 07/17/17 21:20> Objective - Vital Signs/Intake and Output Vital Signs (last 24 hours): Temp Pulse Resp BP Pulse Ox 99.4 F 83 21 113/62 88 L 07/17/17 08:05 07/17/17 18:00 07/17/17 18:00 07/17/17 18:38 07/17/17 18:38 Intake and Output: 07/17/17 07/18/17 18:59 06:59 Intake Total 1180 100 Output Total 2100 Balance -920 100 - Medications Medications: Current Medications Albuterol/Ipratropium (Duoneb 3 Mg/0.5 Mg (3 Ml) Ud) 3 ml IH Q2H PRN PRN Reason: Shortness of Breath Last Admin: 07/17/17 20:44 Dose: 3 ml Alprazolam (Xanax) 0.25 mg PO Q8H PRN; Protocol PRN Reason: Anxiety Stop: 07/21/17 15:07 Last Admin: 07/17/17 01:15 Dose: 0.25 mg Aspirin (Aspirin) 325 mg PO DAILY [facility] Last Admin: 07/17/17 09:29 Dose: 325 mg Bacitracin (Bacitracin) 1 ea TOP BID [facility] Last Admin: 07/17/17 17:43 Dose: 1 ea Doxycycline Hyclate (Doryx) 100 mg PO Q12 [facility] PRN Reason: Protocol Stop: 07/22/17 22:01 Last Admin: 07/17/17 09:29 Dose: 100 mg Enoxaparin Sodium (Lovenox) 40 mg SC DAILY [facility] PRN Reason: Protocol Last Admin: 07/17/17 09:28 Dose: 40 mg Furosemide (Lasix) 40 mg IV BID [facility] Last Admin: 07/17/17 17:43 Dose: 40 mg Milrinone Lactate/Dextrose (Primacor 20mg/100ml D5w) 100 mls @ 15.426 mls/hr IV .Q6H29M PRN; Protocol; 0.375 MCG/KG/MIN PRN Reason: TITRATE PER MD ORDER Last Admin: 07/17/17 19:20 Dose: 0.375 mcg/kg/min, 15.426 mls/hr Levalbuterol HCl (Xopenex) 1.25 mg IH TIDRESP [facility] Last Admin: 07/17/17 20:44 Dose: 1.25 mg Metoprolol Tartrate (Lopressor) 25 mg PO BID [facility] Last Admin: 07/17/17 17:43 Dose: 25 mg Pantoprazole Sodium (Protonix Ec Tab) 40 mg PO 0600 [facility] Last Admin: 07/17/17 05:39 Dose: 40 mg Sildenafil Citrate (Revatio) 20 mg PO TID [facility] Last Admin: 07/17/17 17:43 Dose: 20 mg Sucralfate (Carafate Oral Susp) 1 gm PO 0630,1130,1630,2200 [facility] Last Admin: 07/17/17 16:13 Dose: 1 gm - Labs Labs: 07/17/17 05:30 07/17/17 05:30 PT 16.8 SECONDS (9.4-12.5) H 07/11/17 20:06 INR 1.46 (0.93-1.08) H 07/11/17 20:06 APTT 69.5 Seconds (25.1-36.5) H 07/14/17 09:40 Attending/Attestation - Attestation I have personally seen and examined this patient.: Yes I have fully participated in the care of the patient.: Yes I have reviewed all pertinent clinical information, including history, physical exam and plan: Yes
--- NOTE | 2017-07-17 09:22 | CP.PCM.PN ---
<Lisa Curry - Last Filed: 07/17/17 09:11> Subjective - Date & Time of Evaluation Date of Evaluation: 07/17/17 Time of Evaluation: 08:00 - Subjective Subjective: Progress Note for Harsh Ureña PGY2 Patient seen and examined at bedside. As per nursing staff, patient was confused at night and refused the BiPap at times. Patient reports feeling better today. He says he feels swollen. He denies chest pain, shortness of breath, nausea/vomiting/diarrhea, numbness/tingling, fever or chills. Objective - Vital Signs/Intake and Output Vital Signs (last 24 hours): Temp Pulse Resp BP Pulse Ox 99.4 F 99 H 35 H 139/91 H 90 L 07/17/17 08:05 07/17/17 08:00 07/17/17 08:00 07/17/17 07:38 07/17/17 08:00 Intake and Output: 07/17/17 07/17/17 06:59 18:59 Intake Total 400 Output Total 2225 Balance -1825 - Medications Medications: Current Medications Albuterol/Ipratropium (Duoneb 3 Mg/0.5 Mg (3 Ml) Ud) 3 ml IH Q2H PRN PRN Reason: Shortness of Breath Last Admin: 07/17/17 07:29 Dose: 3 ml Alprazolam (Xanax) 0.25 mg PO Q8H PRN; Protocol PRN Reason: Anxiety Stop: 07/21/17 15:07 Last Admin: 07/17/17 01:15 Dose: 0.25 mg Aspirin (Aspirin) 325 mg PO DAILY [facility] Last Admin: 07/16/17 10:42 Dose: 325 mg Doxycycline Hyclate (Doryx) 100 mg PO Q12 [facility] PRN Reason: Protocol Stop: 07/22/17 22:01 Last Admin: 07/16/17 21:57 Dose: 100 mg Enoxaparin Sodium (Lovenox) 40 mg SC DAILY [facility] PRN Reason: Protocol Last Admin: 07/16/17 10:42 Dose: 40 mg Furosemide (Lasix) 40 mg IV BID [facility] Last Admin: 07/16/17 17:48 Dose: 40 mg Milrinone Lactate/Dextrose (Primacor 20mg/100ml D5w) 100 mls @ 15.426 mls/hr IV .Q6H29M PRN; Protocol; 0.375 MCG/KG/MIN PRN Reason: TITRATE PER MD ORDER Last Admin: 07/17/17 06:02 Dose: 0.375 mcg/kg/min, 15.426 mls/hr Levalbuterol HCl (Xopenex) 1.25 mg IH TIDRESP [facility] Metoprolol Tartrate (Lopressor) 25 mg PO BID [facility] Last Admin: 07/16/17 17:48 Dose: 25 mg Pantoprazole Sodium (Protonix Ec Tab) 40 mg PO 0600 [facility] Last Admin: 07/17/17 05:39 Dose: 40 mg Sildenafil Citrate (Revatio) 20 mg PO TID [facility] Last Admin: 07/16/17 17:48 Dose: 20 mg Sucralfate (Carafate Oral Susp) 1 gm PO 0630,1130,1630,2200 [facility] Last Admin: 07/17/17 05:37 Dose: 1 gm - Labs Labs: 07/17/17 05:30 07/17/17 05:30 PT 16.8 SECONDS (9.4-12.5) H 07/11/17 20:06 INR 1.46 (0.93-1.08) H 07/11/17 20:06 APTT 69.5 Seconds (25.1-36.5) H 07/14/17 09:40 - Constitutional Appears: No Acute Distress - Head Exam Head Exam: ATRAUMATIC, NORMAL INSPECTION, NORMOCEPHALIC - Eye Exam Eye Exam: Normal appearance, PERRL Pupil Exam: NORMAL ACCOMODATION - ENT Exam ENT Exam: Mucous Membranes Moist - Neck Exam Neck Exam: Full ROM - Respiratory Exam Respiratory Exam: Clear to Ausculation Bilateral, NORMAL BREATHING PATTERN. absent: Rales, Rhonchi, Wheezes - Cardiovascular Exam Cardiovascular Exam: REGULAR RHYTHM, +S1, +S2. absent: Gallop, Rubs, Murmur - GI/Abdominal Exam GI & Abdominal Exam: Soft, Normal Bowel Sounds. absent: Rigid, Tenderness, Mass , Rebound - Extremities Exam Extremities Exam: Pedal Edema - Neurological Exam Neurological Exam: Alert, Awake, CN II-XII Intact - Psychiatric Exam Psychiatric exam: Normal Affect, Normal Mood - Skin Skin Exam: Dry, Warm Assessment and Plan - Assessment and Plan (Free Text) Assessment: This is a 57yo M with past medical history HTN admitted for s/p cardiac arrest, intubation s/p extubation who was found to have leukocytosis secondary to community acquired pneumonia and severe pulmonary HTN during cardiac cath. Plan: 1. Cardiac arrest s/p ROSC - Can be secondary to possible SIGRID v. pulm HTN - CT head was negative for acute pathology - Neuro consulted-recs appreciated. - Cardiac cath showed non-obstructive CAD with severe pulm HTN with pulm arterial P of 60-70 - Cardio consulted- recs appreciated - Echo showed EF of 55% with dilated RV and RSVP of 26% - As per cardiology- continue Milrinone drip, Lasix 40IV BID - As per pulm- continue Sildenafil for pulm HTN as well as Macitentan (once approved) 2. Confusion - can be secondary to hypercapnea seen on ABG yesterday v. hospital delirium - Will repeat ABG - Recommend BiPAP at night - Pulm consulted- recs appreciated - Continue Re-orientation of patient and education - Avoid sedating medication 3. Sepsis (improved) - secondary to Community Acquired Pneumonia - Afebrile, mild leukocytosis - CT chest showed bibasilar consolidation - Sputum and blood cultures negative - ID consulted- recs appreciated - Continue PO doxycycline 4. Hx of HTN - Continue Metoprolol 5. Tobacco abuse - Patient counseled on smoking cessation GI ppx: Protonix DVT ppx: Lovenox Case seen, discussed and reviewed with Dr. García. Harsh Curry PGY2 <Terry García S - Last Filed: 07/17/17 21:43> Objective - Vital Signs/Intake and Output Vital Signs (last 24 hours): Temp Pulse Resp BP Pulse Ox 99.4 F 83 21 113/62 88 L 07/17/17 08:05 07/17/17 18:00 07/17/17 18:00 07/17/17 18:38 07/17/17 18:38 Intake and Output: 07/17/17 07/18/17 18:59 06:59 Intake Total 1180 100 Output Total 2100 Balance -920 100 - Medications Medications: Current Medications Albuterol/Ipratropium (Duoneb 3 Mg/0.5 Mg (3 Ml) Ud) 3 ml IH Q2H PRN PRN Reason: Shortness of Breath Last Admin: 07/17/17 20:44 Dose: 3 ml Alprazolam (Xanax) 0.25 mg PO Q8H PRN; Protocol PRN Reason: Anxiety Stop: 07/21/17 15:07 Last Admin: 07/17/17 01:15 Dose: 0.25 mg Aspirin (Aspirin) 325 mg PO DAILY [facility] Last Admin: 07/17/17 09:29 Dose: 325 mg Bacitracin (Bacitracin) 1 ea TOP BID [facility] Last Admin: 07/17/17 17:43 Dose: 1 ea Doxycycline Hyclate (Doryx) 100 mg PO Q12 [facility] PRN Reason: Protocol Stop: 07/22/17 22:01 Last Admin: 07/17/17 09:29 Dose: 100 mg Enoxaparin Sodium (Lovenox) 40 mg SC DAILY [facility] PRN Reason: Protocol Last Admin: 07/17/17 09:28 Dose: 40 mg Furosemide (Lasix) 40 mg IV BID [facility] Last Admin: 07/17/17 17:43 Dose: 40 mg Milrinone Lactate/Dextrose (Primacor 20mg/100ml D5w) 100 mls @ 15.426 mls/hr IV .Q6H29M PRN; Protocol; 0.375 MCG/KG/MIN PRN Reason: TITRATE PER MD ORDER Last Admin: 07/17/17 19:20 Dose: 0.375 mcg/kg/min, 15.426 mls/hr Levalbuterol HCl (Xopenex) 1.25 mg IH TIDRESP [facility] Last Admin: 07/17/17 20:44 Dose: 1.25 mg Metoprolol Tartrate (Lopressor) 25 mg PO BID [facility] Last Admin: 07/17/17 17:43 Dose: 25 mg Pantoprazole Sodium (Protonix Ec Tab) 40 mg PO 0600 [facility] Last Admin: 07/17/17 05:39 Dose: 40 mg Sildenafil Citrate (Revatio) 20 mg PO TID [facility] Last Admin: 07/17/17 17:43 Dose: 20 mg Sucralfate (Carafate Oral Susp) 1 gm PO 0630,1130,1630,2200 [facility] Last Admin: 07/17/17 16:13 Dose: 1 gm - Labs Labs: 07/17/17 05:30 07/17/17 05:30 PT 16.8 SECONDS (9.4-12.5) H 07/11/17 20:06 INR 1.46 (0.93-1.08) H 07/11/17 20:06 APTT 69.5 Seconds (25.1-36.5) H 07/14/17 09:40
[2017-07-17] MEDS: Enoxaparin 40 mg Syringe SC SCH (09:28)
[2017-07-17] MEDS: Sildenafil 20 MG TAB PO SCH ×3 (09:29→17:43)
[2017-07-17] MEDS ORDERED: Potassium Chloride 20 mEq ER Tab PO STA (09:30)
[2017-07-17] MEDS: Levalbuterol 1.25 MG/3 ML Inhal Soln UD IH SCH ×3 (11:23→20:44)
--- NOTE | 2017-07-17 11:52 | PN ---
DATE: 07/17/2017 PULMONARY NOTE SUBJECTIVE: The patient appears comfortable this morning. He is not short of breath at rest. OBJECTIVE: VITAL SIGNS: Temperature is 98.4, pulse is 78, respirations 20, blood pressure 141/92. Oxygen saturation on BiPap is 99%. HEENT: Normocephalic, atraumatic. No JVD. CARDIOVASCULAR: Positive S1, S2. No S3 gallop. LUNGS: Decreased breath sounds at the bases. Very minimal rhonchi. No wheezing. EXTREMITIES: Positive for edema. No cyanosis, no clubbing. Calves are nontender to palpation. GASTROINTESTINAL: Abdomen is soft, nontender and nondistended. Bowel sounds are positive. SKIN: No acute rash. NEUROLOGIC: Exam limited at the present time. IMPRESSION: 1. Status post cardiac arrest. 2. Acute myocardial infarction. 3. Status post respiratory failure. 4. Chronic obstructive pulmonary disease. 5. Obstructive sleep apnea. 6. Pulmonary hypertension. PLAN: The patient appears comfortable this morning. He is not short of breath at rest. He does state to feeling much better overall. I did discuss the case with the night nurse at length. The night nurse stated the patient had a very good night. On physical exam, there is no significant bronchospasm noted. In addition, there is no significant alveolar-arterial gradient. I will order Xopenex nebulizer treatments for the patient - on a scheduled dosage. He does have a history of chronic obstructive pulmonary disease. I would continue with the treatment for acute myocardial infarction - as per Cardiology. Input by Dr. De La Fuente is noted. I did discuss the case with my partner, Dr. Moreno, at length yesterday. The patient is currently on Revatio - for his pulmonary hypertension. I did give the patient my card/information - so that I can follow him as an outpatient - and get him started on optimal treatment for his pulmonary hypertension. He does agree to follow up with me in the office. He will also need an outpatient sleep study. The clinical status of the patient is significantly improved - compared to the initial presentation. However, again, his future status/prognosis does remain somewhat guarded. I will discuss the above with the entire ICU team the next few moments. I will also discuss the above the attending physician later this morning. Narayan Bone MD [facility] # [id number] [facility]
--- NOTE | 2017-07-17 15:29 | PN ---
DATE: 07/17/2017 REASON FOR CONSULTATION AND FOLLOWUP: Status post CPR, cardiorespiratory failure, borderline troponin, status post cardiac catheterization, nonobstructive coronary artery disease, pulmonary hypertension, obesity, respiratory insufficiency. SUBJECTIVE: He is lying flat on the bed, complaining of shortness of breath and some swelling of the legs. PHYSICAL EXAMINATION: VITAL SIGNS: Temperature afebrile, heart rate 99, blood pressure 112/59. HEENT: PERRLA. Extraocular muscles are intact. NECK: Supple. No carotid bruit, no thyromegaly. CHEST: Clear to auscultation. HEART: S1 and S2, regular. ABDOMEN: Soft. EXTREMITIES: Clubbing and cyanosis negative. LABORATORY DATA: Blood workup as follows, WBC 11.1, hemoglobin 11.3, hematocrit 37.1, platelet count 281. Chemistry shows sodium 139, potassium 3.5, chloride , carbon dioxide 43, anion gap of 11, BUN 16, creatinine 0.8. Total protein 5.5, albumin 2.9. Albumin/globulin ratio 1.1. IMPRESSION: Status post cardiopulmonary resuscitation; status post respiratory failure; respiratory insufficiency; pulmonary hypertension; status post cardiac catheterization; nonobstructive coronary artery disease, limited only distal left anterior descending diffusely diseased, ejection fraction of 55%, PVR is 2.69 Waterman unit, pulmonary artery pressure of 70 Waterman unit, mean PA is 42 with wedge pressure of 18 to 20; probably pulmonary hypertension; mild leg edema; trace obesity; respiratory insufficiency; syncope; status post cardiopulmonary resuscitation; elevated troponin probably secondary to pulmonary hypertension, CT angio on 07/14/2017, no evidence of pulmonary embolism, subsequently some pneumonia. RECOMMENDATIONS: Continue Primacor. Continue gentle diuretics. Continue Revatio. Emphasized weight reduction. Continue antibiotics. Continue Lasix. Continue DVT prophylaxis, wean off Primacor. We will follow with you. We will supplement potassium. The patient got 40 of KCl so we will check the lab in the morning. Thank you Dr. García for providing us the opportunity in taking care of the patient, Brandon Lori. Taye Atkinson MD
[2017-07-17] MEDS: Bacitracin 500 Units/gm Oint Foilpak UD TOP SCH (17:43)
[2017-07-17 17:44] LABS: ARTERIAL BLOOD GAS HEMOGLOBIN 11.4 g/dL (11.7-17.4); ARTERIAL BLOOD GAS O2 CAPACITY 15.4 mL/dl (16-24); ARTERIAL BLOOD GAS O2 CONTENT 14.1 ML/dl (15-23); ARTERIAL BLOOD GAS O2 SAT 91.3 % (95-98); ARTERIAL BLOOD GAS PCO2 58 mm/Hg (35-45); ARTERIAL BLOOD GAS PH 7.49 (7.35-7.45)
[2017-07-17 17:45] LABS: ARTERIAL BLOOD GAS HCO3 44.2 mmol/L (21-28)
--- NOTE | 2017-07-17 18:06 | CP.PCM.PN ---
Subjective - Date & Time of Evaluation Date of Evaluation: 07/17/17 Time of Evaluation: 14:00 - Subjective Subjective: Comfortable on a BiPAP, no fevers. Objective - Vital Signs/Intake and Output Vital Signs (last 24 hours): Temp Pulse Resp BP Pulse Ox 99.4 F 99 H 35 H 139/91 H 90 L 07/17/17 08:05 07/17/17 08:00 07/17/17 08:00 07/17/17 07:38 07/17/17 08:00 Intake and Output: 07/17/17 07/17/17 06:59 18:59 Intake Total 400 Output Total 2225 Balance -1825 - Medications Medications: Current Medications Albuterol/Ipratropium (Duoneb 3 Mg/0.5 Mg (3 Ml) Ud) 3 ml IH Q2H PRN PRN Reason: Shortness of Breath Last Admin: 07/17/17 07:29 Dose: 3 ml Alprazolam (Xanax) 0.25 mg PO Q8H PRN; Protocol PRN Reason: Anxiety Stop: 07/21/17 15:07 Last Admin: 07/17/17 01:15 Dose: 0.25 mg Aspirin (Aspirin) 325 mg PO DAILY [facility] Last Admin: 07/16/17 10:42 Dose: 325 mg Doxycycline Hyclate (Doryx) 100 mg PO Q12 [facility] PRN Reason: Protocol Stop: 07/22/17 22:01 Last Admin: 07/16/17 21:57 Dose: 100 mg Enoxaparin Sodium (Lovenox) 40 mg SC DAILY [facility] PRN Reason: Protocol Last Admin: 07/16/17 10:42 Dose: 40 mg Furosemide (Lasix) 40 mg IV BID [facility] Last Admin: 07/16/17 17:48 Dose: 40 mg Milrinone Lactate/Dextrose (Primacor 20mg/100ml D5w) 100 mls @ 15.426 mls/hr IV .Q6H29M PRN; Protocol; 0.375 MCG/KG/MIN PRN Reason: TITRATE PER MD ORDER Last Admin: 07/17/17 06:02 Dose: 0.375 mcg/kg/min, 15.426 mls/hr Levalbuterol HCl (Xopenex) 1.25 mg IH TIDRESP [facility] Metoprolol Tartrate (Lopressor) 25 mg PO BID [facility] Last Admin: 07/16/17 17:48 Dose: 25 mg Pantoprazole Sodium (Protonix Ec Tab) 40 mg PO 0600 [facility] Last Admin: 07/17/17 05:39 Dose: 40 mg Sildenafil Citrate (Revatio) 20 mg PO TID [facility] Last Admin: 07/16/17 17:48 Dose: 20 mg Sucralfate (Carafate Oral Susp) 1 gm PO 0630,1130,1630,2200 [facility] Last Admin: 07/17/17 05:37 Dose: 1 gm - Labs Labs: 07/17/17 05:30 07/17/17 05:30 PT 16.8 SECONDS (9.4-12.5) H 07/11/17 20:06 INR 1.46 (0.93-1.08) H 07/11/17 20:06 APTT 69.5 Seconds (25.1-36.5) H 07/14/17 09:40 - Constitutional Appears: Chronically Ill - Head Exam Head Exam: NORMAL INSPECTION - Respiratory Exam Respiratory Exam: Decreased Breath Sounds - Cardiovascular Exam Cardiovascular Exam: +S1, +S2 - GI/Abdominal Exam GI & Abdominal Exam: Soft. absent: Tenderness Assessment and Plan - Assessment and Plan (Free Text) Plan: Assessment Systemic Inflammatory Response syndrome, S/P VDRF and S/P acute encephalopathy, consider severe sepsis from pneumonia, clinically improving HTN morbid obesity with BMI 45 S/P right hip replacement Plan continue Doxycycline day 6 to complete 7 days of therapy will monitor clinically
[2017-07-18] MEDS: Milrinone 20mg/100ml D5W 100 ML IV PRN ×3 (03:07→17:04)
[2017-07-18] MEDS: Pantoprazole 40 mg EC Tab PO SCH (06:30)
[2017-07-18] MEDS: Sucralfate 1 gm/10 ml Oral Susp UD PO SCH ×4 (06:30→21:12)
--- NOTE | 2017-07-18 06:36 | CP.PCM.PN ---
<Lisa Curry - Last Filed: 07/18/17 08:48> Subjective - Date & Time of Evaluation Date of Evaluation: 07/18/17 Time of Evaluation: 07:51 - Subjective Subjective: Progress Note for Harsh Ureña PGY2 Patient seen and examined at bedside. As per nursing staff, there were no acute overnight events. Patient reports feeling better today and that his swelling is improving. He states he would like to get out of bed more and be able to move. He denies having any chest pain, shortness of breath (at rest), nausea/vomiting/ diarrhea, fever, chills, numbness/tingling, headache, dysuria or hematuria. Objective - Vital Signs/Intake and Output Vital Signs (last 24 hours): Temp Pulse Resp BP Pulse Ox 98.8 F 83 18 136/90 95 07/18/17 00:01 07/18/17 05:49 07/18/17 00:01 07/18/17 03:07 07/18/17 00:01 Intake and Output: 07/17/17 07/18/17 18:59 06:59 Intake Total 1180 200 Output Total 2100 Balance -920 200 - Medications Medications: Current Medications Albuterol/Ipratropium (Duoneb 3 Mg/0.5 Mg (3 Ml) Ud) 3 ml IH Q2H PRN PRN Reason: Shortness of Breath Last Admin: 07/17/17 20:44 Dose: 3 ml Alprazolam (Xanax) 0.25 mg PO Q8H PRN; Protocol PRN Reason: Anxiety Stop: 07/21/17 15:07 Last Admin: 07/18/17 02:43 Dose: 0.25 mg Aspirin (Aspirin) 325 mg PO DAILY [facility] Last Admin: 07/17/17 09:29 Dose: 325 mg Bacitracin (Bacitracin) 1 ea TOP BID [facility] Last Admin: 07/17/17 17:43 Dose: 1 ea Doxycycline Hyclate (Doryx) 100 mg PO Q12 [facility] PRN Reason: Protocol Stop: 07/22/17 22:01 Last Admin: 07/17/17 21:39 Dose: 100 mg Enoxaparin Sodium (Lovenox) 40 mg SC DAILY [facility] PRN Reason: Protocol Last Admin: 05/07/18 09:28 Dose: 40 mg Furosemide (Lasix) 40 mg IV BID [facility] Last Admin: 07/17/17 17:43 Dose: 40 mg Milrinone Lactate/Dextrose (Primacor 20mg/100ml D5w) 100 mls @ 15.426 mls/hr IV .Q6H29M PRN; Protocol; 0.375 MCG/KG/MIN PRN Reason: TITRATE PER MD ORDER Last Admin: 07/18/17 03:07 Dose: 0.375 mcg/kg/min, 15.426 mls/hr Levalbuterol HCl (Xopenex) 1.25 mg IH TIDRESP [facility] Last Admin: 07/17/17 20:44 Dose: 1.25 mg Metoprolol Tartrate (Lopressor) 25 mg PO BID [facility] Last Admin: 07/17/17 17:43 Dose: 25 mg Pantoprazole Sodium (Protonix Ec Tab) 40 mg PO 0600 [facility] Last Admin: 07/18/17 06:30 Dose: 40 mg Sildenafil Citrate (Revatio) 20 mg PO TID [facility] Last Admin: 07/17/17 17:43 Dose: 20 mg Sucralfate (Carafate Oral Susp) 1 gm PO 0630,1130,1630,2200 [facility] Last Admin: 07/18/17 06:30 Dose: 1 gm - Labs Labs: 07/17/17 05:30 07/17/17 05:30 PT 16.8 SECONDS (9.4-12.5) H 07/11/17 20:06 INR 1.46 (0.93-1.08) H 07/11/17 20:06 APTT 69.5 Seconds (25.1-36.5) H 07/14/17 09:40 - Constitutional Appears: No Acute Distress - Head Exam Head Exam: ATRAUMATIC, NORMAL INSPECTION, NORMOCEPHALIC - Eye Exam Eye Exam: Normal appearance, PERRL Pupil Exam: NORMAL ACCOMODATION, PERRL - ENT Exam ENT Exam: Mucous Membranes Moist - Respiratory Exam Respiratory Exam: Clear to Ausculation Bilateral, NORMAL BREATHING PATTERN. absent: Rales, Rhonchi, Wheezes - Cardiovascular Exam Cardiovascular Exam: REGULAR RHYTHM, +S1, +S2. absent: Gallop, Rubs, Murmur - GI/Abdominal Exam GI & Abdominal Exam: Soft, Normal Bowel Sounds. absent: Rigid, Tenderness, Mass , Rebound - Extremities Exam Extremities Exam: Pedal Edema (+ 2 pitting edema ) - Neurological Exam Neurological Exam: Alert, Awake, CN II-XII Intact, Oriented x3 - Psychiatric Exam Psychiatric exam: Normal Affect, Normal Mood - Skin Skin Exam: Dry, Warm Assessment and Plan - Assessment and Plan (Free Text) Assessment: This is a 57yo M with past medical history HTN admitted for s/p cardiac arrest, respiratory failure intubation s/p extubation, possible SIGRID who was found to have leukocytosis secondary to community acquired pneumonia and severe pulmonary HTN during cardiac cath. Plan: 1. Cardiac arrest s/p ROSC - Secondary to possible SIGRID v. pulm HTN - Echo: EF 55%, dilated RV w/ RSVP of 26%, however cardiac cath showed severe pulm HTN with RSVP 60-70s with non-obstructive CAD - Cardio consulted- recommends to wean off of Milrinone as tolerated - As per neurology- although head CT negative - recommend MRI of brain to rule out any other pathology - Continue diuresis and Metoprolol - Monitor daily weights, I&O - As per pulm- BiPAP at night, continue Sildenafil and patient will need to follow up as outpatient 2. Metabolic Alkalosis with Respiratory Acidosis - Resp Acidosis can be secondary to SIGRID - Metabolic Alkalosis can be secondary to diuretics - Continue BiPAP at night and nasal cannula during the day - Continue to monitor BMP - Will add Diamox in addition to Lasix 3. Delirium (improved) - Secondary to hypercapnea v. hospital delirium - No evidence of confusion overnight - BiPAP at night - Re-orientation of patient and education - Avoid sedating medication 4. SIRS (Improved) - Found to have Community Acquired Pneumonia on chest CT - Afebrile, mild leukocytosis - As per ID- continue doxycycline for 7 days total (Pt on day 6) - Sputum and blood cultures negative 5. Hx of HTN - Continue Metoprolol 6. Tobacco abuse - Patient counseled on smoking cessation GI ppx: Protonix DVT ppx: Lovenox Dispo: Patient will need KARLA as per PT. Patient may not have insurance coverage. Will discuss with case management. Case seen, discussed and reviewed with Dr. García. Harsh Curry PGY2 <Terry García - Last Filed: 07/18/17 18:21> Objective - Vital Signs/Intake and Output Vital Signs (last 24 hours): Temp Pulse Resp BP Pulse Ox 98.8 F 81 17 120/63 93 L 07/18/17 12:00 07/18/17 17:53 07/18/17 12:00 07/18/17 17:07 07/18/17 06:00 Intake and Output: 07/18/17 07/18/17 06:59 18:59 Intake Total 325 740 Output Total 350 Balance 325 390 - Medications Medications: Current Medications Acetazolamide (Diamox 500 Mg Inj) 250 mg IV Q12 [facility] Stop: 07/19/17 22:01 Last Admin: 07/18/17 09:19 Dose: 250 mg Albuterol/Ipratropium (Duoneb 3 Mg/0.5 Mg (3 Ml) Ud) 3 ml IH Q2H PRN PRN Reason: Shortness of Breath Last Admin: 07/17/17 20:44 Dose: 3 ml Alprazolam (Xanax) 0.25 mg PO Q8H PRN; Protocol PRN Reason: Anxiety Stop: 07/21/17 15:07 Last Admin: 07/18/17 02:43 Dose: 0.25 mg Aspirin (Aspirin) 81 mg PO DAILY [facility] Bacitracin (Bacitracin) 1 ea TOP BID [facility] Last Admin: 07/18/17 17:04 Dose: 1 ea Doxycycline Hyclate (Doryx) 100 mg PO Q12 [facility] PRN Reason: Protocol Stop: 07/22/17 22:01 Last Admin: 07/18/17 09:18 Dose: 100 mg Enoxaparin Sodium (Lovenox) 40 mg SC DAILY [facility] PRN Reason: Protocol Last Admin: 07/18/17 09:20 Dose: 40 mg Furosemide (Lasix) 40 mg IV BID [facility] Last Admin: 07/18/17 17:07 Dose: 40 mg Milrinone Lactate/Dextrose (Primacor 20mg/100ml D5w) 100 mls @ 15.426 mls/hr IV .Q6H29M PRN; Protocol; 0.375 MCG/KG/MIN PRN Reason: TITRATE PER MD ORDER Stop: 07/19/17 08:00 Last Admin: 07/18/17 17:04 Dose: 0.375 mcg/kg/min, 15.426 mls/hr Levalbuterol HCl (Xopenex) 1.25 mg IH TIDRESP [facility] Last Admin: 07/18/17 13:41 Dose: 1.25 mg Metolazone (Zaroxolyn) 5 mg PO DAILY [facility] Stop: 07/19/17 23:59 Last Admin: 07/18/17 12:24 Dose: 5 mg Metoprolol Tartrate (Lopressor) 25 mg PO BID [facility] Last Admin: 07/18/17 17:04 Dose: 25 mg Pantoprazole Sodium (Protonix Ec Tab) 40 mg PO 0600 [facility] Last Admin: 07/18/17 06:30 Dose: 40 mg Sildenafil Citrate (Revatio) 20 mg PO TID [facility] Last Admin: 07/18/17 17:04 Dose: 20 mg Sucralfate (Carafate Oral Susp) 1 gm PO 0630,1130,1630,2200 [facility] Last Admin: 07/18/17 15:30 Dose: 1 gm - Labs Labs: 07/18/17 06:45 07/18/17 06:45 PT 16.8 SECONDS (9.4-12.5) H 07/11/17 20:06 INR 1.46 (0.93-1.08) H 07/11/17 20:06 APTT 69.5 Seconds (25.1-36.5) H 07/14/17 09:40 Assessment and Plan - Assessment and Plan (Free Text) Plan: Pt seen and examined by me. I reviewed the notes of the veterinary medical officer and I agree with the note. I reviewed the labs and medications. Pt with Pulm HTN. Delerium is improved. He will need KARLA/TCU but insurance will make it difficult. Spoke to Cath, sister, to give her an update. Sepsis improved. No source of infection found on cultures.
[2017-07-18 07:21] LABS: BASO # 0.02 K/mm3 (0.0-2.0); BASO % 0.2 % (0.0-3.0); EOS # 0.6 (0.0-0.7); EOS % 5.4 % (1.5-5.0); GRAN # 7.86 (1.4-6.5); GRAN % 72.6 % (50.0-68.0); HEMOGLOBIN 11.7 g/dL (14.0-18.0); LYMPH # 1.4 (1.2-3.4); LYMPH % 12.5 % (22.0-35.0); MEAN CELL VOLUME 88.5 fl (80.0-105.0); MEAN CORPUSCULAR HEMOGLOBIN 27.9 pg (25.0-35.0); MEAN CORPUSCULAR HGB CONC 31.5 g/dl (31.0-37.0); MEAN PLATELET VOLUME 9.4 fl (7.0-11.0); MONO % 9.3 % (1.0-6.0); RBC 4.19 10^6/uL (3.5-6.1); RED CELL DISTRIBUTION WIDTH 15.6 % (11.5-14.5); WHITE BLOOD COUNT 10.8 10^3/ul (4.5-11.0)
[2017-07-18 07:37] LABS: ALB/GLOB RATIO 1.1 (1.1-1.8); ALBUMIN 2.9 g/dL (3.0-4.8); ALT/SGPT 61 U/L (7-56); AST/SGOT 56 U/L (17-59); BLOOD UREA NITROGEN 15 mg/dL (7-21); CALCIUM 8.3 mg/dL (8.4-10.5); GFR AFRICAN-AMERICAN > 60; GFR NON-AFRICAN AMERICAN > 60
[2017-07-18] MEDS ORDERED: Potassium Chloride 20 mEq ER Tab PO STA (07:54)
--- NOTE | 2017-07-18 08:01 | CP.PCM.PN ---
<ShaliniNorma - Last Filed: 07/18/17 14:14> Subjective - Date & Time of Evaluation Date of Evaluation: 07/18/17 Time of Evaluation: 07:59 - Subjective Subjective: PGY2 Neuro note for Dr. Pollock Patients seen and examined sitting up in bed eating breakfast this AM. Nursing reports no acute events overnight. Patient reported he slept well but does not like the BiPAP machine. This AM he was ao x 3 and had no acute complaints of headache, dizziness, chest pain, SOB, cough, abd pain, nausea, vomiting, bowel/ bladder complaints. He is eager to have his MRI done. Objective - Vital Signs/Intake and Output Vital Signs (last 24 hours): Temp Pulse Resp BP Pulse Ox 97.9 F 60 18 130/61 93 L 07/18/17 06:00 07/18/17 06:00 07/18/17 06:00 07/18/17 06:00 07/18/17 06:00 Intake and Output: 07/18/17 07/18/17 06:59 18:59 Intake Total 325 540 Output Total 350 Balance 325 190 - Medications Medications: Current Medications Albuterol/Ipratropium (Duoneb 3 Mg/0.5 Mg (3 Ml) Ud) 3 ml IH Q2H PRN PRN Reason: Shortness of Breath Last Admin: 07/17/17 20:44 Dose: 3 ml Alprazolam (Xanax) 0.25 mg PO Q8H PRN; Protocol PRN Reason: Anxiety Stop: 07/21/17 15:07 Last Admin: 07/18/17 02:43 Dose: 0.25 mg Aspirin (Aspirin) 325 mg PO DAILY [facility] Last Admin: 07/17/17 09:29 Dose: 325 mg Bacitracin (Bacitracin) 1 ea TOP BID [facility] Last Admin: 07/17/17 17:43 Dose: 1 ea Doxycycline Hyclate (Doryx) 100 mg PO Q12 [facility] PRN Reason: Protocol Stop: 07/22/17 22:01 Last Admin: 07/17/17 21:39 Dose: 100 mg Enoxaparin Sodium (Lovenox) 40 mg SC DAILY [facility] PRN Reason: Protocol Last Admin: 07/17/17 09:28 Dose: 40 mg Furosemide (Lasix) 40 mg IV BID [facility] Last Admin: 07/17/17 17:43 Dose: 40 mg Milrinone Lactate/Dextrose (Primacor 20mg/100ml D5w) 100 mls @ 15.426 mls/hr IV .Q6H29M PRN; Protocol; 0.375 MCG/KG/MIN PRN Reason: TITRATE PER MD ORDER Last Admin: 07/18/17 03:07 Dose: 0.375 mcg/kg/min, 15.426 mls/hr Levalbuterol HCl (Xopenex) 1.25 mg IH TIDRESP [facility] Last Admin: 07/17/17 20:44 Dose: 1.25 mg Metoprolol Tartrate (Lopressor) 25 mg PO BID [facility] Last Admin: 07/17/17 17:43 Dose: 25 mg Pantoprazole Sodium (Protonix Ec Tab) 40 mg PO 0600 [facility] Last Admin: 07/18/17 06:30 Dose: 40 mg Sildenafil Citrate (Revatio) 20 mg PO TID [facility] Last Admin: 07/17/17 17:43 Dose: 20 mg Sucralfate (Carafate Oral Susp) 1 gm PO 0630,1130,1630,2200 [facility] Last Admin: 07/18/17 06:30 Dose: 1 gm - Labs Labs: 07/18/17 06:45 07/18/17 06:45 PT 16.8 SECONDS (9.4-12.5) H 07/11/17 20:06 INR 1.46 (0.93-1.08) H 07/11/17 20:06 APTT 69.5 Seconds (25.1-36.5) H 07/14/17 09:40 - Constitutional Appears: Non-toxic, No Acute Distress - Head Exam Head Exam: ATRAUMATIC, NORMAL INSPECTION, NORMOCEPHALIC - Eye Exam Eye Exam: EOMI, Normal appearance, PERRL. absent: Conjunctival injection, Scleral icterus - ENT Exam ENT Exam: Mucous Membranes Moist - Neck Exam Neck Exam: Full ROM. absent: Lymphadenopathy - Respiratory Exam Respiratory Exam: NORMAL BREATHING PATTERN. absent: Accessory Muscle Use - Cardiovascular Exam Cardiovascular Exam: +S1, +S2. absent: Bradycardia, Tachycardia - GI/Abdominal Exam GI & Abdominal Exam: Soft. absent: Tenderness - Rectal Exam Rectal Exam: Deferred - Neurological Exam Neurological Exam: Alert, Awake, CN II-XII Intact, Oriented x3 - Psychiatric Exam Psychiatric exam: Normal Affect, Normal Mood - Skin Skin Exam: Dry, Intact, Normal Color, Warm Assessment and Plan - Assessment and Plan (Free Text) Assessment: 57yo M PMHx HTN admitted for s/p cardiac arrest, intubation s/p extubation who was found to have leukocytosis secondary to CAP and severe pulmonary HTN during cardiac cath. Neurology was consulted for AMS. Plan: -f/u MRI -No acute findings on head CT -Recommend BiPAP at night -Continue Re-orientation of patient and education -Avoid sedating medication -PT/OT and rehab upon discharge -continue current management as per primary team and cardio Discussed with Dr. Maris Loya PGY2 <Lucien Pollock - Last Filed: 07/20/17 18:45> Objective - Vital Signs/Intake and Output Vital Signs (last 24 hours): Temp Pulse Resp BP Pulse Ox 98 F 70 18 125/85 85 L 07/20/17 18:00 07/20/17 18:03 07/20/17 18:00 07/20/17 18:03 07/20/17 10:00 Intake and Output: 07/20/17 07/20/17 06:59 18:59 Intake Total 240 300 Output Total 600 Balance 240 -300 - Medications Medications: Current Medications Albuterol/Ipratropium (Duoneb 3 Mg/0.5 Mg (3 Ml) Ud) 3 ml IH Q2H PRN PRN Reason: Shortness of Breath Last Admin: 07/17/17 20:44 Dose: 3 ml Alprazolam (Xanax) 0.25 mg PO Q8H PRN; Protocol PRN Reason: Anxiety Stop: 07/21/17 15:07 Last Admin: 07/19/17 02:16 Dose: 0.25 mg Aspirin (Aspirin Chewable) 81 mg PO DAILY [facility] Last Admin: 07/20/17 09:05 Dose: 81 mg Bacitracin (Bacitracin) 1 ea TOP BID [facility] Last Admin: 07/20/17 18:02 Dose: 1 ea Cilostazol (Pletal) 50 mg PO BID [facility] Last Admin: 07/20/17 18:02 Dose: 50 mg Enoxaparin Sodium (Lovenox) 40 mg SC DAILY [facility] PRN Reason: Protocol Last Admin: 07/20/17 09:05 Dose: 40 mg Furosemide (Lasix) 40 mg PO 0800,1400 [facility] Last Admin: 07/20/17 14:12 Dose: 40 mg Levalbuterol HCl (Xopenex) 1.25 mg IH TIDRESP [facility] Last Admin: 07/20/17 13:35 Dose: 1.25 mg Metoprolol Tartrate (Lopressor) 25 mg PO BID [facility] Last Admin: 07/20/17 18:03 Dose: 25 mg Pantoprazole Sodium (Protonix Ec Tab) 40 mg PO 0600 [facility] Last Admin: 07/20/17 06:07 Dose: 40 mg Sildenafil Citrate (Revatio) 20 mg PO TID [facility] Last Admin: 07/20/17 18:04 Dose: Not Given Sucralfate (Carafate Oral Susp) 1 gm PO 0630,1130,1630,2200 [facility] Last Admin: 07/20/17 18:02 Dose: 1 gm - Labs Labs: 07/18/17 06:45 07/20/17 06:30 PT 16.8 SECONDS (9.4-12.5) H 07/11/17 20:06 INR 1.46 (0.93-1.08) H 07/11/17 20:06 APTT 69.5 Seconds (25.1-36.5) H 07/14/17 09:40 Attending/Attestation - Attestation I have personally seen and examined this patient.: Yes I have fully participated in the care of the patient.: Yes I have reviewed all pertinent clinical information, including history, physical exam and plan: Yes
[2017-07-18] MEDS: Levalbuterol 1.25 MG/3 ML Inhal Soln UD IH SCH ×3 (08:13→20:48)
[2017-07-18] MEDS: Sildenafil 20 MG TAB PO SCH ×3 (09:18→17:04)
[2017-07-18] MEDS: Bacitracin 500 Units/gm Oint Foilpak UD TOP SCH ×2 (09:18→17:04)
[2017-07-18] MEDS: Enoxaparin 40 mg Syringe SC SCH (09:20)
--- NOTE | 2017-07-18 10:56 | PN ---
DATE: 07/18/2017 PULMONARY NOTE SUBJECTIVE: The patient appears comfortable this morning. He is not short of breath at rest. PHYSICAL EXAMINATION: VITAL SIGNS: Temperature is 97.9, pulse 60, respirations 18, blood pressure 130/61. Oxygen saturation on BiPAP is 93-95%. HEENT: Normocephalic, atraumatic. No JVD. CARDIOVASCULAR: Positive S1 and S2. No S3 gallop. LUNGS: Improved breath sounds at the bases. Very minimal/less rhonchi. No wheezing. EXTREMITIES: Positive for edema. No cyanosis or clubbing. Calves are nontender to palpation. GI: Abdomen is soft, nontender and nondistended. Bowel sounds are positive. SKIN: No acute rash. NEUROLOGIC: Limited at the present time. IMPRESSION: 1. Status post cardiac arrest. 2. Acute myocardial infarction. 3. Status post respiratory failure. 4. Chronic obstructive pulmonary disease. 5. Obstructive sleep apnea. 6. Pulmonary hypertension. PLAN: The patient appears comfortable this morning. He is not short of breath at rest. He does state to feeling much better overall. I did discuss the case with the night nurse at length. The night nurse stated that the patient had a very good night. On physical exam, there is less bronchospasm noted. In addition, the alveolar-arterial gradient is also less. I will continue with the current nebulizer treatments for now. The patient is currently on Revatio - for his pulmonary hypertension. He is well aware that he will need to follow up with me in the office - so that additional treatment can be administered. The patient will also need an outpatient polysomnogram - to document obstructive sleep apnea. I would continue with the treatment for acute myocardial infarction as per Cardiology. Input by Dr. Atkinson is noted. The clinical status of the patient is significantly improved overall. I will discuss the above the attending physician this morning. Narayan Bone MD [facility]
[2017-07-18] MEDS ORDERED: metOLazone 5 MG TAB PO SCH (11:15)
--- NOTE | 2017-07-18 13:56 | CP.PCM.PN ---
Subjective - Date & Time of Evaluation Date of Evaluation: 07/18/17 Time of Evaluation: 10:55 - Subjective Subjective: Comfortable in bed, breathing better, no nausea, no cough, no fevers. Objective - Vital Signs/Intake and Output Vital Signs (last 24 hours): Temp Pulse Resp BP Pulse Ox 97.9 F 60 18 130/61 93 L 07/18/17 06:00 07/18/17 09:19 07/18/17 06:00 07/18/17 09:19 07/18/17 06:00 Intake and Output: 07/18/17 07/18/17 06:59 18:59 Intake Total 325 640 Output Total 350 Balance 325 290 - Medications Medications: Current Medications Acetazolamide (Diamox 500 Mg Inj) 250 mg IV Q12 [facility] Stop: 07/19/17 22:01 Last Admin: 07/18/17 09:19 Dose: 250 mg Albuterol/Ipratropium (Duoneb 3 Mg/0.5 Mg (3 Ml) Ud) 3 ml IH Q2H PRN PRN Reason: Shortness of Breath Last Admin: 07/17/17 20:44 Dose: 3 ml Alprazolam (Xanax) 0.25 mg PO Q8H PRN; Protocol PRN Reason: Anxiety Stop: 07/21/17 15:07 Last Admin: 07/18/17 02:43 Dose: 0.25 mg Aspirin (Aspirin) 325 mg PO DAILY [facility] Last Admin: 07/18/17 09:18 Dose: 325 mg Bacitracin (Bacitracin) 1 ea TOP BID [facility] Last Admin: 07/18/17 09:18 Dose: 1 ea Doxycycline Hyclate (Doryx) 100 mg PO Q12 [facility] PRN Reason: Protocol Stop: 07/22/17 22:01 Last Admin: 07/18/17 09:18 Dose: 100 mg Enoxaparin Sodium (Lovenox) 40 mg SC DAILY [facility] PRN Reason: Protocol Last Admin: 07/18/17 09:20 Dose: 40 mg Furosemide (Lasix) 40 mg IV BID [facility] Last Admin: 07/18/17 09:19 Dose: 40 mg Milrinone Lactate/Dextrose (Primacor 20mg/100ml D5w) 100 mls @ 15.426 mls/hr IV .Q6H29M PRN; Protocol; 0.375 MCG/KG/MIN PRN Reason: TITRATE PER MD ORDER Last Admin: 07/18/17 09:25 Dose: 0.375 mcg/kg/min, 15.426 mls/hr Levalbuterol HCl (Xopenex) 1.25 mg IH TIDRESP [facility] Last Admin: 07/18/17 08:13 Dose: Not Given Metoprolol Tartrate (Lopressor) 25 mg PO BID [facility] Last Admin: 07/18/17 09:19 Dose: 25 mg Pantoprazole Sodium (Protonix Ec Tab) 40 mg PO 0600 [facility] Last Admin: 07/18/17 06:30 Dose: 40 mg Sildenafil Citrate (Revatio) 20 mg PO TID [facility] Last Admin: 07/18/17 09:18 Dose: 20 mg Sucralfate (Carafate Oral Susp) 1 gm PO 0630,1130,1630,2200 [facility] Last Admin: 07/18/17 06:30 Dose: 1 gm - Labs Labs: 07/18/17 06:45 07/18/17 06:45 PT 16.8 SECONDS (9.4-12.5) H 07/11/17 20:06 INR 1.46 (0.93-1.08) H 07/11/17 20:06 APTT 69.5 Seconds (25.1-36.5) H 07/14/17 09:40 - Constitutional Appears: Non-toxic, Chronically Ill - Head Exam Head Exam: NORMAL INSPECTION - Neck Exam Neck Exam: absent: Meningismus - Respiratory Exam Respiratory Exam: Decreased Breath Sounds - Cardiovascular Exam Cardiovascular Exam: +S1, +S2 - GI/Abdominal Exam GI & Abdominal Exam: Soft. absent: Tenderness Assessment and Plan - Assessment and Plan (Free Text) Plan: Assessment Systemic Inflammatory Response syndrome, S/P VDRF and S/P acute encephalopathy, consider severe sepsis from pneumonia, clinically improving, on top of CHF HTN morbid obesity with BMI 45 S/P right hip replacement Plan continue Doxycycline day 7 to complete 7 days of therapy will continue monitor clinically follow up further recommendations of Cardiology
[2017-07-18] MEDS ORDERED: Potassium Chloride 20 mEq ER Tab PO ONE (15:00)
--- NOTE | 2017-07-18 15:56 | PN ---
DATE: 07/18/2017 REASON FOR CONSULTATION AND FOLLOWUP: Status post CPR, cardiorespiratory failure, borderline troponin, status post cardiac catheterization, nonobstructive coronary artery disease, pulmonary hypertension, obesity, respiratory insufficiency. SUBJECTIVE: The patient denies any chest pain, shortness of breath, any palpitation, sitting at the bedside, mild shortness of breath. OBJECTIVE: GENERAL: Mild shortness of breath, not in apparent distress. VITAL SIGNS: Temperature afebrile, heart rate 60, blood pressure 130/61. HEENT: PERRLA. Extraocular muscles are intact. NECK: Supple. No carotid bruit or thyromegaly. CHEST: Clear to auscultation. HEART: S1 and S2, regular. ABDOMEN: Soft. EXTREMITIES: Clubbing and cyanosis negative. LABORATORY DATA: Blood workup as follows: WBC , hemoglobin , hematocrit 37.1, platelet count 291. Chemistry shows sodium 139, potassium 3.4, chloride , carbon dioxide 41, anion gap of 12, BUN 15, creatinine 0.8. Total protein 5.5, albumin 2.9. Albumin/globulin ratio 1.1. IMPRESSION: Protein-calorie malnutrition, which was not present on admission, mild, status post cardiac catheterization, nonobstructive coronary artery disease, pulmonary hypertension, morbid obesity, diabetes. A CT angio is negative for pulmonary embolism, some possible pneumonia. RECOMMENDATIONS: Continue diuretics, supplement electrolytes as needed, increase nutritional support, change to aspirin to baby aspirin. Continue antibiotic because of contraction process, a dose of acetazolamide was given. Supplement potassium as needed. Continue DVT prophylaxis. Continue Revatio. We will give one dose of Zaroxolyn today and tomorrow and discontinue Primacor tomorrow. Thank you, Dr. García, for providing us the opportunity in taking care of the patient, Brandon Sandoval. We will follow with you. We will repeat the lab in the morning, give one dose of Zaroxolyn now and one dose of Zaroxolyn tomorrow and discontinue Primacor tomorrow at 8 and repeat the lab, magnesium in the morning. Taye Atkinson MD
[2017-07-19] MEDS: Milrinone 20mg/100ml D5W 100 ML IV PRN (00:16)
[2017-07-19] MEDS: Sucralfate 1 gm/10 ml Oral Susp UD PO SCH ×4 (06:37→21:22)
[2017-07-19] MEDS: Pantoprazole 40 mg EC Tab PO SCH (06:37)
--- NOTE | 2017-07-19 07:11 | CP.PCM.PN ---
<Eddie Loyaima - Last Filed: 07/19/17 15:01> Subjective - Date & Time of Evaluation Date of Evaluation: 07/19/17 Time of Evaluation: 07:45 - Subjective Subjective: PGY2 Neuro progress note for Dr. Pollock Patient seen and examined at bedside. He was sitting up in bed eating breakfast. Patient denied acute complaints of headache, dizziness, chest pain, palpitations, SOB, cough, abd pain, nausea, vomiting, bowel/bladder complaints, focal deficits, pain/swelling in his legs bilaterally. Objective - Vital Signs/Intake and Output Vital Signs (last 24 hours): Temp Pulse Resp BP Pulse Ox 98.6 F 77 21 159/89 H 95 07/19/17 06:00 07/19/17 06:00 07/19/17 06:00 07/19/17 06:00 07/19/17 06:00 Intake and Output: 07/19/17 07/19/17 06:59 18:59 Intake Total 525 Output Total 1300 Balance -775 - Medications Medications: Current Medications Acetazolamide (Diamox 500 Mg Inj) 250 mg IV Q12 [facility] Stop: 07/19/17 22:01 Last Admin: 07/18/17 21:11 Dose: 250 mg Albuterol/Ipratropium (Duoneb 3 Mg/0.5 Mg (3 Ml) Ud) 3 ml IH Q2H PRN PRN Reason: Shortness of Breath Last Admin: 07/17/17 20:44 Dose: 3 ml Alprazolam (Xanax) 0.25 mg PO Q8H PRN; Protocol PRN Reason: Anxiety Stop: 07/21/17 15:07 Last Admin: 07/19/17 02:16 Dose: 0.25 mg Aspirin (Aspirin) 81 mg PO DAILY [facility] Bacitracin (Bacitracin) 1 ea TOP BID [facility] Last Admin: 07/18/17 17:04 Dose: 1 ea Enoxaparin Sodium (Lovenox) 40 mg SC DAILY [facility] PRN Reason: Protocol Last Admin: 07/18/17 09:20 Dose: 40 mg Furosemide (Lasix) 40 mg IV BID [facility] Last Admin: 07/18/17 17:07 Dose: 40 mg Milrinone Lactate/Dextrose (Primacor 20mg/100ml D5w) 100 mls @ 15.426 mls/hr IV .Q6H29M PRN; Protocol; 0.375 MCG/KG/MIN PRN Reason: TITRATE PER MD ORDER Stop: 07/19/17 08:00 Last Admin: 07/19/17 00:16 Dose: 0.375 mcg/kg/min, 15.426 mls/hr Levalbuterol HCl (Xopenex) 1.25 mg IH TIDRESP [facility] Last Admin: 07/18/17 20:48 Dose: 1.25 mg Metolazone (Zaroxolyn) 5 mg PO DAILY [facility] Stop: 07/19/17 23:59 Last Admin: 07/18/17 12:24 Dose: 5 mg Metoprolol Tartrate (Lopressor) 25 mg PO BID [facility] Last Admin: 07/18/17 17:04 Dose: 25 mg Pantoprazole Sodium (Protonix Ec Tab) 40 mg PO 0600 [facility] Last Admin: 07/19/17 06:37 Dose: 40 mg Sildenafil Citrate (Revatio) 20 mg PO TID [facility] Last Admin: 07/18/17 17:04 Dose: 20 mg Sucralfate (Carafate Oral Susp) 1 gm PO 0630,1130,1630,2200 [facility] Last Admin: 07/19/17 06:37 Dose: 1 gm - Labs Labs: 07/18/17 06:45 07/18/17 06:45 PT 16.8 SECONDS (9.4-12.5) H 07/11/17 20:06 INR 1.46 (0.93-1.08) H 07/11/17 20:06 APTT 69.5 Seconds (25.1-36.5) H 07/14/17 09:40 - Constitutional Appears: Non-toxic, No Acute Distress - Head Exam Head Exam: ATRAUMATIC, NORMAL INSPECTION, NORMOCEPHALIC - Eye Exam Eye Exam: EOMI, Normal appearance. absent: Conjunctival injection, Scleral icterus - Respiratory Exam Respiratory Exam: absent: Accessory Muscle Use, Respiratory Distress - Cardiovascular Exam Cardiovascular Exam: +S1, +S2 - GI/Abdominal Exam GI & Abdominal Exam: Soft. absent: Tenderness - Neurological Exam Neurological Exam: Alert, Awake, CN II-XII Intact, Oriented x3 - Psychiatric Exam Psychiatric exam: Normal Affect, Normal Mood - Skin Skin Exam: Dry, Intact, Normal Color, Warm Assessment and Plan - Assessment and Plan (Free Text) Assessment: 57yo M PMHx HTN admitted for s/p cardiac arrest, intubation s/p extubation who was found to have leukocytosis secondary to CAP and severe pulmonary HTN during cardiac cath. Neurology was consulted for AMS. Plan: -patient is off milirinone as per cardio and can have MRI done- will f/u -No acute findings on head CT -Continue BiPAP at night -Avoid sedating medication -PT/OT and rehab upon discharge -continue current management as per primary team Discussed with Dr. Maris Loya PGY2 <Lucien Pollock - Last Filed: 07/20/17 18:44> Objective - Vital Signs/Intake and Output Vital Signs (last 24 hours): Temp Pulse Resp BP Pulse Ox 98 F 70 18 125/85 85 L 07/20/17 18:00 07/20/17 18:03 07/20/17 18:00 07/20/17 18:03 07/20/17 10:00 Intake and Output: 07/20/17 07/20/17 06:59 18:59 Intake Total 240 300 Output Total 600 Balance 240 -300 - Medications Medications: Current Medications Albuterol/Ipratropium (Duoneb 3 Mg/0.5 Mg (3 Ml) Ud) 3 ml IH Q2H PRN PRN Reason: Shortness of Breath Last Admin: 07/17/17 20:44 Dose: 3 ml Alprazolam (Xanax) 0.25 mg PO Q8H PRN; Protocol PRN Reason: Anxiety Stop: 07/21/17 15:07 Last Admin: 07/19/17 02:16 Dose: 0.25 mg Aspirin (Aspirin Chewable) 81 mg PO DAILY [facility] Last Admin: 07/20/17 09:05 Dose: 81 mg Bacitracin (Bacitracin) 1 ea TOP BID [facility] Last Admin: 07/20/17 18:02 Dose: 1 ea Cilostazol (Pletal) 50 mg PO BID [facility] Last Admin: 07/20/17 18:02 Dose: 50 mg Enoxaparin Sodium (Lovenox) 40 mg SC DAILY [facility] PRN Reason: Protocol Last Admin: 07/20/17 09:05 Dose: 40 mg Furosemide (Lasix) 40 mg PO 0800,1400 [facility] Last Admin: 07/20/17 14:12 Dose: 40 mg Levalbuterol HCl (Xopenex) 1.25 mg IH TIDRESP [facility] Last Admin: 07/20/17 13:35 Dose: 1.25 mg Metoprolol Tartrate (Lopressor) 25 mg PO BID [facility] Last Admin: 07/20/17 18:03 Dose: 25 mg Pantoprazole Sodium (Protonix Ec Tab) 40 mg PO 0600 [facility] Last Admin: 07/20/17 06:07 Dose: 40 mg Sildenafil Citrate (Revatio) 20 mg PO TID [facility] Last Admin: 07/20/17 18:04 Dose: Not Given Sucralfate (Carafate Oral Susp) 1 gm PO 0630,1130,1630,2200 [facility] Last Admin: 07/20/17 18:02 Dose: 1 gm - Labs Labs: 07/18/17 06:45 07/20/17 06:30 PT 16.8 SECONDS (9.4-12.5) H 07/11/17 20:06 INR 1.46 (0.93-1.08) H 07/11/17 20:06 APTT 69.5 Seconds (25.1-36.5) H 07/14/17 09:40 Attending/Attestation - Attestation I have personally seen and examined this patient.: Yes I have fully participated in the care of the patient.: Yes I have reviewed all pertinent clinical information, including history, physical exam and plan: Yes
[2017-07-19 07:24] LABS: BLOOD UREA NITROGEN 14 mg/dL (7-21); CALCIUM 8.8 mg/dL (8.4-10.5); GFR AFRICAN-AMERICAN > 60; GFR NON-AFRICAN AMERICAN > 60
[2017-07-19] MEDS ORDERED: Potassium Chloride 20 mEq ER Tab PO STA ×2 (07:56→09:19)
[2017-07-19] MEDS: Levalbuterol 1.25 MG/3 ML Inhal Soln UD IH SCH ×3 (08:03→21:35)
--- NOTE | 2017-07-19 08:30 | PN ---
DATE: 07/19/2017 PULMONARY NOTE SUBJECTIVE: The patient appears comfortable this morning. He is not short of breath at rest. PHYSICAL EXAMINATION: VITAL SIGNS: Temperature is 98.6, pulse is 77, respirations 18/20, blood pressure 159/89. Oxygen saturation on BiPAP is 95%. HEENT: Normocephalic, atraumatic. No JVD. CARDIOVASCULAR: Positive S1, S2. No S3 gallop. LUNGS: Better breath sounds at the bases. No rhonchi or wheezing this morning. EXTREMITIES: Positive for mild edema. No cyanosis or clubbing. Calves are nontender to palpation. GASTROINTESTINAL: Abdomen is soft, nontender, and nondistended. Bowel sounds are positive. SKIN: No acute rash. NEUROLOGIC: Limited at the present time. IMPRESSION: 1. Status post cardiac arrest. 2. Acute myocardial infarction. 3. Status post respiratory failure. 4. Chronic obstructive pulmonary disease. 5. Obstructive sleep apnea. 6. Pulmonary hypertension. PLAN: The patient appears comfortable this morning. He is not short of breath at rest. He does state to feeling much, much better overall. I did discuss the case with the night nurse at length. The night nurse stated that the patient had a very good night. On physical exam, there is no significant bronchospasm noted. In addition, there is no significant alveolar-arterial gradient. I will continue with the current nebulizer treatments for now. As noted in multiple previous assessments, the patient is well aware that he will need to follow up with me in the office, so that we can get him on optimal treatment for his pulmonary hypertension. The patient is also very well aware that he will need a polysomnogram - to rule in (or rule out) obstructive sleep apnea. He fully agrees with the plan. I would continue with the treatment for acute myocardial infarction as per Cardiology. Input by Dr. Atkinson is noted. Repeat a.m. labs are pending. The clinical status of the patient has significantly improved overall. I will discuss the above with Dr. García. Narayan Bone MD [facility]
[2017-07-19] MEDS: Enoxaparin 40 mg Syringe SC SCH (09:00)
[2017-07-19] MEDS: Bacitracin 500 Units/gm Oint Foilpak UD TOP SCH ×2 (09:01→17:37)
[2017-07-19] MEDS: Sildenafil 20 MG TAB PO SCH ×4 (09:04→17:40)
--- NOTE | 2017-07-19 10:52 | PN ---
DATE: 07/19/2017 REASON FOR CONSULTATION AND FOLLOWUP: Status post CPR, cardiorespiratory failure, borderline troponin, status post cardiac catheterization, nonobstructive coronary artery disease, pulmonary hypertension, obesity, respiratory insufficiency, pulmonary hypertension. SUBJECTIVE: The patient denies any chest pain, shortness of breath or any palpitations. Complaining of right-sided chest pain with tenderness. OBJECTIVE: GENERAL: Not in apparent distress. VITAL SIGNS: Temperature afebrile, heart rate 96, blood pressure 127/92. HEENT: PERRLA. Extraocular muscle intact. NECK: Supple. No carotid bruit or thyromegaly. CHEST: Clear to auscultation. HEART: S1 and S2 regular. ABDOMEN: Soft. EXTREMITIES: Clubbing and cyanosis negative. LABORATORY DATA: Blood workup as follows: WBC 10.8, hemoglobin 11.7, hematocrit 37.1, platelet count 291. Chemistry shows sodium 130, potassium 2.9, chloride 89, carbon dioxide 41, anion gap of 11, BUN 14, creatinine 1. IMPRESSION: Morbid obesity, pulmonary hypertension, status post cardiac catheterization, nonobstructive coronary artery disease, status post cardiopulmonary resuscitation, cardiac arrest, syncope at home, protein-calorie malnutrition was not present on admission. CT angio is negative for pulmonary embolism, possibly some pneumonia. RECOMMENDATIONS: Change Lasix to p.o., aggressively supplement potassium, which is very low. Continue Revatio, discontinue Primacor today. Discuss with Dr. Bone. The patient needs sleep study as an outpatient. We will follow with you. Continue low-dose beta-jacquelin. Continue DVT prophylaxis. We will change Lasix to p.o. Possible discharge planning. Discussed with the patient. We will also give 2 doses of Motrin for chest pain musculoskeletal. We will aggressively supplement potassium. We will discontinue Lasix after today's dose and we will change to Lasix p.o. from tomorrow. Taye Atkinson MD
--- NOTE | 2017-07-19 10:57 | CP.PCM.PN ---
<Lisa Curry - Last Filed: 07/19/17 10:53> Subjective - Date & Time of Evaluation Date of Evaluation: 07/19/17 Time of Evaluation: 07:00 - Subjective Subjective: Progress Note for Harsh Ureña PGY2 Patient seen and examined at bedside. There were no acute overnight events as per nursing staff. As per the night nurse, patient did appear anxious overnight and was given one Xanax and felt better. Patient reports feeling well today, but complains of pain in the R side of his chest when he presses. Patient was educated that he may feel some pain for a while since he is s/p CPR on admission. He denies shortness of breath, numbness/tingling, dysuria, hematuria , nausea/vomiting/diarrhea or constipation. Objective - Vital Signs/Intake and Output Vital Signs (last 24 hours): Temp Pulse Resp BP Pulse Ox 98.6 F 96 H 21 127/92 H 95 07/19/17 06:00 07/19/17 09:03 07/19/17 06:00 07/19/17 09:03 07/19/17 06:00 Intake and Output: 07/19/17 07/19/17 06:59 18:59 Intake Total 525 Output Total 1300 Balance -775 - Medications Medications: Current Medications Acetazolamide (Diamox 500 Mg Inj) 250 mg IV Q12 [facility] Stop: 07/19/17 22:01 Last Admin: 07/19/17 09:01 Dose: 250 mg Albuterol/Ipratropium (Duoneb 3 Mg/0.5 Mg (3 Ml) Ud) 3 ml IH Q2H PRN PRN Reason: Shortness of Breath Last Admin: 07/17/17 20:44 Dose: 3 ml Alprazolam (Xanax) 0.25 mg PO Q8H PRN; Protocol PRN Reason: Anxiety Stop: 07/21/17 15:07 Last Admin: 07/19/17 02:16 Dose: 0.25 mg Aspirin (Aspirin Chewable) 81 mg PO DAILY [facility] Last Admin: 07/19/17 09:33 Dose: 81 mg Bacitracin (Bacitracin) 1 ea TOP BID [facility] Last Admin: 07/19/17 09:01 Dose: 1 ea Enoxaparin Sodium (Lovenox) 40 mg SC DAILY [facility] PRN Reason: Protocol Last Admin: 07/19/17 09:00 Dose: 40 mg Furosemide (Lasix) 40 mg IV BID [facility] Stop: 07/19/17 23:59 Last Admin: 07/19/17 09:00 Dose: 40 mg Furosemide (Lasix) 40 mg PO 0800,1400 [facility] Ibuprofen (Motrin Tab) 400 mg PO Q6H [facility] Stop: 07/19/17 22:16 Levalbuterol HCl (Xopenex) 1.25 mg IH TIDRESP [facility] Last Admin: 07/19/17 08:03 Dose: 1.25 mg Metoprolol Tartrate (Lopressor) 25 mg PO BID [facility] Last Admin: 07/19/17 09:03 Dose: 25 mg Pantoprazole Sodium (Protonix Ec Tab) 40 mg PO 0600 [facility] Last Admin: 07/19/17 06:37 Dose: 40 mg Potassium Chloride (K-Dur 20 Meq Er Tab) 40 meq PO ONCE ONE Stop: 07/19/17 13:01 Potassium Chloride (K-Dur 20 Meq Er Tab) 40 meq PO ONCE ONE Stop: 07/19/17 20:01 Sildenafil Citrate (Revatio) 20 mg PO TID [facility] Last Admin: 07/19/17 09:15 Dose: Not Given Sucralfate (Carafate Oral Susp) 1 gm PO 0630,1130,1630,2200 [facility] Last Admin: 07/19/17 06:37 Dose: 1 gm - Labs Labs: 07/18/17 06:45 07/19/17 06:00 PT 16.8 SECONDS (9.4-12.5) H 07/11/17 20:06 INR 1.46 (0.93-1.08) H 07/11/17 20:06 APTT 69.5 Seconds (25.1-36.5) H 07/14/17 09:40 - Constitutional Appears: No Acute Distress - Head Exam Head Exam: ATRAUMATIC, NORMAL INSPECTION, NORMOCEPHALIC - Eye Exam Eye Exam: EOMI, Normal appearance, PERRL Pupil Exam: NORMAL ACCOMODATION, PERRL - ENT Exam ENT Exam: Mucous Membranes Moist - Neck Exam Neck Exam: Full ROM, Normal Inspection - Respiratory Exam Respiratory Exam: Clear to Ausculation Bilateral, NORMAL BREATHING PATTERN. absent: Rhonchi, Wheezes, Respiratory Distress - Cardiovascular Exam Cardiovascular Exam: REGULAR RHYTHM, +S1, +S2. absent: Gallop, Murmur Additional comments: Pain in R and L side of chest upon palpation - GI/Abdominal Exam GI & Abdominal Exam: Soft, Normal Bowel Sounds. absent: Rigid, Tenderness, Mass , Rebound - Extremities Exam Extremities Exam: Pedal Edema (+ 3 pitting edema bilaterally ) - Neurological Exam Neurological Exam: Alert, Awake, CN II-XII Intact, Oriented x3 - Psychiatric Exam Psychiatric exam: Normal Affect, Normal Mood - Skin Skin Exam: Dry, Normal Color Assessment and Plan - Assessment and Plan (Free Text) Assessment: This is a 57yo M with past medical history HTN admitted for s/p cardiac arrest, respiratory failure intubation s/p extubation, possible SIGRID who was found to have leukocytosis secondary to community acquired pneumonia and severe pulmonary HTN during cardiac cath. Plan: 1. Cardiac arrest s/p ROSC - Secondary to possible SIGRID v. pulm HTN - Severe Pulm HTN seen on cardiac cath - Cardio consulted- will wean off of Milrinone today - Continue Diuresis with Lasix and Diamox - Daily weights and continue to monitor I&O - Patient will need brain MRI as per neurology- recs appreciated - Pulm consulted- who recommends BiPAP and Sildenafil and patient will need to follow up as outpatient for sleep study 2. Hypokalemia - secondary to diuretics - K: 2.9 - Will replace and continue to monitor daily 3. Metabolic Alkalosis with Respiratory Acidosis (stable) - Resp Acidosis can be secondary to SIGRID, Metabolic Alkalosis can be secondary to diuretics - Bicarb: 41 - Continue Diamox and Lasix - Continue BiPAP at night - Continue to monitor BMP 4. Delirium (improved) - This can be Secondary to hypercapnea v. hospital delirium - There was no evidence of Delirium for the past 2 nights as per nursing - Continue re-orientation and education - Avoid sedating medication - BiPAP at night 5. SIRS (resolved) - Found to have Community Acquired Pneumonia on chest CT - Sputum and blood cultures negative - As per ID- patient completed 7 day course of doxycycline - Will continue to monitor off of antibiotics 6. Hx of HTN - Continue Metoprolol 7. Tobacco abuse - Smoking cessation counseling GI ppx: Protonix DVT ppx: Lovenox Dispo: Patient will need KARLA as per PT. Patient may also need CPAP or BiPAP in future. Will discuss with case management Case seen, discussed and reviewed with Dr. García. Harsh Curry PGY2 <Terry García - Last Filed: 07/19/17 21:00> Objective - Vital Signs/Intake and Output Vital Signs (last 24 hours): Temp Pulse Resp BP Pulse Ox 99.1 F 72 20 119/66 90 L 07/19/17 18:00 07/19/17 18:00 07/19/17 18:00 07/19/17 18:00 07/19/17 10:00 - Medications Medications: Current Medications Acetazolamide (Diamox 500 Mg Inj) 250 mg IV Q12 [facility] Stop: 07/19/17 22:01 Last Admin: 07/19/17 09:01 Dose: 250 mg Albuterol/Ipratropium (Duoneb 3 Mg/0.5 Mg (3 Ml) Ud) 3 ml IH Q2H PRN PRN Reason: Shortness of Breath Last Admin: 07/17/17 20:44 Dose: 3 ml Alprazolam (Xanax) 0.25 mg PO Q8H PRN; Protocol PRN Reason: Anxiety Stop: 07/21/17 15:07 Last Admin: 07/19/17 02:16 Dose: 0.25 mg Aspirin (Aspirin Chewable) 81 mg PO DAILY [facility] Last Admin: 07/19/17 09:33 Dose: 81 mg Bacitracin (Bacitracin) 1 ea TOP BID [facility] Last Admin: 07/19/17 17:37 Dose: 1 ea Enoxaparin Sodium (Lovenox) 40 mg SC DAILY [facility] PRN Reason: Protocol Last Admin: 07/19/17 09:00 Dose: 40 mg Furosemide (Lasix) 40 mg IV BID [facility] Stop: 07/19/17 23:59 Last Admin: 07/19/17 17:38 Dose: 40 mg Furosemide (Lasix) 40 mg PO 0800,1400 [facility] Ibuprofen (Motrin Tab) 400 mg PO Q6H [facility] Stop: 07/19/17 22:16 Last Admin: 07/19/17 17:38 Dose: 400 mg Levalbuterol HCl (Xopenex) 1.25 mg IH TIDRESP [facility] Last Admin: 07/19/17 14:04 Dose: 1.25 mg Metoprolol Tartrate (Lopressor) 25 mg PO BID [facility] Last Admin: 07/19/17 17:39 Dose: 25 mg Pantoprazole Sodium (Protonix Ec Tab) 40 mg PO 0600 [facility] Last Admin: 07/19/17 06:37 Dose: 40 mg Sildenafil Citrate (Revatio) 20 mg PO TID [facility] Last Admin: 07/19/17 17:40 Dose: Not Given Sucralfate (Carafate Oral Susp) 1 gm PO 0630,1130,1630,2200 [facility] Last Admin: 07/19/17 17:37 Dose: 1 gm - Labs Labs: 07/18/17 06:45 07/19/17 06:00 PT 16.8 SECONDS (9.4-12.5) H 07/11/17 20:06 INR 1.46 (0.93-1.08) H 07/11/17 20:06 APTT 69.5 Seconds (25.1-36.5) H 07/14/17 09:40 Assessment and Plan - Assessment and Plan (Free Text) Plan: Pt seen and examined. The note of the medical device sales representative has been reviewed. Labs and medications reviewed. Potassium will be replaced. Delerium has improved. Sepsis resolved. Respiratory failure has resolved. Pt getting PT.
--- NOTE | 2017-07-19 11:46 | CP.PCM.PN ---
Subjective - Date & Time of Evaluation Date of Evaluation: 07/19/17 Time of Evaluation: 10:20 - Subjective Subjective: No fevers, not in distress, no shortness of breath at rest. Objective - Vital Signs/Intake and Output Vital Signs (last 24 hours): Temp Pulse Resp BP Pulse Ox 98.6 F 96 H 21 127/92 H 95 07/19/17 06:00 07/19/17 09:03 07/19/17 06:00 07/19/17 09:03 07/19/17 06:00 Intake and Output: 07/19/17 07/19/17 06:59 18:59 Intake Total 525 Output Total 1300 Balance -775 - Medications Medications: Current Medications Acetazolamide (Diamox 500 Mg Inj) 250 mg IV Q12 [facility] Stop: 07/19/17 22:01 Last Admin: 07/19/17 09:01 Dose: 250 mg Albuterol/Ipratropium (Duoneb 3 Mg/0.5 Mg (3 Ml) Ud) 3 ml IH Q2H PRN PRN Reason: Shortness of Breath Last Admin: 07/17/17 20:44 Dose: 3 ml Alprazolam (Xanax) 0.25 mg PO Q8H PRN; Protocol PRN Reason: Anxiety Stop: 07/21/17 15:07 Last Admin: 07/19/17 02:16 Dose: 0.25 mg Aspirin (Aspirin) 81 mg PO DAILY [facility] Bacitracin (Bacitracin) 1 ea TOP BID [facility] Last Admin: 07/19/17 09:01 Dose: 1 ea Enoxaparin Sodium (Lovenox) 40 mg SC DAILY [facility] PRN Reason: Protocol Last Admin: 07/19/17 09:00 Dose: 40 mg Furosemide (Lasix) 40 mg IV BID [facility] Stop: 07/19/17 23:59 Last Admin: 07/19/17 09:00 Dose: 40 mg Furosemide (Lasix) 40 mg PO 0800,1400 [facility] Levalbuterol HCl (Xopenex) 1.25 mg IH TIDRESP [facility] Last Admin: 07/19/17 08:03 Dose: 1.25 mg Metoprolol Tartrate (Lopressor) 25 mg PO BID [facility] Last Admin: 07/19/17 09:03 Dose: 25 mg Pantoprazole Sodium (Protonix Ec Tab) 40 mg PO 0600 [facility] Last Admin: 07/19/17 06:37 Dose: 40 mg Potassium Chloride (K-Dur 20 Meq Er Tab) 40 meq PO ONCE ONE Stop: 07/19/17 13:01 Potassium Chloride (K-Dur 20 Meq Er Tab) 40 meq PO ONCE ONE Stop: 07/19/17 20:01 Sildenafil Citrate (Revatio) 20 mg PO TID [facility] Last Admin: 07/19/17 09:15 Dose: Not Given Sucralfate (Carafate Oral Susp) 1 gm PO 0630,1130,1630,2200 [facility] Last Admin: 07/19/17 06:37 Dose: 1 gm - Labs Labs: 07/18/17 06:45 07/19/17 06:00 PT 16.8 SECONDS (9.4-12.5) H 07/11/17 20:06 INR 1.46 (0.93-1.08) H 07/11/17 20:06 APTT 69.5 Seconds (25.1-36.5) H 07/14/17 09:40 - Constitutional Appears: Non-toxic, Chronically Ill - Head Exam Head Exam: NORMAL INSPECTION - Respiratory Exam Respiratory Exam: Decreased Breath Sounds - Cardiovascular Exam Cardiovascular Exam: +S1, +S2 - GI/Abdominal Exam GI & Abdominal Exam: Soft. absent: Tenderness Assessment and Plan - Assessment and Plan (Free Text) Plan: Assessment S/P systemic Inflammatory Response syndrome, S/P VDRF and S/P acute encephalopathy after cardiorespiratory arrest, S/P severe sepsis from pneumonia , clinically improved, on top of CHF HTN morbid obesity with BMI 45 S/P right hip replacement Plan S/P 7 days of Doxycycline - will continue monitor clinically off antibiotics since he is at risk for nosocomial infections follow up further recommendations of Cardiology
[2017-07-19] MEDS ORDERED: Potassium Chloride 20 mEq ER Tab PO ONE ×2 (13:00→20:00)
--- NOTE | 2017-07-19 20:54 | MRI ---
EXAM: MR Head Without Intravenous Contrast EXAM DATE/TIME: 07/19/2017 7:00 PM CLINICAL HISTORY: The patient age is 57 years old and is male; Signs and symptoms; Other: CVA Facility exam id and description: Mri br s brain without contrast TECHNIQUE: Magnetic resonance images of the head/brain without intravenous contrast in multiple planes. COMPARISON: CT - HEAD W/O CONTRAST 2017-07-14 08:11 FINDINGS: Brain: There is no restricted diffusion within the brain to suggest acute ischemic change. T2 hyperintense encephalomalacia with adjacent FLAIR hyperintense gliosis is identified within the posterior cerebellar lobes, right side greater than left. This is consistent with old infarcts. There is moderate high FLAIR signal intensity within the cerebral white matter. There is no mass effect or restricted diffusion associated with these foci. In a patient this age, this likely represents chronic small vessel ischemic disease. There is prominence of the sulci, compatible with atrophy. There is volume loss of the bilateral anterior temporal lobes. Arachnoid cysts within the middle cranial fossa bilaterally are considered less likely due to the presence of vessels in this region. Ventricles: There is stable ventriculomegaly. A flow void is visualized within the cerebral aqueduct. Periventricular T2 hyperintensity can be contributed by a transependymal spread of CSF. Normal pressure hydrocephalus is considered. Bones/joints: Heterogeneous T2 signal intensity probable arachnoid granulations are identified in the region of the occipital skull. Sinuses: Mucous retention cysts or polyps are visualized within the bilateral maxillary sinuses. Effusions are seen within a few ethmoid air cells. There is a small mucous retention cyst or polyp in the left sphenoid sinus. Mastoid air cells: Mucosal thickening/effusions are identified within the bilateral mastoid air cells. Orbits: No acute abnormality, as visualized. Sella: There is an empty sella. IMPRESSION: 1. There is no restricted diffusion within the brain to suggest acute ischemic change. 2. Encephalomalacia with adjacent gliosis is identified within the posterior cerebellar lobes, right side greater than left. This is consistent with old infarcts. 3. There is moderate high FLAIR signal intensity within the cerebral white matter. In a patient this age, this likely represents chronic small vessel ischemic disease. 4. There is stable ventriculomegaly. Normal pressure hydrocephalus is considered. 5. Mild atrophy. 6. Paranasal sinus disease is noted above. 7. Additional findings described above.
[2017-07-20] MEDS: Sucralfate 1 gm/10 ml Oral Susp UD PO SCH ×4 (06:07→22:11)
[2017-07-20] MEDS: Pantoprazole 40 mg EC Tab PO SCH (06:07)
--- NOTE | 2017-07-20 07:25 | CP.PCM.PN ---
<Norma Loya - Last Filed: 07/20/17 14:17> Subjective - Date & Time of Evaluation Date of Evaluation: 07/20/17 Time of Evaluation: 08:15 - Subjective Subjective: PGY2 Neurology progress note for Dr. Pollock Patient seen and examined at bedside sitting up eating breakfast. Had no acute complaints this AM and no acute evens overnight. Denied acute complaints of headache, dizziness, chest pain, palpitations, SOB, cough, abd pain, nausea, vomiting, bowel/bladder complaints, focal deficits, pain/swelling in his legs bilaterally. Objective - Vital Signs/Intake and Output Vital Signs (last 24 hours): Temp Pulse Resp BP Pulse Ox 98.7 F 71 19 114/64 96 07/20/17 06:00 07/20/17 06:00 07/20/17 06:00 07/20/17 06:00 07/20/17 06:00 Intake and Output: 07/20/17 07/20/17 06:59 18:59 Intake Total 240 Balance 240 - Medications Medications: Current Medications Albuterol/Ipratropium (Duoneb 3 Mg/0.5 Mg (3 Ml) Ud) 3 ml IH Q2H PRN PRN Reason: Shortness of Breath Last Admin: 07/17/17 20:44 Dose: 3 ml Alprazolam (Xanax) 0.25 mg PO Q8H PRN; Protocol PRN Reason: Anxiety Stop: 07/21/17 15:07 Last Admin: 07/19/17 02:16 Dose: 0.25 mg Aspirin (Aspirin Chewable) 81 mg PO DAILY [facility] Last Admin: 07/19/17 09:33 Dose: 81 mg Bacitracin (Bacitracin) 1 ea TOP BID [facility] Last Admin: 07/19/17 17:37 Dose: 1 ea Enoxaparin Sodium (Lovenox) 40 mg SC DAILY [facility] PRN Reason: Protocol Last Admin: 07/19/17 09:00 Dose: 40 mg Furosemide (Lasix) 40 mg PO 0800,1400 [facility] Levalbuterol HCl (Xopenex) 1.25 mg IH TIDRESP [facility] Last Admin: 07/19/17 21:35 Dose: 1.25 mg Metoprolol Tartrate (Lopressor) 25 mg PO BID [facility] Last Admin: 07/19/17 17:39 Dose: 25 mg Pantoprazole Sodium (Protonix Ec Tab) 40 mg PO 0600 [facility] Last Admin: 07/20/17 06:07 Dose: 40 mg Sildenafil Citrate (Revatio) 20 mg PO TID [facility] Last Admin: 07/19/17 17:40 Dose: Not Given Sucralfate (Carafate Oral Susp) 1 gm PO 0630,1130,1630,2200 [facility] Last Admin: 07/20/17 06:07 Dose: 1 gm - Labs Labs: 07/18/17 06:45 07/19/17 06:00 PT 16.8 SECONDS (9.4-12.5) H 07/11/17 20:06 INR 1.46 (0.93-1.08) H 07/11/17 20:06 APTT 69.5 Seconds (25.1-36.5) H 07/14/17 09:40 - Constitutional Appears: Non-toxic, No Acute Distress - Head Exam Head Exam: ATRAUMATIC, NORMAL INSPECTION, NORMOCEPHALIC - Eye Exam Eye Exam: EOMI, Normal appearance - ENT Exam ENT Exam: Mucous Membranes Moist - Respiratory Exam Respiratory Exam: absent: Accessory Muscle Use, Respiratory Distress - Cardiovascular Exam Cardiovascular Exam: +S1, +S2 - Extremities Exam Extremities Exam: Pedal Edema - Back Exam Back Exam: absent: rash noted - Neurological Exam Neurological Exam: Alert, Awake, Oriented x3 - Psychiatric Exam Psychiatric exam: Normal Affect, Normal Mood - Skin Skin Exam: Dry, Intact Assessment and Plan - Assessment and Plan (Free Text) Assessment: 57yo M PMHx HTN admitted for s/p cardiac arrest, intubation s/p extubation who was found to have leukocytosis secondary to CAP and severe pulmonary HTN during cardiac cath. Neurology was consulted for AMS. Plan: -AMS resolved -MRI: no restricted diffusion within the brain to suggest acute ischemic change. Encephalomalacia with adjacent gliosis is identified within the posterior cerebellar lobes, R > L. This is consistent with old infarcts. There is moderate high FLAIR signal intensity within the cerebral white matter. In a patient this age this likely represents chronic small vessel ischemic disease. There is stable ventriculomegaly. NPH is considered. Mild atrophy. Paranasal sinus disease is noted above. -In light of patient having had multiple embolic events, patient to continue taking asa 81mg qdaily and to additionally take Pletal 50mg po bid. As patient is also on Sildenafil, BP should be measured before and after patient is administered Pletal to ensure he does not become hypotensive. Strict holding parameters in place for Pletal to be held if SBP < 110mmHg. -No acute findings on head CT -Continue BiPAP at night -Avoid sedating medication -PT/OT and rehab upon discharge -continue current management as per primary team Discussed with Dr. Maris Loya PGY2 <Lucien Pololck - Last Filed: 07/20/17 18:43> Objective - Vital Signs/Intake and Output Vital Signs (last 24 hours): Temp Pulse Resp BP Pulse Ox 98 F 70 18 125/85 85 L 07/20/17 18:00 07/20/17 18:03 07/20/17 18:00 07/20/17 18:03 07/20/17 10:00 Intake and Output: 07/20/17 07/20/17 06:59 18:59 Intake Total 240 300 Output Total 600 Balance 240 -300 - Medications Medications: Current Medications Albuterol/Ipratropium (Duoneb 3 Mg/0.5 Mg (3 Ml) Ud) 3 ml IH Q2H PRN PRN Reason: Shortness of Breath Last Admin: 07/17/17 20:44 Dose: 3 ml Alprazolam (Xanax) 0.25 mg PO Q8H PRN; Protocol PRN Reason: Anxiety Stop: 07/21/17 15:07 Last Admin: 07/19/17 02:16 Dose: 0.25 mg Aspirin (Aspirin Chewable) 81 mg PO DAILY [facility] Last Admin: 07/20/17 09:05 Dose: 81 mg Bacitracin (Bacitracin) 1 ea TOP BID [facility] Last Admin: 07/20/17 18:02 Dose: 1 ea Cilostazol (Pletal) 50 mg PO BID [facility] Last Admin: 07/20/17 18:02 Dose: 50 mg Enoxaparin Sodium (Lovenox) 40 mg SC DAILY [facility] PRN Reason: Protocol Last Admin: 07/20/17 09:05 Dose: 40 mg Furosemide (Lasix) 40 mg PO 0800,1400 [facility] Last Admin: 07/20/17 14:12 Dose: 40 mg Levalbuterol HCl (Xopenex) 1.25 mg IH TIDRESP [facility] Last Admin: 07/20/17 13:35 Dose: 1.25 mg Metoprolol Tartrate (Lopressor) 25 mg PO BID [facility] Last Admin: 07/20/17 18:03 Dose: 25 mg Pantoprazole Sodium (Protonix Ec Tab) 40 mg PO 0600 [facility] Last Admin: 07/20/17 06:07 Dose: 40 mg Sildenafil Citrate (Revatio) 20 mg PO TID [facility] Last Admin: 07/20/17 18:04 Dose: Not Given Sucralfate (Carafate Oral Susp) 1 gm PO 0630,1130,1630,2200 [facility] Last Admin: 07/20/17 18:02 Dose: 1 gm - Labs Labs: 07/18/17 06:45 07/20/17 06:30 PT 16.8 SECONDS (9.4-12.5) H 07/11/17 20:06 INR 1.46 (0.93-1.08) H 07/11/17 20:06 APTT 69.5 Seconds (25.1-36.5) H 07/14/17 09:40 Attending/Attestation - Attestation I have personally seen and examined this patient.: Yes I have fully participated in the care of the patient.: Yes I have reviewed all pertinent clinical information, including history, physical exam and plan: Yes
[2017-07-20 07:35] LABS: BLOOD UREA NITROGEN 19 mg/dL (7-21); CALCIUM 8.9 mg/dL (8.4-10.5); GFR AFRICAN-AMERICAN > 60; GFR NON-AFRICAN AMERICAN > 60
--- NOTE | 2017-07-20 08:20 | PN ---
DATE: 07/20/2017 PULMONARY NOTE SUBJECTIVE: The patient appears very comfortable this morning. He is not short of breath at rest. PHYSICAL EXAMINATION: VITAL SIGNS: Temperature is 98.7, pulse 71, respirations 19, blood pressure 114/64. Oxygen saturation on nasal cannula is 96%. HEENT: Normocephalic, atraumatic. No JVD. CARDIOVASCULAR: Positive S1, S2. No S3 gallop. LUNGS: Clear bilaterally this morning. EXTREMITIES: Less edema. No cyanosis or clubbing. Calves are nontender to palpation. GI: Abdomen is soft, nontender and nondistended. Bowel sounds are positive. SKIN: No acute rash. NEUROLOGIC: Limited at the present time. IMPRESSION: 1. Status post cardiac arrest. 2. Acute myocardial infarction. 3. Status post respiratory failure. 4. Chronic obstructive pulmonary disease. 5. Obstructive sleep apnea. 6. Pulmonary hypertension. PLAN: The patient appears very comfortable this morning. He is not short of breath at rest. He does state to feeling much better overall. I did discuss the case with the night nurse at length. The night nurse stated that the patient had a very good night. On physical exam, his bronchospasm continues to resolve. In addition, the alveolar arterial gradient also continues to resolve. I will continue with the current nebulizer treatments and aspiration precautions for now. The patient also remains on Revatio - for his pulmonary hypertension. Again, he is well aware that he will need to follow up with me in the office - for both his pulmonary hypertension and probable obstructive sleep apnea. I would continue with the treatment for acute myocardial infarction as per Cardiology. Input by Dr. Atkinson is noted. The patient remains on Lasix/afterload reduction. The clinical status of this patient is significantly improved overall. I will discuss the above with the attending physician. Narayan Bone MD [email or web address]
[2017-07-20] MEDS: Levalbuterol 1.25 MG/3 ML Inhal Soln UD IH SCH ×3 (08:25→19:42)
[2017-07-20] MEDS: Bacitracin 500 Units/gm Oint Foilpak UD TOP SCH ×2 (09:05→18:02)
[2017-07-20] MEDS: Enoxaparin 40 mg Syringe SC SCH (09:05)
[2017-07-20] MEDS: Sildenafil 20 MG TAB PO SCH ×3 (10:00→18:04)
--- NOTE | 2017-07-20 11:00 | CP.PCM.PN ---
<Lisa Curry - Last Filed: 07/20/17 10:57> Subjective - Date & Time of Evaluation Date of Evaluation: 07/20/17 Time of Evaluation: 07:00 - Subjective Subjective: Progress Note for Harsh Ureña PGY2 Patient seen and examined at bedside. As per nursing staff, there were no acute overnight events. Patient reports sleeping well and denies shortness of breath, nausea/vomiting/diarrhea, fever/chills, numbness or tingling. Patient is still complaining of pain in his R side of his chest upon palpation. Patient was once again educated that this is most likely musculoskeletal from CPR and will take some time to improve. Objective - Vital Signs/Intake and Output Vital Signs (last 24 hours): Temp Pulse Resp BP Pulse Ox 98.7 F 85 19 129/76 96 07/20/17 06:00 07/20/17 09:06 07/20/17 06:00 07/20/17 09:06 07/20/17 06:00 Intake and Output: 07/20/17 07/20/17 06:59 18:59 Intake Total 240 Balance 240 - Medications Medications: Current Medications Albuterol/Ipratropium (Duoneb 3 Mg/0.5 Mg (3 Ml) Ud) 3 ml IH Q2H PRN PRN Reason: Shortness of Breath Last Admin: 07/17/17 20:44 Dose: 3 ml Alprazolam (Xanax) 0.25 mg PO Q8H PRN; Protocol PRN Reason: Anxiety Stop: 07/21/17 15:07 Last Admin: 07/19/17 02:16 Dose: 0.25 mg Aspirin (Aspirin Chewable) 81 mg PO DAILY [facility] Last Admin: 07/20/17 09:05 Dose: 81 mg Bacitracin (Bacitracin) 1 ea TOP BID [facility] Last Admin: 07/20/17 09:05 Dose: 1 ea Enoxaparin Sodium (Lovenox) 40 mg SC DAILY [facility] PRN Reason: Protocol Last Admin: 07/20/17 09:05 Dose: 40 mg Furosemide (Lasix) 40 mg PO 0800,1400 [facility] Last Admin: 07/20/17 09:06 Dose: 40 mg Levalbuterol HCl (Xopenex) 1.25 mg IH TIDRESP [facility] Last Admin: 07/20/17 08:25 Dose: 1.25 mg Metoprolol Tartrate (Lopressor) 25 mg PO BID [facility] Last Admin: 07/20/17 09:06 Dose: 25 mg Pantoprazole Sodium (Protonix Ec Tab) 40 mg PO 0600 [facility] Last Admin: 07/20/17 06:07 Dose: 40 mg Sildenafil Citrate (Revatio) 20 mg PO TID [facility] Last Admin: 07/19/17 17:40 Dose: Not Given Sucralfate (Carafate Oral Susp) 1 gm PO 0630,1130,1630,2200 [facility] Last Admin: 07/20/17 06:07 Dose: 1 gm - Labs Labs: 07/18/17 06:45 07/20/17 06:30 PT 16.8 SECONDS (9.4-12.5) H 07/11/17 20:06 INR 1.46 (0.93-1.08) H 07/11/17 20:06 APTT 69.5 Seconds (25.1-36.5) H 07/14/17 09:40 - Constitutional Appears: No Acute Distress - Head Exam Head Exam: ATRAUMATIC, NORMAL INSPECTION, NORMOCEPHALIC - Eye Exam Eye Exam: Normal appearance, PERRL Pupil Exam: NORMAL ACCOMODATION, PERRL - ENT Exam ENT Exam: Mucous Membranes Moist - Respiratory Exam Respiratory Exam: Clear to Ausculation Bilateral, NORMAL BREATHING PATTERN. absent: Rales, Rhonchi, Wheezes - Cardiovascular Exam Cardiovascular Exam: REGULAR RHYTHM, +S1, +S2. absent: Gallop, Rubs, Murmur - GI/Abdominal Exam GI & Abdominal Exam: Soft, Normal Bowel Sounds. absent: Rigid, Tenderness, Mass , Rebound - Extremities Exam Extremities Exam: Pedal Edema (+ 2 pitting ) - Neurological Exam Neurological Exam: Alert, Awake, CN II-XII Intact - Psychiatric Exam Psychiatric exam: Normal Affect, Normal Mood - Skin Skin Exam: Dry, Warm Assessment and Plan - Assessment and Plan (Free Text) Assessment: This is a 57yo M with past medical history HTN admitted for s/p cardiac arrest, respiratory failure intubation s/p extubation, possible SIGRID who was found to have leukocytosis secondary to community acquired pneumonia which he has finished course of antibiotics and severe pulmonary HTN found during cardiac cath. Plan: 1. Cardiac arrest s/p ROSC - Secondary to possible SIGRID v. pulm HTN - Severe Pulm HTN seen on cardiac cath - Patient has been weaned off of Milirnone drip - Lasix switched from IV to PO - Cardio consulted- recs appreciated - Daily weights and I&O - Neurology consulted- recs appreciated - MRI brain did not show evidence of acute CVA - Pulm consulted- recs appreciated - Continue Sildenaifil as well as nightly BiPAP 2. Hypokalemia (resolved) - secondary to diuretics - K: 3.6 - Will replace and continue to monitor daily 3. Metabolic Alkalosis with Respiratory Acidosis (stable) - Resp Acidosis can be secondary to SIGRID, Metabolic Alkalosis can be secondary to diuretics - Bicarb: 42 - BiPAP at night - Continue Lasix 4. Delirium (improved) - From hypercapnea v. hospital delirium - Nursing staff did not report any confusion. Patient still gets confused at times and asks the same questions daily despite education - Continue re-orientation and education - Avoid sedating medication 5. Hx of HTN - Metoprolol GI ppx: Protonix DVT ppx: Lovenox Dispo: Patient having insurance issues. Case management working on case. Continue physical therapy in-patient for now. Case seen, discussed and reviewed with Dr. García. Harsh Curry PGY2 <Terry García S - Last Filed: 07/20/17 22:04> Objective - Vital Signs/Intake and Output Vital Signs (last 24 hours): Temp Pulse Resp BP Pulse Ox 98 F 70 18 125/85 85 L 07/20/17 18:00 07/20/17 18:03 07/20/17 18:00 07/20/17 18:03 07/20/17 10:00 Intake and Output: 07/20/17 07/21/17 18:59 06:59 Intake Total 300 Output Total 600 Balance -300 - Medications Medications: Current Medications Albuterol/Ipratropium (Duoneb 3 Mg/0.5 Mg (3 Ml) Ud) 3 ml IH Q2H PRN PRN Reason: Shortness of Breath Last Admin: 07/17/17 20:44 Dose: 3 ml Alprazolam (Xanax) 0.25 mg PO Q8H PRN; Protocol PRN Reason: Anxiety Stop: 05/11/18 15:07 Last Admin: 07/19/17 02:16 Dose: 0.25 mg Aspirin (Aspirin Chewable) 81 mg PO DAILY [facility] Last Admin: 07/20/17 09:05 Dose: 81 mg Bacitracin (Bacitracin) 1 ea TOP BID [facility] Last Admin: 07/20/17 18:02 Dose: 1 ea Cilostazol (Pletal) 50 mg PO BID [facility] Last Admin: 07/20/17 18:02 Dose: 50 mg Enoxaparin Sodium (Lovenox) 40 mg SC DAILY [facility] PRN Reason: Protocol Last Admin: 07/20/17 09:05 Dose: 40 mg Furosemide (Lasix) 40 mg PO 0800,1400 [facility] Last Admin: 07/20/17 14:12 Dose: 40 mg Levalbuterol HCl (Xopenex) 1.25 mg IH TIDRESP [facility] Last Admin: 07/20/17 19:42 Dose: 1.25 mg Metoprolol Tartrate (Lopressor) 25 mg PO BID [facility] Last Admin: 07/20/17 18:03 Dose: 25 mg Pantoprazole Sodium (Protonix Ec Tab) 40 mg PO 0600 [facility] Last Admin: 07/20/17 06:07 Dose: 40 mg Sildenafil Citrate (Revatio) 20 mg PO TID [facility] Last Admin: 07/20/17 18:04 Dose: Not Given Sucralfate (Carafate Oral Susp) 1 gm PO 0630,1130,1630,2200 [facility] Last Admin: 07/20/17 18:02 Dose: 1 gm - Labs Labs: 07/18/17 06:45 07/20/17 06:30 PT 16.8 SECONDS (9.4-12.5) H 07/11/17 20:06 INR 1.46 (0.93-1.08) H 07/11/17 20:06 APTT 69.5 Seconds (25.1-36.5) H 07/14/17 09:40 Assessment and Plan - Assessment and Plan (Free Text) Plan: Pt seen and examined. The note of the medical billing assistant has been reviewed and I agree with it. Labs and medications have been reviewed. Pt is improving with PT. Will D/C tele. He is not able to go to [facility] due to insurance or lack of it.
--- NOTE | 2017-07-20 12:09 | CP.PCM.PN ---
Subjective - Date & Time of Evaluation Date of Evaluation: 07/20/17 Time of Evaluation: 07:20 - Subjective Subjective: Lying in bed, comfortable, denies chest pain,denies shortness of breath, claimed that blood glucose low,drinking orange juice Reason for consultation and follow up: Status post CPR, cardiopulmonary arrest, borderline troponin, post cath, non obstructive coronary artery disease, pulmonary hypertension, hypertension, obesity Seen and examined by me and Dr. De La Fuente Objective - Vital Signs/Intake and Output Vital Signs (last 24 hours): Temp Pulse Resp BP Pulse Ox 98.6 F 65 16 118/75 96 07/20/17 11:52 07/20/17 11:52 07/20/17 11:52 07/20/17 11:52 07/20/17 06:00 Intake and Output: 07/20/17 07/20/17 06:59 18:59 Intake Total 240 Balance 240 - Medications Medications: Current Medications Albuterol/Ipratropium (Duoneb 3 Mg/0.5 Mg (3 Ml) Ud) 3 ml IH Q2H PRN PRN Reason: Shortness of Breath Last Admin: 07/17/17 20:44 Dose: 3 ml Alprazolam (Xanax) 0.25 mg PO Q8H PRN; Protocol PRN Reason: Anxiety Stop: 07/21/17 15:07 Last Admin: 07/19/17 02:16 Dose: 0.25 mg Aspirin (Aspirin Chewable) 81 mg PO DAILY [facility] Last Admin: 07/20/17 09:05 Dose: 81 mg Bacitracin (Bacitracin) 1 ea TOP BID [facility] Last Admin: 07/20/17 09:05 Dose: 1 ea Enoxaparin Sodium (Lovenox) 40 mg SC DAILY [facility] PRN Reason: Protocol Last Admin: 07/20/17 09:05 Dose: 40 mg Furosemide (Lasix) 40 mg PO 0800,1400 [facility] Last Admin: 07/20/17 09:06 Dose: 40 mg Levalbuterol HCl (Xopenex) 1.25 mg IH TIDRESP [facility] Last Admin: 07/20/17 08:25 Dose: 1.25 mg Metoprolol Tartrate (Lopressor) 25 mg PO BID [facility] Last Admin: 07/20/17 09:06 Dose: 25 mg Pantoprazole Sodium (Protonix Ec Tab) 40 mg PO 0600 [facility] Last Admin: 07/20/17 06:07 Dose: 40 mg Sildenafil Citrate (Revatio) 20 mg PO TID [facility] Last Admin: 07/19/17 17:40 Dose: Not Given Sucralfate (Carafate Oral Susp) 1 gm PO 0630,1130,1630,2200 [facility] Last Admin: 07/20/17 06:07 Dose: 1 gm - Labs Labs: 07/18/17 06:45 07/20/17 06:30 PT 16.8 SECONDS (9.4-12.5) H 07/11/17 20:06 INR 1.46 (0.93-1.08) H 07/11/17 20:06 APTT 69.5 Seconds (25.1-36.5) H 07/14/17 09:40 - Constitutional Appears: No Acute Distress - Eye Exam Eye Exam: Normal appearance Pupil Exam: NORMAL ACCOMODATION - ENT Exam ENT Exam: Mucous Membranes Moist - Respiratory Exam Respiratory Exam: Decreased Breath Sounds, NORMAL BREATHING PATTERN - Cardiovascular Exam Cardiovascular Exam: +S1, +S2 - GI/Abdominal Exam GI & Abdominal Exam: Soft, Normal Bowel Sounds - Extremities Exam Extremities Exam: Normal Capillary Refill - Neurological Exam Neurological Exam: Alert, Awake, Oriented x3 - Psychiatric Exam Psychiatric exam: Normal Affect, Normal Mood - Skin Skin Exam: Intact, Normal Color, Warm Additional comments: itchiness due to dry skin Assessment and Plan - Assessment and Plan (Free Text) Assessment: A 57 year old male who was brought in to the ER due to non-responsiveness. Family found him facedown in the kitchen not responding. He was breathing with pulse. He went into cardiac arrest in the ER and ACLS protocol initiated. History of hypertension, right hip replacement.borderline troponin, post cath, non obstructive coronary artery disease,pulmonary hypertension, hypertension, obesity. Plan: Doing better from baseline Denies shortness of breath Stable cardiac status Stable blood pressure and heart rate On ASA 81 mg daily,Lasix 40 mg BID,Lopressor 25 mg BID Revatio 20 mg TID Potassium today 3.6, Will supplement PRN Continue current medications Continue current treatment Will follow up Plan and treatment discussed with Dr. De La Fuente
[2017-07-20] MEDS ORDERED: Cilostazol 50 mg Tab UD PO SCH (18:00)
[2017-07-20] MEDS ORDERED: Cilostazol 100 mg Tab UD PO SCH (18:00)
[2017-07-20] MEDS: Cilostazol 50 mg Tab UD PO SCH (18:02)
[2017-07-21] MEDS: Sucralfate 1 gm/10 ml Oral Susp UD PO SCH ×4 (06:11→23:14)
[2017-07-21] MEDS: Pantoprazole 40 mg EC Tab PO SCH (06:15)
--- NOTE | 2017-07-21 07:01 | CP.PCM.PN ---
Subjective - Date & Time of Evaluation Date of Evaluation: 07/21/17 Time of Evaluation: 06:05 - Subjective Subjective: Sitting side of bed, on CPAP/BIPAP comfortable, denies chest pain,denies shortness of breath, itchy back Reason for consultation and follow up: Status post CPR, cardiopulmonary arrest, borderline troponin, post cath, non obstructive coronary artery disease, pulmonary hypertension, hypertension, obesity Seen and examined by me and Dr. De La Fuente Objective - Vital Signs/Intake and Output Vital Signs (last 24 hours): Temp Pulse Resp BP Pulse Ox 98.1 F 63 20 130/78 97 07/20/17 22:00 07/21/17 00:05 07/20/17 22:00 07/20/17 22:00 07/20/17 22:00 Intake and Output: 07/20/17 07/21/17 18:59 06:59 Intake Total 300 60 Output Total 600 100 Balance -300 -40 - Medications Medications: Current Medications Albuterol/Ipratropium (Duoneb 3 Mg/0.5 Mg (3 Ml) Ud) 3 ml IH Q2H PRN PRN Reason: Shortness of Breath Last Admin: 07/17/17 20:44 Dose: 3 ml Alprazolam (Xanax) 0.25 mg PO Q8H PRN; Protocol PRN Reason: Anxiety Stop: 07/21/17 15:07 Last Admin: 07/19/17 02:16 Dose: 0.25 mg Aspirin (Aspirin Chewable) 81 mg PO DAILY [facility] Last Admin: 07/20/17 09:05 Dose: 81 mg Bacitracin (Bacitracin) 1 ea TOP BID [facility] Last Admin: 07/20/17 18:02 Dose: 1 ea Cilostazol (Pletal) 50 mg PO BID [facility] Last Admin: 07/20/17 18:02 Dose: 50 mg Enoxaparin Sodium (Lovenox) 40 mg SC DAILY [facility] PRN Reason: Protocol Last Admin: 07/20/17 09:05 Dose: 40 mg Furosemide (Lasix) 40 mg PO 0800,1400 [facility] Last Admin: 07/20/17 14:12 Dose: 40 mg Levalbuterol HCl (Xopenex) 1.25 mg IH TIDRESP [facility] Last Admin: 07/20/17 19:42 Dose: 1.25 mg Metoprolol Tartrate (Lopressor) 25 mg PO BID [facility] Last Admin: 07/20/17 18:03 Dose: 25 mg Pantoprazole Sodium (Protonix Ec Tab) 40 mg PO 0600 [facility] Last Admin: 07/21/17 06:15 Dose: 40 mg Sildenafil Citrate (Revatio) 20 mg PO TID [facility] Last Admin: 07/20/17 18:04 Dose: Not Given Sucralfate (Carafate Oral Susp) 1 gm PO 0630,1130,1630,2200 [facility] Last Admin: 07/21/17 06:11 Dose: 1 gm - Labs Labs: 07/18/17 06:45 07/20/17 06:30 PT 16.8 SECONDS (9.4-12.5) H 07/11/17 20:06 INR 1.46 (0.93-1.08) H 07/11/17 20:06 APTT 69.5 Seconds (25.1-36.5) H 07/14/17 09:40 - Constitutional Appears: No Acute Distress - Head Exam Head Exam: NORMOCEPHALIC - Eye Exam Eye Exam: Normal appearance - ENT Exam ENT Exam: Mucous Membranes Moist - Respiratory Exam Respiratory Exam: Decreased Breath Sounds, Rhonchi Additional comments: CPAP switch to NC 3-4l/min - Cardiovascular Exam Cardiovascular Exam: +S1, +S2 - GI/Abdominal Exam GI & Abdominal Exam: Soft, Normal Bowel Sounds - Extremities Exam Extremities Exam: Normal Capillary Refill - Neurological Exam Neurological Exam: Alert, Awake, Oriented x3 - Psychiatric Exam Psychiatric exam: Normal Affect, Normal Mood - Skin Skin Exam: Intact, Normal Color, Warm Assessment and Plan - Assessment and Plan (Free Text) Assessment: 57 year old male who was brought in to the ER due to non-responsiveness. Family found him facedown in the kitchen not responding. He was breathing with pulse. He went into cardiac arrest in the ER and ACLS protocol initiated. History of hypertension, right hip replacement.borderline troponin, post cath, non obstructive coronary artery disease,pulmonary hypertension, hypertension, obesity. Plan: Feeling much better from baseline Slept well with CPAP/BIPAP Denies shortness of breath Stable cardiac status Stable blood pressure and heart rate On ASA 81 mg daily,Lasix 40 mg BID,Lopressor 25 mg BID Revatio 20 mg TID Continue current medications Continue current treatment Physical therapy Will follow up Plan and treatment discussed with Dr. De La Fuente
[2017-07-21 07:21] LABS: BLOOD UREA NITROGEN 20 mg/dL (7-21); CALCIUM 8.9 mg/dL (8.4-10.5); GFR AFRICAN-AMERICAN > 60; GFR NON-AFRICAN AMERICAN > 60
[2017-07-21] MEDS: Levalbuterol 1.25 MG/3 ML Inhal Soln UD IH SCH ×3 (07:21→20:03)
[2017-07-21] MEDS ORDERED: Potassium Chloride 20 mEq ER Tab PO STA (07:44)
--- NOTE | 2017-07-21 07:48 | CP.PCM.PN ---
Subjective - Date & Time of Evaluation Date of Evaluation: 07/21/17 Time of Evaluation: 07:43 Objective - Vital Signs/Intake and Output Vital Signs (last 24 hours): Temp Pulse Resp BP Pulse Ox 98.1 F 63 20 130/78 97 07/20/17 22:00 07/21/17 00:05 07/20/17 22:00 07/20/17 22:00 07/20/17 22:00 Intake and Output: 07/21/17 07/21/17 06:59 18:59 Intake Total 60 Output Total 100 Balance -40 - Medications Medications: Current Medications Albuterol/Ipratropium (Duoneb 3 Mg/0.5 Mg (3 Ml) Ud) 3 ml IH Q2H PRN PRN Reason: Shortness of Breath Last Admin: 07/17/17 20:44 Dose: 3 ml Alprazolam (Xanax) 0.25 mg PO Q8H PRN; Protocol PRN Reason: Anxiety Stop: 07/21/17 15:07 Last Admin: 07/19/17 02:16 Dose: 0.25 mg Aspirin (Aspirin Chewable) 81 mg PO DAILY [facility] Last Admin: 07/20/17 09:05 Dose: 81 mg Bacitracin (Bacitracin) 1 ea TOP BID [facility] Last Admin: 07/20/17 18:02 Dose: 1 ea Cilostazol (Pletal) 50 mg PO BID [facility] Last Admin: 07/20/17 18:02 Dose: 50 mg Enoxaparin Sodium (Lovenox) 40 mg SC DAILY [facility] PRN Reason: Protocol Last Admin: 07/20/17 09:05 Dose: 40 mg Furosemide (Lasix) 40 mg PO 0800,1400 [facility] Last Admin: 07/20/17 14:12 Dose: 40 mg Levalbuterol HCl (Xopenex) 1.25 mg IH TIDRESP [facility] Last Admin: 07/21/17 07:21 Dose: 1.25 mg Metoprolol Tartrate (Lopressor) 25 mg PO BID [facility] Last Admin: 07/20/17 18:03 Dose: 25 mg Pantoprazole Sodium (Protonix Ec Tab) 40 mg PO 0600 [facility] Last Admin: 07/21/17 06:15 Dose: 40 mg Sildenafil Citrate (Revatio) 20 mg PO TID [facility] Last Admin: 05/10/18 18:04 Dose: Not Given Sucralfate (Carafate Oral Susp) 1 gm PO 0630,1130,1630,2200 [facility] Last Admin: 07/21/17 06:11 Dose: 1 gm - Labs Labs: 07/18/17 06:45 07/21/17 06:15 PT 16.8 SECONDS (9.4-12.5) H 07/11/17 20:06 INR 1.46 (0.93-1.08) H 07/11/17 20:06 APTT 69.5 Seconds (25.1-36.5) H 07/14/17 09:40
--- NOTE | 2017-07-21 07:57 | PN ---
DATE: 07/21/2017 PULMONARY NOTE SUBJECTIVE: The patient appears comfortable this morning. He is not short of breath at rest. PHYSICAL EXAMINATION: VITAL SIGNS: (Last noted in the computer): Temperature is 98.1, pulse 63, respirations 18, blood pressure 130/78. Oxygen saturation on nasal cannula is 97%. HEENT: Normocephalic, atraumatic. NECK: No JVD. CARDIOVASCULAR: Positive S1, S2. No S3 gallop. LUNGS: Clear bilaterally. EXTREMITIES: Less edema. No cyanosis, no clubbing. Calves are nontender to palpation. GI: Abdomen is soft, nontender, nondistended. Bowel sounds are positive. SKIN: No acute rash. NEUROLOGIC: Exam limited at the present time. IMPRESSION: 1. Status post cardiac arrest. 2. Acute myocardial infarction. 3. Status post respiratory failure. 4. Chronic obstructive pulmonary disease. 5. Obstructive sleep apnea. 6. Pulmonary hypertension. PLAN: The patient appears very comfortable this morning. He is not short of breath at rest. He does state to feeling much, much better overall. I did discuss the case with the night nurse at length. The night nurse stated that the patient had a very good night. On physical exam, his bronchospasm has primarily resolved. In addition, the alveolar-arterial gradient has also resolved. Oxygen saturation on nasal cannula is now 97%. I would still continue with the BiPAP at night. The patient remains on nebulizer treatments. The patient also remains on Revatio-for his pulmonary hypertension. The clinical status of this patient is significantly improved overall. I will discuss the above with the attending physician this morning. Narayan Bone MD [id number]
--- NOTE | 2017-07-21 08:28 | CP.PCM.PN ---
Objective - Vital Signs/Intake and Output Vital Signs (last 24 hours): Temp Pulse Resp BP Pulse Ox 98.4 F 72 18 124/80 96 07/21/17 06:00 07/21/17 06:00 07/21/17 06:00 07/21/17 06:00 07/21/17 06:00 Intake and Output: 07/21/17 07/21/17 06:59 18:59 Intake Total 60 Output Total 100 Balance -40 - Medications Medications: Current Medications Albuterol/Ipratropium (Duoneb 3 Mg/0.5 Mg (3 Ml) Ud) 3 ml IH Q2H PRN PRN Reason: Shortness of Breath Last Admin: 07/17/17 20:44 Dose: 3 ml Alprazolam (Xanax) 0.25 mg PO Q8H PRN; Protocol PRN Reason: Anxiety Stop: 07/21/17 15:07 Last Admin: 07/19/17 02:16 Dose: 0.25 mg Aspirin (Aspirin Chewable) 81 mg PO DAILY [facility] Last Admin: 07/20/17 09:05 Dose: 81 mg Bacitracin (Bacitracin) 1 ea TOP BID [facility] Last Admin: 07/20/17 18:02 Dose: 1 ea Cilostazol (Pletal) 50 mg PO BID [facility] Last Admin: 07/20/17 18:02 Dose: 50 mg Enoxaparin Sodium (Lovenox) 40 mg SC DAILY [facility] PRN Reason: Protocol Last Admin: 07/20/17 09:05 Dose: 40 mg Furosemide (Lasix) 40 mg PO 0800,1400 [facility] Last Admin: 07/20/17 14:12 Dose: 40 mg Levalbuterol HCl (Xopenex) 1.25 mg IH TIDRESP [facility] Last Admin: 07/21/17 07:21 Dose: 1.25 mg Metoprolol Tartrate (Lopressor) 25 mg PO BID [facility] Last Admin: 07/20/17 18:03 Dose: 25 mg Pantoprazole Sodium (Protonix Ec Tab) 40 mg PO 0600 [facility] Last Admin: 07/21/17 06:15 Dose: 40 mg Potassium Chloride (K-Dur 20 Meq Er Tab) 20 meq PO BRK [facility] Sildenafil Citrate (Revatio) 20 mg PO TID [facility] Last Admin: 07/20/17 18:04 Dose: Not Given Sucralfate (Carafate Oral Susp) 1 gm PO 0630,1130,1630,2200 [facility] Last Admin: 07/21/17 06:11 Dose: 1 gm - Labs Labs: 07/18/17 06:45 07/21/17 06:15 PT 16.8 SECONDS (9.4-12.5) H 07/11/17 20:06 INR 1.46 (0.93-1.08) H 07/11/17 20:06 APTT 69.5 Seconds (25.1-36.5) H 07/14/17 09:40
--- NOTE | 2017-07-21 08:57 | CP.PCM.PN ---
<Lisa Curry - Last Filed: 07/21/17 08:53> Subjective - Date & Time of Evaluation Date of Evaluation: 07/21/17 Time of Evaluation: 07:00 - Subjective Subjective: Progress Note for Harsh Ureña PGY2 Patient seen and examined at bedside. There were no acute overnight events as per nursing staff. Patient said his R sided chest pain has improved. He walked with physical therapy yesterday. Patient was only able to ambulate 25 feet. His oxygen saturation went from 93% to 81% on room air after ambulation. This morning patient denies chest pain, shortness of breath, nausea, vomiting, diarrhea, constipation, fever/chills, numbness/tingling, dysuria or hematuria. Objective - Vital Signs/Intake and Output Vital Signs (last 24 hours): Temp Pulse Resp BP Pulse Ox 98.4 F 72 18 124/80 96 07/21/17 06:00 07/21/17 06:00 07/21/17 06:00 07/21/17 06:00 07/21/17 06:00 Intake and Output: 07/21/17 07/21/17 06:59 18:59 Intake Total 60 Output Total 100 Balance -40 - Medications Medications: Current Medications Albuterol/Ipratropium (Duoneb 3 Mg/0.5 Mg (3 Ml) Ud) 3 ml IH Q2H PRN PRN Reason: Shortness of Breath Last Admin: 07/17/17 20:44 Dose: 3 ml Alprazolam (Xanax) 0.25 mg PO Q8H PRN; Protocol PRN Reason: Anxiety Stop: 07/21/17 15:07 Last Admin: 07/19/17 02:16 Dose: 0.25 mg Aspirin (Aspirin Chewable) 81 mg PO DAILY [facility] Last Admin: 07/20/17 09:05 Dose: 81 mg Bacitracin (Bacitracin) 1 ea TOP BID [facility] Last Admin: 07/20/17 18:02 Dose: 1 ea Cilostazol (Pletal) 50 mg PO BID [facility] Last Admin: 07/20/17 18:02 Dose: 50 mg Enoxaparin Sodium (Lovenox) 40 mg SC DAILY [facility] PRN Reason: Protocol Last Admin: 07/20/17 09:05 Dose: 40 mg Furosemide (Lasix) 40 mg PO 0800,1400 [facility] Last Admin: 07/20/17 14:12 Dose: 40 mg Levalbuterol HCl (Xopenex) 1.25 mg IH TIDRESP [facility] Last Admin: 07/21/17 07:21 Dose: 1.25 mg Metoprolol Tartrate (Lopressor) 25 mg PO BID [facility] Last Admin: 07/20/17 18:03 Dose: 25 mg Pantoprazole Sodium (Protonix Ec Tab) 40 mg PO 0600 [facility] Last Admin: 07/21/17 06:15 Dose: 40 mg Potassium Chloride (K-Dur 20 Meq Er Tab) 20 meq PO BRK [facility] Sildenafil Citrate (Revatio) 20 mg PO TID [facility] Last Admin: 07/20/17 18:04 Dose: Not Given Sucralfate (Carafate Oral Susp) 1 gm PO 0630,1130,1630,2200 [facility] Last Admin: 07/21/17 06:11 Dose: 1 gm - Labs Labs: 07/18/17 06:45 07/21/17 06:15 PT 16.8 SECONDS (9.4-12.5) H 07/11/17 20:06 INR 1.46 (0.93-1.08) H 07/11/17 20:06 APTT 69.5 Seconds (25.1-36.5) H 07/14/17 09:40 - Constitutional Appears: Younger Than Stated Age - Head Exam Head Exam: ATRAUMATIC, NORMAL INSPECTION, NORMOCEPHALIC - Eye Exam Eye Exam: Normal appearance, PERRL Pupil Exam: NORMAL ACCOMODATION, PERRL - ENT Exam ENT Exam: Mucous Membranes Moist - Neck Exam Neck Exam: Full ROM - Respiratory Exam Respiratory Exam: Clear to Ausculation Bilateral, NORMAL BREATHING PATTERN. absent: Rales, Rhonchi, Wheezes - Cardiovascular Exam Cardiovascular Exam: REGULAR RHYTHM, +S1, +S2. absent: Gallop, Rubs, Murmur - GI/Abdominal Exam GI & Abdominal Exam: Soft, Normal Bowel Sounds. absent: Rigid, Tenderness, Mass , Rebound - Extremities Exam Extremities Exam: Pedal Edema (+ 3 pitting edema bilaterally ) - Neurological Exam Neurological Exam: Alert, Awake, CN II-XII Intact, Oriented x3 - Psychiatric Exam Psychiatric exam: Normal Affect, Normal Mood - Skin Skin Exam: Dry, Warm Assessment and Plan - Assessment and Plan (Free Text) Assessment: This is a 57yo M with past medical history HTN admitted for s/p cardiac arrest, respiratory failure intubation s/p extubation, possible SIGRID who was found to have severe pulmonary HTN and community acquired pneumonia (finished antibiotic treatment). Plan: 1. Cardiac arrest s/p ROSC - Secondary to possible SIGRID v. severe pulm HTN seen on cardiac cath - Cardio consulted- recs appreciated - Neuro consulted- recs appreciated. No evidence of acute CVA- started on Cilostazol (hold if SBP <110) - Lasix 40 PO BID - Daily weights and I&O - Pulm consulted- recs appreciated - Continue Sildenaifil - Bipap at night 2. Hypokalemia - secondary to diuretics - K: 3.5 - Will place patient on K-dur 20meq daily 3. Metabolic Alkalosis with Respiratory Acidosis (stable) - Resp Acidosis can be secondary to SIGRID, Metabolic Alkalosis can be secondary to diuretics - Bicarb: 42 - BiPAP at night 4. Delirium (resolved) - could have been from hypercapnea v. hospital delirium - Nursing staff did not report any confusion for past few days - re-orientation and education - Avoid sedating medication 5. Hx of HTN - Metoprolol GI ppx: Protonix DVT ppx: Lovenox Dispo: Patient having insurance issues. Patient de-saturated from 93 to 81% on room air after ambulation and only walked 25 feet yesterday. Continue to work with physical therapy. Case seen, discussed and reviewed with Dr. García. Harsh Curry PGY2 <Terry García S - Last Filed: 07/23/17 18:53> Objective - Vital Signs/Intake and Output Vital Signs (last 24 hours): Temp Pulse Resp BP Pulse Ox 98.6 F 67 18 134/90 99 07/23/17 14:00 07/23/17 14:00 07/23/17 14:00 07/23/17 16:28 07/23/17 14:00 Intake and Output: 07/23/17 07/23/17 06:59 18:59 Intake Total 660 840 Output Total 350 600 Balance 310 240 - Medications Medications: Current Medications Albuterol/Ipratropium (Duoneb 3 Mg/0.5 Mg (3 Ml) Ud) 3 ml IH Q2H PRN PRN Reason: Shortness of Breath Last Admin: 07/17/17 20:44 Dose: 3 ml Aspirin (Aspirin Chewable) 81 mg PO DAILY [facility] Last Admin: 07/23/17 10:26 Dose: 81 mg Bacitracin (Bacitracin) 1 ea TOP BID [facility] Last Admin: 07/23/17 10:30 Dose: 1 ea Cilostazol (Pletal) 50 mg PO BID [facility] Last Admin: 07/23/17 16:23 Dose: 50 mg Furosemide (Lasix) 40 mg PO 0800,1400 [facility] Last Admin: 07/23/17 14:16 Dose: 40 mg Levalbuterol HCl (Xopenex) 1.25 mg IH TIDRESP [facility] Last Admin: 07/23/17 13:39 Dose: 1.25 mg Metoprolol Tartrate (Lopressor) 25 mg PO BID [facility] Last Admin: 07/23/17 16:18 Dose: 25 mg Pantoprazole Sodium (Protonix Ec Tab) 40 mg PO 0600 [facility] Last Admin: 07/23/17 07:39 Dose: 40 mg Potassium Chloride (K-Dur 20 Meq Er Tab) 20 meq PO BID [facility] Last Admin: 07/23/17 16:18 Dose: 20 meq Sildenafil Citrate (Revatio) 20 mg PO TID [facility] Last Admin: 07/23/17 16:25 Dose: 20 mg Sucralfate (Carafate Oral Susp) 1 gm PO 0630,1130,1630,2200 [facility] Last Admin: 07/23/17 16:17 Dose: 1 gm - Labs Labs: 07/18/17 06:45 07/23/17 07:00 PT 16.8 SECONDS (9.4-12.5) H 07/11/17 20:06 INR 1.46 (0.93-1.08) H 07/11/17 20:06 APTT 69.5 Seconds (25.1-36.5) H 07/14/17 09:40 Assessment and Plan - Assessment and Plan (Free Text) Plan: Pt seen and examined. Agree with the note of the medical lab technologist. Medications and Labs were reviewed. Pt is improving. Unable to go to [facility] due to insurance. He will continue with PT. Delirium has resolved.
[2017-07-21] MEDS: Cilostazol 50 mg Tab UD PO SCH ×2 (10:49→18:10)
[2017-07-21] MEDS: Sildenafil 20 MG TAB PO SCH ×3 (10:50→18:04)
[2017-07-21] MEDS: Bacitracin 500 Units/gm Oint Foilpak UD TOP SCH ×2 (10:57→18:02)
[2017-07-21] MEDS: Enoxaparin 40 mg Syringe SC SCH (11:08)
[2017-07-22] MEDS: Sucralfate 1 gm/10 ml Oral Susp UD PO SCH ×4 (06:33→21:11)
[2017-07-22] MEDS: Pantoprazole 40 mg EC Tab PO SCH (06:33)
[2017-07-22] MEDS ORDERED: Potassium Chloride 20 mEq ER Tab PO SCH (08:00)
[2017-07-22 08:01] LABS: BLOOD UREA NITROGEN 20 mg/dL (7-21); CALCIUM 8.7 mg/dL (8.4-10.5); GFR AFRICAN-AMERICAN > 60; GFR NON-AFRICAN AMERICAN > 60
[2017-07-22] MEDS: Levalbuterol 1.25 MG/3 ML Inhal Soln UD IH SCH ×3 (08:09→20:45)
[2017-07-22] MEDS: Cilostazol 50 mg Tab UD PO SCH ×2 (09:13→18:11)
[2017-07-22] MEDS: Enoxaparin 40 mg Syringe SC SCH (09:14)
[2017-07-22] MEDS: Sildenafil 20 MG TAB PO SCH ×3 (10:00→18:15)
[2017-07-22] MEDS: Bacitracin 500 Units/gm Oint Foilpak UD TOP SCH ×2 (10:00→18:13)
--- NOTE | 2017-07-22 10:35 | PN ---
DATE: 07/22/2017 PULMONARY PROGRESS NOTE SUBJECTIVE: The patient appears very comfortable this morning. He is not short of breath at rest. PHYSICAL EXAMINATION: VITAL SIGNS: (Last noted in the computer): Temperature is 97.6, pulse 72, respirations 18, blood pressure 116/76. Oxygen saturation on room air is 95%. HEENT: Normocephalic, atraumatic. No JVD. CARDIOVASCULAR: Positive S1, S2. No S3 gallop. LUNGS: Clear bilaterally. EXTREMITIES: Less edema. No cyanosis, no clubbing. Calves are nontender to palpation. GASTROINTESTINAL: Abdomen is soft, nontender and nondistended. Bowel sounds are positive. SKIN: No acute rash. NEUROLOGIC: Limited at the present time. IMPRESSION: 1. Status post cardiac arrest. 2. Acute myocardial infarction. 3. Status post respiratory failure. 4. Chronic obstructive pulmonary disease. 5. Obstructive sleep apnea. 6. Pulmonary hypertension. PLAN: The patient appears comfortable this morning. He is not short of breath at rest. He does state to feeling much, much better overall. He did state to ambulating yesterday with physical therapy. The patient does state he felt good with ambulation. I also discussed the case with the night nurse at length. The night nurse stated that the patient had a very good night. On physical exam, his bronchospasm has resolved. In addition, the alveolar-arterial gradient has also resolved. Oxygen saturation on room air is now 95%. I will still continue with the BiPAP at night. I will also continue with the Xopenex nebulizer treatments and aspiration precautions. I did discuss the patient's insurance issues with Birth Attendant the last few days. They are trying to figure out a way to get the patient either BiPAP or a Trilogy ventilator at home. The patient will also need close follow up of his pulmonary hypertension - as an outpatient. I will continue to work with Birth Attendant. Clinical status of the patient is significantly improved overall. I will discuss the above with the attending physician. Narayan Bone MD [facility]
[2017-07-22] MEDS ORDERED: Potassium Chloride 20 mEq ER Tab PO ONE (13:56)
--- NOTE | 2017-07-22 14:15 | CP.PCM.PN ---
Subjective - Date & Time of Evaluation Date of Evaluation: 07/22/17 Time of Evaluation: 12:35 - Subjective Subjective: Afebrile, not in distress. Objective - Vital Signs/Intake and Output Vital Signs (last 24 hours): Temp Pulse Resp BP Pulse Ox 97.6 F 72 20 116/76 95 07/21/17 22:00 07/22/17 00:43 07/21/17 22:00 07/21/17 22:00 07/21/17 22:00 Intake and Output: 07/22/17 07/22/17 06:59 18:59 Intake Total 840 Output Total 800 Balance 40 - Medications Medications: Current Medications Albuterol/Ipratropium (Duoneb 3 Mg/0.5 Mg (3 Ml) Ud) 3 ml IH Q2H PRN PRN Reason: Shortness of Breath Last Admin: 07/17/17 20:44 Dose: 3 ml Aspirin (Aspirin Chewable) 81 mg PO DAILY [facility] Last Admin: 07/21/17 10:59 Dose: 81 mg Bacitracin (Bacitracin) 1 ea TOP BID [facility] Last Admin: 07/21/17 18:02 Dose: Not Given Cilostazol (Pletal) 50 mg PO BID [facility] Last Admin: 07/21/17 18:10 Dose: 50 mg Enoxaparin Sodium (Lovenox) 40 mg SC DAILY [facility] PRN Reason: Protocol Last Admin: 07/21/17 11:08 Dose: 40 mg Furosemide (Lasix) 40 mg PO 0800,1400 [facility] Last Admin: 07/21/17 14:52 Dose: 40 mg Levalbuterol HCl (Xopenex) 1.25 mg IH TIDRESP [facility] Last Admin: 07/21/17 20:03 Dose: 1.25 mg Metoprolol Tartrate (Lopressor) 25 mg PO BID [facility] Last Admin: 07/21/17 10:58 Dose: 25 mg Pantoprazole Sodium (Protonix Ec Tab) 40 mg PO 0600 [facility] Last Admin: 07/22/17 06:33 Dose: 40 mg Potassium Chloride (K-Dur 20 Meq Er Tab) 20 meq PO BRK [facility] Sildenafil Citrate (Revatio) 20 mg PO TID [facility] Last Admin: 07/21/17 18:04 Dose: Not Given Sucralfate (Carafate Oral Susp) 1 gm PO 0630,1130,1630,2200 [facility] Last Admin: 07/22/17 06:33 Dose: 1 gm - Labs Labs: 07/18/17 06:45 07/21/17 06:15 PT 16.8 SECONDS (9.4-12.5) H 07/11/17 20:06 INR 1.46 (0.93-1.08) H 07/11/17 20:06 APTT 69.5 Seconds (25.1-36.5) H 07/14/17 09:40 - Constitutional Appears: Chronically Ill - Head Exam Head Exam: NORMAL INSPECTION - Respiratory Exam Respiratory Exam: Decreased Breath Sounds - Cardiovascular Exam Cardiovascular Exam: +S1, +S2 - GI/Abdominal Exam GI & Abdominal Exam: Soft. absent: Tenderness Assessment and Plan - Assessment and Plan (Free Text) Plan: Assessment S/P systemic Inflammatory Response syndrome, S/P VDRF and S/P acute encephalopathy after cardiorespiratory arrest, S/P severe sepsis from pneumonia , clinically improved, on top of CHF from acute [place] S/P PCI HTN morbid obesity with BMI 45 S/P right hip replacement Plan S/P 7 days of Doxycycline - will continue monitor clinically off antibiotics since he is at risk for hospital-acquired infections
[2017-07-22] MEDS: Potassium Chloride 20 mEq ER Tab PO SCH (18:11)
--- NOTE | 2017-07-22 22:39 | PN ---
DATE: 07/22/2017 SUBJECTIVE: The patient is a 57-year-old, seen and examined, sitting in chair, seems to be comfortable. Does not complain of any chest pain. No shortness of breath. Eating and tolerating. No fever or chills. Patient did mention that he has chest pain but he was told by other staff members that this is musculoskeletal. PHYSICAL EXAMINATION: GENERAL: He is awake, alert, oriented, communicative. VITAL SIGNS: He is afebrile, pulse 73, respirations 22, blood pressure 115/65. HEENT: He has symmetrical face. Nonicteric sclerae. [place] conjunctivae. NECK: No lymphadenopathy. No thyromegaly. CHEST: He has palpable chest discomfort. LUNGS: Bilateral fair airflow. No rhonchi or crackle. HEART: S1, S2 audible. ABDOMEN: Soft, obese, nontender. No rebound. No guarding. NEUROLOGICAL: He is awake, alert, oriented, able to communicate. LABORATORY EXAM: Sodium 141, potassium 3.2, chloride 95, CO2 of 37, BUN 20, creatinine 0.9. Blood sugar of 112. Blood culture and urine cultures are negative. DIAGNOSTIC DATA: MRI of the brain was done on 07/19 that shows no acute ischemia, encephalomalacia with adjacent gliosis was identified. ASSESSMENT: 1. Status post cardiac arrest, status post respiratory failure, status post extubation. 2. Status post metabolic encephalopathy. 3. Sepsis secondary to pneumonia. 4. Morbid obesity. 5. Hypertension. 6. Status post cardiac catheterization and was found to be nonobstructive coronaries. PLAN: I will order for BNP tomorrow. Currently patient is on diuretics twice a day. If BNP has improved, might decrease his Lasix to daily. For now, we will supplement his potassium and I will order for CBC, CMP in a.m. Abelardo Paez MD
--- NOTE | 2017-07-23 07:26 | PN ---
DATE: 07/23/2017 PULMONARY NOTE SUBJECTIVE: The patient appears comfortable this morning. He is not short of breath at rest. He is currently on BiPAP. OBJECTIVE: VITAL SIGNS (last noted in the computer): Temperature is 98.2, pulse 71, respirations 18, blood pressure 109/73. Oxygen saturation - last measured on nasal cannula - 99%. HEENT: Normocephalic, atraumatic. No JVD. CARDIOVASCULAR: Positive S1, S2. No S3 gallop. LUNGS: Clear bilaterally. EXTREMITIES: Less edema. No cyanosis, no clubbing. Calves are nontender to palpation. GI: Abdomen is soft, nontender and nondistended. Bowel sounds are positive. SKIN: No acute rash. NEUROLOGIC: Exam limited at the present time. IMPRESSION: 1. Status post cardiac arrest. 2. Acute myocardial infarction. 3. Status post respiratory failure. 4. Chronic obstructive pulmonary disease. 5. Obstructive sleep apnea. 6. Pulmonary hypertension. PLAN: The patient appears comfortable this morning. He is not short of breath at rest. He is currently on BiPAP. I did discuss the case with the night nurse at length. The night nurse stated that the patient had a good night. On physical exam, his bronchospasm has resolved. In addition, the alveolar-arterial gradient has also resolved. I will continue with the current nebulizer treatments and aspiration precautions for now. The patient also remains on Revatio - for his pulmonary hypertension. I would continue with the treatment for acute myocardial infarction as per Cardiology. Inputs by Cardiology are noted. The clinical status of the patient is significantly improved overall. I will continue to work with Esthetics Instructor - to see what we can offer the patient-- as an outpatient. I will discuss the above with the attending physician. Narayan Bone MD [facility]
[2017-07-23] MEDS: Sucralfate 1 gm/10 ml Oral Susp UD PO SCH ×4 (07:39→21:49)
[2017-07-23] MEDS: Pantoprazole 40 mg EC Tab PO SCH (07:39)
[2017-07-23 07:51] LABS: BLOOD UREA NITROGEN 16 mg/dL (7-21); CALCIUM 8.5 mg/dL (8.4-10.5); GFR AFRICAN-AMERICAN > 60; GFR NON-AFRICAN AMERICAN > 60
[2017-07-23 07:52] LABS: B-TYPE NATRIURETIC PEPTIDE 316 pg/mL (0-450)
[2017-07-23] MEDS: Levalbuterol 1.25 MG/3 ML Inhal Soln UD IH SCH ×3 (08:19→21:15)
[2017-07-23] MEDS: Sildenafil 20 MG TAB PO SCH ×4 (10:00→19:59)
[2017-07-23] MEDS: Enoxaparin 40 mg Syringe SC SCH (10:24)
[2017-07-23] MEDS: Potassium Chloride 20 mEq ER Tab PO SCH ×3 (10:26→19:58)
[2017-07-23] MEDS: Cilostazol 50 mg Tab UD PO SCH ×3 (10:26→19:59)
[2017-07-23] MEDS: Bacitracin 500 Units/gm Oint Foilpak UD TOP SCH ×2 (10:30→19:53)
--- NOTE | 2017-07-23 13:58 | CP.PCM.PN ---
Subjective - Date & Time of Evaluation Date of Evaluation: 07/23/17 Time of Evaluation: 10:20 - Subjective Subjective: No fevers, comfortable. Objective - Vital Signs/Intake and Output Vital Signs (last 24 hours): Temp Pulse Resp BP Pulse Ox 98.2 F 71 20 109/73 99 07/22/17 22:00 07/23/17 00:30 07/22/17 22:00 07/22/17 22:00 07/22/17 22:00 Intake and Output: 07/23/17 07/23/17 06:59 18:59 Intake Total 660 Output Total 350 Balance 310 - Medications Medications: Current Medications Albuterol/Ipratropium (Duoneb 3 Mg/0.5 Mg (3 Ml) Ud) 3 ml IH Q2H PRN PRN Reason: Shortness of Breath Last Admin: 07/17/17 20:44 Dose: 3 ml Aspirin (Aspirin Chewable) 81 mg PO DAILY [facility] Last Admin: 07/22/17 09:14 Dose: 81 mg Bacitracin (Bacitracin) 1 ea TOP BID [facility] Last Admin: 07/22/17 18:13 Dose: Not Given Cilostazol (Pletal) 50 mg PO BID [facility] Last Admin: 07/22/17 18:11 Dose: 50 mg Enoxaparin Sodium (Lovenox) 40 mg SC DAILY [facility] PRN Reason: Protocol Last Admin: 07/22/17 09:14 Dose: 40 mg Furosemide (Lasix) 40 mg PO 0800,1400 [facility] Last Admin: 07/22/17 15:25 Dose: 40 mg Levalbuterol HCl (Xopenex) 1.25 mg IH TIDRESP [facility] Last Admin: 07/22/17 20:45 Dose: 1.25 mg Metoprolol Tartrate (Lopressor) 25 mg PO BID [facility] Last Admin: 07/22/17 18:14 Dose: 25 mg Pantoprazole Sodium (Protonix Ec Tab) 40 mg PO 0600 [facility] Last Admin: 07/22/17 06:33 Dose: 40 mg Potassium Chloride (K-Dur 20 Meq Er Tab) 20 meq PO BID [facility] Last Admin: 07/22/17 18:11 Dose: 20 meq Sildenafil Citrate (Revatio) 20 mg PO TID [facility] Last Admin: 07/22/17 18:15 Dose: Not Given Sucralfate (Carafate Oral Susp) 1 gm PO 0630,1130,1630,2200 [facility] Last Admin: 07/22/17 21:11 Dose: 1 gm - Labs Labs: 07/18/17 06:45 07/22/17 07:00 PT 16.8 SECONDS (9.4-12.5) H 07/11/17 20:06 INR 1.46 (0.93-1.08) H 07/11/17 20:06 APTT 69.5 Seconds (25.1-36.5) H 07/14/17 09:40 - Constitutional Appears: Chronically Ill - Head Exam Head Exam: NORMAL INSPECTION - ENT Exam ENT Exam: Mucous Membranes Moist - Respiratory Exam Respiratory Exam: Decreased Breath Sounds - Cardiovascular Exam Cardiovascular Exam: +S1, +S2 - GI/Abdominal Exam GI & Abdominal Exam: Soft. absent: Tenderness Assessment and Plan - Assessment and Plan (Free Text) Plan: Assessment S/P systemic Inflammatory Response syndrome, S/P VDRF and S/P acute encephalopathy after cardiorespiratory arrest, S/P severe sepsis from pneumonia , clinically improved, on top of CHF from acute [place] S/P PCI HTN morbid obesity with BMI 45 S/P right hip replacement Plan S/P 7 days of Doxycycline - will continue monitor clinically off antibiotics since he is at risk for healthcare-associated infections
[2017-07-23 15:34] LABS: URINE BILIRUBIN NEGATIVE (NEGATIVE); URINE BLOOD NEGATIVE (NEGATIVE); URINE GLUCOSE (UA) NEGATIVE (NEGATIVE); URINE LEUKOCYTE ESTERASE NEGATIVE Leu/uL (NEGATIVE); URINE PROTEIN NEGATIVE mg/dL (<30 mg/dL)
[2017-07-23 15:35] LABS: URINE APPEARANCE CLEAR (CLEAR); URINE COLOR YELLOW (YELLOW)
--- NOTE | 2017-07-23 18:11 | PN ---
DATE: 07/23/2017 SUBJECTIVE: The patient is a 57-year-old, seen and examined, sitting in chair, seems to be comfortable. Denies any nausea or vomiting. States he is having little chills, otherwise doing well. Eating and tolerating. Off and on chest discomfort . PHYSICAL EXAMINATION: VITAL SIGNS: He is afebrile, pulse 67, respirations 18, blood pressure 122/77. LUNGS: Bilateral fair airflow. No rhonchi or crackle. HEART: S1, S2 audible. ABDOMEN: Soft, obese, nontender. No rebound. No guarding. NEUROLOGICAL: He is awake, alert, oriented, communicative. LABORATORY EXAM: Sodium 141, potassium 3.5, chloride 96, CO2 of 38. BUN 16, creatinine 0.9. Blood sugar of 103. ASSESSMENT: 1. Status post cardiac arrest, status post respiratory failure, status post extubation. 2. Resolved metabolic encephalopathy. 3. Community-acquired pneumonia. 4. Hypertension. 5. . 6. Nonocclusive coronary artery disease. 7. Hypokalemia. PLAN: We will continue the patient on diuretic, increase his potassium supplementation. Currently, he is on Revatio for pulmonary hypertension. Continue physical therapy. Follow up electrolytes in a.m. Abelardo Paez MD
--- NOTE | 2017-07-24 05:56 | CP.PCM.PN ---
Subjective - Date & Time of Evaluation Date of Evaluation: 07/24/17 Time of Evaluation: 06:35 - Subjective Subjective: Lying in bed, comfortable, denies chest pain,denies shortness of breath Reason for consultation and follow up: Status post CPR, cardiopulmonary arrest, borderline troponin, post cath, non obstructive coronary artery disease, pulmonary hypertension, hypertension, obesity Seen and examined by me and Dr. Atkinson Objective - Vital Signs/Intake and Output Vital Signs (last 24 hours): Temp Pulse Resp BP Pulse Ox 98.1 F 72 18 116/64 96 07/23/17 22:00 07/24/17 03:00 07/23/17 22:00 07/23/17 22:00 07/23/17 22:00 Intake and Output: 07/23/17 07/24/17 18:59 06:59 Intake Total 840 480 Output Total 600 400 Balance 240 80 - Medications Medications: Current Medications Albuterol/Ipratropium (Duoneb 3 Mg/0.5 Mg (3 Ml) Ud) 3 ml IH Q2H PRN PRN Reason: Shortness of Breath Last Admin: 07/17/17 20:44 Dose: 3 ml Aspirin (Aspirin Chewable) 81 mg PO DAILY [facility] Last Admin: 07/23/17 10:26 Dose: 81 mg Bacitracin (Bacitracin) 1 ea TOP BID [facility] Last Admin: 07/23/17 19:53 Dose: Not Given Cilostazol (Pletal) 50 mg PO BID [facility] Last Admin: 07/23/17 19:59 Dose: Not Given Furosemide (Lasix) 40 mg PO 0800,1400 [facility] Last Admin: 07/23/17 14:16 Dose: 40 mg Levalbuterol HCl (Xopenex) 1.25 mg IH TIDRESP [facility] Last Admin: 07/23/17 21:15 Dose: 1.25 mg Metoprolol Tartrate (Lopressor) 25 mg PO BID [facility] Last Admin: 07/23/17 19:58 Dose: Not Given Pantoprazole Sodium (Protonix Ec Tab) 40 mg PO 0600 [facility] Last Admin: 07/23/17 07:39 Dose: 40 mg Potassium Chloride (K-Dur 20 Meq Er Tab) 20 meq PO BID [facility] Last Admin: 07/23/17 19:58 Dose: Not Given Sildenafil Citrate (Revatio) 20 mg PO TID [facility] Last Admin: 07/23/17 19:59 Dose: Not Given Sucralfate (Carafate Oral Susp) 1 gm PO 0630,1130,1630,2200 [facility] Last Admin: 07/23/17 21:49 Dose: 1 gm - Labs Labs: 07/18/17 06:45 07/23/17 07:00 PT 16.8 SECONDS (9.4-12.5) H 07/11/17 20:06 INR 1.46 (0.93-1.08) H 07/11/17 20:06 APTT 69.5 Seconds (25.1-36.5) H 07/14/17 09:40 - Constitutional Appears: No Acute Distress - Eye Exam Eye Exam: Normal appearance - ENT Exam ENT Exam: Mucous Membranes Moist - Respiratory Exam Respiratory Exam: Decreased Breath Sounds, NORMAL BREATHING PATTERN Additional comments: NC 2-3 l/min, CPAP/BIPAP at night - Cardiovascular Exam Cardiovascular Exam: +S1, +S2 - GI/Abdominal Exam GI & Abdominal Exam: Soft, Normal Bowel Sounds - Exam Additional comments: continent/urinal - Extremities Exam Extremities Exam: Normal Capillary Refill Additional comments: 3-4+ pedal edema - Neurological Exam Neurological Exam: Alert, Awake, Oriented x3 - Psychiatric Exam Psychiatric exam: Normal Affect, Normal Mood - Skin Skin Exam: Intact, Normal Color, Warm Assessment and Plan - Assessment and Plan (Free Text) Assessment: 57 year old male who was brought in to the ER due to non-responsiveness. Family found him facedown in the kitchen not responding. He was breathing with pulse. He went into cardiac arrest in the ER and ACLS protocol initiated. History of hypertension, right hip replacement.borderline troponin, post cath, non obstructive coronary artery disease,pulmonary hypertension, hypertension, obesity. Plan: Feeling okay, overall patient improved from baseline Denies shortness of breath Stable cardiac status Stable blood pressure and heart rate On ASA 81 mg daily,Lasix 40 mg BID,Lopressor 25 mg BID Revatio 20 mg TID Discharge planning Social service working on home BIPAP (insurance issues) Continue current medications Continue current treatment Physical therapy Will follow up Plan and treatment discussed with Dr. Atkinson
[2017-07-24] MEDS: Sucralfate 1 gm/10 ml Oral Susp UD PO SCH ×3 (06:30→16:47)
[2017-07-24] MEDS: Pantoprazole 40 mg EC Tab PO SCH (06:30)
[2017-07-24 07:33] VITALS: RESP 20
[2017-07-24] MEDS: Levalbuterol 1.25 MG/3 ML Inhal Soln UD IH SCH ×2 (07:37→13:24)
--- NOTE | 2017-07-24 07:47 | PN ---
DATE: 07/24/2017 PULMONARY NOTE SUBJECTIVE: The patient appears very comfortable this morning. He is not short of breath at rest. OBJECTIVE: VITAL SIGNS: Last temperature recorded was 98.1, pulse is 72, respirations 18, blood pressure 116/64. Oxygen saturation on nasal cannula is 96-99%. HEENT: Normocephalic, atraumatic. No JVD. CARDIOVASCULAR: Positive S1, S2. No S3 gallop. LUNGS: Clear bilaterally. EXTREMITIES: Less edema. No cyanosis, no clubbing. Calves are nontender to palpation. GASTROINTESTINAL: Abdomen is soft, nontender and nondistended. Bowel sounds are positive. SKIN: No acute rash. NEUROLOGIC: Exam limited at the present time. IMPRESSION: 1. Status post cardiac arrest. 2. Acute myocardial infarction. 3. Status post respiratory failure. 4. Chronic obstructive pulmonary disease. 5. Obstructive sleep apnea. 6. Pulmonary hypertension. PLAN: The patient appears very comfortable this morning. He is not short of breath at rest. He is currently wearing his BiPAP. He does state to feeling much better overall. On physical exam, his lungs remain clear. Oxygen saturation on nasal cannula is now 96-99%. I will continue with the current nebulizer treatments and aspiration precautions for now. The patient also remains on Revatio - for his pulmonary hypertension. I will discuss the case again with [facility] this morning - to see what services can be offered to the patient-- once he leaves here. I will also discuss the above with the attending physician later this morning. The clinical status of the patient is significantly improved - compared to the initial presentation. However, his future status/prognosis does remain guarded. Narayan Bone MD [facility]
--- NOTE | 2017-07-24 07:57 | CP.PCM.DIS ---
<Lisa Curry - Last Filed: 07/24/17 09:40> Provider - Provider Date of Admission: 07/11/17 21:15 Attending physician: Terry García MD Primary care physician: Jerome Swain MD Consults: Cardio: Dr. Atkinson ID: Dr. Tsang Pulm: Dr. Bone Neuro: Dr. Bermudez Time Spent in preparation of Discharge (in minutes): 55 Hospital Course - Lab Results Lab Results: Micro Results 07/13/17 16:26 Sputum Induced Gram Stain - Final 07/13/17 16:26 Sputum Induced Sputum Culture - Final NORMAL ORAL YANETH 07/12/17 23:13 Sputum Gram Stain - Final 07/12/17 23:13 Sputum Sputum Culture - Final NORMAL ORAL YANETH 07/12/17 04:01 Nose MRSA Culture (Admit) - Final MRSA NOT DETECTED 07/11/17 22:22 Urine,Catheterized Urine Culture - Final No Growth (<1,000 CFU/ML) Most Recent Lab Values WBC 10.8 10^3/ul (4.5-11.0) 07/18/17 06:45 RBC 4.19 10^6/uL (3.5-6.1) 07/18/17 06:45 Hgb 11.7 g/dL (14.0-18.0) L 07/18/17 06:45 Hct 37.1 % (42.0-52.0) L 07/18/17 06:45 MCV 88.5 fl (80.0-105.0) 07/18/17 06:45 MCH 27.9 pg (25.0-35.0) 07/18/17 06:45 MCHC 31.5 g/dl (31.0-37.0) 07/18/17 06:45 RDW 15.6 % (11.5-14.5) H 07/18/17 06:45 Plt Count 291 10^3/uL (120.0-450.0) 07/18/17 06:45 MPV 9.4 fl (7.0-11.0) 07/18/17 06:45 Gran % 72.6 % (50.0-68.0) H 07/18/17 06:45 Lymph % (Auto) 12.5 % (22.0-35.0) L 07/18/17 06:45 Frederick % (Auto) 9.3 % (1.0-6.0) H 07/18/17 06:45 Eos % (Auto) 5.4 % (1.5-5.0) H 07/18/17 06:45 Baso % (Auto) 0.2 % (0.0-3.0) 07/18/17 06:45 Gran # 7.86 (1.4-6.5) H 07/18/17 06:45 Lymph # (Auto) 1.4 (1.2-3.4) 07/18/17 06:45 Frederick # (Auto) 1.0 (0.1-0.6) H 07/18/17 06:45 Eos # (Auto) 0.6 (0.0-0.7) 07/18/17 06:45 Baso # (Auto) 0.02 K/mm3 (0.0-2.0) 07/18/17 06:45 PT 16.8 SECONDS (9.4-12.5) H 07/11/17 20:06 INR 1.46 (0.93-1.08) H 07/11/17 20:06 APTT 69.5 Seconds (25.1-36.5) H 07/14/17 09:40 pCO2 58 mm/Hg (35-45) H 07/17/17 17:35 pO2 50.0 mm/Hg (80-100) L 07/17/17 17:35 HCO3 44.2 mmol/L (21-28) H* 07/17/17 17:35 ABG pH 7.49 (7.35-7.45) H 07/17/17 17:35 ABG Total CO2 46.0 mmol.L (22-28) H 07/17/17 17:35 ABG O2 Saturation 91.3 % (95-98) L 07/17/17 17:35 ABG O2 Content 14.1 ML/dl (15-23) L 07/17/17 17:35 ABG Base Excess 18.1 mmol/L (-2.0-3.0) H 07/17/17 17:35 ABG Hemoglobin 11.4 g/dL (11.7-17.4) L 07/17/17 17:35 ABG Carboxyhemoglobin 2.7 % (0.5-1.5) H 07/17/17 17:35 POC ABG HHb (Measured) 8.4 % (0-5) H 07/17/17 17:35 ABG Methemoglobin 0.9 % (0.0-3.0) 07/17/17 17:35 ABG O2 Capacity 15.4 mL/dl (16-24) L 07/17/17 17:35 ABG Potassium 3.7 mmol/L (3.6-5.2) 07/12/17 05:40 VBG pH 7.25 (7.32-7.43) L 07/11/17 23:53 VBG pCO2 87.0 (40-60) H* 07/11/17 23:53 VBG HCO3 38.2 mmol/l (21-28) H 07/11/17 23:53 VBG Total CO2 40.9 mmol.L (22-28) H 07/11/17 23:53 VBG O2 Sat (Calc) 71.2 % (40-65) H 07/11/17 23:53 VBG Base Excess 7.6 mmol/L (0.0-2.0) H 07/11/17 23:53 VBG Potassium 4.6 mmol/L (3.6-5.2) 07/11/17 23:53 Hgb O2 Saturation 88.0 % (95.0-98.0) L 07/17/17 17:35 Sodium 143.0 mmol/L (132-148) 07/12/17 05:40 Chloride 106.0 mmol/L (98-107) 07/12/17 05:40 Glucose 82 mg/dl (75-110) 07/12/17 05:40 Lactate 1.1 mmol/L (0.7-2.1) 07/12/17 05:40 Mechanical Rate 16 07/11/17 22:09 FiO2 32.0 % 07/17/17 17:35 Tidal Volume 500 07/11/17 22:09 PEEP 5 07/11/17 22:09 Sodium 141 mmol/L (132-148) 07/23/17 07:00 Potassium 3.5 mmol/L (3.6-5.0) L 07/23/17 07:00 Chloride 96 mmol/L (98-107) L 07/23/17 07:00 Carbon Dioxide 38 mmol/L (21-33) H 07/23/17 07:00 Anion Gap 10 (10-20) 07/23/17 07:00 BUN 16 mg/dL (7-21) 07/23/17 07:00 Creatinine 0.9 mg/dl (0.8-1.5) 07/23/17 07:00 Est GFR ( Amer) > 60 07/23/17 07:00 Est GFR (Non-Af Amer) > 60 07/23/17 07:00 POC Glucose (mg/dL) 83 mg/dL (65-110) 07/24/17 06:57 Random Glucose 89 mg/dL (70-110) 07/23/17 07:00 Hemoglobin A1c 6.1 % (4.2-6.5) 07/13/17 05:20 Calcium 8.5 mg/dL (8.4-10.5) 07/23/17 07:00 Phosphorus 3.4 mg/dL (2.5-4.5) 07/18/17 06:45 Magnesium 2.1 mg/dL (1.7-2.2) 07/23/17 07:00 Total Bilirubin 0.4 mg/dL (0.2-1.3) 07/18/17 06:45 AST 56 U/L (17-59) 07/18/17 06:45 ALT 61 U/L (7-56) H 07/18/17 06:45 Alkaline Phosphatase 60 U/L (38-126) 07/18/17 06:45 Ammonia 59 umol/L (9-33) H 07/11/17 20:06 Lactate Dehydrogenase 1025 U/L (333-699) H 07/12/17 14:20 Total Creatine Kinase 172 U/L (35-230) 07/12/17 14:20 CK-MB (CK-2) 12.0 ng/mL (0.0-3.6) H 07/12/17 04:10 CK-MB (CK-2) % 3.9 % (2.5-3.0) H 07/12/17 04:10 Troponin I 0.85 ng/mL H* D 07/12/17 14:20 NT-Pro-B Natriuret Pep 316 pg/mL (0-450) 07/23/17 07:00 Total Protein 5.5 g/dL (5.8-8.3) L 07/18/17 06:45 Albumin 2.9 g/dL (3.0-4.8) L 07/18/17 06:45 Globulin 2.6 gm/dL 07/18/17 06:45 Albumin/Globulin Ratio 1.1 (1.1-1.8) 07/18/17 06:45 Triglycerides 105 mg/dL (35-160) 07/13/17 05:20 Cholesterol 114 mg/dL (130-200) L 07/13/17 05:20 LDL Cholesterol Direct 65 mg/dL (0-129) 07/13/17 05:20 HDL Cholesterol 30 mg/dL (29-60) 07/13/17 05:20 Procalcitonin 0.44 NG/ML (0.19-0.49) 07/13/17 13:29 TSH 3rd Generation 2.62 mIU/mL (0.46-4.68) 07/12/17 04:10 Arterial Blood Potassium 3.7 mmol/L (3.6-5.2) 07/12/17 05:40 Venous Blood Potassium 4.6 mmol/L (3.6-5.2) 07/11/17 23:53 Urine Color Yellow (YELLOW) 07/23/17 15: Urine Appearance Clear (CLEAR) 07/23/17 15: Urine pH 7.0 (4.7-8.0) 07/23/17 15: Ur Specific [place]oston 1.010 (1.005-1.035) 07/23/17 15: Urine Protein Negative mg/dL (<30 mg/dL) 07/23/17 15: Urine Glucose (UA) Negative mg/dL (NEGATIVE) 07/23/17 15: Urine Ketones Negative mg/dL (NEGATIVE) 07/23/17 15: Urine Blood Negative (NEGATIVE) 07/23/17 15: Urine Nitrate Negative (NEGATIVE) 07/23/17 15: Urine Bilirubin Negative (NEGATIVE) 07/23/17 15: Urine Urobilinogen 2.0 E.U./dL (<1 E.U./dL) H 07/23/17 15:29 Ur Leukocyte Esterase Negative Gabriel/uL (NEGATIVE) 07/23/17 15:29 Urine RBC Tntc /hpf (0-2) 07/11/17 22:48 Urine WBC 5 - 10 /hpf (0-6) 07/11/17 22:48 Ur Epithelial Cells 1 - 3 /hpf (0-5) 07/11/17 22:48 Urine Opiates Screen Negative (NEGATIVE) 07/11/17 22:22 Urine Methadone Screen Negative (NEGATIVE) 07/11/17 22:22 Ur Barbiturates Screen Negative (NEGATIVE) 07/11/17 22:22 Ur Phencyclidine Scrn Negative (NEGATIVE) 07/11/17 22:22 Ur Amphetamines Screen Negative (NEGATIVE) 07/11/17 22:22 U Benzodiazepines Scrn Negative (NEGATIVE) 07/11/17 22:22 U Oth Cocaine Metabols Negative (NEGATIVE) 07/11/17 22:22 U Cannabinoids Screen Negative (NEGATIVE) 07/11/17 22:22 Alcohol, Quantitative < 10 mg/dL (0-10) 07/12/17 04:10 Hepatitis A IgM Ab Negative (NEGATIVE) 07/11/17 20:06 Hep Bs Antigen Negative (NEGATIVE) 07/11/17 20:06 Hep B Core IgM Ab Negative (NEGATIVE) 07/11/17 20:06 Hepatitis C Antibody Negative (NEGATIVE) 07/11/17 20:06 HIV 1&2 Ag/Ab, 4th Gen Nonreactive (Nonreactive) 07/13/17 13:43 - Hospital Course Hospital Course: This is a 57yo M with past medical history mobid obesity and HTN who was admitted for s/p cardiac arrest with ROSC and respiratory failure intubation s/ p extubation. Patient was evaluated by Cardiology who did a cardiac cath. Cath showed non-obstructive CAD, but severe pulmonary HTN with RSVP 60-70. Echo was done which showed EF of 55% with dilated RV and RSVP of 26%. Patient was on Milrinone drip and weaned off. He remained hemodynamically stable during the rest of the stay and was started on Lasix with K-dur and Metoprolol as per cardiology. Neuro was consulted. Head CT was done which did now shoe acute pathology. MRI brain was done with also did not show acute CVA. Patient did not have any evidence of focal neurological deficits. He did have some episodes of delirium which can be secondary to his sleep apnea [facility] induced. Delirium resolved. ID saw the patient for community acquired pneumonia which he finished his course of antibiotics. Pulmonology was consulted for pulm HTN. It is believed to be secondary to obstructive sleep apnea. Patient has never had formal sleep study. He was placed on BiPap at night and did very well. He was also started on Sildenafil. Patient was noted to de-saturate on room air after ambulation from 95% to <85% on multiple occasions. He will need home oxygen, but has no outpatient insurance at this time. Patient was given prescription for home oxygen and will need to follow up with Pulm as outpatient for sleep study and CPAP. He was also counseled on the importance of smoking cessation and weight loss to improve his respiratory status and overall health. Physical therapy recommended subacute rehab, but patient unable to go due to insurance issues. He was given prescription for rolling walker as well as outpatient PT 3x per week for gait instability. Discussed d/c plan with patient. Patient verbalized and agreed with discharge plan. New meds: 1. Ventolin inhaler prn 2. ASA 81mg daily 3. Lasix 40mg BID 4. K-dur 20meq BID 5. Sildenafil 20mg TID 6. Lopressor 25mg BID - Date & Time of H&P Date of H&P: 07/12/17 Time of H&P: 08:00 Discharge Exam - Head Exam Head Exam: NORMAL INSPECTION - Eye Exam Eye Exam: Normal appearance, PERRL Pupil Exam: NORMAL ACCOMODATION - ENT Exam ENT Exam: Mucous Membranes Moist - Respiratory Exam Respiratory Exam: Clear to PA & Lateral, NORMAL BREATHING PATTERN, UNREMARKABLE. absent: Rhonchi, Wheezes - Cardiovascular Exam Cardiovascular Exam: REGULAR RHYTHM, +S1, +S2. absent: Gallop, Rubs, Systolic Murmur - GI/Abdominal Exam GI & Abdominal Exam: Normal Bowel Sounds, Soft, Unremarkable. absent: Rebound, Rigid, Tenderness - Extremities Exam Extremities exam: pedal edema (+ 3 bilaterally ) - Neurological Exam Neurological exam: Alert, CN II-XII Intact, Oriented x3 - Psychiatric Exam Psychiatric exam: Normal Affect, Normal Mood - Skin Skin Exam: Dry, Warm Discharge Plan - Discharge Medications Prescriptions: Albuterol HFA [Ventolin HFA 90 mcg/actuation (8 g)] 1 puff IH DAILY PRN #1 inhaler PRN Reason: Shortness Of Breath Aspirin [Aspirin Chewable] 81 mg PO DAILY #30 chew Furosemide [Lasix] 40 mg PO 0800,1400 #60 tab Metoprolol Tartrate [Lopressor] 25 mg PO BID #60 tab Potassium Chloride [K-Dur 20 mEq ER Tab] 20 meq PO BID #60 tab Sildenafil [Revatio] 20 mg PO TID #90 tab - Follow Up Plan Condition: GUARDED Disposition: HOME/ ROUTINE Instructions: Heart Failure, Adult, Sleep Apnea (DC), Pulmonary Hypertension, Adult (DC) Additional Instructions: 1. Take medication as prescribed 2. Follow up with Dr. Bone for outpatient sleep study. 3. Follow up with primary medical doctor in 1 week. 4. Physical therapy as outpatient 5. Recommend weight loss with diet and exercise. If symptoms worsen, please go to nearest emergency department. Referrals: Narayan Bone MD [Staff Provider] - Jerome Swain MD [Primary Care Provider] - Follow up with primary <Terry García - Last Filed: 07/24/17 18:01> Provider - Provider Date of Admission: 07/11/17 21:15 Attending physician: Terry García MD Primary care physician: Jerome Swain MD Hospital Course - Lab Results Lab Results: Micro Results 07/23/17 15:30 Urine,Clean Catch Urine Culture - Final No Growth (<1,000 CFU/ML) 07/13/17 16:26 Sputum Induced Gram Stain - Final 07/13/17 16:26 Sputum Induced Sputum Culture - Final NORMAL ORAL YANETH 07/12/17 23:13 Sputum Gram Stain - Final 07/12/17 23:13 Sputum Sputum Culture - Final NORMAL ORAL YANETH 07/12/17 04:01 Nose MRSA Culture (Admit) - Final MRSA NOT DETECTED 07/11/17 22:22 Urine,Catheterized Urine Culture - Final No Growth (<1,000 CFU/ML) Most Recent Lab Values WBC 10.8 10^3/ul (4.5-11.0) 07/18/17 06:45 RBC 4.19 10^6/uL (3.5-6.1) 07/18/17 06:45 Hgb 11.7 g/dL (14.0-18.0) L 07/18/17 06:45 Hct 37.1 % (42.0-52.0) L 07/18/17 06:45 MCV 88.5 fl (80.0-105.0) 07/18/17 06:45 MCH 27.9 pg (25.0-35.0) 07/18/17 06:45 MCHC 31.5 g/dl (31.0-37.0) 07/18/17 06:45 RDW 15.6 % (11.5-14.5) H 07/18/17 06:45 Plt Count 291 10^3/uL (120.0-450.0) 07/18/17 06:45 MPV 9.4 fl (7.0-11.0) 07/18/17 06:45 Gran % 72.6 % (50.0-68.0) H 07/18/17 06:45 Lymph % (Auto) 12.5 % (22.0-35.0) L 07/18/17 06:45 Frederick % (Auto) 9.3 % (1.0-6.0) H 07/18/17 06:45 Eos % (Auto) 5.4 % (1.5-5.0) H 07/18/17 06:45 Baso % (Auto) 0.2 % (0.0-3.0) 07/18/17 06:45 Gran # 7.86 (1.4-6.5) H 07/18/17 06:45 Lymph # (Auto) 1.4 (1.2-3.4) 07/18/17 06:45 Frederick # (Auto) 1.0 (0.1-0.6) H 07/18/17 06:45 Eos # (Auto) 0.6 (0.0-0.7) 07/18/17 06:45 Baso # (Auto) 0.02 K/mm3 (0.0-2.0) 07/18/17 06:45 PT 16.8 SECONDS (9.4-12.5) H 07/11/17 20:06 INR 1.46 (0.93-1.08) H 07/11/17 20:06 APTT 69.5 Seconds (25.1-36.5) H 07/14/17 09:40 pCO2 58 mm/Hg (35-45) H 07/17/17 17:35 pO2 50.0 mm/Hg (80-100) L 07/17/17 17:35 HCO3 44.2 mmol/L (21-28) H* 07/17/17 17:35 ABG pH 7.49 (7.35-7.45) H 07/17/17 17:35 ABG Total CO2 46.0 mmol.L (22-28) H 07/17/17 17:35 ABG O2 Saturation 91.3 % (95-98) L 07/17/17 17:35 ABG O2 Content 14.1 ML/dl (15-23) L 07/17/17 17:35 ABG Base Excess 18.1 mmol/L (-2.0-3.0) H 07/17/17 17:35 ABG Hemoglobin 11.4 g/dL (11.7-17.4) L 07/17/17 17:35 ABG Carboxyhemoglobin 2.7 % (0.5-1.5) H 07/17/17 17:35 POC ABG HHb (Measured) 8.4 % (0-5) H 07/17/17 17:35 ABG Methemoglobin 0.9 % (0.0-3.0) 07/17/17 17:35 ABG O2 Capacity 15.4 mL/dl (16-24) L 07/17/17 17:35 ABG Potassium 3.7 mmol/L (3.6-5.2) 07/12/17 05:40 VBG pH 7.25 (7.32-7.43) L 07/11/17 23:53 VBG pCO2 87.0 (40-60) H* 07/11/17 23:53 VBG HCO3 38.2 mmol/l (21-28) H 07/11/17 23:53 VBG Total CO2 40.9 mmol.L (22-28) H 07/11/17 23:53 VBG O2 Sat (Calc) 71.2 % (40-65) H 07/11/17 23:53 VBG Base Excess 7.6 mmol/L (0.0-2.0) H 07/11/17 23:53 VBG Potassium 4.6 mmol/L (3.6-5.2) 07/11/17 23:53 Hgb O2 Saturation 88.0 % (95.0-98.0) L 07/17/17 17:35 Sodium 143.0 mmol/L (132-148) 07/12/17 05:40 Chloride 106.0 mmol/L (98-107) 07/12/17 05:40 Glucose 82 mg/dl (75-110) 07/12/17 05:40 Lactate 1.1 mmol/L (0.7-2.1) 07/12/17 05:40 Mechanical Rate 16 07/11/17 22:09 FiO2 32.0 % 07/17/17 17:35 Tidal Volume 500 07/11/17 22:09 PEEP 5 07/11/17 22:09 Sodium 143 mmol/L (132-148) 07/24/17 07:30 Potassium 4.1 mmol/L (3.6-5.0) 07/24/17 07:30 Chloride 97 mmol/L (98-107) L 07/24/17 07:30 Carbon Dioxide 38 mmol/L (21-33) H 07/24/17 07:30 Anion Gap 13 (10-20) 07/24/17 07:30 BUN 15 mg/dL (7-21) 07/24/17 07:30 Creatinine 0.8 mg/dl (0.8-1.5) 07/24/17 07:30 Est GFR ( Amer) > 60 07/24/17 07:30 Est GFR (Non-Af Amer) > 60 07/24/17 07:30 POC Glucose (mg/dL) 104 mg/dL (65-110) 07/24/17 16:14 Random Glucose 93 mg/dL (70-110) 07/24/17 07:30 Hemoglobin A1c 6.1 % (4.2-6.5) 07/13/17 05:20 Calcium 9.3 mg/dL (8.4-10.5) 07/24/17 07:30 Phosphorus 3.4 mg/dL (2.5-4.5) 07/18/17 06:45 Magnesium 2.1 mg/dL (1.7-2.2) 07/23/17 07:00 Total Bilirubin 0.7 mg/dL (0.2-1.3) 07/24/17 07:30 AST 43 U/L (17-59) 07/24/17 07:30 ALT 60 U/L (7-56) H 07/24/17 07:30 Alkaline Phosphatase 132 U/L (38-126) H D 07/24/17 07:30 Ammonia 59 umol/L (9-33) H 07/11/17 20:06 Lactate Dehydrogenase 1025 U/L (333-699) H 07/12/17 14:20 Total Creatine Kinase 172 U/L (35-230) 07/12/17 14:20 CK-MB (CK-2) 12.0 ng/mL (0.0-3.6) H 07/12/17 04:10 CK-MB (CK-2) % 3.9 % (2.5-3.0) H 07/12/17 04:10 Troponin I 0.85 ng/mL H* D 07/12/17 14:20 NT-Pro-B Natriuret Pep 316 pg/mL (0-450) 07/23/17 07:00 Total Protein 6.8 g/dL (5.8-8.3) 07/24/17 07:30 Albumin 3.8 g/dL (3.0-4.8) 07/24/17 07:30 Globulin 3.0 gm/dL 07/24/17 07:30 Albumin/Globulin Ratio 1.3 (1.1-1.8) 07/24/17 07:30 Triglycerides 105 mg/dL (35-160) 07/13/17 05:20 Cholesterol 114 mg/dL (130-200) L 07/13/17 05:20 LDL Cholesterol Direct 65 mg/dL (0-129) 07/13/17 05:20 HDL Cholesterol 30 mg/dL (29-60) 07/13/17 05:20 Procalcitonin 0.44 NG/ML (0.19-0.49) 07/13/17 13:29 TSH 3rd Generation 2.62 mIU/mL (0.46-4.68) 07/12/17 04:10 Arterial Blood Potassium 3.7 mmol/L (3.6-5.2) 07/12/17 05:40 Venous Blood Potassium 4.6 mmol/L (3.6-5.2) 07/11/17 23:53 Urine Color Yellow (YELLOW) 07/23/17 15:29 Urine Appearance Clear (CLEAR) 07/23/17 15:29 Urine pH 7.0 (4.7-8.0) 07/23/17 15:29 Ur Specific [place] 1.010 (1.005-1.035) 07/23/17 15:29 Urine Protein Negative mg/dL (<30 mg/dL) 07/23/17 15:29 Urine Glucose (UA) Negative mg/dL (NEGATIVE) 07/23/17 15:29 Urine Ketones Negative mg/dL (NEGATIVE) 07/23/17 15: Urine Blood Negative (NEGATIVE) 07/23/17 15:29 Urine Nitrate Negative (NEGATIVE) 07/23/17 15: Urine Bilirubin Negative (NEGATIVE) 07/23/17 15: Urine Urobilinogen 2.0 E.U./dL (<1 E.U./dL) H 07/23/17 15:29 Ur Leukocyte Esterase Negative Gabriel/uL (NEGATIVE) 07/23/17 15:29 Urine RBC Tntc /hpf (0-2) 07/11/17 22:48 Urine WBC 5 - 10 /hpf (0-6) 07/11/17 22:48 Ur Epithelial Cells 1 - 3 /hpf (0-5) 07/11/17 22:48 Urine Opiates Screen Negative (NEGATIVE) 07/11/17 22:22 Urine Methadone Screen Negative (NEGATIVE) 07/11/17 22:22 Ur Barbiturates Screen Negative (NEGATIVE) 07/11/17 22:22 Ur Phencyclidine Scrn Negative (NEGATIVE) 07/11/17 22:22 Ur Amphetamines Screen Negative (NEGATIVE) 07/11/17 22:22 U Benzodiazepines Scrn Negative (NEGATIVE) 07/11/17 22:22 U Oth Cocaine Metabols Negative (NEGATIVE) 07/11/17 22:22 U Cannabinoids Screen Negative (NEGATIVE) 07/11/17 22:22 Alcohol, Quantitative < 10 mg/dL (0-10) 07/12/17 04:10 Hepatitis A IgM Ab Negative (NEGATIVE) 07/11/17 20:06 Hep Bs Antigen Negative (NEGATIVE) 07/11/17 20:06 Hep B Core IgM Ab Negative (NEGATIVE) 07/11/17 20:06 Hepatitis C Antibody Negative (NEGATIVE) 07/11/17 20:06 HIV 1&2 Ag/Ab, 4th Gen Nonreactive (Nonreactive) 07/13/17 13:43 - Hospital Course Hospital Course: Pt seen and examined by me. I have reviewed the note of the outside medical sales representative and agree with it. Labs and meds have been reviewed. I have spoken to Marysol,the pt's sister and answered questions. She was advised to call again if she had any other questions. I spoke with the pt about his Pulm HTN and the need to f/u with the specialists. He is aware to take his meds and f/u. He will continue with Lasix. Spoke with Pharmacy to clarify the need for Sildenafil.
[2017-07-24 08:04] LABS: ALB/GLOB RATIO 1.3 (1.1-1.8); ALBUMIN 3.8 g/dL (3.0-4.8); ALT/SGPT 60 U/L (7-56); AST/SGOT 43 U/L (17-59); BLOOD UREA NITROGEN 15 mg/dL (7-21); CALCIUM 9.3 mg/dL (8.4-10.5); GFR AFRICAN-AMERICAN > 60; GFR NON-AFRICAN AMERICAN > 60
[2017-07-24] MEDS: Bacitracin 500 Units/gm Oint Foilpak UD TOP SCH ×2 (09:34→17:42)
[2017-07-24] MEDS: Potassium Chloride 20 mEq ER Tab PO SCH ×2 (09:35→17:41)
[2017-07-24] MEDS: Sildenafil 20 MG TAB PO SCH ×3 (09:36→17:40)
--- NOTE | 2017-07-24 11:38 | CP.PCM.PN ---
Subjective - Date & Time of Evaluation Date of Evaluation: 07/24/17 Time of Evaluation: 10:15 - Subjective Subjective: Patient is still having occasional shortness of breath, still with swollen lower extremities, no fevers, no diarrhea. Objective - Vital Signs/Intake and Output Vital Signs (last 24 hours): Temp Pulse Resp BP Pulse Ox 98.4 F 75 20 129/75 94 L 07/24/17 06:00 07/24/17 06:00 07/24/17 06:00 07/24/17 06:00 07/24/17 06:00 Intake and Output: 07/24/17 07/24/17 06:59 18:59 Intake Total 660 Output Total 400 Balance 260 - Medications Medications: Current Medications Albuterol/Ipratropium (Duoneb 3 Mg/0.5 Mg (3 Ml) Ud) 3 ml IH Q2H PRN PRN Reason: Shortness of Breath Last Admin: 07/17/17 20:44 Dose: 3 ml Aspirin (Aspirin Chewable) 81 mg PO DAILY [facility] Last Admin: 07/23/17 10:26 Dose: 81 mg Bacitracin (Bacitracin) 1 ea TOP BID [facility] Last Admin: 07/23/17 19:53 Dose: Not Given Furosemide (Lasix) 40 mg PO 0800,1400 [facility] Last Admin: 07/23/17 14:16 Dose: 40 mg Levalbuterol HCl (Xopenex) 1.25 mg IH TIDRESP [facility] Last Admin: 07/24/17 07:37 Dose: 1.25 mg Metoprolol Tartrate (Lopressor) 25 mg PO BID [facility] Last Admin: 07/23/17 19:58 Dose: Not Given Pantoprazole Sodium (Protonix Ec Tab) 40 mg PO 0600 [facility] Last Admin: 07/24/17 06:30 Dose: 40 mg Potassium Chloride (K-Dur 20 Meq Er Tab) 20 meq PO BID [facility] Last Admin: 07/23/17 19:58 Dose: Not Given Sildenafil Citrate (Revatio) 20 mg PO TID [facility] Last Admin: 07/23/17 19:59 Dose: Not Given Sucralfate (Carafate Oral Susp) 1 gm PO 0630,1130,1630,2200 [facility] Last Admin: 07/24/17 06:30 Dose: 1 gm - Labs Labs: 07/18/17 06:45 07/24/17 07:30 PT 16.8 SECONDS (9.4-12.5) H 07/11/17 20:06 INR 1.46 (0.93-1.08) H 07/11/17 20:06 APTT 69.5 Seconds (25.1-36.5) H 07/14/17 09:40 - Constitutional Appears: Non-toxic, Chronically Ill - Head Exam Head Exam: NORMAL INSPECTION - ENT Exam ENT Exam: Mucous Membranes Moist - Neck Exam Neck Exam: absent: Meningismus - Respiratory Exam Respiratory Exam: Decreased Breath Sounds - Cardiovascular Exam Cardiovascular Exam: +S1, +S2 - GI/Abdominal Exam GI & Abdominal Exam: Soft. absent: Tenderness - Extremities Exam Extremities Exam: Pedal Edema Assessment and Plan - Assessment and Plan (Free Text) Plan: Assessment S/P systemic Inflammatory Response syndrome, S/P VDRF and S/P acute encephalopathy after cardiorespiratory arrest, S/P severe sepsis from pneumonia , clinically improved, on top of CHF from acute SD S/P PCI HTN morbid obesity with BMI 45 S/P right hip replacement Plan S/P 7 days of Doxycycline - will continue monitor clinically off antibiotics since he is at risk for nosocomial infections while the patient is in the hospital
[2017-07-24 14:46] VITALS: BP 110/73
[2017-07-24 15:31] VITALS: PULSE 68; TEMP 98.8; O2SAT 92
== END 2017-07-24 19:20 | disposition home or self-care (01) | DRG 584 ==
LOC: ED 19:37 → ERH 21:15 → ICU 07-12 02:48 → 2RSO 07-17 19:43 → 5RNO 07-20 21:07
PROVIDERS: ADMIT Internal Medicine Nephrology; ATTEND Internal Medicine Nephrology
PROC: 0BH17EZ Insertion of Endotracheal Airway into Trachea, Via Natural or Artificial Opening (ICD-10-PCS; 2017-07-11)
PROC: 5A1935Z Respiratory Ventilation, Less than 24 Consecutive Hours (ICD-10-PCS; principal; 2017-07-12)
PROC: 5A09557 Assistance with Respiratory Ventilation, Greater than 96 Consecutive Hours, Continuous Positive Airway Pressure (ICD-10-PCS; 2017-07-12)
PROC: 4A023N8 Measurement of Cardiac Sampling and Pressure, Bilateral, Percutaneous Approach (ICD-10-PCS; 2017-07-13)
PROC: B211YZZ Fluoroscopy of Multiple Coronary Arteries using Other Contrast (ICD-10-PCS; 2017-07-13)
PROC: B215YZZ Fluoroscopy of Left Heart using Other Contrast (ICD-10-PCS; 2017-07-13)
PROC: 3E0F7GC Introduction of Other Therapeutic Substance into Respiratory Tract, Via Natural or Artificial Opening (ICD-10-PCS; 2017-07-13)
DX: A41.9 Sepsis, unspecified organism (principal); R57.0 Cardiogenic shock; J96.01 Acute respiratory failure with hypoxia; I21.4 Non-ST elevation (NSTEMI) myocardial infarction; J18.9 Pneumonia, unspecified organism; I50.30 Unspecified diastolic (congestive) heart failure; E87.6 Hypokalemia; E87.2 Acidosis; J44.1 Chronic obstructive pulmonary disease with (acute) exacerbation; J44.0 Chronic obstructive pulmonary disease with (acute) lower respiratory infection; I11.0 Hypertensive heart disease with heart failure; E46 Unspecified protein-calorie malnutrition; G93.41 Metabolic encephalopathy; Z68.42 Body mass index [BMI] 45.0-49.9, adult; I25.10 Atherosclerotic heart disease of native coronary artery without angina pectoris; I27.29 Other secondary pulmonary hypertension; R65.20 Severe sepsis without septic shock; E66.01 Morbid (severe) obesity due to excess calories; G47.33 Obstructive sleep apnea (adult) (pediatric); N28.1 Cyst of kidney, acquired; F17.210 Nicotine dependence, cigarettes, uncomplicated; Z91.14 Patient's other noncompliance with medication regimen; Z96.641 Presence of right artificial hip joint

== ENCOUNTER 2017-12-11 16:01 | Emergency (ER) | payer MEDICAID, OTHER ==
[2017-12-11 17:07] VITALS: RESP 18; TEMP 98
--- NOTE | 2017-12-11 17:17 | ED PDOC ---
Arrival/HPI - General Time Seen by Provider: 12/11/17 16:43 Historian: Patient - History of Present Illness Narrative History of Present Illness (Text): 12/11/17 17:00 A 57 year old male, whose past medical history includes congestive heart failure, Hypertension, chronic back pain (no change in pain severity), and right hip replacement (3-4 years ago), presents to the emergency department complaining of left anterior lateral rib pain s/p trip and fall 3 days ago. Patient reports 3 days ago, he went to go use the bathroom in his home, and resulted in tripping and falling. He states landing on his left anterior lateral rib on the floor. Notse he saw orthopedic physician Dr. Marcelino Gonzalez for the pain, and Dr. Gonzalez directed patient to go visit the Emergency room. Patient denies any head trauma, abdominal pain, nausea, vomiting, shortness of breath, neck pain, or any other complaints at this time. No PMD Associated Symptoms (Text): 12/11/17 17:46 Got up to use the bathroom 3 days ago and had a mechanical fall injuring his left anterior lateral ribs. No dyspnea. No abdominal pain nausea or vomiting. No other injury or trauma. Was seen by his orthopedist today and directed to the emergency department. Past Medical History - Provider Review Nursing Documentation Reviewed: Yes - Infectious Disease Hx of Infectious Diseases: None - Cardiac Hx Cardiac Disorders: Yes Hx Congestive Heart Failure: Yes (BNP on admission 3910.) Hx Hypertension: Yes (As per sister.) - Pulmonary Hx Respiratory Disorders: (Unknown at present.) Hx Asthma: (Unknown at present.) Hx Bronchitis: (Unknown at present.) Hx Chronic Obstructive Pulmonary Disease (COPD): (Unknown at present.) Hx Emphysema: (Unknown at present.) Hx Pneumonia: (Unknown at present.) Hx Respiratory Aspiration: (Unknown at present.) Hx Respiratory Tract Infection: (Unknown at present.) Hx Sleep Apnea: (Unknown at present.) Hx Tuberculosis: (Unknown at present.) - Neurological Hx Neurological Disorder: (Unknown at present.) Hx Alzheimer's Disease: (Unknown at present.) HX Cerebrovascular Accident: (Unknown at present.) Hx Dementia: (Unknown at present.) Hx Dizziness: (Unknown at present.) Hx Meningitis: (Unknown at present.) Hx Migraine: (Unknown at present.) Hx Parkinson's Disease: (Unknown at present.) Hx Seizures: (Unknown at present.) Hx Transient Ischemic Attacks (TIA): (Unknown at present.) - HEENT Hx HEENT Disorder: (Unknown at present.) Hx Blind: (Unknown at present.) Hx Cataracts: (Unknown at present.) Hx Deafness: (Unknown at present.) Hx Difficulty Chewing: (Unknown at present.) Hx Epistaxis: (Unknown at present.) Hx Glaucoma: (Unknown at present.) Hx Macular Degeneration: (Unknown at present.) - Renal Hx Renal Failure: Yes (Pt with elevated BUN on admission.) - Endocrine/Metabolic Hx Endocrine Disorders: (Unknown at present.) Hx Adrenal Cancer: (Unknown at present.) Hx Diabetes Insipidus: (Unknown at present.) Hx Diabetes Mellitus Type 1: (Unknown at present.) Hx Diabetes Mellitus Type 2: (Unknown at present.) Hx Hyperthyroidism: (Unknown at present.) Hx Hypothyroidism: (Unknown at present.) Hx Systemic Lupus Erythematosus: (Unknown at present.) - Hematological/Oncological Hx Blood Disorders: (Unknown at present.) Hx AIDS: (Unknown at present.) Hx Anemia: (Unknown at present.) Hx Cancer: (Unknown at present.) Hx Chemotherapy: (Unknown at present.) Hx Cirrhosis: (Unknown at present.) Hx Hemophilia: (Unknown at present.) Hx Hepatitis A: (Unknown at present.) Hx Hepatitis B: (Unknown at present.) Hx Hepatitis C: (Unknown at present.) Hx Metastasis: (Unknown at present.) Hx Shingles: (Unknown at present.) Hx Sickle Cell Disease: (Unknown at present.) Hx Unexplained Bleeding: (Unknown at present.) - Integumentary Hx Dermatological Disorder: Yes (Reddened fungal-like rash noted to groin region.) - Musculoskeletal/Rheumatological Hx Musculoskeletal Disorders: Yes Hx Falls: Yes Hx Fractures: (Unknown at present.) Hx Unsteady Gait: Yes (Uses a cane.) - Gastrointestinal Hx Gastrointestinal Disorders: (Unknown at present.) Hx Colostomy: (Unknown at present.) Hx Crohn's Disease: (Unknown at present.) Hx Diverticulitis: (Unknown at present.) Hx Gall Bladder Disease: (Unknown at present.) Hx Gastroesophageal Reflux: (Unknown at present.) Hx Ileostomy: (Unknown at present.) Hx Liver Failure: (Unknown at present.) Hx Pancreatitis: (Unknown at present.) HX Swallowing Problems: (Unknown at present.) - Genitourinary/Gynecological Hx Genitourinary Disorders: (Unknown at present.) Hx Hematuria: (Unknown at present.) Hx Incontinence: (Unknown at present.) Hx Prostate Problems: (Unknown at present.) Hx Sexually Transmitted Diseases: (Unknown at present.) Hx Urinary Tract Infection: (Unknown at present.) - Psychiatric Hx Substance Use: No - Surgical History Hx Appendectomy: Yes Hx Joint Replacement: Yes (Rt hip replacement 3-4 years ago.) Family/Social History - Physician Review Nursing Documentation Reviewed: Yes Family/Social History: No Known Family HX Smoking Status: Former Smoker Hx Alcohol Use: No Hx Substance Use: No Allergies/Home Meds Allergies/Adverse Reactions: Allergies amoxicillin Allergy (Verified 07/11/17 20:04) SWELLING Review of Systems - Physician Review All systems were reviewed & negative as marked: Yes - Review of Systems Constitutional: absent: Other (no head trauma) Respiratory: absent: SOB Cardiovascular: absent: Chest Pain, Palpitations, Syncope Gastrointestinal: absent: Abdominal Pain, Nausea, Vomiting Musculoskeletal: Back Pain (chronic, no different from usual). absent: Neck Pain Physical Exam Vital Signs Reviewed: Yes Vital Signs Temp Pulse Resp BP 12/11/17 16:51 98.0 F 78 18 133/91 H Temperature: Afebrile Blood Pressure: Normal Pulse: Regular Respiratory Rate: Normal Appearance: Positive for: Well-Appearing, Non-Toxic, Comfortable, Uncomfortable, Other (obese) Pain Distress: Mild Mental Status: Positive for: Alert and Oriented X 3 - Systems Exam Head: Present: Atraumatic, Normocephalic Pupils: Present: PERRL Extroacular Muscles: Present: EOMI Conjunctiva: Present: Normal Mouth: Present: Moist Mucous Membranes Neck: Present: Normal Range of Motion Respiratory/Chest: Present: Decreased Breath Sounds, Tender to Palpation, Other (mild left lower anterior ribs, no crepitus). No: Respiratory Distress, Accessory Muscle Use, Wheezes, Rales, Retracting, Rhonchi, Tachypneic Cardiovascular: Present: Regular Rate and Rhythm, Normal S1, S2. No: Murmurs Abdomen: Present: Other (Abdomen is soft and nontender). No: Tenderness, Distention, Peritoneal Signs, Rebound, Guarding Back: Present: Normal Inspection Upper Extremity: Present: Normal Inspection. No: Cyanosis, Edema Lower Extremity: Present: Normal Inspection. No: Edema Neurological: Present: GCS=15, CN II-XII Intact, Speech Normal Skin: Present: Warm, Dry, Normal Color. No: Rashes Psychiatric: Present: Alert, Oriented x 3, Normal Insight, Normal Concentration Medical Decision Making ED Course and Treatment: 12/11/17 17:08 Impression: 57 year old male with left rib pain s/p trip and fall. Plan: -- Left Rib X-Ray -- Incentive Spirometer -- Reassess and disposition Prior Visits: Notes and results from previous visits were reviewed. Patient was last seen here in the emergency department on 07/11/2017 for AMS. Patient was admitted with diagnosis of Cardiopulmonary arrest with successful resuscitation, Sepsis. Progress Notes: 12/11/2017 18:19 Left Rib X-Ray IMPRESSION: Unremarkable radiographs of the chest and left ribs. No left rib fracture. Dictator: Kishore Goldberg MD - RAD Interpretation Radiology Orders: 12/11/17 16:57 RIBS LEFT & PA CHEST [RAD] Stat X-ray ribs and chest as read by the radiologist shows no fracture dislocation or pneumothorax. Injection Wax Molder: Radiologist - Scribe Statement The provider has reviewed the documentation as recorded by the Dawson Comer Provider Scribe Provider Scribe Attestation: All medical record entries made by the Scribe were at my direction and personally dictated by me. I have reviewed the chart and agree that the record accurately reflects my personal performance of the history, physical exam, medical decision making, and the department course for this patient. I have also personally directed, reviewed, and agree with the discharge instructions and disposition. Disposition/Present on Arrival - Present on Arrival Any Indicators Present on Arrival: No History of DVT/PE: No History of Uncontrolled Diabetes: No Urinary Catheter: No History of Decub. Ulcer: No History Surgical Site Infection Following: None - Disposition Have Diagnosis and Disposition been Completed?: Yes Diagnosis: Chest wall contusion Disposition: HOME/ ROUTINE Disposition Time: 18:22 Patient Plan: Discharge Patient Problems: Current Active Problems Problem Status Onset Chest wall contusion Acute Condition: GOOD Discharge Instructions (ExitCare): Contusion (DC), Bruised Rib (DC) Additional Instructions: Incentive spirometer. Tylenol or Advil as directed on bottle as needed. Follow- up with PMD. Follow up in ER as needed.
[2017-12-11 17:29] VITALS: BMI 37.3
[2017-12-11 18:14] VITALS: BP 114/60; PULSE 91; O2SAT 99
--- NOTE | 2017-12-11 18:21 | RAD ---
Date of service: 12/11/2017 PROCEDURE: Radiographs of the Chest and Left Ribs. HISTORY: trauma COMPARISON: None available. TECHNIQUE: Frontal radiograph of the chest and multiple oblique radiographs of the left ribs were obtained. FINDINGS: LEFT RIBS: No fracture or focal lesion visualized. LUNGS: Clear. PLEURA: No pneumothorax or pleural fluid. CARDIOVASCULAR: Normal sized heart. No pulmonary vascular congestion. OTHER FINDINGS: None. IMPRESSION: Unremarkable radiographs of the chest and left ribs. No left rib fracture.
== END 2017-12-11 18:56 | disposition home or self-care (01) ==
LOC: ED 16:01
DX: S20.212D Contusion of left front wall of thorax, subsequent encounter (principal); W01.0XXD Fall on same level from slipping, tripping and stumbling without subsequent striking against object, subsequent encounter